=== PATIENT | female | born 1945 | race Hispanic/Latino ===

== ENCOUNTER 2017-09-30 13:25 | Observation (INO) | payer OTHER ==
[~2017-09-30] VITALS: Ht 157.5 cm; Wt 66.9 kg
[~2017-09-30 13:25] MED LIST: AMOXICILLIN250 MG PO; ATORVASTATIN CA10 MG PO; FERROUS SULFAT325 MG PO; FUROSEMIDE40 MG PO; GLIMEPIRIDE4 MG PO; HUMULIN R100 UNIT/2 SQ; HYDRALAZINE HCL25 MG PO; IRON18 MG; LANTUS 3ML100 UNITS/ SQ; LEVEMIR100 UNIT/1 SQ; LEVOTHYROXINE50 MCG PO; LISINOPRIL5 MG PO; LOPRESSOR25 MG PO; SODIUM BICARBO650 MG PO; ULTRAM50 MG PO; VITAMIN D1000 UNI1 PO; VITAMIN D35000 UNIT PO; WARFARIN SODIUM1 MG PO; WARFARIN SODIUM3 MG PO; Z.0.COUMADIN5 MG PO; Z.0.FENOFIBRATE160 M PO; Z.0.GLUCOPHAGE500 MG PO; Z.0.HUMULIN N100 UNI SC; Z.0.LISINOPRIL5 MG PO; Z.0.NORVASC2.5 MG PO; Z.0.SIMVASTATIN20 MG PO; [UNRECOGNIZED DRUG - OTHER] PO
--- OUTSIDE RECORDS SUMMARY | 2017-09-30 13:27 | XMS REPORT ---
Author Author [facility] Address Unknown Phone Unavailable Care Team Providers Care Nail Galvanizer Name Role Phone ANDRÉS WINTER Unavailable Unavailable Problems This patient has no known problems. Allergies, Adverse Reactions, Alerts This patient has no known allergies or adverse reactions. Medications This patient has no known medications. Results Test Description Test Time Test Comments Text Results Atomic Results Result Comments US RENAL RETROPERITONEAL COMP [place] [address] Patient Name: UNIQUE ABRAMS MR #: [id number] : 1945 Age/Sex: 72/F Req #: [id number] Adm Physician: ANDRÉS WINTER MD Ordered by: SALMA FELTON, TETE FELTON Report #: [id number] Location: [facility]/SURG2 Room/Bed: [facility] Procedure: [id number] US/US RENAL RETROPERITONEAL COMP Exam Date: Exam Time: REPORT STATUS: Signed PROCEDURE: US RETROPERITONEAL ( KIDNEY ). COMPARISON: CT of the abdomen from 08/30/2017 INDICATIONS: LEFT KIDNEY PAIN TECHNIQUE: Hester- scale and color sonographic images of the bilateral kidneys and bladder where obtained in transverse and longitudinal planes. FINDINGS: RIGHT KIDNEY: 8.3 cm, cortex 1.5 cm Cysts: None Solid masses: None Stones: Multiple renal hilar calcifications likely correspond to vascular calcifications as seen on prior abdominal CT. Hydronephrosis: None Echogenicity: Increased LEFT KIDNEY: 7.3 cm, cortex 1.1 cm Cysts: 3.0 x 2.3 x 2.8 cm simple appearing cyst in the upper pole of the left kidney. Solid masses: None Stones: Multiple renal hilar calcifications likely correspond to vascular calcifications. Hydronephrosis: None Echogenicity: Increased Bladder: Collapsed due to Durbin catheter. CONCLUSION: 1. Increased renal parenchymal echogenicity, consistent with renal parenchymal dysfunction. 2. 3.0 cm simple appearing cyst in the left kidney. 3. Calcifications in both renal daphne likely correspond to vascular calcifications which were seen on recent CT of the abdomen. No hydronephrosis. Dictated by: Debbie Sanchez M.D. on 09/04/2017 at 16:10 Electronically approved by: Debbie Sanchez M.D. on 09/04/2017 at 16:10 Dictated By: DEBBIE SANCHEZ MD 161 Transcribed By: MANISH on 09/04/17 1610 COPY TO: TETE MARSH TUNNELLED CVC INSERT W/O PORT [place] [address] Patient Name: UNIQUE ABRAMS MR #: [id number] : 1945 Age/Sex: 72/F Req #: [id number] Adm Physician: ANDRÉS WINTER MD Ordered by: TETE MARSH MD, MD Report #: [id number] Location: MED/SURG2 Room/Bed: [facility] Procedure: [id number] IR/TUNNELLED CVC INSERT W/O PORT Exam Date: Exam Time: REPORT STATUS: Signed Tunneled Dialysis Catheter Placement 09/03/2017 Pre-Procedure Diagnosis: End-Stage Renal Disease Post-procedure Diagnosis:End-Stage Renal Disease Dietary Clerk: Lynda Cervantes Geothermal Plant Manager: None Sedation: Moderate sedation was provided with intravenous fentanyl and Versed. Heart rate, rhythm and oxygen saturation were monitored and real-time by a dedicated interventional radiology nurse under my direct supervision. Blood pressure was monitored in 5 minute increments. 1% lidocaine was used for local anesthesia. Total sedation time: 30 min Radiation Dose: 6.7 mGy ( cumulative air kerma) Fluoroscopy time: 0.3 minutes Estimate blood loss: <10 mL Blood administered: None Complications: None Implants/Grafts: 16 Venezuelan 19 cm cuffed tunneled dialysis catheter Specimen: None Procedure: Informed consent was obtained and the patient positioned supine in the procedure suite. A timeout was performed, followed by preliminary ultrasound of the right internal jugular vein (see findings below). The right neck and chest were prepped and draped in standard fashion. Using real- time ultrasound guidance a 21 gauge vascular needle was used to access the right internal jugular vein. An image was stored in the electronic medical record. A wire was advanced across the right atrium under fluoroscopy and the needle exchanged for a peel-away sheath. A skin incision was made inferior to the clavicle and the catheter tunneled to the access site. The catheter was then deployed through the peel-away sheath and positioned with the tip at the atriocaval junction/right atrium. At the end of the procedure the catheter was flushed, packed with heparin solution, secured to the skin and a sterile dressing applied. The patient tolerated the procedure well and without immediate complication. Findings: Patent right internal jugular vein as demonstrated by normal ultrasound compressibility. Impression: Successful placement of a tunneled right internal jugular vein dialysis catheter using ultrasound and fluoroscopic guidance under moderate sedation. This report was generated with voice-recognition technology. Errors in health care marketing specialist can occur. Please interpret accordingly and contact a radiologist if there are any questions regarding the report. Signed by: Dr. Juli Cervantes M.D. on 09/03/2017 9:38 AM Dictated By: JULI CERVANTES MD 7 Transcribed By: LAN on 09/03/17937 COPY TO: TETE MARSH FLUORO GUIDANCE [address]/REM [address] [place], [place] [address] Patient Name: UNIQUE ABRAMS MR #: [id number] : 1945 Age/Sex: 72/F Re #: [id number] [facility] Physician: ANDRÉS WINTER MD Ordered by: TETE MARSH MD, MD Report #: [id number] Location: [facility] Room/Bed: [facility] Procedure: [id number] DX/FLUORO GUIDANCE SJ [address]/ REM Exam Date: 09/03/17 Exam Time: 0800 REPORT STATUS: Signed Tunneled Dialysis Catheter Placement 09/03/2017 Pre -Procedure Diagnosis: End-Stage Renal Disease Post-procedure Diagnosis:End- Stage Renal Disease Dietary Clerk: Lynda Cervantes Geothermal Plant Manager: None Sedation: Moderate sedation was provided with intravenous fentanyl and Versed. Heart rate, rhythm and oxygen saturation were monitored and real-time by a dedicated interventional radiology nurse under my direct supervision. Blood pressure was monitored in 5 minute increments. 1% lidocaine was used for local anesthesia. Total sedation time: 30 min Radiation Dose: 6.7 mGy ( cumulative air kerma) Fluoroscopy time: 0.3 minutes Estimate blood loss: <10 mL Blood administered: None Complications: None Implants/Grafts: 16 Venezuelan 19 cm cuffed tunneled dialysis catheter Specimen: None Procedure: Informed consent was obtained and the patient positioned supine in the procedure suite. A timeout was performed, followed by preliminary ultrasound of the right internal jugular vein (see findings below). The right neck and chest were prepped and draped in standard fashion. Using real- time ultrasound guidance a 21 gauge vascular needle was used to access the right internal jugular vein. An image was stored in the electronic medical record. A wire was advanced across the right atrium under fluoroscopy and the needle exchanged for a peel-away sheath. A skin incision was made inferior to the clavicle and the catheter tunneled to the access site. The catheter was then deployed through the peel-away sheath and positioned with the tip at the atriocaval junction/right atrium. At the end of the procedure the catheter was flushed, packed with heparin solution, secured to the skin and a sterile dressing applied. The patient tolerated the procedure well and without immediate complication. Findings: Patent right internal jugular vein as demonstrated by normal ultrasound compressibility. Impression: Successful placement of a tunneled right internal jugular vein dialysis catheter using ultrasound and fluoroscopic guidance under moderate sedation. This report was generated with voice-recognition technology. Errors in health care marketing specialist can occur. Please interpret accordingly and contact a radiologist if there are any questions regarding the report. Signed by: Dr. Juli Cervantes M.D. on 09/03/2017 9:38 AM Dictated By: JULI CERVANTES MD 7 Transcribed By: LAN on 09/03/17937 COPY TO: TETE MARSH GUIDANCE FOR VASCULAR ACCES [place] [address] Patient Name: UNIQUE ABRAMS MR #: [id number] : 1945 Age/Sex: 72/F Req #: [id number] [facility] Physician: ANDRÉS WINTER MD Ordered by: TETE MARSH MD, MD Report #: [id number] Location: MED/SURG Room/Bed: [facility] Procedure: [id number] US/US GUIDANCE FOR VASCULAR ACCES Exam Date: Exam Time: REPORT STATUS: Signed Tunneled Dialysis Catheter Placement 09/03/2017 Pre-Procedure Diagnosis: End-Stage Renal Disease Post-procedure Diagnosis:End-Stage Renal Disease Dietary Clerk: Lynda Cervantes Geothermal Plant Manager: None Sedation: Moderate sedation was provided with intravenous fentanyl and Versed. Heart rate, rhythm and oxygen saturation were monitored and real-time by a dedicated interventional radiology nurse under my direct supervision. Blood pressure was monitored in 5 minute increments. 1% lidocaine was used for local anesthesia. Total sedation time: 30 min Radiation Dose: 6.7 mGy ( cumulative air kerma) Fluoroscopy time: 0.3 minutes Estimate blood loss: <10 mL Blood administered: None Complications: None Implants/Grafts: 16 Venezuelan 19 cm cuffed tunneled dialysis catheter Specimen: None Procedure: Informed consent was obtained and the patient positioned supine in the procedure suite. A timeout was performed, followed by preliminary ultrasound of the right internal jugular vein (see findings below). The right neck and chest were prepped and draped in standard fashion. Using real- time ultrasound guidance a 21 gauge vascular needle was used to access the right internal jugular vein. An image was stored in the electronic medical record. A wire was advanced across the right atrium under fluoroscopy and the needle exchanged for a peel-away sheath. A skin incision was made inferior to the clavicle and the catheter tunneled to the access site. The catheter was then deployed through the peel-away sheath and positioned with the tip at the atriocaval junction/right atrium. At the end of the procedure the catheter was flushed, packed with heparin solution, secured to the skin and a sterile dressing applied. The patient tolerated the procedure well and without immediate complication. Findings: Patent right internal jugular vein as demonstrated by normal ultrasound compressibility. Impression: Successful placement of a tunneled right internal jugular vein dialysis catheter using ultrasound and fluoroscopic guidance under moderate sedation. This report was generated with voice-recognition technology. Errors in health care marketing specialist can occur. Please interpret accordingly and contact a radiologist if there are any questions regarding the report. Signed by: Dr. Juli Cervantes M.D. on 09/03/2017 9:38 AM Dictated By: JULI CERVANTES MD 7 Transcribed By: LAN on 09/03/17937 COPY TO: TETE MARSH IR CONSULT [place] [address] Patient Name: UNIQUE ABRAMS MR #: [id number] : 1945 Age/Sex: 72/F [facility] #: [id number] [facility] #: [id number] [facility] Physician: ANDRÉS WINTER MD Ordered by: TETE MARSH MD, MD Report #: [id number] Location: [place] [address] Room/Bed: [facility] Procedure: [id number] DX/IR CONSULT Exam Date: Exam Time: REPORT STATUS: Signed Tunneled Dialysis Catheter Placement 09/03/2017 Pre-Procedure Diagnosis: End-Stage Renal Disease Post-procedure Diagnosis:End-Stage Renal Disease Dietary Clerk: Lynda Cervantes Geothermal Plant Manager: None Sedation: Moderate sedation was provided with intravenous fentanyl and Versed. Heart rate, rhythm and oxygen saturation were monitored and real-time by a dedicated interventional radiology nurse under my direct supervision. Blood pressure was monitored in 5 minute increments. 1% lidocaine was used for local anesthesia. Total sedation time: 30 min Radiation Dose: 6.7 mGy (cumulative air kerma) Fluoroscopy time: 0.3 minutes Estimate blood loss: <10 mL Blood administered: None Complications: None Implants/Grafts: 16 Venezuelan 19 cm cuffed tunneled dialysis catheter Specimen: None Procedure: Informed consent was obtained and the patient positioned supine in the procedure suite. A timeout was performed, followed by preliminary ultrasound of the right internal jugular vein (see findings below). The right neck and chest were prepped and draped in standard fashion. Using real-time ultrasound guidance a 21 gauge vascular needle was used to access the right internal jugular vein. An image was stored in the electronic medical record. A wire was advanced across the right atrium under fluoroscopy and the needle exchanged for a peel-away sheath. A skin incision was made inferior to the clavicle and the catheter tunneled to the access site. The catheter was then deployed through the peel- away sheath and positioned with the tip at the atriocaval junction/right atrium. At the end of the procedure the catheter was flushed, packed with heparin solution, secured to the skin and a sterile dressing applied. The patient tolerated the procedure well and without immediate complication. Findings: Patent right internal jugular vein as demonstrated by normal ultrasound compressibility. Impression: Successful placement of a tunneled right internal jugular vein dialysis catheter using ultrasound and fluoroscopic guidance under moderate sedation. This report was generated with voice-recognition technology. Errors in health care marketing specialist can occur. Please interpret accordingly and contact a radiologist if there are any questions regarding the report. Signed by: Dr. Juli Cervantes M.D. on 09/03/2017 9:38 AM Dictated By: JULI CERVANTES MD 7 Transcribed By: LAN on 937 COPY TO: TETE MARSH CT ABDOMEN/PELVIS WO [place] [address] Patient Name: UNIQUE ABRAMS MR #: [id number] : 1945 Age/Sex: 72/F Req #: [id number] Adm Physician: ANDRÉS WINTER MD Ordered by: ANDRÉS WINTER MD Report #: [id number] Location: [facility]URG Room/Bed: [facility] Procedure: [id number] CT/CT ABDOMEN/PELVIS WO Exam Date: Exam Time: 2018 REPORT STATUS: Signed EXAM: CT ABDOMEN/PELVIS WO DATE: 08/30/2017 5:50 PM INDICATION: Pain, distention COMPARISON: 06/22/2016 TECHNIQUE: The abdomen and pelvis were scanned using a multidetector helical scanner. Coronal and sagittal reformations were obtained. Routine protocol performed. IV Contrast: 0 ml Isovue 300/370 FINDINGS: LOWER THORAX: Moderate right and small left pleural effusions. Cardiomegaly post sternotomy with atherosclerotic calcification. LIVER/BILIARY: Unremarkable noncontrast appearance GALLBLADDER: Cholecystectomy SPLEEN: Unremarkable PANCREAS: Unremarkable ADRENALS: No nodules KIDNEYS: Mild increase in size of left superior parapelvic cystic lesion (3.0 cm, prior 2.7 cm), thought to assess without IV contrast. No hydronephrosis. GI TRACT: No evidence of obstruction. Normal appendix. VESSELS: Diffuse atherosclerotic calcification. PERITONEUM/ RETROPERITONEUM: Small volume ascites in the abdomen and pelvis. LYMPH NODES: No lymphadenopathy REPRODUCTIVE ORGANS/BLADDER: Unremarkable SOFT TISSUES: Anasarca BONES: Multilevel degenerative changes with unchanged superior endplate compression at T12 and increased at L3. IMPRESSION: 1. Moderate right and small left pleural effusions, small volume ascites and diffuse anasarca indicative of fluid overload. 2. No acute abnormality on noncontrast evaluation. Signed by: Dr Myra Barba MD on 08/30/2017 8:54 PM Dictated By: MYRA BARBA MD 53 Transcribed By: LAN on 08/30/172053 COPY TO: ANDRÉS WINTER MD CT LEFT LOWER EXTREMITY WO [place] [address] Patient Name: UNIQUE ABRAMS MR #: [id number] : 1945 Age/Sex: 72/F Req #: [id number] Adm Physician: ANDRÉS WINTER MD Ordered by: ANDRÉS WINTER MD Report #: [id number] Location: MED/SURG2 Room/Bed: [facility] __ Procedure: [id number] CT/CT LEFT LOWER EXTREMITY WO Exam Date: 08/28/17 Exam Time: 1550 REPORT STATUS: Signed TECHNIQUE: Computed tomography imaging of the left lower extremity was performed with injected contrast. 100 cc of Isovue. HISTORY: Infection, evaluate for abscess COMPARISON: None available. FINDINGS: Circumferential soft tissue edema and skin thickening of the calf. No discrete abscess. No soft tissue gas. No abnormal fascial enhancement. No osteomyelitis of the tibia or fibula. High-grade narrowing of the popliteal vessels and three-vessel runoff. IMPRESSION: Cellulitis/ edema of the left calf. No abscess or osteomyelitis. Signed by: Dr. Eris Faulkner M.D. on 08/28/2017 4:20 PM Dictated By: ERIS FAULKNER MD 1627 Transcribed By: LAN on 08/28/17 1620 COPY TO: ANDRÉS WINTER MD
--- OUTSIDE RECORDS SUMMARY | 2017-09-30 13:27 | XMS REPORT | Continuity of Care Document ---
Author Author [facility] Organization [facility] Address [address] [place] [place] [address] Phone Unavailable Care Team Providers Care Asbestos Shingle Inspector Name Role Phone JENNIFER STEELE MD PCP Insurance Providers Guarantor AbramsUnique queen Karissa Address [address] [place] [address] Email PTDECLINED Payer [facility] Policy Number [id number] Subscriber's Name Unique Abrams Relationship 18 Self / Same As Patient Group Number [id number] Group Name [employer] - Medicare Advantage Divis Effective Date 17 Advance Directives Directive Response Recorded Date/Time Does the patient have an advance directive? No 08/25/17 5:12pm If yes, is advance directive on file with [facility]? No 08/25/17 5:12pm If not on file with [facility] will patient provide a copy? No 08/25/17 5:12pm Do you have a Directive to Physician? No 08/25/17 11:31am Do you have a Medical Power of Machine Long Goods Helper? No 08/25/17 11:31am Do you have an out of hospital Do Not Resuscitate Order? No 08/25/17 11:31am Do you have any special needs we should be aware of? No 08/25/17 11:31am Do you have a support person here with you today? Yes 08/25/17 11:31am Did patient receive Notice of Privacy Practices? Yes 08/25/17 11:31am Did patient receive patient rights and responsibilities? Yes 08/25/17 11:31am Problems Medical Problem Onset Date Status Cellulitis Unknown Dehydration, moderate Unknown Medications Current Home Medications Medication Dose Units Route Directions Days Qty Instructions Start Date Atorvastatin Calcium 10 Mg Tablet 10 Mg Oral Today At 9:00PM 30 Tab Cholecalciferol (Vitamin D3) (Vitamin D3) 5,000 Unit Capsule 5,000 Unit Oral Daily Furosemide 40 Mg Tablet 40 Mg Oral Daily 30 Tab Hydralazine Hcl 25 Mg Tab 50 Mg Oral Three Times A Day Insulin Detemir (Levemir) 100 Unit/1 Ml Vial 8 Units Sub-Q Bedtime Insulin Regular, Human (Humulin R) 100 Unit/1 Ml Vial 10 Units Sub-Q Three Times A Day Iron 18 Mg Tablet 65 Levothyroxine Sodium 50 Mcg Tablet 50 Mcg Oral Daily Metoprolol Tartrate (Lopressor) 25 Mg Tab 50 Mg Oral Twice A Day Sodium Bicarbonate 650 Mg Tablet 650 Mg Oral Twice A Day 30 Tab Tramadol Hcl (Ultram) 50 Mg Tablet 50 Mg Oral Twice A Day Warfarin Sodium 1 Mg Tablet 1 Mg Oral Daily 30 Tab Warfarin Sodium 3 Mg Tablet 3 Mg Oral Daily 30 Tab Past Home Medications Medication Directions Ordered Status Amlodipine Besylate (Norvasc) 2.5 Mg Tablet, 5 Mg Oral Daily Discontinued Amoxicillin 250 Mg Capsule, 250 Mg Oral Three Times A Day Discontinued Cholecalciferol (Vitamin D3) (Vitamin D) 1,000 Unit Tablet, 5000 Unit Oral Daily Discontinued Fenofibrate 160 Mg Tablet, 145 Mg Oral Daily Discontinued Ferrous Sulfate 325 Mg Tablet, 325 Mg Oral Daily Discontinued Glimepiride 4 Mg Tablet, 4 Mg Oral Twice A Day Discontinued Hydrocodone Bit/Acetaminophen (Anexsia 7.5-650 Tablet) 1 Each Tablet, 7.5-750 Mg Oral As Needed Discontinued Insulin Glargine (Lantus 3ML Pen) 100 Units/1 Ml Inj, 15 Units Sub-Q Qhs Discontinued Lisinopril 5 Mg Tablet, 5 Mg Oral Daily Discontinued Lisinopril 5 Mg Tablet, 5 Mg Oral Q 12HRS Discontinued Metformin Hcl (Glucophage) 500 Mg Tablet, 1000 Mg Oral Twice A Day Discontinued Nph, Human Insulin Isophane (Humulin N) 100 Unit/1 Ml Vial, Units Subcutaneously Discontinued Simvastatin 20 Mg Tablet, 20 Mg Oral Qhs Discontinued Tramadol Hcl (Ultram) 50 Mg Tablet, 50 Mg Oral Every 4 Hours as needed for Pain Discontinued Warfarin Sodium (Coumadin) 5 Mg Tablet, 4 Mg Oral Daily Discontinued Social History Social History Problem Response Recorded Date/Time Onset Date Status Hx Psychiatric Problems No 08/25/2017 5:12pm Not Applicable Not Applicable Hx Eating Disorder No 08/25/2017 5:12pm Not Applicable Not Applicable Hx Substance Use Disorder No 08/25/2017 5:12pm Not Applicable Not Applicable Hx Depression No 08/25/2017 5:12pm Not Applicable Not Applicable Hx Alcohol Use No 08/25/2017 5:12pm Not Applicable Not Applicable Hx Substance Use Treatment No 08/25/2017 5:12pm Not Applicable Not Applicable Hx Physical Abuse No 08/25/2017 5:12pm Not Applicable Not Applicable Smoking Status Start Date Stop Date Never Smoker Hospital Discharge Instructions No hospital discharge instruction information available. Plan of Care Discharge Date 09/09/17 3:39pm Disposition HOME, SELF-CARE Instructions/Education Provided Rash - Nonspecific Prescriptions See Medication Section Referrals ERIKA BAZAN MD (Surgery) Order Date: 7-10 Days Entered Date: 09/09/2017 2:59pm Address: [address] [place] [id number] Reason(s) for Referral: Cellulitis (Otolaryngology) Entered Date: 09/09/2017 2:59pm Additional Instructions/Education Renal ADA Functional Status Query Response Date Recorded Assistive Devices None August 25, 2017 5:16pm Ambulation Ability Independent August 25, 2017 5:16pm Toileting Ability Standby Assistance September 08, 2017 6:29pm Allergies, Adverse Reactions, Alerts Allergen Type Severity Reaction Status Last Updated Penicillin Allergy Unknown Active 06/21/16 Immunizations No immunization information available. Vital Signs Acute Vital Signs Vital Response Date/Time Temperature (Fahrenheit) 96.2 degrees F (97.6 - 99.5) 09/09/2017 12:00pm Pulse Pulse Rate (adult) 63 bpm (60 - 90) 09/09/2017 12:00pm Respiratory Rate 18 bpm (12 - 24) 09/09/2017 12:00pm Blood Pressure 138/65 mm Hg 09/09/2017 12:00pm Height 5 ft 2 in 08/25/2017 11:37am Weight 153 lb 08/25/2017 11:37am Body Mass Index 28.0 kg/m^2 08/26/2017 9:37pm Results Laboratory Results Test Name Result Units Flags Reference Collection Date/Time Result Date/ Time Comments Urine Color YELLOW YELLOW 11/14/2016 12:00am 11/14/2016 12:23am Urine Clarity CLEAR CLEAR 11/14/2016 12:00am 11/14/2016 12:23am Urine Specific [place] 1.015 1.010-1.025 11/14/2016 12:00am 2016 12:23am Urine pH 6 5 - 7 11/14/2016 12:00am 11/14/2016 12:23am Urine Leukocyte Esterase TRACE H NEGATIVE 11/14/2016 12:00am 2016 12:23am Urine Nitrite NEGATIVE NEGATIVE 11/14/2016 12:00am 11/14/2016 12: 23am Urine Protein 3+ H NEGATIVE 11/14/2016 12:00am 11/14/2016 12:23am Urine Glucose (UA) 1+ H NEGATIVE 11/14/2016 12:00am 11/14/2016 12: 23am Urine Ketones NEGATIVE NEGATIVE 11/14/2016 12:00am 11/14/2016 12: 23am Urine Urobilinogen 0.2 mg/dL 0.2 - 1 11/14/2016 12:00am 11/14/2016 12: 23am Urine Bilirubin NEGATIVE NEGATIVE 11/14/2016 12:00am 11/14/2016 12: 23am Urine Blood 1+ H NEGATIVE 11/14/2016 12:00am 11/14/2016 12:23am Urine WBC 6-10 /HPF H 0-5 11/14/2016 12:00am 11/14/2016 12:33am Urine RBC 6-10 /HPF H 0-5 11/14/2016 12:00am 11/14/2016 12:33am Urine Bacteria FEW /HPF NONE 11/14/2016 12:0011/14/2016 12:33am Urine Epithelial Cells MANY /LPF NONE 11/14/2016 12:0011/14/2016 12: 33am B-Type Natriuretic Peptide 3135.8 pg/mL H 0-100 11/14/2016 12:00am 11/14 12:50am Creatine Kinase 127 IU/L 29-168 11/14/2016 12:0011/14/2016 12:41am Creatine Kinase MB 4.90 ng/mL 0.00-5.00 11/14/2016 12:0011/14/2016 12:46am Troponin I 0.075 ng/mL 0-0.300 11/14/2016 12:0011/14/2016 12:46am White Blood Count 6.94 x10e3/uL 4.8-10.8 09/08/2017 9:0509/08/2017 9 :13am Red Blood Count 3.20 x10e6/uL L 3.6-5.1 09/08/2017 9:0509/08/2017 9: 13am Hemoglobin 10.2 g/dL L 12.0-16.0 09/08/2017 9:0509/08/2017 9:13am Hematocrit 32.0 % L 34.2-44.1 09/08/2017 9:0509/08/2017 9:13am Mean Corpuscular Volume 100.0 fL H 81-99 09/08/2017 9:0509/08/2017 9: 13am Mean Corpuscular Hemoglobin 31.9 pg 28-32 09/08/2017 9:0509/08/2017 9:13am Mean Corpuscular Hemoglobin Concent 31.9 g/dL 31-35 09/08/2017 9:0509/08/2017 9:13am Red Cell Distribution Width 16.7 % H 11.7-14.4 09/08/2017 9:052017 9:13am Platelet Count 86 x10e3/uL L 140-360 09/08/2017 9:0509/08/2017 9: 13am Neutrophils (%) (Auto) 70.9 % 38.7-80.0 09/08/2017 9:0509/08/2017 9: 13am Lymphocytes (%) (Auto) 8.4 % L 18.0-39.1 09/08/2017 9:05am 09/08/2017 9: 13am Monocytes (%) (Auto) 15.6 % H 4.4-11.3 09/08/2017 9:05am 09/08/2017 9: 13am Eosinophils (%) (Auto) 4.3 % 0.0-6.0 09/08/2017 9:05am 09/08/2017 9: 13am Basophils (%) (Auto) 0.4 % 0.0-1.0 09/08/2017 9:05am 09/08/2017 9:13am IM GRANULOCYTES % 0.4 % 0.0-1.0 09/08/2017 9:05am 09/08/2017 9:13am Neutrophils # (Auto) 4.9 2.1-6.9 09/08/2017 9:05am 09/08/2017 9:13am Lymphocytes # (Auto) 0.6 L 1.0-3.2 09/08/2017 9:05am 09/08/2017 9: 13am Monocytes # (Auto) 1.1 H 0.2-0.8 09/08/2017 9:05am 09/08/2017 9:13am Eosinophils # (Auto) 0.3 0.0-0.4 09/08/2017 9:05am 09/08/2017 9:13am Basophils # (Auto) 0.0 0.0-0.1 09/08/2017 9:05am 09/08/2017 9:13am Absolute Immature Granulocyte (auto 0.03 x10e3/uL 0-0.1 09/08/2017 9: 05am 09/08/2017 9:13am Differential Total Cells Counted 100 09/08/2017 9:05am 09/08/2017 12:36pm Neutrophils % (Manual) 74 % 40-74 09/08/2017 9:05am 09/08/2017 12:36pm Band Neutrophils % 1 % 09/08/2017 9:05am 09/08/2017 12:36pm Lymphocytes % (Manual) 7 % L 19-48 09/08/2017 9:05am 09/08/2017 12:36pm Monocytes % (Manual) 14 % H 3.4-9.0 09/08/2017 9:05am 09/08/2017 12: 37pm Eosinophils % (Manual) 4 % 0-7 09/08/2017 9:05am 09/08/2017 12:37pm Reactive Lymphocytes 1 09/02/2017 5:58am 09/02/2017 7:58am Platelet Estimate MODERATELY DECREASED 09/08/2017 9:05am 2017 12:37pm Platelet Morphology Comment FEW LARGE 09/08/2017 9:05am 09/08/2017 12:37pm Hypochromasia SLIGHT 09/08/2017 9:05am 09/08/2017 12:37pm Poikilocytosis SLIGHT 09/05/2017 8:50am 09/05/2017 12:03pm Anisocytosis SLIGHT 09/08/2017 9:05am 09/08/2017 12:37pm Red Cell Morphology Comment NORMAL 09/08/2017 9:05am 09/08/2017 12: 37pm Percent Reticulocyte Count 4.0 % H 0.8-2.2 09/05/2017 6:00am 09/05/2017 11:06am Prothrombin Time 17.4 seconds H 11.9-14.5 09/03/2017 6:34am 09/03/2017 7 :20am Prothromb Time International Ratio 1.54 09/03/2017 6:34am 2017 7:20am Oral Anticoagulant Therapy INR Values: 1. Low Intensity Therapy 1.5 - 2.0 2. Moderate Intensity Therapy 2.0 - 3.0 3. High Intensity Therapy(1) 2.5 - 3.5 4. High Intensity Therapy(2) 3.0 - 4.0 5. Panic Value INR > 5.0 Activated Partial Thromboplast Time 70.0 seconds H 23.8-35.5 08/30/2017 6 :00am 08/30/2017 7:05am Urine Random Total Protein 180.1 mg/dL H 1-14 09/01/2017 9:30am 2017 10:33am Urine Collection Time 24 hrs 09/01/2017 9:30am 09/02/2017 10:33am Urine Total Volume 1800 ml/24hr 800-2000 09/01/2017 9:30am 09/02/2017 10:33am 1800 ML. 1006 on 09/02/17 by Genoveva Brunner Urine Creatinine 26.36 mg/dL L 47-110 09/01/2017 9:3009/02/2017 10: 33am Urine Creatinine 24 Hour 474 mg/24hr L 600-1800 09/01/2017 9:302017 10:33am Creatinine Clearance 7 ml/min L 88-128 09/01/2017 9:3009/02/2017 10: 33am Urine Total Protein 24 Hour 3241.8 mg/24hr H 50-100 09/01/2017 9:30 10:33am Sodium Level 138 mmol/L 136-145 09/08/2017 9:0509/08/2017 9:38am Potassium Level 5.1 mmol/L 3.5-5.1 09/08/2017 9:0509/08/2017 9:38am Chloride Level 101 mmol/L 98-107 09/08/2017 9:0509/08/2017 9:38am Carbon Dioxide Level 27 mmol/L 22-09/08/2017 9:0509/08/2017 9: 38am Anion Gap 15.1 mmol/L 8-16 09/08/2017 9:0509/08/2017 9:38am Blood Urea Nitrogen 43 mg/dL H 7-26 09/08/2017 9:09/08/2017 9:38am Creatinine 2.98 mg/dL H 0.57-1.11 09/08/2017 9:0509/08/2017 9:38am BUN/Creatinine Ratio 14 6-25 09/08/2017 9:09/08/2017 9:38am Estimat Glomerular Filtration Rate 16 ML/MIN L 60- 09/08/2017 9: 9:38am Ranges were taken from the National Kidney Disease Education Program and the National Kid[employer] Foundation literature. Reference ranges: 60 or greater: Normal 16-59 (for 3 consecutive months): Chronic kidney disease 15 or less: Kidney failure Glucose Level 114 mg/dL 74-118 09/08/2017 9:0509/08/2017 9:38am Calcium Level 8.6 mg/dL 8.4-10.2 09/08/2017 9:0509/08/2017 9:38am Bedside Glucose 279 mg/dL H 70-120 09/09/2017 11:17am 09/09/2017 12: 30pm Meter ID: [id number] Iron Level 35 ug/dL L 50-170 09/07/2017 8:55am 09/07/2017 9:31am Total Iron Binding Capacity 262 ug/dL 261-478 09/07/2017 8:55am 2017 9:31am Percent Iron Saturation 13 % L 15-50 09/07/2017 8:55am 09/07/2017 9: 31am Transferrin 187 mg/dL 180-382 09/07/2017 8:55am 09/07/2017 9:31am Ferritin 425.64 ng/mL H 4.63-204.00 09/07/2017 8:55am 09/07/2017 9:48am Total Bilirubin 0.7 mg/dL 0.2-1.2 09/08/2017 9:0509/08/2017 9:38am Aspartate Amino Transf (AST/SGOT) 43 IU/L H 5-34 09/08/2017 9:0509/08 9:38am Alanine Aminotransferase (ALT/SGPT) 22 IU/L 0-55 09/08/2017 9:05 9:38am Total Protein 5.7 g/dL L 6.5-8.1 09/08/2017 9:0509/08/2017 9:38am Albumin 2.1 g/dL L 3.5-5.0 09/08/2017 9:0509/08/2017 9:38am Globulin 3.6 g/dL H 2.3-3.5 09/08/2017 9:0509/08/2017 9:38am Albumin/Globulin Ratio 0.6 L 0.8-2.0 09/08/2017 9:0509/08/2017 9: 38am Alkaline Phosphatase 188 IU/L H 40-150 09/08/2017 9:0509/08/2017 9: 38am Vitamin B12 Level 625 pg/mL 213-816 09/05/2017 12:51pm 09/05/2017 1: 57pm Folate 11.8 ng/mL 7.0-15.4 09/05/2017 12:51pm 09/05/2017 1:57pm Random Vancomycin Level 25.4 ug/mL 08/30/2017 6:00am 08/30/2017 7: 12am Vancomycin Level Trough 26.4 ug/mL *H 5.0-10.0 08/29/2017 6:08am 2017 7:02am Results called to GRAYSON ANANDRN at 0701 on 08/29/17 by Janette Prieto. RB OK. Hepatitis B Surface Antibody, Quant <3.1 mIU/mL L Immunity>9.9 2017 6:34am 09/04/2017 7:58am Status of Immunity Anti- HBs Level Inconsistent with Immunity 0.0 - 9.9 Consistent with Immunity >9.9 Hepatitis B Core Total Antibody Negative Negative 09/03/2017 6:34am 09/04/2017 7:58am Performed at: - [facility] [id number] Suction Roller: Bib Sears MD, Phone: [phone] Hepatitis B Surface Antigen Negative Negative 09/03/2017 6:34am 09/04 7:58am Microbiology Results Procedure Source Organism/Result Collection Date/Time Result Date/Time Result Status Blood Culture Blood NO GROWTH AFTER 5 DAYS, FINAL REPORT 08/25/2017 12: 00pm 08/30/2017 12:27pm Final Procedures Procedure Status Date Provider(s) Creation of arteriovenous fistula Completed 09/08/[address] extremity lower wo contrast Active 08/28/[address] of abdomen and pelvis without contrast Active 08/30/17 ANDRÉS WINTER MD Ultrasound guidance for vascular access Active 09/03/17 TETE MARSH Ultrasound, renal Active 09/04/17 TETE MARSH Encounters Encounter Location Arrival/Admit Date Discharge/Depart Date Attending Provider Discharged Inpatient [facility] 08/26/17 11:11am 3:39pm ANDRÉS WINTER MD Departed Emergency Room [facility] 11/13/16 11:25pm 11/14 3:30am MANA ARCE MD
[2017-09-30] MEDS ORDERED: PHYTONADIONE 10 MG/ML AMP SQ NR (14:00)
[2017-09-30 14:13] LABS: BASOPHILS % 0.4 % (0.0-1.0); EOSINOPHILS # (AUTO) 0.4 (0.0-0.4); HEMATOCRIT 24.6 % (34.2-44.1); LYMPHOCYTES # (AUTO) 0.6 (1.0-3.2); LYMPHOCYTES % 6.3 % (18.0-39.1); MEAN CORPUSCULAR HEMOGLOBIN 32.8 pg (28-32); MEAN CORPUSCULAR HGB CONC 32.5 g/dL (31-35); MEAN CORPUSCULAR VOLUME 100.8 fL (81-99); MONOCYTES # (AUTO) 0.7 (0.2-0.8); MONOCYTES % 7.7 % (4.4-11.3); NEUTROPHILS # (AUTO) 7.3 (2.1-6.9); PLATELET COUNT 206 x10e3/uL (140-360); RED BLOOD COUNT 2.44 x10e6/uL (3.6-5.1); RED CELL DISTRIBUTION WIDTH 16.8 % (11.7-14.4)
[2017-09-30 14:20] LABS: PARTIAL THROMBOPLASTIN TIME 62.6 seconds (23.8-35.5)
[2017-09-30 14:24] LABS: INR 6.2; PROTHROMBIN TIME 51.6 seconds (11.9-14.5)
[2017-09-30] MEDS ORDERED: ASPIRIN 81 MG CHEW TAB PO ONE (14:30)
--- NOTE | 2017-09-30 14:30 | Diagnostic Imaging Report ---
PROCEDURE: A single AP view of the chest. COMPARISON: [facility], DX, CHEST SINGLE (PORTABLE), 11/14/2016, 0:30. INDICATIONS: SHORTNESS OF BREATH FINDINGS: Lines/tubes: Right IJ tunneled dialysis catheter with distal tip projecting in the right atrium Lungs: The lungs are well inflated. Mild bilateral interstitial opacities extending from the daphne. No consolidation. Pleura: There is no pleural effusion or pneumothorax. Heart and mediastinum: Enlarged cardiac silhouette. Moderate central pulmonary venous congestion. Bones: No acute bony abnormality. IMPRESSION: 1. enlarged cardiac silhouette with moderate central pulmonary venous congestion and bilateral perihilar interstitial edema. Findings consistent with fluid overload Guanakito Leyva M.D. Dictated by: Guanakito Leyva M.D. on 09/30/2017 at 14:33 Electronically approved by: Guanakito Leyva M.D. on 09/30/2017 at 14:33
[2017-09-30 14:31] LABS: ALBUMIN 2.7 g/dL (3.5-5.0); ALBUMIN/GLOBULIN RATIO 0.7 (0.8-2.0); ANION GAP 16.4 mmol/L (8-16); CALCIUM 8.6 mg/dL (8.4-10.2); CREATININE, SERUM 4.74 mg/dL (0.57-1.11); POTASSIUM 4.4 mmol/L (3.5-5.1)
[2017-09-30 14:48] LABS: CREATINE KINASE MB 2.4 ng/mL (0-5.0)
[2017-09-30] MEDS ORDERED: SODIUM CHLORIDE FLUSH 10 ML SYR INJ PRN (15:00)
[2017-09-30] MEDS ORDERED: DEXTROSE 50% SYRINGE 50 ML IV PRN (15:45)
[2017-09-30] MEDS: INSULIN REGULAR, HUMAN 100 UNIT/1 ML 3ML VIAL SQ SCH ×2 (16:30→21:00)
[2017-09-30 16:45] VITALS: BP 134/58
--- NOTE | 2017-09-30 17:36 | Consultation ---
DATE OF CONSULTATION: September 30, 2017 HISTORY OF PRESENT ILLNESS: The patient is seen in the emergency room. Ms. Barron is known to our nephrology service. She is a 72-year-old female apparently started on Coumadin for possible later fibrillation by Dr. Cifuentes. It is unclear who was monitoring the INR. She presented with easy bruisability and bruises on her arms and upper extremity with an INR of 5. . She is scheduled for dialysis today. She is seen by the emergency room physician and he has ordered 2 jumbo FFP's. Currently awake, alert, supine and in no apparent distress. Family member by bedside. White count is found to be 8.9, hemoglobin 8, platelets 206,000. Potassium 4.4. Creatinine 4.74. BNP ____. Chest x-ray, please see official report, shows enlarged cardiac silhouette with moderate central pulmonary vascular congestion and bilateral perihilar interstitial edema. CURRENT MEDICATIONS: Have not been reconciled yet. SOCIAL HISTORY: Does not smoke or drink. FAMILY HISTORY: Significant for hypertension. PAST MEDICAL HISTORY: Significant for hypertension. End-stage renal disease. Type 2 diabetes. Diabetic neuropathy, retinopathy, nephropathy secondary hyperparathyroidism, history of congestive heart failure and coronary artery disease. PHYSICAL EXAMINATION: GENERAL: Awake, alert and lying supine. No apparent distress. VITALS: Blood pressure 136/59, pulse rate 53, afebrile, oxygen saturation 98% on room air. HEAD AND NECK: Cornea clear. Oral mucosa dry. LUNGS: Bibasilar rales. HEART: S1 and S2 audible. ABDOMEN: Soft and nontender. EXTREMITIES: Lower extremities show no edema. IMPRESSION AND PLAN: Fluid overload. End-stage renal disease. Severe coagulopathy. Coumadin toxicity. Coumadin on hold. She is in sinus rhythm. Not sure if she needs further Coumadin, but will defer to cardiology. Will consult Dr. Vincent. Dialysis nurse paged. Further recommendations to follow. Discussed with RN. Job#: [id number]
[2017-09-30 18:19] VITALS: BP 134/58
[2017-09-30 20:00] VITALS: BP 138/57
[2017-09-30 21:00] VITALS: BP 138/57
[2017-09-30 22:45] VITALS: BP 138/57
[2017-09-30 23:45] LABS: CREATINE KINASE MB 1.9 ng/mL (0-5.0)
[2017-10-01] VITALS: BP 111/69
[2017-10-01 04:00] VITALS: BP 122/50
[2017-10-01] MEDS: INSULIN REGULAR, HUMAN 100 UNIT/1 ML 3ML VIAL SQ SCH (07:30)
[2017-10-01 07:31] VITALS: BP 121/56
[2017-10-01 08:26] LABS: INR 1.99; PROTHROMBIN TIME 21.2 seconds (11.9-14.5)
[2017-10-01 09:24] VITALS: BP 121/56
--- NOTE | 2017-10-01 09:29 | Consultation ---
DATE OF CONSULTATION: September 30, 2017 CARDIOLOGY CONSULTATION REASON FOR CONSULTATION: Coumadin toxicity. CONSULTING PHYSICIAN: Dr. Garcia HPI: This is a pleasant 72-year-old female with multiple medical problems that presented with Coumadin toxicity. According to the patient, on Friday she did an INR check with her PCP, Dr. Meyers, and received a call on Friday that her blood was too high and was asked to go to the emergency room for further evaluation. She has a history of aortic valve replacement, and has been on Coumadin, which has been monitored by her PCP. She had multiple bruises all over her body. She also has been having hematoma in the past. She has end-stage renal disease, on dialysis. She was given FFP and vitamin K yesterday. She denied any chest pain, any palpitations, any dizziness, any diaphoresis, or any headache. Troponin was negative. EKG showed normal sinus rhythm with no S/T abnormalities. BNP 2886. Chest x-ray showed central pulmonary venous congestion and bilateral interstitial edema consistent with fluid overload. PAST MEDICAL HISTORY: CAD, hypertension, hyperlipidemia, anemia of chronic disease, diabetes, diabetic nephropathy, aortic stenosis, hypothyroidism, cellulitis, retinopathy, CHF, insomnia. PAST SURGICAL HISTORY: Aortic valve replacement, hernia repair, cholecystectomy, and dialysis graft. FAMILY HISTORY: Positive for hypertension and diabetes. SOCIAL HISTORY: No smoking. No drinking. ALLERGIES: HE IS ALLERGIC TO PENICILLIN. REVIEW OF SYSTEMS: Negative except those mentioned above. She is positive for fluid overload and Coumadin toxicity. PHYSICAL EXAMINATION VITAL SIGNS: Temperature 98, heart rate 73, blood pressure 122/50, respirations 20, oxygen saturation 96% on 2 L nasal cannula. GENERAL: She is awake, alert and oriented times 3. HEENT: Mucous membrane moist. NECK: Supple. LUNGS: Bilateral with decreased breath sounds. CARDIOVASCULAR: S1 and S2 present. ABDOMEN: Soft. NEUROLOGICAL: Intact. EXTREMITIES: With no edema. LABS: Sodium 138, potassium 4.4, chloride 101, CO2 25, BUN 62, creatinine 4.74, glucose 206. White blood cells 8.95, hemoglobin 8, hematocrit 24.6, and platelets 206,000. PTT 51.6, PTT 62.6 and INR 6.2. IMPRESSION 1. Coumadin toxicity. 2. Coronary artery disease with aortic valve replacement. 3. End-stage renal disease, on dialysis. 4. Anemia of chronic disease. 5. Diabetes. 6. Hypertension. 7. Hypothyroidism. ASSESSMENT AND PLAN 1. She was given vitamin K and plasma yesterday. 2. Will go ahead and recheck the PT and INR. 3. Will get an echocardiogram to reassess the LV and valve function. 4. She received dialyses. 5. Will go ahead and put Coumadin on hold. 6. Will continue her other home medications. 7. Will watch her for signs of bleeding and recheck her INR daily. No complaint of chest pain. Further cardiac workup pending clinical course. Thank you for this consultation. DICTATED BY BEREKET SOTELO NP Job#: [id number] NICO
[2017-10-01 11:18] VITALS: BP 143/69
--- NOTE | 2017-10-01 11:20 | Discharge Summary ---
Patient in observation. CONSULTANTS: 1. Dr. Radha Encarnacion 2. Dr. Philipp Vincent FINAL DIAGNOSES: 1. Volume overload, required dialysis, for which the patient did receive dialysis. 2. Elevation of coagulation treatment, INR of 6.2, patient was on Coumadin 4 mg daily, now is 1.99 after FFP. SUMMARY: Patient is 72-year-old female, came in with INR of 6.2. The patient on Coumadin 4 mg daily. She is also on dialysis. The patient is stable now. She is comfortable. She has no further volume overload. INR is 1.99. Patient on anticoagulant therapy for mechanical valve replacement. The patient is stable and discharged home. Instructions for the patient to restart Coumadin at 2 mg daily. She will need INR check in approximately 2-3 days. The patient will follow up with Dr. Nadeem Meyers for Coumadin treatment. Job#: [id number]
== END 2017-10-01 11:43 | disposition home or self-care (01) ==
LOC: ER 13:25 → ERHOLD 15:45 → IMCU 16:43
PROVIDERS: ADMIT Internal Medicine; ATTEND Internal Medicine
DX: E87.70 Fluid overload, unspecified (principal); I50.9 Heart failure, unspecified; D64.9 Anemia, unspecified; E11.22 Type 2 diabetes mellitus with diabetic chronic kidney disease; I13.2 Hypertensive heart and chronic kidney disease with heart failure and with stage 5 chronic kidney disease, or end stage renal disease; N18.6 End stage renal disease; Z99.2 Dependence on renal dialysis; E78.5 Hyperlipidemia, unspecified; T45.515A Adverse effect of anticoagulants, initial encounter; E11.42 Type 2 diabetes mellitus with diabetic polyneuropathy; E11.21 Type 2 diabetes mellitus with diabetic nephropathy; E11.319 Type 2 diabetes mellitus with unspecified diabetic retinopathy without macular edema; N25.81 Secondary hyperparathyroidism of renal origin; D63.1 Anemia in chronic kidney disease; Z88.0 Allergy status to penicillin; Z95.2 Presence of prosthetic heart valve; E03.9 Hypothyroidism, unspecified
CPT/HCPCS: 36415 ×2; 36430; 71045; 80053; 82550 ×2; 82553 ×2; 82948 ×2; 83880; 84484 ×2; 85025; 85610 ×2; 85730; 86704; 86706; 86900; 87340; 90935; 93005; 93306; 99284; G0378 ×2; J3430; P9017

== ENCOUNTER 2018-01-08 12:25 | Emergency (ER) | payer OTHER ==
[~2018-01-08] VITALS: Ht 157.5 cm; Wt 66.7 kg
[2018-01-08] MEDS ORDERED: DEXAMETHASONE SOD PHOS 10 MG/1 ML VIAL IV ONE (13:00)
[2018-01-08] MEDS ORDERED: KETOROLAC TROMETHAMINE 30 MG/ML VIAL IV ONE (13:00)
[2018-01-08] MEDS ORDERED: DIAZEPAM INJ 5 MG/ML 2 ML IV ONE (13:00)
[2018-01-08] MEDS ORDERED: HYDROCODONE/APAP 5MG-325MG TAB PO ONE (13:00)
[2018-01-08] MEDS ORDERED: ONDANSETRON HCL INJ 2 MG/ML VIAL IV ONE (13:00)
[2018-01-08] MEDS ORDERED: INSULIN REGULAR, HUMAN 100 UNIT/1 ML 3ML VIAL IV ONE (15:00)
--- NOTE | 2018-01-08 15:44 | Diagnostic Imaging Report ---
Exams: Thoracic and lumbar spine CTs without IV contrast History: Back pain Comparison studies: Included spine from abdomen pelvis CT of 08/30/2017. Technique: Axial were obtained through the thoracic and lumbar regions. Coronal and sagittal images reconstructed from the axial data. Dose modulation, iterative reconstruction, and/or weight based adjustment of the mA/kV was utilized to reduce the radiation dose to as low as reasonably achievable. Intravenous contrast: None Findings: Alignment: Normal thoracic kyphosis. Straightened lumbar curvature. Mild lumbar curvature convex to the right. Soft tissues: No gross acute abnormalities. Paraspinal muscles: Unremarkable Spinal cord: Can not be evaluated. Vertebrae: No acute fractures, infection or neoplasm. Unchanged chronic superior T12 endplate fracture with approximately 20-25% height loss without retropulsion. Unchanged minimal depression of the superior L3 endplate. Thoracic degenerative changes: Anterior marginal osteophytes on the right from T8 to T12. Vacuum disc at T10-T11 and T11-T12. Patent canal and foramina.. Lumbar degenerative changes: Multilevel anterior marginal osteophytes from L1 to S1. L1-L2: Minimal vacuum disc. Symmetric disc bulge without significant canal or foraminal stenosis. L2-L3: Minimal vacuum disc. Symmetric disc bulge without significant canal or foraminal stenosis. L3-L4: Small symmetric disc bulge without significant canal or foraminal stenosis. L4-L5: Symmetric disc bulge and thickened ligamentum flavum result in mild canal stenosis. No significant foraminal stenosis. L5-S1: Moderately degenerated disc with loss of disc height. Moderate bilateral foraminal stenosis and mild narrowing of the right subarticular recess due to a disc osteophyte complex and thickened ligamentum flavum. No significant canal stenosis. Incidental findings: Severe scattered calcified arteriosclerosis. Partially imaged dual-lumen right central venous dialysis catheter. Partially imaged left peripelvic renal cyst. IMPRESSION: Thoracic and lumbar spines: 1. No acute fracture or subluxation. 2. Stable chronic T12 and L3 superior endplate depression deformities. 3. Mild thoracic degenerative changes without thoracic canal or foraminal stenosis. 4. Degenerative changes in the lumbar spine, greatest at L5-S1 where there is moderate disc degeneration and moderate bilateral foraminal stenosis. Signed by: Dr. Mino Lucas M.D. on 01/08/2018 3:40 PM
== END 2018-01-08 16:26 | disposition home or self-care (01) ==
LOC: FSED 12:25
DX: M54.6 Pain in thoracic spine (principal); M54.5 Low back pain; S23.3XXA Sprain of ligaments of thoracic spine, initial encounter; S39.012A Strain of muscle, fascia and tendon of lower back, initial encounter; I12.0 Hypertensive chronic kidney disease with stage 5 chronic kidney disease or end stage renal disease; E11.22 Type 2 diabetes mellitus with diabetic chronic kidney disease; N18.6 End stage renal disease; Z99.2 Dependence on renal dialysis
CPT/HCPCS: 72128; 72131; 85025; 99284

== ENCOUNTER 2018-01-17 20:32 | Emergency (ER) | payer OTHER ==
[~2018-01-17] VITALS: Ht 157.5 cm; Wt 65.3 kg
== END 2018-01-17 21:41 | disposition home or self-care (01) ==
LOC: FSED 20:32
DX: S01.81XA Laceration without foreign body of other part of head, initial encounter (principal); W22.8XXA Striking against or struck by other objects, initial encounter; Y92.008 Other place in unspecified non-institutional (private) residence as the place of occurrence of the external cause; E87.6 Hypokalemia; K52.9 Noninfective gastroenteritis and colitis, unspecified; E11.65 Type 2 diabetes mellitus with hyperglycemia; I10 Essential (primary) hypertension
CPT/HCPCS: 80053; 85025; 85610; 99283

== ENCOUNTER 2018-01-18 20:16 | Emergency (ER) | payer MEDICARE, OTHER ==
[~2018-01-18] VITALS: Ht 157.5 cm; Wt 65.3 kg
[2018-01-18 21:02] VITALS: BP 178/84
== END 2018-01-18 21:06 | disposition home or self-care (01) ==
LOC: FSED 20:16
DX: R79.1 Abnormal coagulation profile (principal)
CPT/HCPCS: 85610; 99282

== ENCOUNTER 2018-11-03 19:12 | Inpatient (IN) | payer OTHER ==
[~2018-11-03] VITALS: Ht 157.5 cm; Wt 65.3 kg
--- OUTSIDE RECORDS SUMMARY | 2018-11-03 19:16 | XMS REPORT | Clinical Summary ---
Author Author [employer] [employer] Organization [employer] Address Unknown Phone Unavailable Care Team Providers Care Oracle Hyperion Consultant Name Role Phone Josiah Sun MD PCP Allergies Comments Active Allergy Reactions Severity Noted Date Penicillins 03/13/2018 Tramadol Other (See Medium 06/17/2018 Comments) Medications End Date Status Medication Sig Dispensed Refills Start Date Active ondansetron (ZOFRAN) 4 MG Take 4 mg by 0 tablet mouth every 4 (four) hours as needed for nausea or vomiting. Active metoprolol tartrate Take 25 mg by 0 (LOPRESSOR) 25 mg tablet mouth 2 (two) times a day. Active acetaminophen-codeine Take 1 tablet 0 (TYLENOL WITH CODEINE #3) by mouth 2 300-30 mg per tablet (two) times a day as needed for moderate pain. Active warfarin (COUMADIN) 5 MG Take 5 mg by 0 tablet mouth daily. Take 1 tablet (5mg) by mouth daily for 30 days. Active atorvastatin (LIPITOR) 10 Take 10 mg by 0 MG tablet mouth daily. Active insulin lispro (HumaLOG) Inject under 0 100 unit/mL injection the skin 3 (three) times a day before meals. Pt takes on sliding scale between 4-25 units based on glucose Active vit B complex-vitamin Take 1 tablet 0 C-folic acid (NEPHRO-JERSEY by mouth 3 OTC) 0.8 mg tablet (three) times a week. After dialysis Active cholecalciferol, vitamin Take 5,000 0 D3, (VITAMIN D3) 2,000 Units by unit capsule capsule mouth daily. Active multivitamin (THERAGRAN) Take 1 tablet 0 tablet by mouth 3 (three times a week at 2100. After dialysis Active vit B complx C/folic Take by 0 acid/zinc (DIALYVITE 800 mouth. WITH ZINC 15 ORAL) Active furosemide (LASIX) 80 mg Take 1 tablet 6 tablet by mouth 9 daily. Active levothyroxine (SYNTHROID, Take 1 tablet 1 LEVOXYL) 50 mcg tablet by mouth 8 daily. 03/20/2018 Discontinued traMADol (ULTRAM) 50 mg Take 50 mg by 0 tablet mouth 3 (three) times a day as needed for moderate pain. 03/20/2018 Discontinued ferrous sulfate 325 (65 Take 325 mg 0 FE) MG tablet by mouth daily with breakfast. 03/20/2018 Discontinued diazePAM (VALIUM) 5 MG Take 5 mg by 0 tablet mouth 2 (two) times a day as needed for muscle spasms. 03/25/2018 linezolid (ZYVOX) 600 mg Take 1 tablet 10 tablet 0 tablet (600 mg 8 total) by mouth 2 (two) times a day for 5 days. 03/25/2018 Discontinued diatrizoate Take by mouth 0 holger-diatrizoat sod once. (GASTROGRAFIN) 66-10 % solution 06/25/2018 Discontinued linezolid (ZYVOX) 600 mg Take 600 mg 0 tablet by mouth 2 (two) times a day. 06/25/2018 Discontinued potassium chloride Take 1 6 (MICRO-K) 10 MEQ CR capsule by 9 capsule mouth daily. 07/26/2018 lidocaine (LIDODERM) 5 % Place 1 patch 30 patch 0 on the skin 9 daily for 30 days. Remove & Discard patch within 12 hours or as directed by 07/02/2018 fosfomycin (MONUROL) 3 Take 3 g by 9 g 0 gram packet mouth every 9 third day for 3 doses. 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 07/21/2018 Telephone Cardiology Rehrer, DO Fatou Dejesus Kaveh, MD ESRD needing dialysis (HCC) (Primary Dx); Flank pain; Urinary tract infection without hematuria, site unspecified; Uncontrolled hypertension 06/16/2018 Hospital Obstetrics and Gynecology - Encounter 06/25/2018 06/16/2018 Travel Lewis Burt MD Severe mitral regurgitation (Primary Dx); Chronic systolic congestive heart failure (HCC); Chronic back pain, unspecified back location, unspecified back pain laterality; Thrombosis of superior vena cava, chronic (HCC); Anticoagulated on Coumadin; S/P AVR 04/30/2018 Multidisciplina Cardiology ry Visit Pa Lee NP-C 03/25/2018 Office Visit Cardiology Jah De La Cruz MD Acute on chronic congestive heart failure, unspecified heart failure type (HCC) 03/25/2018 Hospital Transplant Encounter Dina Retana RN 03/20/2018 Patient Quality Outreach Dejah Carl RN Acute on chronic congestive heart failure, unspecified heart failure type (HCC) (Primary Dx) 03/20/2018 Orders Only Cardiology Abraham Johnson MD Samani, Kaveh, MD Systolic congestive heart failure, unspecified HF chronicity (HCC) (Primary Dx); Chronic systolic congestive heart failure (HCC) 03/13/2018 Hospital Cardiology - Encounter 03/20/2018 after 11/02/2017 Family History Medical History Relation Name Comments Diabetes Father Hyperlipidemia Father Hypertension Father Diabetes Mother Hyperlipidemia Mother Hypertension Mother Relation Name Status Comments Father Mother Social History Date Tobacco Use Types Packs/Day Years Used Never Smoker Smokeless Tobacco: Never Used Alcohol Use Drinks/Week oz/Week Comments No Alcohol Habits Answer Date Recorded How often do you have a drink containing alcohol? Never 03/13/2018 How many drinks containing alcohol do you have on Not asked a typical day when you are drinking? How often do you have six or more drinks on one Not asked occasion? Sex Assigned at Date Recorded Not on file Industry Job Start Date Occupation Not on file Not on file Not on file Travel End Travel History Travel Start No recent travel history available. Last Filed Vital Signs Time Taken Vital Sign Reading 06/25/2018 11:26 AM CELL RELINER Blood Pressure 166/72 06/25/2018 11:26 AM CELL RELINER Pulse 67 06/25/2018 7:42 AM CELL RELINER Temperature 36.2 C (97.1 F) 06/25/2018 11:26 AM CELL RELINER Respiratory Rate 19 06/25/2018 11:26 AM CELL RELINER Oxygen Saturation 99% - Inhaled Oxygen - Concentration 04/30/2018 2:55 PM CELL RELINER Weight 62.6 kg (138 lb) 04/30/2018 2:55 PM CELL RELINER Height 152.4 cm (5') 04/30/2018 2:55 PM CELL RELINER Body Mass Index 26.95 Plan of Treatment Health Maintenance Due Date Last Done Comments BREAST CANCER SCREENING 01/26/1996 COLONOSCOPY SCREENING 01/26/1996 SHINGLES VACCINES (#1) 01/26/1996 65+ PNEUMOCOCCAL VACCINE 2011 (1 of 2 - PCV13) INFLUENZA VACCINE 11/19/2018 Procedures Comments Procedure Name Priority Date/Time Associated Diagnosis POC GLUCOSE Routine 06/25/2018 11:55 AM CELL RELINER POC GLUCOSE Routine 06/25/2018 7:45 AM CELL RELINER PROTHROMBIN TIME WITH INR Routine 06/25/2018 4:15 AM CELL RELINER POC GLUCOSE Routine 06/24/2018 9:24 PM CELL RELINER POC GLUCOSE Routine 06/24/2018 5:40 PM CELL RELINER PROTHROMBIN TIME WITH INR Routine 06/24/2018 1:00 PM CELL RELINER POC GLUCOSE Routine 06/24/2018 12:28 PM CELL RELINER POC GLUCOSE Routine 06/24/2018 9:45 AM CELL RELINER AMIKACIN LEVEL, RANDOM Routine 06/24/2018 4:30 AM CELL RELINER POC GLUCOSE Routine 06/23/2018 8:52 PM CELL RELINER HEMODIALYSIS Routine 06/23/2018 7:30 PM CELL RELINER POC GLUCOSE Routine 06/23/2018 5:36 PM CELL RELINER POC GLUCOSE Routine 06/23/2018 11:56 AM CELL RELINER POC GLUCOSE Routine 06/23/2018 8:22 AM CELL RELINER CBC HEMOGRAM Routine 06/23/2018 5:00 AM CELL RELINER PROTHROMBIN TIME WITH INR Routine 06/23/2018 5:00 AM CELL RELINER POC GLUCOSE Routine 06/22/2018 9:51 PM CELL RELINER POC GLUCOSE Routine 06/22/2018 12:57 PM CELL RELINER POC GLUCOSE Routine 06/22/2018 8:14 AM CELL RELINER CBC HEMOGRAM Routine 06/22/2018 5:10 AM CELL RELINER PROTHROMBIN TIME WITH INR Routine 06/22/2018 5:10 AM CELL RELINER POC GLUCOSE Routine 06/21/2018 9:11 PM CELL RELINER POC GLUCOSE Routine 06/21/2018 5:07 PM CELL RELINER HEMODIALYSIS Routine 06/21/2018 5:05 PM CELL RELINER POC GLUCOSE Routine 06/21/2018 11:29 AM CELL RELINER POC GLUCOSE Routine 06/21/2018 7:23 AM CELL RELINER CBC HEMOGRAM Routine 06/21/2018 4:38 AM CELL RELINER PROTHROMBIN TIME WITH INR Routine 06/21/2018 4:38 AM CELL RELINER POC GLUCOSE Routine 06/20/2018 9:33 PM CELL RELINER POC GLUCOSE Routine 06/20/2018 4:50 PM CELL RELINER POC GLUCOSE Routine 06/20/2018 1:28 PM CELL RELINER POC GLUCOSE Routine 06/20/2018 7:44 AM CELL RELINER CBC HEMOGRAM Routine 06/20/2018 5:30 AM CELL RELINER PROTHROMBIN TIME WITH INR Routine 06/20/2018 5:30 AM CELL RELINER POC GLUCOSE Routine 06/19/2018 8:50 PM CELL RELINER HEMODIALYSIS Routine 06/19/2018 12:30 PM CELL RELINER ESTIMATED GFR Routine 06/19/2018 9:04 AM CELL RELINER BASIC METABOLIC PANEL Routine 06/19/2018 9:04 AM CELL RELINER CBC HEMOGRAM Routine 06/19/2018 5:10 AM CELL RELINER PROTHROMBIN TIME WITH INR Routine 06/19/2018 5:10 AM CELL RELINER POC GLUCOSE Routine 06/18/2018 9:06 PM CELL RELINER POTASSIUM LEVEL Routine 06/18/2018 5:50 AM CELL RELINER CBC HEMOGRAM Routine 06/18/2018 5:10 AM CELL RELINER PROTHROMBIN TIME WITH INR Routine 06/18/2018 5:10 AM CELL RELINER MRI LUMBAR SPINE WO Routine 06/17/2018 CONTRAST 5:33 PM CELL RELINER HEPATITIS B SURFACE Routine 06/17/2018 ANTIGEN 8:23 AM CELL RELINER HEMODIALYSIS Routine 06/17/2018 8:22 AM CELL RELINER THYROID STIMULATING Timed 06/16/2018 HORMONE 9:10 PM CELL RELINER TROPONIN Timed 06/16/2018 9:10 PM CELL RELINER PROTHROMBIN TIME WITH INR STAT 06/16/2018 9:10 PM CELL RELINER LACTIC ACID LEVEL, SEPSIS Timed 06/16/2018 - NOW AND REPEAT 2X EVERY 9:10 PM CELL RELINER 3 HOURS POC GLUCOSE Routine 06/16/2018 5:58 PM CELL RELINER LACTIC ACID LEVEL, SEPSIS Timed 06/16/2018 - NOW AND REPEAT 2X EVERY 5:53 PM CELL RELINER 3 HOURS GRAM STAIN Routine 06/16/2018 3:40 PM CELL RELINER URINE CULTURE Routine 06/16/2018 3:40 PM CELL RELINER ECG ED PRELIMINARY Routine 06/16/2018 INTERPRETATION 3:[address] RENAL STONE PROTOCOL STAT 06/16/2018 3:09 PM CELL RELINER URINALYSIS SCREEN AND Routine 06/16/2018 MICROSCOPY, WITH REFLEX 2:45 PM CELL RELINER TO CULTURE SMEAR REVIEW STAT 06/16/2018 1:53 PM CELL RELINER TROPONIN STAT 06/16/2018 1:53 PM CELL RELINER LIPASE LEVEL STAT 06/16/2018 1:53 PM CELL RELINER LACTIC ACID LEVEL, SEPSIS STAT 06/16/2018 - NOW AND REPEAT 2X EVERY 1:53 PM CELL RELINER 3 HOURS CREATINE KINASE, TOTAL STAT 06/16/2018 (CPK) 1:53 PM CELL RELINER B NATRIURETIC PEPTIDE STAT 06/16/2018 1:53 PM CELL RELINER ESTIMATED GFR STAT 06/16/2018 1:53 PM CELL RELINER COMPREHENSIVE METABOLIC STAT 06/16/2018 PANEL 1:53 PM CELL RELINER HC COMPLETE BLD COUNT STAT 06/16/2018 W/AUTO DIFF 1:53 PM CELL RELINER ECG 12-LEAD STAT 06/16/2018 1:19 PM CELL RELINER ECG 12-LEAD Routine 04/30/2018 Severe mitral 2:54 PM CELL RELINER regurgitation ESTIMATED GFR STAT 03/25/2018 12:55 PM CELL RELINER MAGNESIUM LEVEL STAT 03/25/2018 Acute on chronic 12:55 PM CELL RELINER congestive heart failure, unspecified heart failure type (HCC) COMPREHENSIVE METABOLIC STAT 03/25/2018 Acute on chronic PANEL 12:55 PM CELL RELINER congestive heart failure, unspecified heart failure type (HCC) B NATRIURETIC PEPTIDE STAT 03/25/2018 Acute on chronic 12:55 PM CELL RELINER congestive heart failure, unspecified heart failure type (HCC) POC GLUCOSE Routine 03/20/2018 11:31 AM CELL RELINER POC GLUCOSE Routine 03/20/2018 7:53 AM CELL RELINER PROTHROMBIN TIME WITH INR Routine 03/20/2018 5:02 AM CELL RELINER POC GLUCOSE Routine 03/19/2018 9:19 PM CELL RELINER POC GLUCOSE Routine 03/19/2018 6:19 PM CELL RELINER POC GLUCOSE Routine 03/19/2018 11:09 AM CELL RELINER POC GLUCOSE Routine 03/19/2018 7:31 AM CELL RELINER PROTHROMBIN TIME WITH INR Routine 03/19/2018 4:35 AM CELL RELINER POC GLUCOSE Routine 03/18/2018 9:23 PM CELL RELINER HEMODIALYSIS Routine 03/18/2018 7:52 PM CELL RELINER POC GLUCOSE Routine 03/18/2018 5:34 PM CELL RELINER POC GLUCOSE Routine 03/18/2018 11:50 AM CELL RELINER POC GLUCOSE Routine 03/18/2018 7:39 AM CELL RELINER PROTHROMBIN TIME WITH INR Routine 03/18/2018 3:00 AM CELL RELINER POC GLUCOSE Routine 03/17/2018 8:29 PM CELL RELINER POC GLUCOSE Routine 03/17/2018 5:57 PM CELL RELINER POC GLUCOSE Routine 03/17/2018 4:47 PM CELL RELINER POC GLUCOSE Routine 03/17/2018 1:56 PM CELL RELINER ESTIMATED GFR Routine 03/17/2018 1:16 PM CELL RELINER BASIC METABOLIC PANEL Routine 03/17/2018 1:16 PM CELL RELINER HEMODIALYSIS Routine 03/17/2018 1:[address] LUMBAR SPINE WO Routine 03/17/2018 CONTRAST 12:[address] THORACIC SPINE WO Routine 03/17/2018 CONTRAST 12:14 PM CELL RELINER POC GLUCOSE Routine 03/17/2018 12:09 PM CELL RELINER POC GLUCOSE Routine 03/17/2018 8:45 AM CELL RELINER CV CTA TMVR WORKUP (CTA Routine 03/17/2018 CORONARY, CTA THORACIC 8:31 AM CELL RELINER AORTA) W CONTRAST HC COMPLETE BLD COUNT Routine 03/17/2018 W/AUTO DIFF 4:45 AM CELL RELINER PROTHROMBIN TIME WITH INR Routine 03/17/2018 4:40 AM CELL RELINER POC GLUCOSE Routine 03/16/2018 9:13 PM CELL RELINER POC GLUCOSE Routine 03/16/2018 5:18 PM CELL RELINER POC GLUCOSE Routine 03/16/2018 11:21 AM CELL RELINER PROTHROMBIN TIME WITH INR STAT 03/16/2018 10:38 AM CELL RELINER ECHOCARDIOGRAM Routine 03/16/2018 TRANSESOPHAGEAL W 10:21 AM CELL RELINER AGITATED SALINE POC GLUCOSE Routine 03/16/2018 7:43 AM CELL RELINER URINALYSIS SCREEN AND Routine 03/15/2018 MICROSCOPY, WITH REFLEX 11:03 PM CELL RELINER TO CULTURE URINE CULTURE Routine 03/15/2018 11:03 PM CELL RELINER GRAM STAIN Routine 03/15/2018 11:03 PM CELL RELINER POC GLUCOSE Routine 03/15/2018 8:32 PM CELL RELINER POC GLUCOSE Routine 03/15/2018 4:52 PM CELL RELINER POC GLUCOSE Routine 03/15/2018 12:33 PM CELL RELINER POC GLUCOSE Routine 03/15/2018 7:40 AM CELL RELINER PROTHROMBIN TIME WITH INR Routine 03/15/2018 4:50 AM CELL RELINER POC GLUCOSE Routine 03/14/2018 9:21 PM CELL RELINER POC GLUCOSE Routine 03/14/2018 6:08 PM CELL RELINER HEPATITIS B SURFACE STAT 03/14/2018 ANTIGEN 3:08 PM CELL RELINER POC GLUCOSE Routine 03/14/2018 11:25 AM CELL RELINER POC GLUCOSE Routine 03/14/2018 7:56 AM CELL RELINER LACTIC ACID LEVEL, SEPSIS Routine 03/14/2018 - NOW AND REPEAT 2X EVERY 4:50 AM CELL RELINER 3 HOURS ESTIMATED GFR Routine 03/14/2018 4:50 AM CELL RELINER TOTAL IRON BINDING Routine 03/14/2018 CAPACITY 4:50 AM CELL RELINER FERRITIN LEVEL Routine 03/14/2018 4:50 AM CELL RELINER PROTHROMBIN TIME WITH INR Routine 03/14/2018 4:50 AM CELL RELINER BASIC METABOLIC PANEL Routine 03/14/2018 4:50 AM CELL RELINER HC COMPLETE BLD COUNT Routine 03/14/2018 W/AUTO DIFF 4:50 AM CELL RELINER HEMODIALYSIS Routine 03/13/2018 9:32 PM CELL RELINER POC GLUCOSE Routine 03/13/2018 8:48 PM CELL RELINER POC GLUCOSE Routine 03/13/2018 5:17 PM CELL RELINER US RENAL Routine 03/13/2018 4:59 PM CELL RELINER BLOOD CULTURE, AEROBIC & Routine 03/13/2018 ANAEROBIC 3:45 PM CELL RELINER BLOOD CULTURE, AEROBIC & Routine 03/13/2018 ANAEROBIC 3:40 PM CELL RELINER ECHOCARDIOGRAM 2D Routine 03/13/2018 COMPLETE W MMODE SPECTRAL 3:23 PM CELL RELINER COLOR DOPPLER ([id number]) THYROID STIMULATING Routine 03/13/2018 HORMONE 1:44 PM CELL RELINER POC GLUCOSE Routine 03/13/2018 1:21 PM CELL RELINER LACTIC ACID LEVEL, SEPSIS Timed 03/13/2018 - NOW AND REPEAT 2X EVERY 12:48 PM CELL RELINER 3 HOURS ECG ED PRELIMINARY Routine 03/13/2018 INTERPRETATION 11:38 AM CELL RELINER XR CHEST 1 VW PORTABLE STAT 03/13/2018 10:32 AM CELL RELINER URINALYSIS SCREEN AND STAT 03/13/2018 MICROSCOPY, WITH REFLEX 9:54 AM CELL RELINER TO CULTURE URINE CULTURE STAT 03/13/2018 9:54 AM CELL RELINER GRAM STAIN STAT 03/13/2018 9:54 AM CELL RELINER ESTIMATED GFR STAT 03/13/2018 9:45 AM CELL RELINER TYPE AND SCREEN Routine 03/13/2018 9:45 AM CELL RELINER PARTIAL THROMBOPLASTIN STAT 03/13/2018 TIME (PTT) 9:45 AM CELL RELINER PROTHROMBIN TIME WITH INR STAT 03/13/2018 9:45 AM CELL RELINER B NATRIURETIC PEPTIDE STAT 03/13/2018 9:45 AM CELL RELINER TROPONIN STAT 03/13/2018 9:45 AM CELL RELINER CREATINE KINASE, TOTAL STAT 03/13/2018 (CPK) 9:45 AM CELL RELINER LACTIC ACID LEVEL, SEPSIS STAT 03/13/2018 - NOW AND REPEAT 2X EVERY 9:45 AM CELL RELINER 3 HOURS MAGNESIUM LEVEL STAT 03/13/2018 9:45 AM CELL RELINER PHOSPHORUS LEVEL STAT 03/13/2018 9:45 AM CELL RELINER HEPATIC FUNCTION PANEL STAT 03/13/2018 9:45 AM CELL RELINER BASIC METABOLIC PANEL STAT 03/13/2018 9:45 AM CELL RELINER HC COMPLETE BLD COUNT STAT 03/13/2018 W/AUTO DIFF 9:45 AM CELL RELINER ECG 12-LEAD STAT 03/13/2018 9:40 AM CELL RELINER after 11/02/2017 Results * POC glucose (06/25/2018 11:55 AM CELL RELINER) Only the most recent of 55 results within the time period is included. [facility] POC glucose 318 (H) 65 - 99 mg/dL [place] Comment: [facility] Notified RN HOSPITAL Meter ID: [id number] Wheel Molder: Bonifacio Taylor Specimen Performing Organization Address City/[facility] Phone Number [facility] DEPARTMENT OF [address] [place] [address] PATHOLOGY AND [facility] MEDICINE [address] * Prothrombin time with INR (06/25/2018 4:15 AM CELL RELINER) Only the most recent of 17 results within the time period is included. [facility] Prothrombin 26.6 (H) 11.5 - 14.5 sec [facility] INR 2.5 [place] Comment: [facility] The International Normalized HOSPITAL Ratio (INR) is a therapeutic monitoring tool for patients who are stable on oral anticoagulant therapy. An INR of 2.0-3.0 is suggested for deep vein thrombosis/pulmonary embolism. Specimen Blood Performing Organization Address [facility] Phone Number [facility] [place] [address] PATHOLOGY AND [facility] MEDICINE [address] * Amikacin level, random (06/24/2018 4:30 AM CELL RELINER) [facility] Amikacin, 14.6 ug/mL [facility] Specimen Plasma specimen Performing Organization Address City/[facility] Phone Number [facility] DEPARTMENT OF [address] [place] [address] PATHOLOGY AND GENOMIC MEDICINE [address] * CBC hemogram (06/23/2018 5:00 AM CELL RELINER) Only the most recent of 6 results within the time period is included. [facility] WBC 5.03 4.50 - 11.00 k/uL [facility] RBC 3.06 (L) 4.20 - 5.50 m/uL [facility] HGB 11.5 (L) 12.0 - 16.0 g/dL [facility] HCT 34.3 (L) 37.0 - 47.0 % [facility] MCV 112.1 (H) 82.0 - 100.0 fL [facility] MCH 37.6 (H) 27.0 - 34.0 pg [facility] MCHC 33.5 31.0 - 37.0 g/dL [facility] RDW - SD 67.4 (H) 37.0 - 55.0 fL [facility] MPV 12.4 8.8 - 13.2 fL [facility] Platelet count 119 (L) 150 - 400 k/uL [facility] Nucleated RBC 0.00 /100 WBC [facility] Specimen Blood Performing Organization Address City/[facility]ode Phone Number [facility] DEPARTMENT OF [address] [place] [address] PATHOLOGY AND [facility] MEDICINE [address] * Estimated GFR (06/19/2018 9:04 AM CELL RELINER) Only the most recent of 6 results within the time period is included. [facility] Estimated GFR 8 (A) mL/min/1.73 m2 [place] Comment: [facility] rpretation G1 >=90 Normal or high G2 60-89Mildly decreased [id number] Mildly to moderately decreased [id number] Moderately to severely decreased G4 15-29Severely decreased G5 <15Kidney failure The eGFR was calculated using the Chronic Kidney Disease Epidemiology Collaboration (CKD-EPI) equation. Interpretation is based on recommendations of the National Kidney Foundation-Kidney Disease Outcomes Quality Initiative (NKF-KDOQI) published in 2014. Specimen Plasma specimen Performing Organization Address City/[facility]/Zipcode Phone Number [facility] DEPARTMENT OF [address] [place] [address] PATHOLOGY AND GENOMIC MEDICINE [address] * Basic metabolic panel (06/19/2018 9:04 AM CELL RELINER) Only the most recent of 4 results within the time period is included. [facility] Sodium 136 135 - 148 mEq/L [facility] Potassium 4.5 3.5 - 5.0 mEq/L [facility] Chloride 98 98 - 112 mEq/L [facility] CO2 21 (L) 24 - 31 mEq/L [facility] Anion gap 17@ANIO (H) 7 - 15 mEq/L [facility] BUN 59 (H) 8 - 23 mg/dL [facility] Creatinine 4.91 (H) 0.50 - 0.90 mg/dL [facility] Glucose 106 (H) 65 - 99 mg/dL [facility] Calcium 8.4 (L) 8.8 - 10.2 mg/dL [facility] Specimen Plasma specimen Performing Organization Address City/[facility]/Zipcode Phone Number [facility] DEPARTMENT OF [address] [place] [address] PATHOLOGY AND GENOMIC MEDICINE [address] * Potassium level (06/18/2018 5:50 AM CELL RELINER) Potassium 4.7 3.5 - 5.0 mEq/L [facility] Specimen Plasma specimen Performing Organization Address City/[facility]az Phone Number [facility] DEPARTMENT OF [address] [place] [address] PATHOLOGY AND [facility] MEDICINE [address] * MRI Lumbar Spine Wo Contrast (06/17/2018 5:33 PM CELL RELINER) Specimen Narrative Performed At [facility] EXAMINATION: MRI LUMBAR SPINE WO CONTRAST CLINICAL HISTORY: Abn [id number] COMPARISON:Lumbar spine CT dated March 17, 2018 TECHNIQUE: Multiplanar multisequence noncontrast enhanced examination was performed of the Lumbar spine. FINDINGS: There is a chronic fracture of the superior endplate of T12 which is chronic and stable. There is no acute fracture of the superior endplate of L4 with mild 25% loss of vertebral body height. No other acute fractures are identified. There are some chronic Schmorl's nodes along the L2 and L3 endplates along the disc space. There are some fatty endplate changes at L5. Distal spinal cord and conus are intact. Motion degrades image quality. The patient is turned towards the left due to pain. No gross soft tissue mass, adenopathy or fluid collection is identified. There is no significant spondylolisthesis. Axial images through the disc spaces demonstrate the following: L1-L2: No significant posterior disc disease, spinal canal or neural foraminal stenosis. L2-L3: Bulge and facet disease of mild narrowing of the bilateral lateral recesses. L3-L4: There is disc bulge with mild narrowing of the bilateral lateral recesses. The foramina are patent. L4-L5: There is 2 mm anterolisthesis of L4. There is disc bulge with facet hypertrophy with moderate right and mild to moderate left lateral recess narrowing. There is mild to moderate canal narrowing. The foramina are patent. L5-S1: There is complete loss of disc height with disc bulge with mild narrowing of the right lateral recess. Disc osteophyte complex and facet spurring results in moderate bilateral foraminal narrowing, right greater than left. Correlate for significance. Visualized upper sacrum is grossly intact. IMPRESSION: There is an acute superior endplate compression fracture of L4. No other acute osseous abnormality is are identified. There is multilevel spondylosis most prominent at L5-S1 with at least moderate bilateral foraminal narrowing. [facility]-[id number] Procedure Note Hm Interface, Radiology Results Incoming - 06/17/2018 5:47 PM CELL RELINER EXAMINATION: MRI LUMBAR SPINE WO CONTRAST CLINICAL HISTORY: Abn xray L S-spine DJD COMPARISON: Lumbar spine CT dated March 17, 2018 TECHNIQUE: Multiplanar multisequence noncontrast enhanced examination was performed of the Lumbar spine. FINDINGS: There is a chronic fracture of the superior endplate of T12 which is chronic and stable. There is no acute fracture of the superior endplate of L4 with mild 25% loss of vertebral body height. No other acute fractures are identified. There are some chronic Schmorl's nodes along the L2 and L3 endplates along the disc space. There are some fatty endplate changes at L5. Distal spinal cord and conus are intact. Motion degrades image quality. The patient is turned towards the left due to pain. No gross soft tissue mass, adenopathy or fluid collection is identified. There is no significant spondylolisthesis. Axial images through the disc spaces demonstrate the following: L1-L2: No significant posterior disc disease, spinal canal or neural foraminal stenosis. L2-L3: Bulge and facet disease of mild narrowing of the bilateral lateral recesses. L3-L4: There is disc bulge with mild narrowing of the bilateral lateral recesses. The foramina are patent. L4-L5: There is 2 mm anterolisthesis of L4. There is disc bulge with facet hypertrophy with moderate right and mild to moderate left lateral recess narrowing. There is mild to moderate canal narrowing. The foramina are patent. L5-S1: There is complete loss of disc height with disc bulge with mild narrowing of the right lateral recess. Disc osteophyte complex and facet spurring results in moderate bilateral foraminal narrowing, right greater than left. Correlate for significance. Visualized upper sacrum is grossly intact. IMPRESSION: There is an acute superior endplate compression fracture of L4. No other acute osseous abnormality is are identified. There is multilevel spondylosis most prominent at L5-S1 with at least moderate bilateral foraminal narrowing. [facility]-[id number] Performing Organization Address City/[facility]/[place] [address] * Hepatitis B surface antigen (06/17/2018 8:23 AM CELL RELINER) Only the most recent of 2 results within the time period is included. Pathologist [facility] Hepatitis B Non-reactive Non-reactive [facility] Specimen Blood Performing Organization Address [facility] [place] [address] PATHOLOGY AND GENOMIC MEDICINE [address] * Lactic acid level, SEPSIS - Now and repeat 2x every 3 hours (06/16/2018 9:10 PM CELL RELINER) Only the most recent of 6 results within the time period is included. [facility] Lactic acid 1.9 0.5 - 2.2 mmol/L [facility] Specimen Blood Performing Organization Address [facility] [place] [address] PATHOLOGY AND GENOMIC MEDICINE [address] * Troponin (06/16/2018 9:10 PM CELL RELINER) Only the most recent of 3 results within the time period is included. Pathologist [facility] Troponin <0.30 0.00 - 0.30 ng/mL [place] Comment: [facility] 0.30 - 1.49 [facility]ITAL ng/mlMay indicate increased risk of acute coronary syndrome. >=1.5 ng/ml Consistent with acute myocardial infarction. The diagnostic value of a single normal or non-diagnostic result is questionable.Serial samples at 2-6 hour intervals are required to rule out acute myocardial injury. Specimen Blood Performing Organization Address [facility]/Zipcode Phone Number [facility] DEPARTMENT OF [address] [place] [address] PATHOLOGY AND [facility] MEDICINE [place] [facility] [address] [place] [address] HOSPITAL * Thyroid stimulating hormone (06/16/2018 9:10 PM CELL RELINER) Only the most recent of 2 results within the time period is included. Pathologist [facility] TSH 3.06 0.27 - 4.20 uIU/mL [facility] Specimen Blood Performing Organization Address City/[facility] Phone Number [facility] DEPARTMENT OF [address] [place] [address] PATHOLOGY AND [facility] MEDICINE [place] [address] HOSPITAL * Gram stain (06/16/2018 3:40 PM CELL RELINER) Only the most recent of 3 results within the time period is included. Pathologist [facility] Gram stain Rare WBC's [place] result Many Gram negative rods [facility] Comment: [facility]OSPITAL Specimen Information Specimen Source: Urine Specimen Site: Clean catch Specimen Urine Performing Organization Address [facility] Phone Number [facility] DEPARTMENT OF [address] [place] [address] PATHOLOGY AND [facility] MEDICINE [place] [facility] * Urine culture (06/16/2018 3:40 PM CELL RELINER) Only the most recent of 3 results within the time period is included. Pathologist [facility] Urine culture Escherichia coli ASTON isolate >10-5 cfu/ml [facility] This isolate is a executive producer of HOSPITAL ESBL (extended spectrum beta lactamase).This organism may be clinically resistant to penicillins, cephalosporins or aztreonam despite apparent in vitro susceptibility to some of these agents. (A) Comment: Specimen Information Specimen Source: Urine Specimen Site: Clean catch Specimen Urine Antibiotic Method Susceptibility Organism Ampicillin AMARA >16 mcg/mL: Resistant Escherichia coli Amoxicillin/Clavulanate AMARA 16/8 mcg/mL: Resistant Escherichia coli Amikacin AMARA <=4 mcg/mL: Susceptible Escherichia coli Aztreonam AMARA >16 mcg/mL: Resistant Escherichia coli Ceftazidime AMARA >16 mcg/mL: Resistant Escherichia coli Ciprofloxacin AMARA >2 mcg/mL: Resistant Escherichia coli Ceftriaxone AMARA >32 mcg/mL: Resistant Escherichia coli Cefuroxime Sodium AMARA >16 mcg/mL: Resistant Escherichia coli Cefazolin AMARA >32 mcg/mL: Resistant Escherichia coli Cefepime AMARA >16 mcg/mL: Resistant Escherichia coli Nitrofurantoin AMARA <=16 mcg/mL: Susceptible Escherichia coli Gentamicin AMARA <=1 mcg/mL: Susceptible Escherichia coli Imipenem AMARA <=0.25 mcg/mL: Susceptible Escherichia coli Levofloxacin AMARA >4 mcg/mL: Resistant Escherichia coli Meropenem AMARA <=0.125 mcg/mL: Susceptible Escherichia coli Tobramycin AMARA >8 mcg/mL: Resistant Escherichia coli Ampicillin/Sulbactam AMARA >16/8 mcg/mL: Resistant Escherichia coli Trimethoprim/Sulfamethoxazole AMARA >2/38 mcg/mL: Resistant Escherichia coli Tetracycline AMARA >8 mcg/mL: Resistant Escherichia coli Ertapenem AMARA <=0.125 mcg/mL: Susceptible Escherichia coli Tigecycline AMARA <=0.5 mcg/mL: Susceptible Escherichia coli Cefotaxime AMARA mcg/mL: Resistant Escherichia coli Cephalothin AMARA mcg/mL: Resistant Escherichia coli Fosfomycin KB mm: Susceptible Escherichia coli Performing Organization Address City/State/Zipcode Phone Number [facility] DEPARTMENT OF [address] [place] [address] PATHOLOGY AND GENOMIC MEDICINE [place] [facility] [address] [place] [address] * ECG ED Preliminary Interpretation - Not an Order (06/16/2018 3:34 PM CELL RELINER) Only the most recent of 2 results within the time period is included. Narrative Performed At Ayaan Iverson DO 06/19/20188:42 AM ECG ED Preliminary Interpretation - Not an Order Performed by: Ayaan Iverson DO Authorized by: Ayaan Iverson DO ECG reviewed by ED Physician in the absence of a professional system administrator: yes Previous ECG: Previous ECG:Unavailable Interpretation: Interpretation: abnormal Rate: ECG rate:57 ECG rate assessment: bradycardic Rhythm: Rhythm: sinus bradycardia Ectopy: Ectopy: none QRS: QRS axis:Normal QRS intervals:Normal Conduction: Conduction: normal ST segments: ST segments:Normal T waves: T waves: inverted Inverted:II, III and aVF * CT Renal Stone Protocol (06/16/2018 3:09 PM CELL RELINER) Specimen Narrative Performed At EXAMINATION:CT RENAL STONE PROTOCOL RADIANT CLINICAL HISTORY:Flank painstone disease suspected COMPARISON:None. TECHNIQUE: Multiple axial CT images of the Abdomen and pelvis were obtained Without IV contrast limiting evaluation . Sagittal and coronal reconstructions were done. Radiation dose reduction technique used for this study. CT imaging was performed with iterative reconstruction technique and/or automated exposure control to reduce radiation dose. FINDINGS: HEPATOBILIARY:Unremarkable within the limitations of a noncontrast exam. GALLBLADDER: Absent. SPLEEN:No splenomegaly. PANCREAS:Unremarkable within the limitations of a noncontrast exam. ADRENALS:No adrenal nodules. KIDNEYS:No stones or hydronephrosis. PERITONEUM/RETROPERITONEUM:No free air or fluid. No lymphadenopathy. ABDOMINAL AORTA/IVC: No signs of aneurysm. GI TRACT:Visualized portions of the bowel demonstrate no distention or wall thickening. There are no signs of appendicitis.No signs of diverticulitis. PELVIC ORGANS/BLADDER:Unremarkable for age BONES AND SOFT TISSUES:L4 vertebral body superior endplate compression. Visualized other bones without acute abnormalities. VISUALIZED LOWER CHEST: Trace right pleural effusion. There is some focal consolidations in the right lung base. Heart is enlarged with atherosclerosis of coronary arteries IMPRESSION: No renal stones. Suspect right lower lobe pneumonia. Trace right pleural effusion. Fracture of the superior endplate of L4 vertebral body without significant height loss. [id number] Procedure Note Hm Interface, Radiology Results Incoming - 06/16/2018 3:18 PM CELL RELINER EXAMINATION: CT RENAL STONE PROTOCOL CLINICAL HISTORY: Flank pain stone disease suspected COMPARISON: None. TECHNIQUE: Multiple axial CT images of the Abdomen and pelvis were obtained Without IV contrast limiting evaluation . Sagittal and coronal reconstructions were done. Radiation dose reduction technique used for this study. CT imaging was performed with iterative reconstruction technique and/or automated exposure control to reduce radiation dose. FINDINGS: HEPATOBILIARY: Unremarkable within the limitations of a noncontrast exam. GALLBLADDER: Absent. SPLEEN: No splenomegaly. PANCREAS: Unremarkable within the limitations of a noncontrast exam. ADRENALS: No adrenal nodules. KIDNEYS: No stones or hydronephrosis. PERITONEUM/RETROPERITONEUM: No free air or fluid. No lymphadenopathy. ABDOMINAL AORTA/IVC: No signs of aneurysm. GI TRACT: Visualized portions of the bowel demonstrate no distention or wall thickening. There are no signs of appendicitis.No signs of diverticulitis. PELVIC ORGANS/BLADDER: Unremarkable for age BONES AND SOFT TISSUES: L4 vertebral body superior endplate compression. Visualized other bones without acute abnormalities. VISUALIZED LOWER CHEST: Trace right pleural effusion. There is some focal consolidations in the right lung base. Heart is enlarged with atherosclerosis of coronary arteries IMPRESSION: No renal stones. Suspect right lower lobe pneumonia. Trace right pleural effusion. Fracture of the superior endplate of L4 vertebral body without significant height loss. [id number] Performing Organization Address City/[facility]/[place] [address] * Urinalysis screen and microscopy, with reflex to culture (06/16/2018 2:45 PM CELL RELINER) Only the most recent of 3 results within the time period is included. Specimen site Clean catch [facility] Color, UA Yellow [facility] Appearance, UA Clear [facility] Specific 1.013 1.001 - 1.035 [place] gravity, [facility] pH, UA 6.0 5.0 - 8.5 [facility] Protein, UA 2+ (A) Negative [facility] Glucose, UA Negative Negative [facility] Ketones, UA Negative Negative [facility] Bilirubin, UA Negative Negative [facility] Blood, UA Negative Negative [facility] Nitrite, UA Negative Negative [facility] Urobilinogen, <2.0 <2.0 [facility] Leukocyte Small (A) Negative [place] esterase, [facility] Epithelial 2 /HPF [place] cells, [facility] WBC, UA 25 (H) 0 - 4 /HPF [facility] RBC, UA 3 0 - 5 /HPF [facility] Bacteria, UA Few None seen [facility] Yeast, UA None seen [facility] Yeast with None seen [place] [facility] Specimen Urine Performing Organization Address [facility] Phone Number [facility] DEPARTMENT OF [address] [place] [address] PATHOLOGY AND GENOMIC MEDICINE [address] * Smear review (06/16/2018 1:53 PM CELL RELINER) Platelet slide Decreased (A) [facility] Anisocytosis Moderate [facility] Ovalocytes Moderate [facility] Enlarged Moderate (A) [facility] Specimen Performing Organization Address [facility] Phone Number [facility] DEPARTMENT [address] [address] PATHOLOGY AND GENOMIC MEDICINE [address] * CBC with platelet and differential (06/16/2018 1:53 PM CELL RELINER) Only the most recent of 4 results within the time period is included. WBC 5.64 4.50 - 11.00 k/uL [facility] RBC 3.15 (L) 4.20 - 5.50 m/uL [facility] HGB 11.4 (L) 12.0 - 16.0 g/dL [facility] HCT 36.6 (L) 37.0 - 47.0 % [facility] MCV 116.2 (H) 82.0 - 100.0 fL [facility] MCH 36.2 (H) 27.0 - 34.0 pg [facility] MCHC 31.1 31.0 - 37.0 g/dL [facility] RDW - SD 74.5 (H) 37.0 - 55.0 fL [facility] MPV 13.7 (H) 8.8 - 13.2 fL [facility] Platelet count 89 (L) 150 - 400 k/uL [facility] Nucleated RBC 0.00 /100 WBC [facility] Neutrophils 72.0 (H) 39.0 - 69.0 % [facility] Lymphocytes 10.6 (L) 25.0 - 45.0 % [facility] Monocytes 11.2 (H) 0.0 - 10.0 % [facility] Eosinophils 5.1 (H) 0.0 - 5.0 % [facility] Basophils 0.7 0.0 - 1.0 % [facility] Immature 0.4Comment: "Immature 0.0 - 1.0 % [place] granulocytes granulocytes" (promyelocytes, [facility] myelocytes, metamyelocytes) HOSPITAL Specimen Blood Performing Organization Address City/State/Zipcode Phone Number [facility] DEPARTMENT OF [address] [place] [address] PATHOLOGY AND GENOMIC MEDICINE [facility] [address] [place] [address] [facility] * B natriuretic peptide (06/16/2018 1:53 PM CELL RELINER) Only the most recent of 3 results within the time period is included. BNP >5000 (H) 0 - 100 pg/mL [place] Comment: [facility] Increased result of BNP most HOSPITAL likely represents recent infusion of recombinant BNP. For monitoring, because of the short half-life of BNP (20 minutes), measurements taken 2 hours after cessation of treatment again reflects the level of endogenous BNP. Specimen Performing Organization Address City/[facility] Phone Number [facility] [place] [place] [address] PATHOLOGY AND [facility] MEDICINE [address] * Lipase level (06/16/2018 1:53 PM CELL RELINER) Lipase 10 (L) 13 - 60 U/L [facility] Specimen Plasma specimen Performing Organization Address City/[facility] Phone Number [facility] [place] [place] [address] PATHOLOGY AND [facility] MEDICINE [address] * Creatine kinase, total (CPK) (06/16/2018 1:53 PM CELL RELINER) Only the most recent of 2 results within the time period is included. Pathologist [facility] Creatine kinase 48 26 - 192 U/L [facility] Specimen Plasma specimen Performing Organization Address [facility] Phone Number [facility] [place] [place] [address] PATHOLOGY AND [facility] MEDICINE [address] * Comprehensive metabolic panel (06/16/2018 1:53 PM CELL RELINER) Only the most recent of 2 results within the time period is included. Sodium 142 135 - 148 mEq/L [facility] Potassium 5.2 (H) 3.5 - 5.0 mEq/L [facility] Chloride 101 98 - 112 mEq/L [facility] CO2 26 24 - 31 mEq/L [facility] Anion gap 15@ANIO 7 - 15 mEq/L [facility] BUN 72 (H) 8 - 23 mg/dL [facility] Creatinine 4.74 (H) 0.50 - 0.90 mg/dL [facility] Glucose 174 (H) 65 - 99 mg/dL [facility] Calcium 8.8 8.8 - 10.2 mg/dL [facility] Protein 6.7 6.3 - 8.3 g/dL [place] Comment: [facility] [place] 4.6-7.0 g/dL 1 week 4.4-7.6 g/dL 7 months-1year 5.1-7.3 g/dL 1-2 years5.6-7 .5 g/dL >3 years6.0-8 .0 g/dL 18-150 6.3-8.3 g/dL Albumin 3.0 (L) 3.5 - 5.0 g/dL [facility] A/G ratio 0.8 0.7 - 3.8 [facility] Alkaline 193 (H) 35 - 104 U/L [place] phosphatase [facility] AST 35 10 - 35 U/L [facility] ALT 20 5 - 50 U/L [facility] Total bilirubin 0.5 0.0 - 1.2 mg/dL [facility] Specimen Plasma specimen Performing Organization Address City/[facility] Phone Number [facility] [place] [place] [address] PATHOLOGY AND GENOMIC MEDICINE [address] * ECG 12 lead (06/16/2018 1:19 PM CELL RELINER) Only the most recent of 3 results within the time period is included. Ventricular 57 [facility] rate Atrial rate 57 [facility] NM interval 178 [facility] QRSD interval 94 [facility] QT interval 434 [facility] QTC interval 422 [facility] M[facility] P axis 1 49 [facility] QRS axis 1 31 [facility] T wave axis 238 [facility] EKG impression Sinus bradycardia-ST & T wave [facility] M[facility] abnormality, consider inferolateral ischemia-Abnormal ECG-In automated comparison with ECG of 16-JUN-2018 13:19,-Inverted T waves have replaced nonspecific T wave abnormality in Inferior leads- Specimen Narrative Performed At Performing Organization Address City/[facility]ode Phone Number [address] [address] * Magnesium level (03/25/2018 12:55 PM CELL RELINER) Only the most recent of 2 results within the time period is included. Magnesium 2.0 1.6 - 2.4 mg/dL [facility] Specimen Plasma specimen Performing Organization Address City/[facility] Phone Number [facility] DEPARTMENT [address] [address] PATHOLOGY AND GENOMIC MEDICINE [address] * CT Lumbar Spine Wo Contrast (03/17/2018 12:15 PM CELL RELINER) Specimen Narrative Performed At EXAMINATION: CT LUMBAR SPINE WO CONTRAST [facility] CLINICAL HISTORY:Abn xrayL S-spineDJD Technique: Contiguous thin section axial images were obtained of the lumbar spine.Sagittal and coronal reformatted images were generated. Images were reviewed in soft-tissue and bone detail. . CT imaging was performed with iterative reconstruction technique and/or automated exposure control to reduce radiation dose. Comparison: None. Findings: For the purposes of this dictation, the last well-defined interspace is called L5-S1. There is mild loss of the normal lumbar lordosis. Subtle retrolisthesis of L5 on S1. The bones are osteopenic which decreases sensitivity for detection of acute fracture. The lumbar vertebral bodies are grossly maintained. The T12 superior endplate concavity likely on the basis of a Schmorl's node. There is no definite acute fracture or traumatic malalignment of the lumbar spine. There is L5-S1 disc degeneration. There is atherosclerosis of the abdominal aorta and its branches. Probable left renal cyst. Cholecystectomy. L1-2: No significant canal stenosis. Mild left neural foraminal narrowing. L2-3: Disc bulge. Mild facet arthropathy. No significant canal stenosis or neural foraminal narrowing. L3-4: No significant canal stenosis or neural foraminal narrowing. L4-5: Disc bulge. Mild facet arthropathy. Mild canal narrowing. Mild neural foraminal narrowing. L5-S1: Disc bulge eccentric to the right. Mild central canal narrowing. Right subarticular zone stenosis. Moderate to marked right and marked left neural foraminal narrowing. Bilateral sacroiliac joint degeneration. Impression: No definite acute fracture of traumatic malalignment of the lumbar spine. 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 [id number] Procedure Note Hm Interface, Radiology Results Incoming - 03/17/2018 2:22 PM CELL RELINER EXAMINATION: CT LUMBAR SPINE WO CONTRAST CLINICAL HISTORY: Abn xray L S-spine DJD Technique: Contiguous thin section axial images were obtained of the lumbar spine. Sagittal and coronal reformatted images were generated. Images were reviewed in soft-tissue and bone detail. . CT imaging was performed with iterative reconstruction technique and/or automated exposure control to reduce radiation dose. Comparison: None. Findings: For the purposes of this dictation, the last well-defined interspace is called L5-S1. There is mild loss of the normal lumbar lordosis. Subtle retrolisthesis of L5 on S1. The bones are osteopenic which decreases sensitivity for detection of acute fracture. The lumbar vertebral bodies are grossly maintained. The T12 superior endplate concavity likely on the basis of a Schmorl's node. There is no definite acute fracture or traumatic malalignment of the lumbar spine. There is L5-S1 disc degeneration. There is atherosclerosis of the abdominal aorta and its branches. Probable left renal cyst. Cholecystectomy. L1-2: No significant canal stenosis. Mild left neural foraminal narrowing. L2-3: Disc bulge. Mild facet arthropathy. No significant canal stenosis or neural foraminal narrowing. L3-4: No significant canal stenosis or neural foraminal narrowing. L4-5: Disc bulge. Mild facet arthropathy. Mild canal narrowing. Mild neural foraminal narrowing. L5-S1: Disc bulge eccentric to the right. Mild central canal narrowing. Right subarticular zone stenosis. Moderate to marked right and marked left neural foraminal narrowing. Bilateral sacroiliac joint degeneration. Impression: No definite acute fracture of traumatic malalignment of the lumbar spine. 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 [id number] Performing Organization Address City/State/Zipcode Phone Number [facility] [address] [place] [address] * CT Thoracic Spine Wo Contrast (03/17/2018 12:14 PM CELL RELINER) Specimen Narrative Performed At EXAMINATION: CT THORACIC SPINE WO CONTRAST [facility] CLINICAL HISTORY: Mid-back T-spine paininitial exam COMPARISON:None TECHNIQUE: Non contrast axial images of the thoracic spine were obtained with coronal and sagittal reconstructed algorithms.CT imaging was performed with iterative reconstruction technique and/or automated exposure control to reduce radiation dose. FINDINGS: Mild compression deformity with Schmorl's node superior endplate of T12, which appears chronic, with no prevertebral edema. There is a fracture of the left transverse process of T12 and L1, without significant surrounding edema, age indeterminate though likely chronic given the presence of chronic posterior left 12th rib fracture. No subluxation. No suspicious osseous abnormalities. No evidence of significant posterior disc disease. There is severe neural foraminal stenosis left T2-3 and, with moderate neural foraminal stenosis left C3-4, T4-5 and right T2-3, T3-4, and T4-5 secondary to facet osteophytes. Limited evaluation of the visualized abdomen and chest demonstrates atherosclerosis of the aorta and branch vessels. There is a 2.8 cm left renal cyst. IMPRESSION: 1. Multiple fractures which appear chronic, notably of the superior endplate of T12 with associated Schmorl's nodes, of the left transverse processes of T12 and L1, and of the left posterior 12th rib. Recommend correlation. [facility]-[id number] Procedure Note Interface, Radiology Results Incoming - 03/17/2018 1:48 PM CELL [facility]IN[facility] EXAMINATION: CT THORACIC SPINE WO CONTRAST CLINICAL HISTORY: Mid-back T-spine pain initial exam COMPARISON: None TECHNIQUE: Non contrast axial images of the thoracic spine were obtained with coronal and sagittal reconstructed algorithms. CT imaging was performed with iterative reconstruction technique and/or automated exposure control to reduce radiation dose. FINDINGS: Mild compression deformity with Schmorl's node superior endplate of T12, which appears chronic, with no prevertebral edema. There is a fracture of the left transverse process of T12 and L1, without significant surrounding edema, age indeterminate though likely chronic given the presence of chronic posterior left 12th rib fracture. No subluxation. No suspicious osseous abnormalities. No evidence of significant posterior disc disease. There is severe neural foraminal stenosis left T2-3 and, with moderate neural foraminal stenosis left C3-4, T4-5 and right T2-3, T3-4, and T4-5 secondary to facet osteophytes. Limited evaluation of the visualized abdomen and chest demonstrates atherosclerosis of the aorta and branch vessels. There is a 2.8 cm left renal cyst. IMPRESSION: 1. Multiple fractures which appear chronic, notably of the superior endplate of T12 with associated Schmorl's nodes, of the left transverse processes of T12 and L1, and of the left posterior 12th rib. Recommend correlation. [facility]-[id number] Performing Organization Address City/State/Zipcode Phone Number [facility] [address] [place] [address] * Cv cta tmvr workup (cta coronary cta thoracic aorta) w contrast (03/17/2018 8:31 AM CELL RELINER) Specimen Narrative Performed At [facility] Nuclear Cardiology and Cardiac CT [address] [place] [address] CTA TMVR Protocol Pat.Name:JACEY ABRAMS Pat.ID:[id number] St.Date: 03/17/2018Refer.MD:SELWYN STRICKLAND MD Exam Time: 8:10:00 AMStudy Type:CTA TMVR Protocol Height:61inBSA: 1.58 m2 DOBAge:1945,73Y Sex: FEMALE BP:155/67HR: 74 bpm Nuclear Tech:OSITO Melchor(N)(CT) CPT - 4: CCTA w Thoracic Aorta (NonCongenital) [id number] Nuclear Event ID:[id number] Order ID:[id number] Reason for Study:TMVR Work-Up Procedures:CT Retrospective SUMMARY: Technique: IV contrast was administered and sequential 0.[address] cuts were obtained through the chest using the Siemens Somatom Force CT scanner. Post-processing and 3D reconstruction were done using the itravel workstation. Interactive image viewing and volumetric display and analysis were also performed. 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 Mild calcified atherosclerotic plaque is present but without significant stenosis. Left anterior descending (LAD): A normal sized 3.5mm artery which wraps around the apex and gives off one diagonal branch. Moderatecalcified and non-calcified atherosclerotic plaque is present in the proximal and mid segments with mild eccentric approximately 25% stenosis in the proximal segment. The first diagonal is a 2.0 mm artery which has mild calcified and non-calcified atherosclerotic plaque present but with no significant stenosis. A short segment of the mid-LAD is bridged. Left circumflex: A normal sized 3.9 mm non-dominant artery which arises normally from the left main and gives off two major obtuse marginal arteries before terminating in the AV groove. Moderate predominantly calcified atherosclerotic plaque is present in the proximal segment with but without significant stenosis. The first obtuse marginal is a 2.0 mm artery which has no significant atherosclerotic plaquepresent. The second obtuse marginal is a 3.4 mm trifurcating artery which has mild predominantly calcified atherosclerotic plaque present but no significant stenosis. Right coronary artery: A normal sized 3.3 mm dominant artery which arises normally from the right sinus of Valsalva and gives off several right ventricular branches, the posterior descending artery and the posterolateral artery. Moderate calcified and non-calcified atherosclerotic plaque is present in the proximal, mid and distal segments but without significant stenosis. The posterior descending is a 2.4 mm artery which has no significant atherosclerotic plaquepresent. The posterolateral is a 1.5 mm artery which has mild calcified and non-calcified atherosclerotic plaque present but no significant stenosis. Ramus: A 2.7 mm trifurcating artery which has mild calcified and non-calcified atherosclerotic plaque present but with serial mild approximately 30% and then 50% stenoses. Stents: None. Bypass Grafts: None. Pulmonary Arteries: Normal pulmonary artery sizes with no proximal thrombus identified. Left Atrial and Pulmonary Vein Dimensions: Left atrial size (A-P diameter) 4.6 cm. Variant PV anatomy Left superior PV20 mm. Left inferior PV15 mm. Right superior PV20 mm. Right middle PV 6 mm. Right inferior PV18 mm. There is no evidence of the left atrial appendage clot. Left Ventricular Valve Morphology/Function: LV septal wall thickness 1.8 mm with moderate eccentric LV hypertrophy. LV end-diastolic volume 158 ml and dilated LV end systolic volume 63 ml. LVEF60 % with normal regional wall motion. There is a mechanical aortic valve.There is an area (2mm diameter) of dehiscence along the left sinus of Valsalva. The mitral leaflets are mildly thickened but without calcification, but there is no valvular stenosis (maximal diastolic area of 0.52cm). There is at least moderate regurgitation, AROA of 0.28cm. There is moderate mitral annular calcification extending the majority of the annular circuference, sparing only the aortomitral curtain. Right Ventricular Valve Morphology/Function: RV end-diastolic volume 163 ml. RV end systolic volume 230 ml. RVEF 29% Thoracic Aortic Dimensions: No aortic aneurysm or dissection is seen. Aortic root2.5 cm. Sinotubular junction 2.5 cm with effacement of the sinotubular junction. Mid ascending aorta 2.8 cm. Descending thoracic aorta 1.9 cm. Pericardium: No pericardial effusion or pericardial thickening. Non-Cardiac Findings: Bilateral pulmonary congestion There is 7mm noncalcified nodule present in the superior aspect of the right lower lobe of the long, along the fissure. CONCLUSION Coronary CTA shows moderate coronary atherosclerosis but no obstructive coronary artery stenosis. LVEF is 60 % and RVEF is 29% Variant PV anatomy There is a mechanical aortic valve.There is an area (2mm diameter) of dehiscence along the left sinus of Valsalva. The mitral leaflets are mildly thickened but without calcification, but there is no valvular stenosis (maximal diastolic area of 0.52cm). There is at least moderate regurgitation, AROA of 0.28cm. There is moderate mitral annular calcification extending the majority of the annular circuference, sparing only the aortomitral curtain. There is no evidence of the left atrial appendage clot. STUDY QUALITY The study quality is good. COMMENTS None. The above report was based on a dedicated Cardiovascular CTA Protocol and interpreted by a Core Winding Operator.Should a more comprehensive assessment of non-cardiovascular findings be desired, please consult a radiologist.These images are available in the [facility] Wiki-PR PACS system. Signed 03/18/2018 06:27 PM Jamil Rodriguez MD Procedure Note Interface, Radiology Results In - 03/18/2018 6:29 PM [facility] Nuclear Cardiology and Cardiac CT [address] [place] [address] CTA TMVR Protocol Pat.Name: JACEY ABRAMS Pat.ID: [id number] .Date: 03/17/2018 Refer.MD: SELWYN STRICKLAND MD Exam Time: 8:10:00 AM Study Type:CTA TMVR Protocol Height: 61in BSA: 1.58 m2 Age: 11 1945,73Y Sex: FEMALE BP: 155/67 HR: 74 bpm Nuclear Tech:OSITO Melchor(N)(CT) CPT - 4: CCTA w Thoracic Aorta (NonCongenital) [id number] Nuclear Event ID:[id number] Order ID: [id number] Reason for Study:VR Work-Up Procedures:CT Retrospective SUMMARY: Technique: IV contrast was administered and sequential 0.[address] cuts were obtained through the chest using the Siemens Somatom Force CT scanner. Post-processing and 3D reconstruction were done using the itravel workstation. Interactive image viewing and volumetric display and analysis were also performed. 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 Mild calcified atherosclerotic plaque is present but without significant stenosis. Left anterior descending (LAD): A normal sized 3.5mm artery which wraps around the apex and gives off one diagonal branch. Moderate calcified and non-calcified atherosclerotic plaque is present in the proximal and mid segments with mild eccentric approximately 25% stenosis in the proximal segment. The first diagonal is a 2.0 mm artery which has mild calcified and non-calcified atherosclerotic plaque present but with no significant stenosis. A short segment of the mid-LAD is bridged. Left circumflex: A normal sized 3.9 mm non-dominant artery which arises normally from the left main and gives off two major obtuse marginal arteries before terminating in the AV groove. Moderate predominantly calcified atherosclerotic plaque is present in the proximal segment with but without significant stenosis. The first obtuse marginal is a 2.0 mm artery which has no significant atherosclerotic plaque present. The second obtuse marginal is a 3.4 mm trifurcating artery which has mild predominantly calcified atherosclerotic plaque present but no significant stenosis. Right coronary artery: A normal sized 3.3 mm dominant artery which arises normally from the right sinus of Valsalva and gives off several right ventricular branches, the posterior descending artery and the posterolateral artery. Moderate calcified and non-calcified atherosclerotic plaque is present in the proximal, mid and distal segments but without significant stenosis. The posterior descending is a 2.4 mm artery which has no significant atherosclerotic plaque present. The posterolateral is a 1.5 mm artery which has mild calcified and non-calcified atherosclerotic plaque present but no significant stenosis. Ramus: A 2.7 mm trifurcating artery which has mild calcified and non-calcified atherosclerotic plaque present but with serial mild approximately 30% and then 50% stenoses. Stents: None. Bypass Grafts: None. Pulmonary Arteries: Normal pulmonary artery sizes with no proximal thrombus identified. Left Atrial and Pulmonary Vein Dimensions: Left atrial size (A-P diameter) 4.6 cm. Variant PV anatomy Left superior PV20 mm. Left inferior PV15 mm. Right superior PV20 mm. Right middle PV 6 mm. Right inferior PV18 mm. There is no evidence of the left atrial appendage clot. Left Ventricular Valve Morphology/Function: LV septal wall thickness 1.8 mm with moderate eccentric LV hypertrophy. LV end-diastolic volume 158 ml and dilated LV end systolic volume 63 ml. LVEF60 % with normal regional wall motion. There is a mechanical aortic valve. 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 The mitral leaflets are mildly thickened but without calcification, but there is no valvular stenosis (maximal diastolic area of 0.52cm). There is at least moderate regurgitation, AROA of 0.28cm. There is moderate mitral annular calcification extending the majority of the annular circuference, sparing only the aortomitral curtain. Right Ventricular Valve Morphology/Function: RV end-diastolic volume 163 ml. RV end systolic volume 230 ml. RVEF 29% Thoracic Aortic Dimensions: No aortic aneurysm or dissection is seen. Aortic root 2.5 cm. Sinotubular junction 2.5 cm with effacement of the sinotubular junction. Mid ascending aorta 2.8 cm. Descending thoracic aorta 1.9 cm. Pericardium: No pericardial effusion or pericardial thickening. Non-Cardiac Findings: Bilateral pulmonary congestion There is 7mm noncalcified nodule present in the superior aspect of the right lower lobe of the long, along the fissure. CONCLUSION Coronary CTA shows moderate coronary atherosclerosis but no obstructive coronary artery stenosis. LVEF is 60 % and RVEF is 29% Variant PV anatomy There is a mechanical aortic valve. 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 The mitral leaflets are mildly thickened but without calcification, but there is no valvular stenosis (maximal diastolic area of 0.52cm). There is at least moderate regurgitation, AROA of 0.28cm. There is moderate mitral annular calcification extending the majority of the annular circuference, sparing only the aortomitral curtain. There is no evidence of the left atrial appendage clot. STUDY QUALITY The study quality is good. COMMENTS None. The above report was based on a dedicated Cardiovascular CTA Protocol and interpreted by a Core Winding Operator. Should a more comprehensive assessment of non-cardiovascular findings be desired, please consult a radiologist. These images are available in the [facility] Wiki-PR PACS system. Signed 03/18/2018 06:27 PM Jamil Rodriguez MD Performing Organization Address City/State/Zipcode Phone Number [facility] [address] [place] [address] * Echocardiogram transesophageal (03/16/2018 10:21 AM CELL RELINER) Specimen Narrative Performed At [facility] Transesophageal Echo Report [id number], [place], [address]Name:JACEY ABRAMS Pat.ID:[id number] .Date: 03/16/2018Refer.MD:MARGARITA OSBORNE MD Exam Time: 8:40:00 AMStudy Type:CHANA Height:60inWeight:138lb BSA: 1.6 a6LJUIgt:1945,73Y Sex: FEMALEBP:148/65 HR:69 bpmSonogrphr: Crystal Álvarez MD Pat. Stat.:Inpatient Study Status:Final Echo Event ID:[id number] Order ID:[id number] Reason for Study:EVAL OF VALVULAR STRUCTURE AND FUNCTION TO ASSESS SUITABILITY FOR, AND ASSIST IN PLANNING OF, AN INTERVENTION. History / Clinical:Diabetes, Hypertension, Renal Disorder Procedures:Transesophageal Echo with Colorflow Doppler, 3D Echo, Intravenous Saline Contrast Race:C SUMMARY: LV EF is normal. Estimated EF is 60-64%. Severe mitral annular calcification. Severe eccentric mitral regurgitation. Etiology of MR is likely to be a perforated P2 segment. Diagnostic of mobile thrombus or mass in the SVC extending into the RA. FINDINGS: CHANA:The attending professional system administrator performed the CHANA procedure and waspresent for the entire duration. The patient was counseledand an informed consent was obtained. Topical and intravenousanesthesia was administered. The esophagus was intubatedwithout difficulty. The patient tolerated the procedurewell. LV: LV size is normal. LV EF is normal. Overall wall motion is normal.Estimated EF is 60-64%. RV: RV size is normal. RV systolic function is normal. LA: LA volume is severely enlarged. RA: A Eustachian valve and/or Chiari network is seen. This is a normalvariant. Diagnostic of mobile thrombus or mass in theSVC extending into the RA. AO: Moderate atherosclerotic changes seen in the descending aorta. EDITH: No pericardial effusion. Cntrst: No intracardiac shunt detected. IAS:Interatrial septum is redundant. AV: Mechanical aortic valve. MV: Mild thickening and calcification of mitral leaflets. Severe mitralannular calcification. By 3D, there is high suspicionof a perforation in P2. Severe eccentric mitral regurgitation.Etiology of MR is likely to be a perforated [id number]. Eccentric mitral regurgitant jet directed anteriorly. PV: Pulmonic valve not well seen. TV: No structural TV abnormalities noted. Mild tricuspid regurgitation Other:Estimated PA systolic pressure is 40 mmHg, assuming a mean RAPof 5 mmHg. CHANA: Anesthesia: Moderate SedationASA Class: 4 Physician: Mitchel Morton M.D.Test Preparer: Crystal Álvarez MD Pre TEEBP HR Post CHANA BP HR 148/65 10445/71 80 Meds:Viscous xylocaine, Cetacaine spray to oropharynx, Versed 2 mg IV, Fentanyl 50 mcg IV Complications: None Condition: Stable MEASUREMENTS: DOPPLER MV PISA MV AliasVel 38.5 cm/sMV pkVel 451.5 cm/s MV PISA rad1 cmMV ERO 0.5 cm2 MV Flw 241.9 cc/sMV RgVol72.4 cc Signed 03/16/2018 11:23 AM Mitchel Morton M.D. Procedure Note Interface, Radiology Results In - 03/16/2018 11:23 AM [facility] Transesophageal Echo Report [id number] [place], [place] [address] Pat.Name: JACEY ABRAMS Pat.ID: [id number] .Date: 03/16/2018 Refer.MD: MARGARITA OSBORNE MD Exam Time: 8:40:00 AM Study Type:CHANA Height: 60in Weight: 138lb BSA: 1.6 m2 Age: 11 1945,73Y Sex: FEMALE BP: 148/65 HR: 69 bpm Sonogrphr: Crystal Álvarez MD Pat. Stat.:Inpatient Study Status:Final Echo Event ID:[id number] Order ID: [id number] Reason for Study:EVAL OF VALVULAR STRUCTURE AND FUNCTION TO ASSESS SUITABILITY FOR, AND ASSIST IN PLANNING OF, AN INTERVENTION. History / Clinical:Diabetes, Hypertension, Renal Disorder Procedures:Transesophageal Echo with Colorflow Doppler, 3D Echo, Intravenous Saline Contrast Race: C SUMMARY: LV EF is normal. Estimated EF is 60-64%. Severe mitral annular calcification. Severe eccentric mitral regurgitation. Etiology of MR is likely to be a perforated P2 segment. Diagnostic of mobile thrombus or mass in the SVC extending into the RA. FINDINGS: CHANA: The attending professional system administrator performed the CHANA procedure and was present for the entire duration. The patient was counseled and an informed consent was obtained. Topical and intravenous anesthesia was administered. The esophagus was intubated without difficulty. The patient tolerated the procedure well. LV: LV size is normal. LV EF is normal. Overall wall motion is normal. Estimated EF is 60-64%. RV: RV size is normal. RV systolic function is normal. LA: LA volume is severely enlarged. RA: A Eustachian valve and/or Chiari network is seen. This is a normal variant. Diagnostic of mobile thrombus or mass in the SVC extending into the RA. AO: Moderate atherosclerotic changes seen in the descending aorta. EDITH: No pericardial effusion. Cntrst: No intracardiac shunt detected. IAS: Interatrial septum is redundant. AV: Mechanical aortic valve. MV: Mild thickening and calcification of mitral leaflets. Severe mitral annular calcification. By 3D, there is high suspicion of a perforation in P2. Severe eccentric mitral regurgitation. Etiology of MR is likely to be a perforated P2 segment. Eccentric mitral regurgitant jet directed anteriorly. PV: Pulmonic valve not well seen. TV: No structural TV abnormalities noted. Mild tricuspid regurgitation Other: Estimated PA systolic pressure is 40 mmHg, assuming a mean RAP of 5 mmHg. CHANA: Anesthesia: Moderate Sedation ASA Class: 4 Physician: Mitchel Morton M.D.Test Preparer: Crystal Álvarez MD Pre CHANA BP HR Post CHANA BP HR 148/65 69 164/71 80 Meds: Viscous xylocaine, Cetacaine spray to oropharynx, Versed 2 mg IV, Fentanyl 50 mcg IV Complications: None Condition: Stable MEASUREMENTS: DOPPLER MV PISA MV AliasVel 38.5 cm/s MV pkVel 451.5 cm/s MV PISA rad 1 cm MV ERO 0.5 cm2 MV Flw 241.9 cc/s MV RgVol 72.4 cc Signed 03/16/2018 11:23 AM Mitchel Morton M.D. Performing Organization Address [facility] Phone Number [facility] [address] [place] [address] * Total iron binding capacity (03/14/2018 4:50 AM CELL RELINER) Iron level 87 37 - 145 ug/dL [facility] Iron binding 116 (L) 200 - 400 ug/dL [facility] % Saturation 75.0 (H) 15.0 - 38.0 % [facility] Specimen Plasma specimen Performing Organization Address [facility] Phone Number [facility] [place] [address] PATHOLOGY AND [facility] [address] * Ferritin level (03/14/2018 4:50 AM CELL RELINER) Ferritin level 1,899 (H) 13 - 150 ng/mL [facility] Specimen Plasma specimen Performing Organization Address [facility] Phone Number [facility] [place] [place] [address] PATHOLOGY AND [facility] [address] * US Renal (03/13/2018 4:59 PM CELL RELINER) Specimen Narrative Performed At EXAM:US RENAL [facility] CLINICAL HISTORY:Renal failureacute (kidney injury) COMPARISON:None. IMPRESSION: The kidneys are small in size. Right kidney measures 7.9 cm and the cortex measures 0.8 cm. Left kidney measures 7.0 cm and the cortex measures 0.8 cm. Increased cortical echogenicity is identified, likely reflective of chronic medical renal disease. Left renal hypoechoic lesion measuring 3.1 x 2.4 x 2.6 cm and without demonstrating associated flow is identified, likely reflective of a cyst, potentially with a mild amount of proteinaceous contents. A 0.6 x 0.3 x 0.6 cm calculus is identified within the right renal lower pole. There is otherwise no evidence of renal mass, calculi, or hydronephrosis. The urinary bladder is unremarkable. [facility]-[id number] Procedure Note Interface, Radiology Results Incoming - 03/13/2018 9:54 PM CELL RELINER EXAM: US RENAL CLINICAL HISTORY: Renal failure acute (kidney injury) COMPARISON: None. IMPRESSION: The kidneys are small in size. Right kidney measures 7.9 cm and the cortex measures 0.8 cm. Left kidney measures 7.0 cm and the cortex measures 0.8 cm. Increased cortical echogenicity is identified, likely reflective of chronic medical renal disease. Left renal hypoechoic lesion measuring 3.1 x 2.4 x 2.6 cm and without demonstrating associated flow is identified, likely reflective of a cyst, potentially with a mild amount of proteinaceous contents. A 0.6 x 0.3 x 0.6 cm calculus is identified within the right renal lower pole. There is otherwise no evidence of renal mass, calculi, or hydronephrosis. The urinary bladder is unremarkable. [facility]-[id number] Performing Organization Address City/State/Zipcode Phone Number [facility] [address] [place] [address] * Blood culture, aerobic & anaerobic (03/13/2018 3:45 PM CELL RELINER) Only the most recent of 2 results within the time period is included. Blood culture No growth after 5 days of [place] isolate incubation. [facility] Comment: [facility]OSPITAL Specimen Information Specimen Source: Blood Specimen Site: Forearm, right Specimen Blood - Forearm, right Performing Organization Address City/State/Zipcode Phone Number [facility] DEPARTMENT OF [address] [place] [phone] PATHOLOGY AND GENOMIC MEDICINE [place] [facility] [address] [place], [place] [id number] HOSPITAL * Echocardiogram complete w contrast and 3D if needed (03/13/2018 3:23 PM CELL RELINER) Specimen Narrative Performed At [facility] Echocardiography Report [id number] [facility], [place] [address] Pat.Name:JACEY ABRAMS Pat.ID:[id number] .Date: 03/13/2018Refer.MD:ABRAHAM JOHNSON MD Exam Time: 2:23:00 PMStudy Type:Routine Echo Height:60inWeight:138lb BSA: 1.6 z9HDTHdn:1945,73Y Sex: FEMALEBP:109/39 HR:83 bpm Sonogrphr: Ana Laura Romero [facility] Pat. Stat.:Inpatient Room:[address] Study Status:Final Echo Event ID:[id number] Order ID:[id number] Reason for Study:CHF History / Clinical:Diabetes, Hypertension, Renal Disorder Procedures:2D Echo, Colorflow Doppler, Intravenous Definity Contrast SUMMARY: Estimated EF is 65-69% LA volume is severely enlarged. Moderate to severe thickening and calcification of mitral leaflets. Severe mitral annular calcification. At least moderate mitral regurgitation;cpi;d be worse. Consider CHANA to better assess MR severity. Surgical Prosthetic AV Doppler velocity index is 0.4 (normal>0.25). FINDINGS: LV: LV size is normal. LV EF is normal. Overall wall motion is normal.Estimated EF is 65-69% RV: RV size is normal. RV systolic function is normal. LA: LA volume is severely enlarged. RA: RA size is normal. AO: Aortic root diameter is normal. EDITH: No pericardial effusion. AV: Bioprosthetic aortic valve. Surgical Prosthetic AV Doppler velocityindex is 0.4 (normal>0.25). Aortic valve high velocityand pressure gradient is secondary to high flow state. MV: Moderate to severe thickening and calcification of mitral leaflets.Severe mitral annular calcification. Calcified papillarymuscle. At least moderate mitral regurgitation;cpi;dbe worse. PV: No structural PV abnormalities noted. TV: No structural TV abnormalities noted. Johnson: Unable to assess diastolic function. Other:Insufficient TR jet to estimate PA systolic pressure. MEASUREMENTS: 2D Parasternal [place] LVOT 2.2 cmLV%fs 29.6 % LA Ds4.1 cmIVSd 1.2 cm Ao An1.7 cmLVPWd1.1 cm Ao Rtd 2.3 cmIndex1.5 cm/m LV Qcuk399.2 g(87-129) LVIDd4.8 cmIndex3 cm/m LVM Lqypk711.8 g/m2 LVIDs3.4 cmRWT0.5 LA Biplane LA 4Ch Area 24.7 cm2 LA Vol79.2 ml Index49.5 ml/m LA 2Ch Area 22.7 cm2 DOPPLER AV For Flow/CARMINE AV pkVel 375.2 cm/s (100-170) AV AC/ET 0.3 AV mnVel 250.6 cm/Grzegorz TVI78.8 cm AV pkPG 56.3 mmHgAVpkAcRt 6969.4 cm/s2 AV Mean G 31 mmHgAV PeVw5482.8 cm/s2 AV AC 95 msec (83-118) AV Area1.5 cm2(3-5) AV ET314 msec LVOT For Flow LVOT Area3.8 cm2 LVOT SV121.7 ml WPNXxgHiw816.1 cm/sHR82.3 bpm LVOTpkPG 6.7 mmHgLVOT CO 10 l/min LVOTmnPG 4 mmHgLVOT CI6.3 l/m/m2 LVOT TVI32 cm Signed 03/13/2018 06:54 PM Mitchel Morton M.D. Procedure Note Interface, Radiology Results In - 03/13/2018 6:54 PM [facility] Echocardiography Report [id number] [address], [place] [address] Pat.Name: JACYE ABRAMS Pat.ID: [id number] .Date: 03/13/2018 Refer.MD: ABRAHAM JOHNSON MD Exam Time: 2:23:00 PM Study Type:Routine Echo Height: 60in Weight: 138lb BSA: 1.6 m2 Age: 11 1945,73Y Sex: FEMALE BP: 109/39 HR: 83 bpm Sonogrphr: Ana Laura Romero [facility] Pat. Stat.:Inpatient Room: [address] Study Status:Final Echo Event ID:[id number] Order ID: [id number] Reason for Study:CHF History / Clinical:Diabetes, Hypertension, Renal Disorder Procedures:2D Echo, Colorflow Doppler, Intravenous Definity Contrast SUMMARY: Estimated EF is 65-69% LA volume is severely enlarged. Moderate to severe thickening and calcification of mitral leaflets. Severe mitral annular calcification. At least moderate mitral regurgitation;cpi;d be worse. Consider CHANA to better assess MR severity. Surgical Prosthetic AV Doppler velocity index is 0.4 (normal>0.25). FINDINGS: LV: LV size is normal. LV EF is normal. Overall wall motion is normal. Estimated EF is 65-69% RV: RV size is normal. RV systolic function is normal. LA: LA volume is severely enlarged. RA: RA size is normal. AO: Aortic root diameter is normal. EDITH: No pericardial effusion. AV: Bioprosthetic aortic valve. Surgical Prosthetic AV Doppler velocity index is 0.4 (normal>0.25). Aortic valve high velocity and pressure gradient is secondary to high flow state. MV: Moderate to severe thickening and calcification of mitral leaflets. Severe mitral annular calcification. Calcified papillary muscle. At least moderate mitral regurgitation;cpi;d be worse. PV: No structural PV abnormalities noted. TV: No structural TV abnormalities noted. Johnson: Unable to assess diastolic function. Other: Insufficient TR jet to estimate PA systolic pressure. MEASUREMENTS: 2D Parasternal [place] LVOT 2.2 cm LV%fs 29.6 % LA Ds 4.1 cm IVSd 1.2 cm Ao An 1.7 cm LVPWd 1.1 cm Ao Rtd 2.3 cm Index 1.5 cm/m LV Mass 209.2 g (87-129) LVIDd 4.8 cm Index 3 cm/m LVM Index 130.8 g/m2 LVIDs 3.4 cm RWT 0.5 LA Biplane LA 4Ch Area 24.7 cm2 LA Vol 79.2 ml Index 49.5 ml/m LA 2Ch Area 22.7 cm2 DOPPLER AV For Flow/CARMINE AV pkVel 375.2 cm/s (100-170) AV AC/ET 0.3 AV mnVel 250.6 cm/s AV TVI 78.8 cm AV pkPG 56.3 mmHg AVpkAcRt 6969.4 cm/s2 AV Mean G 31 mmHg AV DeRt 1193.8 cm/s2 AV AC 95 msec (83-118) AV Area 1.5 cm2 (3-5) AV ET 314 msec LVOT For Flow LVOT Area 3.8 cm2 LVOT SV 121.7 ml LVOTpkVel 129.1 cm/s HR 82.3 bpm LVOTpkPG 6.7 mmHg LVOT CO 10 l/min LVOTmnPG 4 mmHg LVOT CI 6.3 l/m/m2 LVOT TVI 32 cm Signed 03/13/2018 06:54 PM Mitchel Morton M.D. Performing Organization Address City/State/Zipcode Phone Number [facility] [address] [place] [address] * XR Chest 1 Vw Portable (03/13/2018 10:32 AM CELL RELINER) Specimen Narrative Performed At [facility] CLINICAL INDICATION:Shortness of breath COMPARISON:None available IMPRESSION: Heart is mildly enlarged with mild pulmonary vascular congestion with mild perihilar edema. There valve replacement is noted with changes of sternotomy. There is no effusion or pneumothorax. Bones are demineralized but appear intact. Thank you for allowing us to participate in the care of your patient. [facility]-[id number] Procedure Note Interface, Radiology Results Incoming - 03/13/2018 10:46 AM CELL RELINER XR CHEST 1 VW PORTABLE CLINICAL INDICATION: Shortness of breath COMPARISON: None available IMPRESSION: Heart is mildly enlarged with mild pulmonary vascular congestion with mild perihilar edema. There valve replacement is noted with changes of sternotomy. There is no effusion or pneumothorax. Bones are demineralized but appear intact. Thank you for allowing us to participate in the care of your patient. [facility]-[id number] Performing Organization Address [facility] Phone Number [facility] [address] [place] [address] * Partial thromboplastin time, activated (03/13/2018 9:45 AM CELL RELINER) Pathologist Jayson PTT 40.1 (H) 23.0 - 36.0 sec [place] Comment: [facility] PTT therapeutic range for HOSPITAL unfractionated heparin is 61.0-112.0 seconds which corresponds to Anti-Xa 0.3-0.7 U/ml. Specimen Blood Performing Organization Address City/[facility]/Zipcode Phone Number [facility] DEPARTMENT OF [address] [place] [phone] PATHOLOGY AND [facility] [place] [address] HOSPITAL * Type and screen (03/13/2018 9:45 AM CELL RELINER) Pathologist Jayson ABO grouping O [facility] Rh type POS [facility] Antibody screen NEG [place] (gel) [facility] Specimen Blood Performing Organization Address City/[facility]/Zipcode Phone Number [facility] DEPARTMENT OF [address] [place] [phone] PATHOLOGY AND GENOMIC MEDICINE [address] * Phosphorus level (03/13/2018 9:45 AM CELL RELINER) Phosphorus 5.1 (H) 2.4 - 4.5 mg/dL [facility] Specimen Plasma specimen Narrative Performed At [facility] results called to and read back by [facility] DEPARTMENT OF [place](name/location)03/13/201810:41(date/time) by PR1. PATHOLOGY AND GENOMIC MEDICINE Performing Organization Address City/State/Zipcode Phone Number [facility] [place] [address] PATHOLOGY AND GENOMIC MEDICINE [address] * Hepatic function panel (03/13/2018 9:45 AM CELL RELINER) Albumin 2.4 (L) 3.5 - 5.0 g/dL [facility] Total bilirubin 0.5 0.0 - 1.2 mg/dL [facility] Bilirubin <0.2 0.0 - 0.3 mg/dL [place] direct [facility] Alkaline 299 (H) 35 - 104 U/L [place] phosphatase [facility] Protein 7.0 6.3 - 8.3 g/dL [place] Comment: [facility] [place] 4.6-7.0 g/dL 1 week 4.4-7.6 g/dL 7 months-1year 5.1-7.3 g/dL 1-2 years5.6-7 .5 g/dL >3 years6.0-8 .0 g/dL 18-150 6.3-8.3 g/dL ALT 23 5 - 50 U/L [facility] AST 39 (H) 10 - 35 U/L [facility] Specimen Plasma specimen Narrative Performed At [facility] results called to and read back by [facility] DEPARTMENT OF [place](name/location)03/13/201810:41(date/time) by PR1. PATHOLOGY AND GENOMIC MEDICINE Performing Organization Address City/State/Zipcode Phone Number [facility] DEPARTMENT [address] [address] PATHOLOGY AND GENOMIC MEDICINE [address] after 11/02/2017 Insurance Type Payer Benefit Subscriber ID Effective Phone Address Plan / Dates Group HMO [employer] TEXANPLUS xxxxxxxxx 2017-Adenike lacy Advance Directives Patient has advance care planning documents on file. For more information, fredis e contact: Aston Aggarwal [address] [place] [address]
--- OUTSIDE RECORDS SUMMARY | 2018-11-03 19:22 | XMS REPORT ---
Author Author [facility] Address Unknown Phone Unavailable Care Team Providers Care Manager Nuclear Name Role Phone Shila BERNABE Unavailable Unavailable Shila POWERS Unavailable Unavailable ANDRÉS WINTER Unavailable Unavailable Payers Payer Name Policy Type Policy Number Effective Date Expiration Date Problems This patient has no known problems. Allergies, Adverse Reactions, Alerts Allergy Name Allergy Type Status Severity Reaction(s) Onset Date Inactive Date Treating Clinician Comments No Known Allergies DA Active U 2018-03-01 00:00:00 PCN DA Active SV 2018-03-01 00:00:00 Penicillins DA Active UT 2012-06-24 00:00:00 Sulfa (Sulfonamide Antibiotics) DA Active UT 2012-06-24 00:00:00 Medications This patient has no known medications. Results Test Description Test Time Test Comments Text Results Atomic Results Result Comments CT LUMBAR SPINE WITHOUT-HOPD 2018-01-08 15:22:00 [place] [address] Patient Name: UNIQUE ABRAMS MR #: [id number] : 1945 Age/Sex: 72/F Req #: [id number] Adm Physician: Ordered by: SVETLANA BERNABE MD Report #: [id number] Location: [facility] Room/Bed: Procedure: [id number] HOPD/CT LUMBAR SPINE WITHOUT-HOPD Exam Date: 01/08/18 Exam Time: 1427 REPORT STATUS: Signed Exams: Thoracic and lumbar spine CTs without IV contrast History: Back pain Comparison studies: Included spine from abdomen pelvis CT of 08/30/2017. Technique: Axial were obtained through the thoracic and lumbar regions. Coronal and sagittal images reconstructed from the axial data. Dose modulation, iterative reconstruction, and/or weight based adjustment of the mA/kV was utilized to reduce the radiation dose to as low as reasonably achievable. Intravenous contrast: None Findings: Alignment: Normal thoracic kyphosis. Straightened lumbar curvature. Mild lumbar curvature convex to the right. Soft tissues: No gross acute abnormalities. Paraspinal muscles: Unremarkable Spinal cord: Can not be evaluated. Vertebrae: No acute fractures, infection or neoplasm. Unchanged chronic superior T12 endplate fracture with approximately 20-25% height loss without retropulsion. Unchanged minimal depression of the superior L3 endplate. Thoracic degenerative changes: Anterior marginal osteophytes on the right from T8 to T12. Vacuum disc at T10-T11 and T11-T12. Patent canal and foramina.. Lumbar degenerative changes: Multilevel anterior marginal osteophytes from L1 to S1. L1-L2: Minimal vacuum disc. Symmetric disc bulge without significant canal or foraminal stenosis. L2-L3: Minimal vacuum disc. Symmetric disc bulge without significant canal or foraminal stenosis. L3-L4: Small symmetric disc bulge without significant canal or foraminal stenosis. L4- L5: Symmetric disc bulge and thickened ligamentum flavum result in mild canal stenosis. No significant foraminal stenosis. L5-S1: Moderately degenerated disc with loss of disc height. Moderate bilateral foraminal stenosis and mild narrowing of the right subarticular recess due to a disc osteophyte complex and thickened ligamentum flavum. No significant canal stenosis. Incidental findings: Severe scattered calcified arteriosclerosis. Partially imaged dual-lumen right central venous dialysis catheter. Partially imaged left peripelvic renal cyst. IMPRESSION: Thoracic and lumbar spines: 1. No acute fracture or subluxation. 2. Stable chronic T12 and L3 superior endplate depression deformities. 3. Mild thoracic degenerative changes without thoracic canal or foraminal stenosis. 4. Degenerative changes in the lumbar spine, greatest at L5-S1 where there is moderate disc degeneration and moderate bilateral foraminal stenosis. Signed by: Dr. Erika Brewer M.D. on 01/08/2018 3:40 PM Dictated By: ERIKA BREWER MD Elec tronically Signed By: ERIKA BREWER MD on 01/08/181539 Transcribed By: LAN on 01/08/181539 COPY TO: SVETLANA BERNABE MD CT THORACIS SPINE WO-HOPD 2018-01-08 15:22:00 [place] [address] Patient Name: UNIQUE ABRAMS MR #: [id number] : 1945 Age/Sex: 72/F Req #: [id number] Adm Physician: Ordered by: SVETLANA BERNABE MD Report #: [id number] Location: [facility] Room/Bed: Procedure: [id number] HOPD/CT THORACIS SPINE WO- [facility] Exam Date: Exam Time: REPORT STATUS: Signed Exams: Thoracic and lumbar spine CTs without IV contrast History: Back pain Comparison studies: Included spine from abdomen pelvis CT of 08/30/2017. Technique: Axial were obtained through the thoracic and lumbar regions. Coronal and sagittal images reconstructed from the axial data. Dose modulation, iterative reconstruction, and/or weight based adjustment of the mA/kV was utilized to reduce the radiation dose to as low as reasonably achievable. Intravenous contrast: None Findings: Alignment: Normal thoracic kyphosis. Straightened lumbar curvature. Mild lumbar curvature convex to the right. Soft tissues: No gross acute abnormalities. Paraspinal muscles: Unremarkable Spinal cord: Can not be evaluated. Vertebrae: No acute fractures, infection or neoplasm. Unchanged chronic superior T12 endplate fracture with approximately 20-25% height loss without retropulsion. Unchanged minimal depression of the superior L3 endplate. Thoracic degenerative changes: Anterior marginal osteophytes on the right from T8 to T12. Vacuum disc at T10-T11 and T11-T12. Patent canal and foramina.. Lumbar degenerative changes: Multilevel anterior marginal osteophytes from L1 to S1. L1-L2: Minimal vacuum disc. Symmetric disc bulge without significant canal or foraminal stenosis. L2-L3: Minimal vacuum disc. Symmetric disc bulge without significant canal or foraminal stenosis. L3-L4: Small symmetric disc bulge without significant canal or foraminal stenosis. L4- L5: Symmetric disc bulge and thickened ligamentum flavum result in mild canal stenosis. No significant foraminal stenosis. L5-S1: Moderately degenerated disc with loss of disc height. Moderate bilateral foraminal stenosis and mild narrowing of the right subarticular recess due to a disc osteophyte complex and thickened ligamentum flavum. No significant canal stenosis. Incidental findings: Severe scattered calcified arteriosclerosis. Partially imaged dual-lumen right central venous dialysis catheter. Partially imaged left peripelvic renal cyst. IMPRESSION: Thoracic and lumbar spines: 1. No acute fracture or subluxation. 2. Stable chronic T12 and L3 superior endplate depression deformities. 3. Mild thoracic degenerative changes without thoracic canal or foraminal stenosis. 4. Degenerative changes in the lumbar spine, greatest at L5-S1 where there is moderate disc degeneration and moderate bilateral foraminal stenosis. Signed by: Dr. Erika Brewer M.D. on 01/08/2018 3:40 PM Dictated By: ERIKA BREWER MD 1545 Transcribed By: LAN on 01/08/18 1540 COPY TO: SVETLANA BERNABE MD CHEST SINGLE (PORTABLE) 2017-09-30 14:33:00 [place] [address] Patient Name: UNIQUE ABRAMS MR #: [id number] : 1945 Age/Sex: 72/F Req #: [id number] Adm Physician: Ordered by: LARY RAVI NP Report #: [id number] Location: ER Room/Bed: Procedure: DX/CHEST SINGLE (PORTABLE) Exam Date: 09/30/17 Exam Time: 1400 REPORT STATUS: Signed PROCEDURE: A single AP view of the chest. COMPARISON: Patients [facility], DX, CHEST SINGLE (PORTABLE), 11/14/2016, 0:30. INDICATIONS: SHORTNESS OF BREATH FINDINGS: Lines/tubes: Right IJ tunneled dialysis catheter with distal tip projecting in the right atrium Lungs: The lungs are well inflated. Mild bilateral interstitial opacities extending from the daphne. No consolidation. Pleura: There is no pleural effusion or pneumothorax. Heart and mediastinum: Enlarged cardiac silhouette. Moderate central pulmonary venous congestion. Bones: No acute bony abnormality. IMPRESSION: 1. enlarged cardiac silhouette with moderate central pulmonary venous congestion and bilateral perihilar interstitial edema. Findings consistent with fluid overload Guanakito Bowman M.D. Dictated by: Guanakito Bowman M.D. on 09/30/2017 at 14:33 Electronically approved by: Guanakito Bowman M.D. on 09/30/2017 at 14:33 Dictated By: GUANAKITO BOWMAN MD 1433 Transcribed By: MANISH on 09/30/17 1433 COPY TO: LARY RAVI NP RENAL RETROPERITONEAL COMP [place] [address] Patient Name: UNIQUE ABRAMS MR #: [id number] : 1945 Age/Sex: 72/F Req #: [id number] Adm Physician: ANDRÉS WINTER MD Ordered by: SALMA FELTON, TETE FELTON Report #: [id number] Location: MED/SURG2 Room/Bed: [facility] Procedure: [id number] US/US RENAL RETROPERITONEAL COMP Exam Date: Exam Time: REPORT STATUS: Signed PROCEDURE: US RETROPERITONEAL ( KIDNEY ). COMPARISON: CT of the abdomen from 08/30/2017 INDICATIONS: LEFT KIDNEY PAIN TECHNIQUE: Hester-scale and color sonographic images of the bilateral [...] on recent CT of the abdomen. No hydronephro sis. Dictated by: Debbie Sanchez M.D. on 09/04/2017 at 16:10 Electronically approved by: Debbie Sanchez M.D. on 09/04/2017 at 16:10 Dictated By: DEBBIE SANCHEZ MD 1610 Transcribed By: MANISH on 09/04/17 1610 COPY TO: TETE MARSH TUNNELLED CVC INSERT W/O PORT [facility] [address] [place] [address] Patient Name: UNIQUE ABRAMS MR #: [id number] : 1945 Age/Sex: 72/F Req #: [id number] Adm Physician: ANDRÉS WINTER MD Ordered by: TETE MARSH MD, MD Report #: [id number] Location: MED/SURG2 Room/Bed: [facility] Procedure: [id number] IR/TUNNELLED CVC INSERT W/O PORT Exam Date: Exam Time: REPORT STATUS: Signed Tunneled Dialysis Catheter Placement 09/03/2017 Pre-Procedure Diagnosis: End-Stage Renal Disease Post-procedure Diagnosis:End-Stage Renal Disease Diamond Sawer: Lynda Cervantes Maxillofacial Prosthodontist: None Sedation: Moderate sedation was provided with [...] Blood administered: None Complications: None Implants/Grafts: 16 [place] 19 cm cuffed tunneled dialysis catheter Specimen: [...] was generated with voice-recognition technology. Errors in machine former can occur. Please interpret accordingly and contact a radiologist if there are any questions regarding the report. Signed by: Dr. Juli Cervantes M.D. on 09/03/2017 9:38 AM Dictated By: JULI CERVANTES MD 7 Transcribed By: LAN on 09/03/17937 COPY TO: TETE MARSH FLUORO GUIDANCE [address]/REM [place] [address] Patient Name: UNIQUE ABRAMS MR #: [id number] : 1945 Age/Sex: 72/F Req #: [id number] Adm Physician: ANDRÉS WINTER MD Ordered by: TETE MARSH MD, MD Report #: [id number] Location: MED/SURG2 Room/Bed: [facility] Procedure: [id number] DX/FLUORO GUIDANCE SJ [address] PL/REM Exam Date: 09/03/17 Exam Time: 0800 REPORT STATUS: Signed Tunneled Dialysis Catheter Placement 09/03/2017 Pre-Procedure Diagnosis: End-Stage Renal Disease Post-procedure Diagnosis:End-Stage Renal Disease Diamond Sawer: Lynda Cervantes Maxillofacial Prosthodontist: None Sedation: Moderate sedation was provided with [...] Blood administered: None Complications: None Implants/Grafts: 16 [place]ij[place] 19 cm cuffed tunneled dialysis catheter Specimen: [...] was generated with voice-recognition technology. Errors in machine former can occur. Please interpret accordingly and contact a radiologist if there are any questions regarding the report. Signed by: Dr. Juli Cervantes M.D. on 09/03/2017 9:38 AM Dictated By: JULI CERVANTES MD Transcribed By: LAN on 09/03/17937 COPY TO: TETE MARSH GUIDANCE FOR VASCULAR ACCES [place] [id number] [place] [address] Patient Name: UNIQUE ABRAMS MR #: [id number] : 1945 Age/Sex: 72/F Req #: [id number] Adm Physician: ANDRÉS WINTER MD Ordered by: TETE MARSH MD, MD Report #: [id number] Location: MED/SURG2 Room/Bed: [facility] Procedure: [id number] US/US GUIDANCE FOR VASCULAR ACCES Exam Date: Exam Time: REPORT STATUS: Signed Tunneled Dialysis Catheter Placement 09/03/2017 Pre-Procedure Diagnosis: End-Stage Renal Disease Post-procedure Diagnosis:End-Stage Renal Disease Diamond Sawer: Lynda Cervantes Maxillofacial Prosthodontist: None Sedation: Moderate sedation was provided with [...] Blood administered: None Complications: None Implants/Grafts: 16 Azerbaij[place] 19 cm cuffed tunneled dialysis catheter Specimen: [...] was generated with voice-recognition technology. Errors in machine former can occur. Please interpret accordingly and contact a radiologist if there are any questions regarding the report. Signed by: Dr. Juli Cervantes M.D. on 09/03/2017 9:38 AM Dictated By: JULI CERVANTES MD 7 Transcribed By: LAN on 09/03/17937 COPY TO: TETE MARSH CONSULT [place] [address] Patient Name: UNIQUE ABRAMS MR #: [id number] : 1945 Age/Sex: 72/F Req #: [id number] Adm Physician: ANDRÉS WINTER MD Ordered by: TETE MARSH MD, MD Report #: [id number] Location: MED/SURG2 Room/Bed: [facility] Procedure: [id number] DX/IR CONSULT Exam Date: Exam Time: REPORT STATUS: Signed Tunneled Dialysis Catheter Placement 09/03/2017 Pre- Procedure Diagnosis: End-Stage Renal Disease Post-procedure Diagnosis:End- Stage Renal Disease Diamond Sawer: Lynda Cervantes Maxillofacial Prosthodontist: None Sedation: Moderate sedation was provided with [...] Blood administered: None Complications: None Implants/Grafts: 16 Azerbaij[place] 19 cm cuffed tunneled dialysis catheter Specimen: None Procedure: I nformed consent was obtained and the patient positioned [...] patient tolerated the procedure well and without immed iate complication. Findings: Patent right internal jugular vein as demonstrated by normal ultrasound compressibility. Impression: Successful placement of a tunneled right internal jugular vein dialysis catheter using ultrasound and fluoroscopic guidance under moderate sedation. This report was generated with voice-recognition technology. Errors in machine former can occur. Please interpret accordingly and contact a radiologist if there are any questions regarding the report. Signed by: Dr. Juli Cervantes M.D. on 09/03/2017 9:38 AM Dictated By: JULI CERVANTES MD 7 Transcribed By: LAN on 09/03/17937 COPY TO: TETE MARSH CT ABDOMEN/PELVIS [facility] [address] [place] [address] Patient Name: UNIQUE ABRAMS MR #: [id number] : 1945 Age/Sex: 72/F Req #: [id number] Adm Physician: ANDRÉS WINTER MD Ordered by: ANDRÉS WINTER MD Report #: [id number] Location: MED/SURG2 Room/Bed: [facility] Procedure: [id number] CT/CT ABDOMEN/PELVIS WO Exam Date: 08/30/17 Exam Time: 2018 REPORT STATUS: Signed EXAM: [...] No hydronephrosis. GI TRACT: No evidence of obs truction. Normal appendix. VESSELS: Diffuse atherosclerotic calcification. PERITONEUM/RETROPERITONEUM: Small volume ascites in the abdomen and pelvis. LYMPH NODES: No lymphadenopathy REPRODUCTIVE ORGANS/BLADDER: Unremarkable SOFT TISSUES: Anasarca BONES: Multilevel degenerative changes with unchanged superior endplate compression at T12 and increased at L3. IMPRESSION: 1. Moderate right and small left pleural effusions, small volume ascites and diffuse anasarca indicative of fluid overload. 2. No acute abnormality on noncontrast evaluation. Signed by: Dr Myra Clements MD on 08/30/2017 8:54 PM Dictated By: MYRA CLEMENTS MD 53 Transcribed By: LAN on 08/30/172053 COPY TO: ANDRÉS WINTER MD CT LEFT LOWER EXTREMITY WO [place] [address] Patient Name: UNIQUE ABRAMS MR #: [id number] : 1945 Age/Sex: 72/F Req #: [id number] Adm Physician: ANDRÉS WINTER MD Ordered by: ANDRÉS WINTER MD Report #: [id number] Location: MED/SURG2 Room/Bed: [facility] Procedure: [id number] CT/CT LEFT LOWER EXTREMITY WO Exam Date: [...] the popliteal vessels and three-vessel runoff. IMPRESSION: Cellulitis/edema of the left calf. No abscess or osteomyelitis. Signed by: Dr. Eris Faulkner M.D. on 08/28/2017 4:20 PM Dictated By: ERIS FAULKNER MD 19 Transcribed By: LAN on 08/28/171619 COPY TO: ANDRÉS WINTER MD
--- NOTE | 2018-11-03 20:07 | NUR ---
PT BROUGHT BACK TO ROOM 9 VIA W/C AT THIS TIME, ASSISTED TO STRETCHER; PT BREATHING EVEN/UNLABORED, NON-DIAPHORETIC; RADIOLOGY AT BEDSIDE FOR CXR AND RT FOOT X-RAY AT THIS TIME.
[2018-11-03 20:16] LABS: BASOPHILS % 0.4 % (0.0-1.0); EOSINOPHILS # (AUTO) 0.2 (0.0-0.4); EOSINOPHILS % 3.3 % (0.0-6.0); HEMATOCRIT 29.9 % (34.2-44.1); HEMOGLOBIN 9.8 g/dL (12.0-16.0); LYMPHOCYTES # (AUTO) 0.4 (1.0-3.2); LYMPHOCYTES % 7.7 % (18.0-39.1); MEAN CORPUSCULAR HEMOGLOBIN 35.3 pg (28-32); MEAN CORPUSCULAR HGB CONC 32.8 g/dL (31-35); MEAN CORPUSCULAR VOLUME 107.6 fL (81-99); MONOCYTES # (AUTO) 0.7 (0.2-0.8); MONOCYTES % 12.6 % (4.4-11.3); NEUTROPHILS # (AUTO) 4.3 (2.1-6.9); NEUTROPHILS % 75.5 % (38.7-80.0); PLATELET COUNT 171 x10e3/uL (140-360); RED BLOOD COUNT 2.78 x10e6/uL (3.6-5.1)
--- NOTE | 2018-11-03 20:25 | Diagnostic Imaging Report ---
Radiographs of the right foot - 2 views HISTORY: Foot wound. Preop COMPARISON: None available. 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 Questionable cortical erosion at the distal residual first toe could be due to osteomyelitis. Diffuse osteopenia. Joints: Chronic appearing deformity of the ankle joint. Scattered degenerative change. Soft tissues: Scattered vascular calcification. Soft tissue swelling. IMPRESSION: Questionable cortical erosion at the distal residual first toe could be due to osteomyelitis. Signed by: Dr. Canelo Rios M.D. on 11/03/2018 8:22 PM
[2018-11-03 20:27] LABS: INR 2.44; PROTHROMBIN TIME 27.2 seconds (11.9-14.5)
--- NOTE | 2018-11-03 20:27 | Diagnostic Imaging Report ---
EXAMINATION: CHEST SINGLE (PORTABLE) INDICATION: Foot wound. ^PRE-OP ^[id number] ^1999 COMPARISON: 11/14/2016 FINDINGS: TUBES and LINES: Sternal wires. LUNGS: Likely mild scarring/atelectasis at the lung bases. Lungs are clear. There is no evidence of pneumonia or pulmonary edema. PLEURA: No pleural effusion or pneumothorax. HEART AND MEDIASTINUM: Prominent heart size with pulmonary vascular congestion BONES AND SOFT TISSUES: No acute osseous lesion. Soft tissues are unremarkable. UPPER ABDOMEN: No free air under the diaphragm. IMPRESSION: Cardiomegaly with mild pulmonary vascular congestion. Signed by: Dr. Canelo Rios M.D. on 11/03/2018 8:24 PM
[2018-11-03 20:28] LABS: PARTIAL THROMBOPLASTIN TIME 55.3 seconds (23.8-35.5)
[2018-11-03] MEDS ORDERED: VANCOMYCIN 1GM/NS 250 ML 250 ML IV ONE (20:30)
[2018-11-03] MEDS ORDERED: CEFEPIME 1GM/NS 0.9% 50 ML 50 ML IV ONE (20:30)
[2018-11-03 20:36] LABS: ALBUMIN 3.3 g/dL (3.5-5.0); ALBUMIN/GLOBULIN RATIO 0.8 (0.8-2.0); ANION GAP 14.3 mmol/L (8-16); CALCIUM 9.6 mg/dL (8.4-10.2); CREATININE, SERUM 3.01 mg/dL (0.57-1.11); POTASSIUM 4.3 mmol/L (3.5-5.1)
--- NOTE | 2018-11-03 21:55 | NUR ---
PT DAUGHTER AT BEDSIDE, STATES "I GAVE MY MOM HER COUMADIN, IT'S IMPERATIVE FOR HER TO HAVE IT"; INFORMED DR. ARCE AT THIS TIME.
--- NOTE | 2018-11-03 22:10 | NUR ---
INFORMED PT OF NEED TO OBTAIN URINE SPECIMEN PREVIOUS WAS INSUFFICENT, VERBALIZES UNDERSTANDING AND STATES "I CAN CALL WHEN I AM READY".
[2018-11-03] MEDS ORDERED: CEFEPIME 1GM/NS 0.9% 50 ML 50 ML IV SCH (23:30)
[2018-11-03] MEDS ORDERED: DEXTROSE 50% SYRINGE 50 ML IV PRN (23:30)
[2018-11-03] MEDS ORDERED: SODIUM CHLORIDE FLUSH 10 ML SYR INJ PRN (23:30)
--- OUTSIDE RECORDS SUMMARY | 2018-11-03 23:40 | XMS REPORT | Clinical Summary ---
Author Author [facility] Organization [facility] Address Unknown Phone Unavailable Care Team Providers Care Plug Paster Name Role Phone Joisah Sun MD PCP Allergies Comments Active Allergy [...] Burt MD pt out of network with [facility]. 07/21/2018 Telephone Cardiology Rehrer, DO Fatou Dejesus [...] Taken Vital Sign Reading 06/25/2018 11:26 AM CANDY FORMING MACHINE OPERATOR Blood Pressure 166/72 06/25/2018 11:26 AM CANDY FORMING MACHINE OPERATOR Pulse 67 06/25/2018 7:42 AM CANDY FORMING MACHINE OPERATOR Temperature 36.2 C (97.1 F) 06/25/2018 11:26 AM CANDY FORMING MACHINE OPERATOR Respiratory Rate 19 06/25/2018 11:26 AM CANDY FORMING MACHINE OPERATOR Oxygen Saturation 99% - Inhaled Oxygen - Concentration 04/30/2018 2:55 PM CANDY FORMING MACHINE OPERATOR Weight 62.6 kg (138 lb) 04/30/2018 2:55 PM CANDY FORMING MACHINE OPERATOR Height 152.4 cm (5') 04/30/2018 2:55 PM CANDY FORMING MACHINE OPERATOR Body Mass Index 26.95 Plan of Treatment Health Maintenance Due Date Last Done Comments BREAST CANCER SCREENING 01/26/1996 COLONOSCOPY SCREENING 01/26/1996 SHINGLES VACCINES (#1) 01/26/1996 65+ PNEUMOCOCCAL VACCINE 2011 (1 of 2 - PCV13) INFLUENZA VACCINE 11/19/2018 Procedures Comments Procedure Name Priority Date/Time Associated Diagnosis POC GLUCOSE Routine 06/25/2018 11:55 AM CANDY FORMING MACHINE OPERATOR POC GLUCOSE Routine 06/25/2018 7:45 AM CANDY FORMING MACHINE OPERATOR PROTHROMBIN TIME WITH INR Routine 06/25/2018 4:15 AM CANDY FORMING MACHINE OPERATOR POC GLUCOSE Routine 06/24/2018 9:24 PM CANDY FORMING MACHINE OPERATOR POC GLUCOSE Routine 06/24/2018 5:40 PM CANDY FORMING MACHINE OPERATOR PROTHROMBIN TIME WITH INR Routine 06/24/2018 1:00 PM CANDY FORMING MACHINE OPERATOR POC GLUCOSE Routine 06/24/2018 12:28 PM CANDY FORMING MACHINE OPERATOR POC GLUCOSE Routine 06/24/2018 9:45 AM CANDY FORMING MACHINE OPERATOR AMIKACIN LEVEL, RANDOM Routine 06/24/2018 4:30 AM CANDY FORMING MACHINE OPERATOR POC GLUCOSE Routine 06/23/2018 8:52 PM CANDY FORMING MACHINE OPERATOR HEMODIALYSIS Routine 06/23/2018 7:30 PM CANDY FORMING MACHINE OPERATOR POC GLUCOSE Routine 06/23/2018 5:36 PM CANDY FORMING MACHINE OPERATOR POC GLUCOSE Routine 06/23/2018 11:56 AM CANDY FORMING MACHINE OPERATOR POC GLUCOSE Routine 06/23/2018 8:22 AM CANDY FORMING MACHINE OPERATOR CBC HEMOGRAM Routine 06/23/2018 5:00 AM CANDY FORMING MACHINE OPERATOR PROTHROMBIN TIME WITH INR Routine 06/23/2018 5:00 AM CANDY FORMING MACHINE OPERATOR POC GLUCOSE Routine 06/22/2018 9:51 PM CANDY FORMING MACHINE OPERATOR POC GLUCOSE Routine 06/22/2018 12:57 PM CANDY FORMING MACHINE OPERATOR POC GLUCOSE Routine 06/22/2018 8:14 AM CANDY FORMING MACHINE OPERATOR CBC HEMOGRAM Routine 06/22/2018 5:10 AM CANDY FORMING MACHINE OPERATOR PROTHROMBIN TIME WITH INR Routine 06/22/2018 5:10 AM CANDY FORMING MACHINE OPERATOR POC GLUCOSE Routine 06/21/2018 9:11 PM CANDY FORMING MACHINE OPERATOR POC GLUCOSE Routine 06/21/2018 5:07 PM CANDY FORMING MACHINE OPERATOR HEMODIALYSIS Routine 06/21/2018 5:05 PM CANDY FORMING MACHINE OPERATOR POC GLUCOSE Routine 06/21/2018 11:29 AM CANDY FORMING MACHINE OPERATOR POC GLUCOSE Routine 06/21/2018 7:23 AM CANDY FORMING MACHINE OPERATOR CBC HEMOGRAM Routine 06/21/2018 4:38 AM CANDY FORMING MACHINE OPERATOR PROTHROMBIN TIME WITH INR Routine 06/21/2018 4:38 AM CANDY FORMING MACHINE OPERATOR POC GLUCOSE Routine 06/20/2018 9:33 PM CANDY FORMING MACHINE OPERATOR POC GLUCOSE Routine 06/20/2018 4:50 PM CANDY FORMING MACHINE OPERATOR POC GLUCOSE Routine 06/20/2018 1:28 PM CANDY FORMING MACHINE OPERATOR POC GLUCOSE Routine 06/20/2018 7:44 AM CANDY FORMING MACHINE OPERATOR CBC HEMOGRAM Routine 06/20/2018 5:30 AM CANDY FORMING MACHINE OPERATOR PROTHROMBIN TIME WITH INR Routine 06/20/2018 5:30 AM CANDY FORMING MACHINE OPERATOR POC GLUCOSE Routine 06/19/2018 8:50 PM CANDY FORMING MACHINE OPERATOR HEMODIALYSIS Routine 06/19/2018 12:30 PM CANDY FORMING MACHINE OPERATOR ESTIMATED GFR Routine 06/19/2018 9:04 AM CANDY FORMING MACHINE OPERATOR BASIC METABOLIC PANEL Routine 06/19/2018 9:04 AM CANDY FORMING MACHINE OPERATOR CBC HEMOGRAM Routine 06/19/2018 5:10 AM CANDY FORMING MACHINE OPERATOR PROTHROMBIN TIME WITH INR Routine 06/19/2018 5:10 AM CANDY FORMING MACHINE OPERATOR POC GLUCOSE Routine 06/18/2018 9:06 PM CANDY FORMING MACHINE OPERATOR POTASSIUM LEVEL Routine 06/18/2018 5:50 AM CANDY FORMING MACHINE OPERATOR CBC HEMOGRAM Routine 06/18/2018 5:10 AM CANDY FORMING MACHINE OPERATOR PROTHROMBIN TIME WITH INR Routine 06/18/2018 5:10 AM CANDY FORMING MACHINE OPERATOR MRI LUMBAR SPINE WO Routine 06/17/2018 CONTRAST 5:33 PM CANDY FORMING MACHINE OPERATOR HEPATITIS B SURFACE Routine 06/17/2018 ANTIGEN 8:23 AM CANDY FORMING MACHINE OPERATOR HEMODIALYSIS Routine 06/17/2018 8:22 AM CANDY FORMING MACHINE OPERATOR THYROID STIMULATING Timed 06/16/2018 HORMONE 9:10 PM CANDY FORMING MACHINE OPERATOR TROPONIN Timed 06/16/2018 9:10 PM CANDY FORMING MACHINE OPERATOR PROTHROMBIN TIME WITH INR STAT 06/16/2018 9:10 PM CANDY FORMING MACHINE OPERATOR LACTIC ACID LEVEL, SEPSIS Timed 06/16/2018 - NOW AND REPEAT 2X EVERY 9:10 PM CANDY FORMING MACHINE OPERATOR 3 HOURS POC GLUCOSE Routine 06/16/2018 5:58 PM CANDY FORMING MACHINE OPERATOR LACTIC ACID LEVEL, SEPSIS Timed 06/16/2018 - NOW AND REPEAT 2X EVERY 5:53 PM CANDY FORMING MACHINE OPERATOR 3 HOURS GRAM STAIN Routine 06/16/2018 3:40 PM CANDY FORMING MACHINE OPERATOR URINE CULTURE Routine 06/16/2018 3:40 PM CANDY FORMING MACHINE OPERATOR ECG ED PRELIMINARY Routine 06/16/2018 INTERPRETATION 3:34 PM CANDY FORMING MACHINE OPERATOR CT RENAL STONE PROTOCOL STAT 06/16/2018 3:09 PM CANDY FORMING MACHINE OPERATOR URINALYSIS SCREEN AND Routine 06/16/2018 MICROSCOPY, WITH REFLEX 2:45 PM CANDY FORMING MACHINE OPERATOR TO CULTURE SMEAR REVIEW STAT 06/16/2018 1:53 PM CANDY FORMING MACHINE OPERATOR TROPONIN STAT 06/16/2018 1:53 PM CANDY FORMING MACHINE OPERATOR LIPASE LEVEL STAT 06/16/2018 1:53 PM CANDY FORMING MACHINE OPERATOR LACTIC ACID LEVEL, SEPSIS STAT 06/16/2018 - NOW AND REPEAT 2X EVERY 1:53 PM CANDY FORMING MACHINE OPERATOR 3 HOURS CREATINE KINASE, TOTAL STAT 06/16/2018 (CPK) 1:53 PM CANDY FORMING MACHINE OPERATOR B NATRIURETIC PEPTIDE STAT 06/16/2018 1:53 PM CANDY FORMING MACHINE OPERATOR ESTIMATED GFR STAT 06/16/2018 1:53 PM CANDY FORMING MACHINE OPERATOR COMPREHENSIVE METABOLIC STAT 06/16/2018 PANEL 1:53 PM CANDY FORMING MACHINE OPERATOR HC COMPLETE BLD COUNT STAT 06/16/2018 W/AUTO DIFF 1:53 PM CANDY FORMING MACHINE OPERATOR ECG 12-LEAD STAT 06/16/2018 1:19 PM CANDY FORMING MACHINE OPERATOR ECG 12-LEAD Routine 04/30/2018 Severe mitral 2:54 PM CANDY FORMING MACHINE OPERATOR regurgitation ESTIMATED GFR STAT 03/25/2018 12:55 PM CANDY FORMING MACHINE OPERATOR MAGNESIUM LEVEL STAT 03/25/2018 Acute on chronic 12:55 PM CANDY FORMING MACHINE OPERATOR congestive heart failure, unspecified heart failure type (HCC) COMPREHENSIVE METABOLIC STAT 03/25/2018 Acute on chronic PANEL 12:55 PM CANDY FORMING MACHINE OPERATOR congestive heart failure, unspecified heart failure type (HCC) B NATRIURETIC PEPTIDE STAT 03/25/2018 Acute on chronic 12:55 PM CANDY FORMING MACHINE OPERATOR congestive heart failure, unspecified heart failure type (HCC) POC GLUCOSE Routine 03/20/2018 11:31 AM CANDY FORMING MACHINE OPERATOR POC GLUCOSE Routine 03/20/2018 7:53 AM CANDY FORMING MACHINE OPERATOR PROTHROMBIN TIME WITH INR Routine 03/20/2018 5:02 AM CANDY FORMING MACHINE OPERATOR POC GLUCOSE Routine 03/19/2018 9:19 PM CANDY FORMING MACHINE OPERATOR POC GLUCOSE Routine 03/19/2018 6:19 PM CANDY FORMING MACHINE OPERATOR POC GLUCOSE Routine 03/19/2018 11:09 AM CANDY FORMING MACHINE OPERATOR POC GLUCOSE Routine 03/19/2018 7:31 AM CANDY FORMING MACHINE OPERATOR PROTHROMBIN TIME WITH INR Routine 03/19/2018 4:35 AM CANDY FORMING MACHINE OPERATOR POC GLUCOSE Routine 03/18/2018 9:23 PM CANDY FORMING MACHINE OPERATOR HEMODIALYSIS Routine 03/18/2018 7:52 PM CANDY FORMING MACHINE OPERATOR POC GLUCOSE Routine 03/18/2018 5:34 PM CANDY FORMING MACHINE OPERATOR POC GLUCOSE Routine 03/18/2018 11:50 AM CANDY FORMING MACHINE OPERATOR POC GLUCOSE Routine 03/18/2018 7:39 AM CANDY FORMING MACHINE OPERATOR PROTHROMBIN TIME WITH INR Routine 03/18/2018 3:00 AM CANDY FORMING MACHINE OPERATOR POC GLUCOSE Routine 03/17/2018 8:29 PM CANDY FORMING MACHINE OPERATOR POC GLUCOSE Routine 03/17/2018 5:57 PM CANDY FORMING MACHINE OPERATOR POC GLUCOSE Routine 03/17/2018 4:47 PM CANDY FORMING MACHINE OPERATOR POC GLUCOSE Routine 03/17/2018 1:56 PM CANDY FORMING MACHINE OPERATOR ESTIMATED GFR Routine 03/17/2018 1:16 PM CANDY FORMING MACHINE OPERATOR BASIC METABOLIC PANEL Routine 03/17/2018 1:16 PM CANDY FORMING MACHINE OPERATOR HEMODIALYSIS Routine 03/17/2018 1:14 PM CANDY FORMING MACHINE OPERATOR CT LUMBAR SPINE WO Routine 03/17/2018 CONTRAST 12:15 PM CANDY FORMING MACHINE OPERATOR CT THORACIC SPINE WO Routine 03/17/2018 CONTRAST 12:14 PM CANDY FORMING MACHINE OPERATOR POC GLUCOSE Routine 03/17/2018 12:09 PM CANDY FORMING MACHINE OPERATOR POC GLUCOSE Routine 03/17/2018 8:45 AM CANDY FORMING MACHINE OPERATOR CV CTA TMVR WORKUP (CTA Routine 03/17/2018 CORONARY, CTA THORACIC 8:31 AM CANDY FORMING MACHINE OPERATOR AORTA) W CONTRAST HC COMPLETE BLD COUNT Routine 03/17/2018 W/AUTO DIFF 4:45 AM CANDY FORMING MACHINE OPERATOR PROTHROMBIN TIME WITH INR Routine 03/17/2018 4:40 AM CANDY FORMING MACHINE OPERATOR POC GLUCOSE Routine 03/16/2018 9:13 PM CANDY FORMING MACHINE OPERATOR POC GLUCOSE Routine 03/16/2018 5:18 PM CANDY FORMING MACHINE OPERATOR POC GLUCOSE Routine 03/16/2018 11:21 AM CANDY FORMING MACHINE OPERATOR PROTHROMBIN TIME WITH INR STAT 03/16/2018 10:38 AM CANDY FORMING MACHINE OPERATOR ECHOCARDIOGRAM Routine 03/16/2018 TRANSESOPHAGEAL W 10:21 AM CANDY FORMING MACHINE OPERATOR AGITATED SALINE POC GLUCOSE Routine 03/16/2018 7:43 AM CANDY FORMING MACHINE OPERATOR URINALYSIS SCREEN AND Routine 03/15/2018 MICROSCOPY, WITH REFLEX 11:03 PM CANDY FORMING MACHINE OPERATOR TO CULTURE URINE CULTURE Routine 03/15/2018 11:03 PM CANDY FORMING MACHINE OPERATOR GRAM STAIN Routine 03/15/2018 11:03 PM CANDY FORMING MACHINE OPERATOR POC GLUCOSE Routine 03/15/2018 8:32 PM CANDY FORMING MACHINE OPERATOR POC GLUCOSE Routine 03/15/2018 4:52 PM CANDY FORMING MACHINE OPERATOR POC GLUCOSE Routine 03/15/2018 12:33 PM CANDY FORMING MACHINE OPERATOR POC GLUCOSE Routine 03/15/2018 7:40 AM CANDY FORMING MACHINE OPERATOR PROTHROMBIN TIME WITH INR Routine 03/15/2018 4:50 AM CANDY FORMING MACHINE OPERATOR POC GLUCOSE Routine 03/14/2018 9:21 PM CANDY FORMING MACHINE OPERATOR POC GLUCOSE Routine 03/14/2018 6:08 PM CANDY FORMING MACHINE OPERATOR HEPATITIS B SURFACE STAT 03/14/2018 ANTIGEN 3:08 PM CANDY FORMING MACHINE OPERATOR POC GLUCOSE Routine 03/14/2018 11:25 AM CANDY FORMING MACHINE OPERATOR POC GLUCOSE Routine 03/14/2018 7:56 AM CANDY FORMING MACHINE OPERATOR LACTIC ACID LEVEL, SEPSIS Routine 03/14/2018 - NOW AND REPEAT 2X EVERY 4:50 AM CANDY FORMING MACHINE OPERATOR 3 HOURS ESTIMATED GFR Routine 03/14/2018 4:50 AM CANDY FORMING MACHINE OPERATOR TOTAL IRON BINDING Routine 03/14/2018 CAPACITY 4:50 AM CANDY FORMING MACHINE OPERATOR FERRITIN LEVEL Routine 03/14/2018 4:50 AM CANDY FORMING MACHINE OPERATOR PROTHROMBIN TIME WITH INR Routine 03/14/2018 4:50 AM CANDY FORMING MACHINE OPERATOR BASIC METABOLIC PANEL Routine 03/14/2018 4:50 AM CANDY FORMING MACHINE OPERATOR HC COMPLETE BLD COUNT Routine 03/14/2018 W/AUTO DIFF 4:50 AM CANDY FORMING MACHINE OPERATOR HEMODIALYSIS Routine 03/13/2018 9:32 PM CANDY FORMING MACHINE OPERATOR POC GLUCOSE Routine 03/13/2018 8:48 PM CANDY FORMING MACHINE OPERATOR POC GLUCOSE Routine 03/13/2018 5:17 PM CANDY FORMING MACHINE OPERATOR US RENAL Routine 03/13/2018 4:59 PM CANDY FORMING MACHINE OPERATOR BLOOD CULTURE, AEROBIC & Routine 03/13/2018 ANAEROBIC 3:45 PM CANDY FORMING MACHINE OPERATOR BLOOD CULTURE, AEROBIC & Routine 03/13/2018 ANAEROBIC 3:40 PM CANDY FORMING MACHINE OPERATOR ECHOCARDIOGRAM 2D Routine 03/13/2018 COMPLETE W MMODE SPECTRAL 3:23 PM CANDY FORMING MACHINE OPERATOR COLOR DOPPLER ([id number]) THYROID STIMULATING Routine 03/13/2018 HORMONE 1:44 PM CANDY FORMING MACHINE OPERATOR POC GLUCOSE Routine 03/13/2018 1:21 PM CANDY FORMING MACHINE OPERATOR LACTIC ACID LEVEL, SEPSIS Timed 03/13/2018 - NOW AND REPEAT 2X EVERY 12:48 PM CANDY FORMING MACHINE OPERATOR 3 HOURS ECG ED PRELIMINARY Routine 03/13/2018 INTERPRETATION 11:38 AM CANDY FORMING MACHINE OPERATOR XR CHEST 1 VW PORTABLE STAT 03/13/2018 10:32 AM CANDY FORMING MACHINE OPERATOR URINALYSIS SCREEN AND STAT 03/13/2018 MICROSCOPY, WITH REFLEX 9:54 AM CANDY FORMING MACHINE OPERATOR TO CULTURE URINE CULTURE STAT 03/13/2018 9:54 AM CANDY FORMING MACHINE OPERATOR GRAM STAIN STAT 03/13/2018 9:54 AM CANDY FORMING MACHINE OPERATOR ESTIMATED GFR STAT 03/13/2018 9:45 AM CANDY FORMING MACHINE OPERATOR TYPE AND SCREEN Routine 03/13/2018 9:45 AM CANDY FORMING MACHINE OPERATOR PARTIAL THROMBOPLASTIN STAT 03/13/2018 TIME (PTT) 9:45 AM CANDY FORMING MACHINE OPERATOR PROTHROMBIN TIME WITH INR STAT 03/13/2018 9:45 AM CANDY FORMING MACHINE OPERATOR B NATRIURETIC PEPTIDE STAT 03/13/2018 9:45 AM CANDY FORMING MACHINE OPERATOR TROPONIN STAT 03/13/2018 9:45 AM CANDY FORMING MACHINE OPERATOR CREATINE KINASE, TOTAL STAT 03/13/2018 (CPK) 9:45 AM CANDY FORMING MACHINE OPERATOR LACTIC ACID LEVEL, SEPSIS STAT 03/13/2018 - NOW AND REPEAT 2X EVERY 9:45 AM CANDY FORMING MACHINE OPERATOR 3 HOURS MAGNESIUM LEVEL STAT 03/13/2018 9:45 AM CANDY FORMING MACHINE OPERATOR PHOSPHORUS LEVEL STAT 03/13/2018 9:45 AM CANDY FORMING MACHINE OPERATOR HEPATIC FUNCTION PANEL STAT 03/13/2018 9:45 AM CANDY FORMING MACHINE OPERATOR BASIC METABOLIC PANEL STAT 03/13/2018 9:45 AM CANDY FORMING MACHINE OPERATOR HC COMPLETE BLD COUNT STAT 03/13/2018 W/AUTO DIFF 9:45 AM CANDY FORMING MACHINE OPERATOR ECG 12-LEAD STAT 03/13/2018 9:40 AM CANDY FORMING MACHINE OPERATOR after 11/02/2017 Results * POC glucose (06/25/2018 11:55 AM CANDY FORMING MACHINE OPERATOR) Only the most recent of 55 results within the time period is included. [facility] POC glucose 318 (H) 65 - 99 mg/dL [place] Comment: [facility] Notified RN HOSPITAL Meter ID: [id number] [employer] Secretary: Bonifacio Taylor Specimen Performing Organization Address City/[facility] Phone Number [facility] DEPARTMENT OF [address] [place] [address] PATHOLOGY AND [facility] [address] * Prothrombin time with INR (06/25/2018 4:15 AM CANDY FORMING MACHINE OPERATOR) Only the most recent of 17 results within the time period is included. [facility] Prothrombin 26.6 (H) 11.5 - 14.5 sec [facility] INR 2.5 [place] Comment: [facility] The International Normalized HOSPITAL Ratio (INR) is a therapeutic monitoring tool for patients who are stable on oral anticoagulant therapy. An INR of 2.0-3.0 is suggested for deep vein thrombosis/pulmonary embolism. Specimen Blood Performing Organization Address [facility] Phone Number [facility] [address] PATHOLOGY AND [facility] [address] * Amikacin level, random (06/24/2018 4:30 AM CANDY FORMING MACHINE OPERATOR) [facility] Amikacin, 14.6 ug/mL [facility] Specimen Plasma specimen Performing Organization Address City/[facility] Phone Number [facility] DEPARTMENT OF [address] [place] [address] PATHOLOGY AND GENOMIC MEDICINE [address] * CBC hemogram (06/23/2018 5:00 AM CANDY FORMING MACHINE OPERATOR) Only the most recent of 6 results within the time period is included. [facility] WBC 5.03 4.50 - 11.00 k/uL [facility] RBC 3.06 (L) 4.20 - 5.50 m/uL [facility] HGB 11.5 (L) 12.0 - 16.0 g/dL [facility] HCT 34.3 (L) 37.0 - 47.0 % [facility] MCV 112.1 (H) 82.0 - 100.0 fL [facility] MCH 37.6 (H) 27.0 - 34.0 pg [facility] MCHC 33.5 31.0 - 37.0 g/dL [facility] RDW - SD 67.4 (H) 37.0 - 55.0 fL [facility] MPV 12.4 8.8 - 13.2 fL [facility] Platelet count 119 (L) 150 - 400 k/uL [facility] Nucleated RBC 0.00 /100 WBC [facility] Specimen Blood Performing Organization Address City/[facility] Phone Number [facility] DEPARTMENT OF [address] [place] [address] PATHOLOGY AND [facility] [address] * Estimated GFR (06/19/2018 9:04 AM CANDY FORMING MACHINE OPERATOR) Only the most recent of 6 results within the time period is included. [facility] Estimated GFR 8 (A) mL/min/1.73 m2 [place] Comment: [facility] rpretation G1 >=90 Normal or high G2 60-89Mildly decreased M2g99-15 Mildly to moderately decreased D0n10-98 Moderately to severely decreased G4 15-29Severely decreased G5 <15Kidney failure The eGFR was calculated using the Chronic Kidney Disease Epidemiology Collaboration (CKD-EPI) equation. Interpretation is based on recommendations of the National Kidney Foundation-Kidney Disease Outcomes Quality Initiative (NKF-KDOQI) published in 2014. Specimen Plasma specimen Performing Organization Address City/[facility]/Zipcode Phone Number [facility] DEPARTMENT OF [address] [place] [address] PATHOLOGY AND GENOMIC MEDICINE [address] * Basic metabolic panel (06/19/2018 9:04 AM CANDY FORMING MACHINE OPERATOR) Only the most recent of 4 results within the time period is included. [facility] Sodium 136 135 - 148 mEq/L [facility] Potassium 4.5 3.5 - 5.0 mEq/L [facility] Chloride 98 98 - 112 mEq/L [facility] CO2 21 (L) 24 - 31 mEq/L [facility] Anion gap 17@ANIO (H) 7 - 15 mEq/L [facility] BUN 59 (H) 8 - 23 mg/dL [facility] Creatinine 4.91 (H) 0.50 - 0.90 mg/dL [facility] Glucose 106 (H) 65 - 99 mg/dL [facility] Calcium 8.4 (L) 8.8 - 10.2 mg/dL [facility] Specimen Plasma specimen Performing Organization Address City/[facility]/Zipcode Phone Number [facility] DEPARTMENT OF [address] [place] [address] PATHOLOGY AND GENOMIC MEDICINE [address] * Potassium level (06/18/2018 5:50 AM CANDY FORMING MACHINE OPERATOR) Potassium 4.7 3.5 - 5.0 mEq/L [facility] Specimen Plasma specimen Performing Organization Address City/[facility] Hospital[facility] Phone Number [facility] DEPARTMENT OF [address] [place] [address] PATHOLOGY AND [facility] [address] * MRI Lumbar Spine Wo Contrast (06/17/2018 5:33 PM CANDY FORMING MACHINE OPERATOR) Specimen Narrative Performed At RADIANT EXAMINATION: MRI [...] with at least moderate bilateral foraminal narrowing. [facility]-[id number] Procedure Note Hm Interface, Radiology Results Incoming - 06/17/2018 5:47 PM CANDY FORMING MACHINE OPERATOR EXAMINATION: MRI LUMBAR SPINE WO CONTRAST CLINICAL [...] with at least moderate bilateral foraminal narrowing. [facility]-[id number] Performing Organization Address City/[facility]/[place] [address] * Hepatitis B surface antigen (06/17/2018 8:23 AM CANDY FORMING MACHINE OPERATOR) Only the most recent of 2 results within the time period is included. Pathologist [facility] Hepatitis B Non-reactive Non-reactive [facility] Specimen Blood Performing Organization Address [facility] [place] [address] PATHOLOGY AND GENOMIC MEDICINE [address] * Lactic acid level, SEPSIS - Now and repeat 2x every 3 hours (06/16/2018 9:10 PM CANDY FORMING MACHINE OPERATOR) Only the most recent of 6 results within the time period is included. [facility] Lactic acid 1.9 0.5 - 2.2 mmol/L [facility] Specimen Blood Performing Organization Address [facility] [place] [address] PATHOLOGY AND GENOMIC MEDICINE [address] * Troponin (06/16/2018 9:10 PM CANDY FORMING MACHINE OPERATOR) Only the most recent of 3 results within the time period is included. Pathologist [facility] Troponin <0.30 0.00 - 0.30 ng/mL [place] Comment: [facility] 0.30 - 1.49 HOSPITAL ng/mlMay indicate increased risk of acute coronary syndrome. >=1.5 ng/ml Consistent with acute myocardial infarction. The diagnostic value of a single normal or non-diagnostic result is questionable.Serial samples at 2-6 hour intervals are required to rule out acute myocardial injury. Specimen Blood Performing Organization Address [facility]/Zipcode Phone Number [facility] DEPARTMENT OF [address] [place] [address] PATHOLOGY AND [facility] [place] [address] [place] [address] HOSPITAL * Thyroid stimulating hormone (06/16/2018 9:10 PM CANDY FORMING MACHINE OPERATOR) Only the most recent of 2 results within the time period is included. Pathologist [facility] TSH 3.06 0.27 - 4.20 uIU/mL [facility] Specimen Blood Performing Organization Address City/[facility] Phone Number [facility] DEPARTMENT OF [address] [place] [address] PATHOLOGY AND [facility] [place] [address] HOSPITAL * Gram stain (06/16/2018 3:40 PM CANDY FORMING MACHINE OPERATOR) Only the most recent of 3 results within the time period is included. Pathologist [facility] Gram stain Rare WBC's [place] result Many Gram negative rods [facility] Comment: HOSPITAL Specimen Information Specimen Source: Urine Specimen Site: Clean catch Specimen Urine Performing Organization Address [facility] Phone Number [facility] DEPARTMENT OF [address] [place] [address] PATHOLOGY AND [facility] [place] [facility] * Urine culture (06/16/2018 3:40 PM CANDY FORMING MACHINE OPERATOR) Only the most recent of 3 results within the time period is included. Pathologist [facility] Urine culture Escherichia coli ASTON isolate >10-5 cfu/ml [facility] This isolate is a queen producer of HOSPITAL ESBL (extended spectrum beta [...] coli Performing Organization Address City/State/Zipcode Phone Number [facility] DEPARTMENT OF [address] [place] [address] PATHOLOGY AND GENOMIC MEDICINE [place] [address] [place] [address] * ECG ED Preliminary Interpretation - Not an Order (06/16/2018 3:34 PM [employer] FORMING MACHINE OPERATOR) Only the most recent of 2 results within the time period is included. Narrative Performed At Ayaan Iverson DO 06/19/20188:42 AM ECG ED Preliminary Interpretation - Not an Order Performed by: Ayaan Iverson DO Authorized by: Ayaan Iverson DO ECG reviewed by ED Physician in the absence of a actuarial science teacher: yes Previous ECG: Previous ECG:Unavailable Interpretation: Interpretation: abnormal Rate: ECG rate:57 ECG rate assessment: bradycardic Rhythm: Rhythm: sinus bradycardia Ectopy: Ectopy: none QRS: QRS axis:Normal QRS intervals:Normal Conduction: Conduction: normal ST segments: ST segments:Normal T waves: T waves: inverted Inverted:II, III and aVF * CT Renal Stone Protocol (06/16/2018 3:09 PM CAND[employer] FORMING MACHINE OPERATOR) Specimen Narrative Performed At EXAMINATION:CT RENAL STONE [...] L4 vertebral body without significant height loss. [id number] Procedure Note Hm Interface, Radiology Results Incoming - 06/16/2018 3:18 PM CANDY FORMING MACHINE OPERATOR EXAMINATION: CT RENAL STONE PROTOCOL CLINICAL HISTORY: [...] L4 vertebral body without significant height loss. [id number] Performing Organization Address City/[facility]/[place] [address] * Urinalysis screen and microscopy, with reflex to culture (06/16/2018 2:45 PM CANDY FORMING MACHINE OPERATOR) Only the most recent of 3 results within the time period is included. Specimen site Clean catch [facility] Color, UA Yellow [facility] Appearance, UA Clear [facility] Specific 1.013 1.001 - 1.035 [place] gravity, [facility] pH, UA 6.0 5.0 - 8.5 [facility] Protein, UA 2+ (A) Negative [facility] Glucose, UA Negative Negative [facility] Ketones, UA Negative Negative [facility] Bilirubin, UA Negative Negative [facility] Blood, UA Negative Negative [facility] Nitrite, UA Negative Negative [facility] Urobilinogen, <2.0 <2.0 [facility] Leukocyte Small (A) Negative [place] esterase, [facility] Epithelial 2 /HPF [place] cells, [facility] WBC, UA 25 (H) 0 - 4 /HPF [facility] RBC, UA 3 0 - 5 /HPF [facility] Bacteria, UA Few None seen [facility] Yeast, UA None seen [facility] Yeast with None seen [place] [facility] Specimen Urine Performing Organization Address [facility] Phone Number [facility] DEPARTMENT OF [address] [place] [address] PATHOLOGY AND GENOMIC MEDICINE [address] * Smear review (06/16/2018 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 Specimen Performing Organization Address [facility] Phone Number [facility] DEPARTMENT [address] [address] PATHOLOGY AND GENOMIC MEDICINE [address] * CBC with platelet and differential (06/16/2018 1:53 PM CANDY FORMING MACHINE OPERATOR) Only the most recent of 4 results within the time period is included. WBC 5.64 4.50 - 11.00 k/uL [facility] RBC 3.15 (L) 4.20 - 5.50 m/uL [facility] HGB 11.4 (L) 12.0 - 16.0 g/dL [facility] HCT 36.6 (L) 37.0 - 47.0 % [facility] MCV 116.2 (H) 82.0 - 100.0 fL [facility] MCH 36.2 (H) 27.0 - 34.0 pg [facility] MCHC 31.1 31.0 - 37.0 g/dL [facility] RDW - SD 74.5 (H) 37.0 - 55.0 fL [facility] MPV 13.7 (H) 8.8 - 13.2 fL [facility] Platelet count 89 (L) 150 - 400 k/uL [facility] Nucleated RBC 0.00 /100 WBC [facility] Neutrophils 72.0 (H) 39.0 - 69.0 % [facility] Lymphocytes 10.6 (L) 25.0 - 45.0 % [facility] Monocytes 11.2 (H) 0.0 - 10.0 % [facility] Eosinophils 5.1 (H) 0.0 - 5.0 % [facility] Basophils 0.7 0.0 - 1.0 % [facility] Immature 0.4Comment: "Immature 0.0 - 1.0 % [place] granulocytes granulocytes" (promyelocytes, [facility] myelocytes, metamyelocytes) HOSPITAL Specimen Blood Performing Organization Address City/State/Zipcode Phone Number [facility] DEPARTMENT OF [address] [place] [address] PATHOLOGY AND GENOMIC MEDICINE [facility] [address] [place] [address] [facility] * B natriuretic peptide (06/16/2018 1:53 PM CANDY FORMING MACHINE OPERATOR) Only the most recent of 3 results within the time period is included. BNP >5000 (H) 0 - 100 pg/mL [place] Comment: [facility] Increased result of BNP most HOSPITAL likely represents recent infusion of recombinant BNP. For monitoring, because of the short half-life of BNP (20 minutes), measurements taken 2 hours after cessation of treatment again reflects the level of endogenous BNP. Specimen Performing Organization Address City/[facility] Phone Number [place] [address] PATHOLOGY AND [facility] MEDICINE [address] * Lipase level (06/16/2018 1:53 PM CANDY FORMING MACHINE OPERATOR) Lipase 10 (L) 13 - 60 U/L [facility] Specimen Plasma specimen Performing Organization Address City/[facility] Phone Number [facility] [address] PATHOLOGY AND [facility] [address] * Creatine kinase, total (CPK) (06/16/2018 1:53 PM CANDY FORMING MACHINE OPERATOR) Only the most recent of 2 results within the time period is included. Pathologist [facility] Creatine kinase 48 26 - 192 U/L [facility] Specimen Plasma specimen Performing Organization Address [facility] Phone Number [facility] [address] PATHOLOGY AND [facility] [address] * Comprehensive metabolic panel (06/16/2018 1:53 PM CANDY FORMING MACHINE OPERATOR) Only the most recent of 2 results within the time period is included. Sodium 142 135 - 148 mEq/L [facility] Potassium 5.2 (H) 3.5 - 5.0 mEq/L [facility] Chloride 101 98 - 112 mEq/L [facility] CO2 26 24 - 31 mEq/L [facility] Anion gap 15@ANIO 7 - 15 mEq/L [facility] BUN 72 (H) 8 - 23 mg/dL [facility] Creatinine 4.74 (H) 0.50 - 0.90 mg/dL [facility] Glucose 174 (H) 65 - 99 mg/dL [facility] Calcium 8.8 8.8 - 10.2 mg/dL [facility] Protein 6.7 6.3 - 8.3 g/dL [place] Comment: [facility] 4.6-7.0 g/dL 1 week 4.4-7.6 g/dL 7 months-1year 5.1-7.3 g/dL 1-2 years5.6-7 .5 g/dL >3 years6.0-8 .0 g/dL 18-150 6.3-8.3 g/dL Albumin 3.0 (L) 3.5 - 5.0 g/dL [facility] A/G ratio 0.8 0.7 - 3.8 [facility] Alkaline 193 (H) 35 - 104 U/L [place] phosphatase [facility] AST 35 10 - 35 U/L [facility] ALT 20 5 - 50 U/L [facility] Total bilirubin 0.5 0.0 - 1.2 mg/dL [facility] Specimen Plasma specimen Performing Organization Address City/[facility] Phone Number [place] [address] PATHOLOGY AND GENOMIC MEDICINE [address] * ECG 12 lead (06/16/2018 1:19 PM CANDY FORMING MACHINE OPERATOR) Only the most recent of 3 results within the time period is included. Ventricular 57 [facility] MUSE rate Atrial rate 57 [facility] M[facility] CA interval 178 [facility] QRSD interval 94 [facility] QT interval 434 [facility] QTC interval 422 [facility] MUSE P axis 1 49 [facility] MUSE QRS axis 1 31 [facility] MUSE T wave axis 238 [facility]USE EKG impression Sinus bradycardia-ST & T wave [facility] MUSE abnormality, consider inferolateral ischemia-Abnormal ECG-In automated comparison with ECG of 16-JUN-2018 13:19,-Inverted T waves have replaced nonspecific T wave abnormality in Inferior leads- Specimen Narrative Performed At Performing Organization Address City/[facility] Hospitalcode Phone Number [address] [address] * Magnesium level (03/25/2018 12:55 PM CANDY FORMING MACHINE OPERATOR) Only the most recent of 2 results within the time period is included. Magnesium 2.0 1.6 - 2.4 mg/dL [facility] Specimen Plasma specimen Performing Organization Address City/[facility] Phone Number [facility] DEPARTMENT [address] [address] PATHOLOGY AND GENOMIC MEDICINE [address] * CT Lumbar Spine Wo Contrast (03/17/2018 12:15 PM CANDY FORMING MACHINE OPERATOR) Specimen Narrative Performed At EXAMINATION: CT LUMBAR [...] right and marked left neural foraminal narrowing. [id number] Procedure Note Hm Interface, Radiology Results Incoming - 03/17/2018 2:22 PM CANDY FORMING MACHINE OPERATOR EXAMINATION: CT LUMBAR SPINE WO CONTRAST CLINICAL [...] right and marked left neural foraminal narrowing. [id number] Performing Organization Address City/State/Zipcode Phone Number [facility] [address] [place] [address] * CT Thoracic Spine Wo Contrast (03/17/2018 12:14 PM CANDY FORMING MACHINE OPERATOR) Specimen Narrative Performed At EXAMINATION: CT THORACIC [...] the left posterior 12th rib. Recommend correlation. [facility]-[id number] Procedure Note Interface, Radiology Results Incoming - 03/17/2018 1:48 PM CANDY FORMING MACHINE OPERATOR EXAMINATION: CT THORACIC SPINE WO CONTRAST CLINICAL [...] the left posterior 12th rib. Recommend correlation. [facility]-[id number] Performing Organization Address City/State/Zipcode Phone Number [facility] [address] [place] [address] * Cv cta tmvr workup (cta coronary cta thoracic aorta) w contrast (03/17/2018 8:31 AM CANDY FORMING MACHINE OPERATOR) Specimen Narrative Performed At [facility] Nuclear Cardiology and Cardiac CT [address] [place] [address] CTA TMVR Protocol Pat.Name:JACEY ABRAMS Pat.ID:[id number] St.Date: 03/17/2018Refer.MD:SELWYN STRICKLAND MD Exam Time: 8:10:00 AMStudy Type:CTA TMVR Protocol Height:61inBSA: 1.58 m2 DOBAge:1945,73Y Sex: FEMALE BP:155/67HR: 74 bpm Nuclear Tech:OSITO Melchor(N)(CT) CPT - 4: CCTA w Thoracic Aorta (NonCongenital) [id number] Nuclear Event ID:[id number] Order ID:[id number] Reason for Study:TMVR Work-Up Procedures:CT Retrospective SUMMARY: Technique: IV contrast was administered and sequential 0.[address] cuts were obtained through the chest using the Siemens Somatom Force CT scanner. Post-processing and 3D reconstruction were done using the mediafeedia workstation. Interactive image viewing and volumetric display [...] Cardiovascular CTA Protocol and interpreted by a Financial Institution Manager.Should a more comprehensive assessment of non-cardiovascular findings be desired, please consult a radiologist.These images are available in the [facility] PACS system. Signed 03/18/2018 06:27 PM Jamil Rodriguez MD Procedure Note Interface, Radiology Results In - 03/18/2018 6:29 PM [facility] Nuclear Cardiology and Cardiac CT [address] [place] [address] CTA TMVR Protocol Pat.Name: JACEY ABRAMS Pat.ID: [id number] .Date: 03/17/2018 Refer.MD: SELWYN STRICKLAND MD Exam Time: 8:10:00 AM Study Type:CTA TMVR Protocol Height: 61in BSA: 1.58 m2 Age: 11 1945,73Y Sex: FEMALE BP: 155/67 HR: 74 bpm Nuclear Tech:OSITO Melchor(N)(CT) CPT - 4: CCTA w Thoracic Aorta (NonCongenital) [id number] Nuclear Event ID:[id number] Order ID: [id number] Reason for Study:VR Work-Up Procedures:CT Retrospective SUMMARY: Technique: IV contrast was administered and sequential 0.[address] cuts were obtained through the chest using the Siemens Somatom Force CT scanner. Post-processing and 3D reconstruction were done using the mediafeedia workstation. Interactive image viewing and volumetric display [...] Cardiovascular CTA Protocol and interpreted by a Financial Institution Manager. Should a more comprehensive assessment of non-cardiovascular findings be desired, please consult a radiologist. These images are available in the [facility] PACS system. Signed 03/18/2018 06:27 PM Jamil Rodriguez MD Performing Organization Address City/State/Zipcode Phone Number [facility] [address] [place] [address] * Echocardiogram transesophageal (03/16/2018 10:21 AM CANDY FORMING MACHINE OPERATOR) Specimen Narrative Performed At [facility] Transesophageal Echo Report [address], [place], [address]Name:JACEY ABRAMS Pat.ID:[id number] .Date: 03/16/2018Refer.MD:MARGARITA OSBORNE MD Exam Time: 8:40:00 AMStudy Type:CHANA Height:60inWeight:138lb BSA: 1.6 g1VWKUdz:1945,73Y Sex: FEMALEBP:148/65 HR:69 bpmSonogrphr: Crystal Álvarez MD Pat. Stat.:Inpatient Study Status:Final Echo Event ID:[id number] Order ID:[id number] Reason for Study:EVAL OF VALVULAR STRUCTURE AND [...] extending into the RA. FINDINGS: CHANA:The attending actuarial science teacher performed the CHANA procedure and waspresent for [...] MR is likely to be a perforated [id number]. Eccentric mitral regurgitant jet directed anteriorly. PV: Pulmonic valve not well seen. TV: No structural TV abnormalities noted. Mild tricuspid regurgitation Other:Estimated PA systolic pressure is 40 mmHg, assuming a mean RAPof 5 mmHg. CHANA: Anesthesia: Moderate SedationASA Class: 4 Physician: Mitchel Morton M.D.Wood Milling Machine Hand: Crystal Álvarez MD Pre TEEBP HR Post CHANA BP HR 148/65 14062/71 80 Meds:Viscous xylocaine, Cetacaine spray to oropharynx, Versed 2 mg IV, Fentanyl 50 mcg IV Complications: None Condition: Stable MEASUREMENTS: DOPPLER MV PISA MV AliasVel 38.5 cm/sMV pkVel 451.5 cm/s MV PISA rad1 cmMV ERO 0.5 cm2 MV Flw 241.9 cc/sMV RgVol72.4 cc Signed 03/16/2018 11:23 AM Mitchel Morton M.D. Procedure Note Interface, Radiology Results In - 03/16/2018 11:23 AM [facility] Transesophageal Echo Report [address] [place], [place] [address] Pat.Name: JACEY ABRAMS Pat.ID: [id number] .Date: 03/16/2018 Refer.MD: MARGARITA OSBORNE MD Exam Time: 8:40:00 AM Study Type:CHANA Height: 60in Weight: 138lb BSA: 1.6 m2 Age: 11 1945,73Y Sex: FEMALE BP: 148/65 HR: 69 bpm Sonogrphr: Crystal Álvarez MD Pat. Stat.:Inpatient Study Status:Final Echo Event ID:[id number] Order ID: [id number] Reason for Study:EVAL OF VALVULAR STRUCTURE AND [...] into the RA. FINDINGS: CHANA: The attending actuarial science teacher performed the CHANA procedure and was present [...] Sedation ASA Class: 4 Physician: Mitchel Morton M.D.Wood Milling Machine Hand: Crystal Álvarez MD Pre CHANA BP HR [...] AM Mitchel Morton M.D. Performing Organization Address [facility] Hospitalcomd Phone Number [facility] [address] [place] [address] * Total iron binding capacity (03/14/2018 4:50 AM CANDY FORMING MACHINE OPERATOR) Iron level 87 37 - 145 ug/dL [facility] Iron binding 116 (L) 200 - 400 ug/dL [facility] % Saturation 75.0 (H) 15.0 - 38.0 % [facility] Specimen Plasma specimen Performing Organization Address [facility] Phone Number [facility] [address] PATHOLOGY AND [facility] MEDICINE [address] * Ferritin level (03/14/2018 4:50 AM CANDY FORMING MACHINE OPERATOR) Ferritin level 1,899 (H) 13 - 150 ng/mL [facility] Specimen Plasma specimen Performing Organization Address [facility] Phone Number [facility] [address] PATHOLOGY AND [facility] MEDICINE [address] * US Renal (03/13/2018 4:59 PM CANDY FORMING MACHINE OPERATOR) Specimen Narrative Performed At EXAM:US RENAL RADIANT [...] or hydronephrosis. The urinary bladder is unremarkable. [facility]-[id number] Procedure Note Interface, Radiology Results Incoming - 03/13/2018 9:54 PM CANDY FORMING MACHINE OPERATOR EXAM: US RENAL CLINICAL HISTORY: Renal failure [...] or hydronephrosis. The urinary bladder is unremarkable. [facility]-[id number] Performing Organization Address City/State/Zipcode Phone Number [facility] [address] [place] [address] * Blood culture, aerobic & anaerobic (03/13/2018 3:45 PM CANDY FORMING MACHINE OPERATOR) Only the most recent of 2 results within the time period is included. Blood culture No growth after 5 days of [place] isolate incubation. [facility] Comment: HOSPITAL Specimen Information Specimen Source: Blood Specimen Site: Forearm, right Specimen Blood - Forearm, right Performing Organization Address City/State/Zipcode Phone Number [facility] DEPARTMENT OF [address] [place] [address] PATHOLOGY AND GENOMIC MEDICINE [place] [facility] [address] [place], [place] [id number] HOSPITAL * Echocardiogram complete w contrast and 3D if needed (03/13/2018 3:23 PM CANDY FORMING MACHINE OPERATOR) Specimen Narrative Performed At [facility] Echocardiography Report [address] [facility], [place] [address] Pat.Name:JACEY ABRAMS Pat.ID:[id number] .Date: 03/13/2018Refer.MD:ABRAHAM JOHNSON MD Exam Time: 2:23:00 PMStudy Type:Routine Echo Height:60inWeight:138lb BSA: 1.6 s6WIWYle:1945,73Y Sex: FEMALEBP:109/39 HR:83 bpm Sonogrphr: Ana Laura Romero [facility] Pat. Stat.:Inpatient Room:[address] Study Status:Final Echo Event ID:[id number] Order ID:[id number] Reason for Study:CHF History / Clinical:Diabetes, Hypertension, [...] PA systolic pressure. MEASUREMENTS: 2D Parasternal Long [place] LVOT 2.2 cmLV%fs 29.6 % LA Ds4.1 cmIVSd 1.2 cm Ao An1.7 cmLVPWd1.1 cm Ao Rtd 2.3 cmIndex1.5 cm/m LV Bldd084.2 g(87-129) LVIDd4.8 cmIndex3 cm/m LVM Mlbyn302.8 g/m2 LVIDs3.4 cmRWT0.5 LA Biplane LA 4Ch Area 24.7 cm2 LA Vol79.2 ml Index49.5 ml/m LA 2Ch Area 22.7 cm2 DOPPLER AV For Flow/CARMINE AV pkVel 375.2 cm/s (100-170) AV AC/ET 0.3 AV mnVel 250.6 cm/Grzegorz TVI78.8 cm AV pkPG 56.3 mmHgAVpkAcRt 6969.4 cm/s2 AV Mean G 31 mmHgAV NbRn1143.8 cm/s2 AV AC 95 msec (83-118) AV Area1.5 cm2(3-5) AV ET314 msec LVOT For Flow LVOT Area3.8 cm2 LVOT SV121.7 ml NEJXcpUbg182.1 cm/sHR82.3 bpm LVOTpkPG 6.7 mmHgLVOT CO 10 l/min LVOTmnPG 4 mmHgLVOT CI6.3 l/m/m2 LVOT TVI32 cm Signed 03/13/2018 06:54 PM Mitchel Morton M.D. Procedure Note Interface, Radiology Results In - 03/13/2018 6:54 PM [facility] Echocardiography Report [address] [place] [address], [place] [address] Pat.Name: JACEY ABRAMS Pat.ID: [id number] .Date: 03/13/2018 Refer.MD: ABRAHAM JOHNSON MD Exam Time: 2:23:00 PM Study Type:Routine Echo Height: 60in Weight: 138lb BSA: 1.6 m2 Age: 11 1945,73Y Sex: FEMALE BP: 109/39 HR: 83 bpm Sonogrphr: Ana Laura Romero [facility] Pat. Stat.:Inpatient Room: [address] Study Status:Final Echo Event ID:[id number] Order ID: [id number] Reason for Study:CHF History / Clinical:Diabetes, Hypertension, [...] PA systolic pressure. MEASUREMENTS: 2D Parasternal Long [place] LVOT 2.2 cm LV%fs 29.6 % LA [...] Organization Address City/State/Zipcode Phone Number [facility] [address] [place] [address] * XR Chest 1 Vw Portable (03/13/2018 10:32 AM CANDY FORMING MACHINE OPERATOR) Specimen Narrative Performed At [facility] CHEST [facility] INDICATION:Shortness of breath COMPARISON:None available IMPRESSION: Heart is mildly enlarged with mild pulmonary vascular congestion with mild perihilar edema. There valve replacement is noted with changes of sternotomy. There is no effusion or pneumothorax. Bones are demineralized but appear intact. Thank you for allowing us to participate in the care of your patient. [facility]-[id number] Procedure Note Interface, Radiology Results Incoming - 03/13/2018 10:46 AM CANDY FORMING MACHINE OPERATOR XR CHEST 1 VW PORTABLE CLINICAL INDICATION: Shortness of breath COMPARISON: None available IMPRESSION: Heart is mildly enlarged with mild pulmonary vascular congestion with mild perihilar edema. There valve replacement is noted with changes of sternotomy. There is no effusion or pneumothorax. Bones are demineralized but appear intact. Thank you for allowing us to participate in the care of your patient. [facility]-[id number] Performing Organization Address [facility] Phone Number [facility] [address] [place] [address] * Partial thromboplastin time, activated (03/13/2018 9:45 AM CANDY FORMING MACHINE OPERATOR) Pathologist Jayson PTT 40.1 (H) 23.0 - 36.0 sec [place] Comment: [facility] PTT therapeutic range for HOSPITAL unfractionated heparin is 61.0-112.0 seconds which corresponds to Anti-Xa 0.3-0.7 U/ml. Specimen Blood Performing Organization Address City/[facility]/Zipcode Phone Number [facility] DEPARTMENT OF [address] [place] [address] PATHOLOGY AND [facility] [place] [address] HOSPITAL * Type and screen (03/13/2018 9:45 AM CANDY FORMING MACHINE OPERATOR) Pathologist Jayson ABO grouping O [facility] Rh type POS [facility] Antibody screen NEG [place] (gel) [facility] Specimen Blood Performing Organization Address City/[facility]/Zipcode Phone Number [facility] DEPARTMENT OF [address] [place] [address] PATHOLOGY AND GENOMIC MEDICINE [address] * Phosphorus level (03/13/2018 9:45 AM CANDY FORMING MACHINE OPERATOR) Phosphorus 5.1 (H) 2.4 - 4.5 mg/dL [facility] Specimen Plasma specimen Narrative Performed At [facility] results called to and read back by [facility] DEPARTMENT OF SOPHIA/DEON(name/location)03/13/201810:41(date/time) by PR1. PATHOLOGY AND GENOMIC MEDICINE Performing Organization Address City/State/Zipcode Phone Number [facility] [address] PATHOLOGY AND GENOMIC MEDICINE [address] * Hepatic function panel (03/13/2018 9:45 AM CANDY FORMING MACHINE OPERATOR) Albumin 2.4 (L) 3.5 - 5.0 g/dL [facility] Total bilirubin 0.5 0.0 - 1.2 mg/dL [facility] Bilirubin <0.2 0.0 - 0.3 mg/dL [facility] direct [facility] Alkaline 299 (H) 35 - 104 U/L [place] phosphatase [facility] Protein 7.0 6.3 - 8.3 g/dL [place] Comment: [facility] ([place] 4.6-7.0 g/dL 1 week 4.4-7.6 g/dL 7 months-1year 5.1-7.3 g/dL 1-2 years5.6-7 .5 g/dL >3 years6.0-8 .0 g/dL 18-150 6.3-8.3 g/dL ALT 23 5 - 50 U/L [facility] AST 39 (H) 10 - 35 U/L [facility] Specimen Plasma specimen Narrative Performed At [facility] results called to and read back by [facility] DEPARTMENT OF SOPHIA/DEON(name/location)03/13/201810:41(date/time) by PR1. PATHOLOGY AND GENOMIC MEDICINE Performing Organization Address City/State/Zipcode Phone Number [facility] DEPARTMENT [address] [address] PATHOLOGY AND GENOMIC MEDICINE [address] after 11/02/2017 Insurance Type Payer Benefit Subscriber ID Effective Phone Address Plan / Dates Group HMO [employer] TEX[employer]US xxxxxxxxx 2017-Adenike lacy Advance Directives Patient has advance care planning documents on file. For more information, fredis e contact: Aston Aggarwal [address] [place] [address]
[2018-11-04] VITALS (10 sets, daily range): BP systolic 111–138; BP diastolic 53–65
[2018-11-04] MEDS: ONDANSETRON HCL INJ 2MG/ML 2ML 2 MG/ML VIAL IV PRN ×2 (00:08→18:44)
[2018-11-04] MEDS: MORPHINE SULFATE INJ 4 MG/ML INJ 1ML IV PRN ×2 (00:10→18:43)
--- NOTE | 2018-11-04 01:00 | NUR ---
Patient received via stretcher from ER accompanied by daughter. JAC x 3. Patient had no complaints of pain. Respirations even and non-labored. Admission history and Initial physical assessment performed. Patient oriented to room, call light and plan of care. Dressing to right foot CDI. Safety measures implemented. Patient instructed to call for assistance when needed. Call light within reach.
[2018-11-04] MEDS ORDERED: POTASSIUM CHLO10 ME1 PO (02:59)
[2018-11-04] MEDS ORDERED: RENA-VITE TABL0.8 MG PO (02:59)
[2018-11-04] MEDS ORDERED: FEROSUL325 MG PO (02:59)
[2018-11-04] MEDS ORDERED: CALCIUM ACETAT667 MG PO (02:59)
[2018-11-04] MEDS ORDERED: HUMALOG100 UNIT/1 SQ (02:59)
[2018-11-04] MEDS ORDERED: TYLENOL WITH C1 EACH PO (02:59)
--- NOTE | 2018-11-04 06:45 | NUR ---
Dr. Kauffman (Dr. Desiree leahy) notified and aware of Consult. Reason for Consult: ESRD.
--- NOTE | 2018-11-04 06:46 | NUR ---
Dr. Bright Fan paged regarding "Stat Consult" for patient. Awaiting call back.
[2018-11-04 07:20] LABS: BASOPHILS % 0.3 % (0.0-1.0); EOSINOPHILS # (AUTO) 0.3 (0.0-0.4); EOSINOPHILS % 4.3 % (0.0-6.0); HEMATOCRIT 28.9 % (34.2-44.1); HEMOGLOBIN 9.4 g/dL (12.0-16.0); LYMPHOCYTES # (AUTO) 0.4 (1.0-3.2); LYMPHOCYTES % 6.6 % (18.0-39.1); MEAN CORPUSCULAR HEMOGLOBIN 35.9 pg (28-32); MEAN CORPUSCULAR HGB CONC 32.5 g/dL (31-35); MEAN CORPUSCULAR VOLUME 110.3 fL (81-99); MONOCYTES # (AUTO) 0.9 (0.2-0.8); MONOCYTES % 14.4 % (4.4-11.3); NEUTROPHILS # (AUTO) 4.5 (2.1-6.9); NEUTROPHILS % 73.9 % (38.7-80.0); PLATELET COUNT 144 x10e3/uL (140-360); RED BLOOD COUNT 2.62 x10e6/uL (3.6-5.1)
[2018-11-04 07:29] LABS: INR 2.38; PROTHROMBIN TIME 26.7 seconds (11.9-14.5)
[2018-11-04] MEDS ORDERED: INSULIN REGULAR, HUMAN 100 UNIT/1 ML 3ML VIAL SQ SCH (07:30)
[2018-11-04 07:40] LABS: ALBUMIN 2.8 g/dL (3.5-5.0); ALBUMIN/GLOBULIN RATIO 0.8 (0.8-2.0); ANION GAP 13.9 mmol/L (8-16); CALCIUM 9.5 mg/dL (8.4-10.2); CREATININE, SERUM 3.48 mg/dL (0.57-1.11); POTASSIUM 4.9 mmol/L (3.5-5.1)
[2018-11-04 08:47] LABS: HYPOCHROMASIA SLIGHT; LYMPHOCYTES % (MANUAL) 8 % (19-48); MONOCYTES % (MANUAL) 10 % (3.4-9.0); NEUTROPHILS % (MANUAL) 82 % (40-74); PLATELET ESTIMATE ADEQUATE; PLATELET MORPHOLOGY COMMENT NORMAL
--- NOTE | 2018-11-04 09:02 | NUR ---
CALLED AND SPOKE WITH [facility] FIRE FIGHTER, [place], AT 0857 TO INFORM ON HEMODIALYSIS FOR PATIENT PER DR. CASAS'S ORDER.
[2018-11-04] MEDS ORDERED: DEXTROSE 50% SYRINGE 50 ML IV PRN (09:30)
[2018-11-04] MEDS: FUROSEMIDE 40 MG TAB PO SCH (10:00)
--- NOTE | 2018-11-04 11:11 | NUR ---
WOUND CARE NURSE INITIAL CONSULTATION. 73 YEAR OLD FEMALE ADMITTED TO [facility] WITH DX OF CELLULITIS, RIGHT FOOT DIABETIC FOOT ULCERS, ESRD AND OSTEOMYELITIS. HEAD TO TOE SKIN ASSESSMENT PERFORMED TODAY. PT PRESENTS WITH DFU WAGNERS 4 TO RIGHT HALLUX, 4.2X4X0.3CM, 100% NECROTIC, BONE EXPOSED. 1X1X0.1CM DRY AND STABLE ESCHAR; RIGHT 1ST METATARSAL HEAD 0.8X0.8X0.1CM, DRY AND STABLE ESCHAR; RIGHT 5TH METATARSAL HEAD, 0.5X0.X5X0.1CM DRY AND STABLE ESCHAR; RIGHT SECOND TOE, 0.3X0.3X0.1CM, 100% SLOUGH. THERE ARE NO OTHER AREAS OF CONCERN NOTED AT THIS TIME. LABS: WBC: 6.06 GLUCOSE: 130 ALB: 2.8 WOUND AND BLOOD CULTURES PENDING. SPOKE WITH DR. GUILLEN, RECEIVED ORDERS FOR RIGHT FOOT MRI WITHOUT CONTRAST, HGBA1C, AND BETADINE WET TO DRY TO ALL RIGHT FOOT ULCERS. NURSING TO PLACE PT ON ALTERNATING LOW AIR LOSS MATTRESS AND PROVIDE BILATERAL HEEL PROTECTORS AND PILLOW SUSPENSIONS. THANKS FOR THIS CONSULTATION. Addendum: 11/04/18 at 1125 by Briseida Garrison RN Amended: Links added. Addendum: 11/04/18 at 1129 by Briseida Garrison RN NO PALPABLE PULSES, ARTERIAL DUPLEX PENDING AT THIS TIME.
[2018-11-04] MEDS: INSULIN LISPRO 100 UNIT/1 ML 3ML VIAL SQ SCH ×3 (11:30→22:08)
--- NOTE | 2018-11-04 11:40 | NUR ---
WOUND CARE COMPLETED BY WOUND CARE NURSE. DRESSING IS DRY AND INTACT.
--- NOTE | 2018-11-04 14:32 | NUR ---
PATIENT RECEIVING DIALYSIS- PATIENT IN STABLE CONDITION WITH NO S/S OF RESPIRATORY DISTRESS.
--- NOTE | 2018-11-04 15:02 | NUR ---
Nutrition Screen Note RD Recommendation for Physician: -Rec adding renal to ADA diet as medically appropriate Plan of Care: RD following, monitoring for tolerance and adequacy Nutrition reason for involvement: Diagnosis ESRD Primary Diagnose(s): R foot cellulitis, ESRD on HD, osteomyelitis PMH: HTN, T2DM, HLD, hypothyroidism, chronic anemia Ht: 62in Wt: 144lb BMI: 26.3kg/m2 IBW: 110lb +/- 10% RD Assessment: (11/04/2018) Chart reviewed. Labs and meds reviewed. 73yo F, who was admitted for R foot cellulitis. HD is planned for today. Visited pt in the room. Pt reported good appetite with 100% observed lunch intake. No complains of nausea or vomiting. Normal BM. Pt denied any chewing or swallowing difficulty. Weight has been stable between 134-136lbs. Will continue to monitor and follow. Current Diet: ADA 1800 Malnutrition Evaluation (11/04/2018) The patient does not meet criteria for a specified degree of malnutrition at this time. Will re-evaluate at follow-up as appropriate. Diet Education Needs Assessment: Diet education not indicated. Followed up by RD at dialysis facility Nutrition Care Level: low Signed: Hellen Olson, , RD, LD
[2018-11-04] MEDS ORDERED: SODIUM CHLORIDE 0.9% 1000ML 2,000 ML IV PRN (16:45)
[2018-11-04] MEDS ORDERED: WARFARIN SOD 1 MG TAB PO SCH (17:00)
[2018-11-04] MEDS: METOPROLOL TARTRATE 25 MG TAB PO SCH (17:14)
[2018-11-04] MEDS: SEVELAMER CARBONATE 800 MG TAB PO SCH (17:15)
[2018-11-04] MEDS ORDERED: SODIUM CHLORIDE 0.9% 250ML 250 ML ONE (17:25)
[2018-11-04] MEDS: CEFEPIME 1GM/NS 0.9% 50 ML 50 ML IV SCH (17:31)
--- NOTE | 2018-11-04 19:08 | NUR ---
PT IS RESTING IN BED WITH FAMILY AT BEDSIDE. RESPIRATION IS EVEN AND UNLABORED, NO DISTRESS NOTED. BED IN THE LOWEST POSITION, LOCKED, AND CALL LIGHT WITHIN REACH. WILL CONTINUE TO MONITOR.
--- NOTE | 2018-11-04 19:18 | NUR ---
PATIENT RESTING IN BED- IN STABLE CONDITION WITH NO S/S OF RESPIRATORY DISTRESS. PATIENT RECENTLY RECEIVED PAIN MEDICATION. FAMILY MEMBERS PRESENT IN ROOM. CALL LIGHT IS WITHIN REACH, PATIENT INSTRUCTED TO CALL FOR ASSISTANCE NEEDED. BEDSIDE REPORT GIVEN TO ONCOMING NURSE.
--- NOTE | 2018-11-04 20:38 | Consultation ---
DATE OF CONSULTATION: 11/04/2018 HISTORY OF PRESENT ILLNESS: This is a patient, who is well known to my practice. She was seeing Dr. Thiago Singleton, but had follow up with me since he will be out for a couple of weeks. She presented to my office with an ulcer to the right aspect of the right foot. She had been using Betadine wet-to-dry. The ulcer was drying, but at the distal aspect, the area was opened and it was draining. She was taking doxycycline. Culture and sensitivity were taken in the office, but before she had a followup with me, she had to come into the hospital because the ulcer began to be become very painful. She had a malodor. PAST MEDICAL HISTORY: Diabetes mellitus, end-stage renal disease, history of previous ulcers, renal insufficiency, heart failure. FAMILY HISTORY: Diabetes mellitus, hypertension, GI disease. PAST SURGICAL HISTORY: She has had aortic valve replacement, hernia repair. ALLERGIES: PENICILLINS. MEDICATIONS: Please refer to MAR. Of interest to this consult is Marcus. LABORATORY AND IMAGING DATA: Blood cultures are pending. Bone scan is pending. White blood count is 6.2, is trending down. The x-ray is questionable for erosion at the distal residual digit possible osteomyelitis. PHYSICAL EXAMINATION: GENERAL: Alert and oriented with family at bedside. EXTREMITIES: Denies any pain. Pedal pulses nonpalpable. Capillary filling time delay and Charcot type of foot. Skin thin, shiny and atrophic. There is a full-thickness ulcer with the wound exposed at the distal aspect of the right foot. Erythema and edema localized at this point. Edema and erythema not streaking. Protective threshold is absent. ASSESSMENT: 1. Diabetic foot ulcer grade 3 right hallux. 2. Diabetes with neuropathy and peripheral vascular disease. 3. End-stage renal disease. 4. Severe peripheral vascular disease. PLAN: At this point, I discussed with the patient that I am going to order a bone scan. I suspect this is osteomyelitis. We have consulted Infectious Disease. I have also consulted Dr. Basurto, Dr. Lieberman for evaluation of the PVD. I discussed with the patient of the plan. If she is able to heal the wound, and there is no vascularity to heal the wound, we could do local wound care and IV antibiotic, but she is aware that if she is having vascularity to heal the wound or she could not be revascularized, her best choice is going to be a possible proximal amputation and she is aware of this. I have answered all questions and I am going to continue to follow her. Thank you for allowing me participate in the care of this patient. HORTENCIA Hauser/JUAN /[id number]
[2018-11-04] MEDS: ATORVASTATIN 10 MG TAB PO SCH (22:06)
[2018-11-05] VITALS (8 sets, daily range): BP systolic 98–165; BP diastolic 46–72
--- NOTE | 2018-11-05 00:18 | Consultation ---
DATE OF CONSULTATION: 11/04/2018 HISTORY OF PRESENT ILLNESS: A 73-year-old female, well known to our Nephrology Service, admitted with toe infection. Currently awake, alert, complains of shortness of breath. Denies fever, chills, chest pain, shortness of breath. PAST MEDICAL HISTORY: Aortic valve replacement, has been on Coumadin; history of end-stage renal disease; hyperlipidemia; diabetes; diabetic nephropathy; neuropathy; diabetic kidney disease; underlying history of hypothyroidism; congestive heart failure; prior hernia repair; cholecystectomy; has a left upper arm AV fistula; history of aortic stenosis. Currently has cellulitis and possible osteomyelitis of the lower extremity. ALLERGIES: SHE IS ALLERGIC TO PENICILLIN. CURRENT MEDICATIONS: Please see MAR for details. Metoprolol 25 mg p.o. b.i.d., morphine injection p.r.n., ondansetron p.r.n. She is apparently on potassium chloride 10 mEq daily, which I am going to stop. She is on warfarin 1 mg p.o. daily, Lasix 80 mg daily. She is on ferrous sulfate 325 mg daily, atorvastatin 10 mg at bedtime. Started on cefepime 1 g q.24, received one time dose of vancomycin. SOCIAL HISTORY: She does not smoke or drink. FAMILY HISTORY: Significant for diabetes. PHYSICAL EXAMINATION: GENERAL: Awake, alert, and oriented x3, lying supine in bed, in no apparent distress. VITAL SIGNS: Blood pressure 130/65, pulse rate 70, afebrile, respiratory rate 18, oxygen saturation 95%. HEAD AND NECK: Cornea clear. Mucosa moist. Neck veins slightly distended. LUNGS: Bibasilar rales. HEART: With loud S2. No gallop. ABDOMEN: Otherwise, soft and nontender. LOWER EXTREMITIES: No edema. LABORATORY TEST: Shows hemoglobin 9.8, white count 5.7. Potassium 4.9, creatinine 3.4. IMPRESSION: 1. History of aortic valve replacement. 2. Diabetes. 3. Diabetic kidney disease. 4. End-stage renal disease, now with fluid overload. PLAN: Plan on hemodialysis, ultrafiltration today. The patient agrees for 2 hours today and we will do a 3-1/2 hours session tomorrow since she is a Friday, , Friday patient. I would like to mobilize from edema given her history of congestive heart failure, aortic valve replacement, has underlying hypertension, multiple other comorbidities. Please see orders. We will start phosphorus binders, renal diet, fluid restriction. Discontinue scheduled doses of potassium. Further recommendations to follow. MD AXEL Crane/JUAN /[id number]
[2018-11-05] MEDS: LEVOTHYROXINE SODIUM 50 MCG TAB PO SCH (05:31)
[2018-11-05 06:10] LABS: HEMATOCRIT 30.2 % (34.2-44.1); HEMOGLOBIN 9.8 g/dL (12.0-16.0); MEAN CORPUSCULAR HEMOGLOBIN 35.5 pg (28-32); MEAN CORPUSCULAR HGB CONC 32.5 g/dL (31-35); MEAN CORPUSCULAR VOLUME 109.4 fL (81-99); PLATELET COUNT 163 x10e3/uL (140-360); RED BLOOD COUNT 2.76 x10e6/uL (3.6-5.1); RED CELL DISTRIBUTION WIDTH 13.8 % (11.7-14.4)
[2018-11-05 06:40] LABS: ANION GAP 14.8 mmol/L (8-16); CALCIUM 8.7 mg/dL (8.4-10.2); CREATININE, SERUM 3.26 mg/dL (0.57-1.11); POTASSIUM 4.8 mmol/L (3.5-5.1)
--- NOTE | 2018-11-05 07:25 | NUR ---
PATIENT IN STABLE CONDITION WITH NO S/S OF RESPIRATORY DISTRESS. PATIENT DENIES PAIN. PATIENT IS DUE TO HAVE DIALYSIS TODAY. CALL LIGHT IS WITHIN REACH, PATIENT INSTRUCTED TO CALL FOR ASSISTANCE NEEDED.
[2018-11-05] MEDS: INSULIN LISPRO 100 UNIT/1 ML 3ML VIAL SQ SCH ×4 (07:30→20:42)
[2018-11-05] MEDS: METOPROLOL TARTRATE 25 MG TAB PO SCH ×2 (07:34→17:07)
[2018-11-05] MEDS: FERROUS SULFATE 325 MG TAB PO SCH (08:00)
[2018-11-05] MEDS: SEVELAMER CARBONATE 800 MG TAB PO SCH ×3 (08:00→17:07)
[2018-11-05] MEDS: FOLIC ACID/CYANOCOB/PYRIDOXINE TAB PO SCH (08:00)
--- NOTE | 2018-11-05 08:22 | NUR ---
PATIENT STARTED DIALYSIS- PATIENT IN STABLE CONDITION WITH NO S/S OF RESPIRATORY DISTRESS.
[2018-11-05] MEDS: FUROSEMIDE 40 MG TAB PO SCH (09:00)
[2018-11-05] MEDS ORDERED: POTASSIUM CHLORIDE 10MEQ EA PO SCH (09:00)
--- NOTE | 2018-11-05 13:10 | NUR ---
PATIENT COMPLETED DIALYSIS: 800 FLUID REMOVED
--- NOTE | 2018-11-05 13:23 | NUR ---
RECEIVED CALLBACK FROM DR. NAGY REGARDING COUMADIN AND PROCEDURE TOMORROW. ORDER O HOLD COUMADIN TODAY AND CHECK INR TOMORROW.
--- NOTE | 2018-11-05 13:45 | NUR ---
WOUND CARE DRESSING CHANGE COMPLETED. DRESSING IS DRY AND INTACT.
[2018-11-05] MEDS: CEFEPIME 1GM/NS 0.9% 50 ML 50 ML IV SCH (17:08)
--- NOTE | 2018-11-05 19:03 | NUR ---
PATIENT IN STABLE CONDITION WITH NO S/S OF RESPIRATORY DISTRESS. NO PAIN VOICED. PATIENT HAD 800ML REMOVED FROM DIALYSIS TODAY. PATIENT SET TO HAVE PROCEDURE TOMORROW. CALL LIGHT IS WITHIN REACH, PATIENT INSTRUCTED TO CALL FOR ASSISTANCE NEEDED. BEDSIDE REPORT GIVEN TO ONCOMING NURSE.
--- NOTE | 2018-11-05 19:05 | NUR ---
PT IS RESTING IN BED. RESPIRATION IS EVEN AND UNLABORED, NO DISTRESS NOTED. BED IN THE LOWEST POSITION, LOCKED, AND CALL LIGHT WITHIN REACH. WILL CONTINUE TO MONITOR.
[2018-11-05] MEDS: ATORVASTATIN 10 MG TAB PO SCH (20:42)
--- NOTE | 2018-11-05 20:47 | Consultation ---
DATE OF CONSULTATION: 11/05/2018 REASON FOR CONSULTATION: Infection in her foot. HISTORY OF PRESENT ILLNESS: This patient is very pleasant 73-year-old female, who has history of diabetes mellitus; end-stage renal disease, on hemodialysis; renal insufficiency; heart failure; hypertension; she also has history of aortic valve replacement; and hernia repair, comes in with redness and swelling and ulcer on her foot, which she had for a month and half. The patient was admitted. The patient has history of aortic valve replacement on Coumadin, history of end-stage disease, hyperlipidemia, diabetes mellitus, nephropathy, neuropathy, hypothyroidism, congestive heart failure, cholecystectomy, left upper AV fistula, and history of aortic valve stenosis, comes in with left leg redness and swelling and ulcer as noted for the last month and a half. The patient was admitted. She is currently on Renvela, insuline, Nephro-Shaw, Synthroid, Lipitor, cefepime, and Lasix. Her wound culture showing gram-positive cocci in pairs and Enterobacter cloacae. Her x-ray of the foot showed questionable erosion of the distal residual first toe. REVIEW OF SYSTEMS: HEENT: Negative. PULMONARY: Negative. CARDIAC: Negative. : Negative. PHYSICAL EXAMINATION: GENERAL: She is currently alert, oriented, does not seem to be in acute distress. VITAL SIGNS: Stable, currently afebrile. HEENT: She is not icteric. NECK: Supple. No JVD. No lymphadenopathy. No thyromegaly. CHEST: Clear bilaterally. HEART: S1, S2. No S3, S4, or murmur. ABDOMEN: Soft. Bowel sounds present. No tenderness. EXTREMITIES: There is erythema and there is edema noted on left toe and has an ulcer on the right hallux 4 x 4 cm. IMPRESSION: 1. I think the patient has osteomyelitis. She is growing Gram negatives. Agree with cefepime for the time being. For the time being, obtain sedimentation rate and C-reactive protein. 2. End-stage renal disease. 3. Diabetes. 4. Neuropathy. 5. Hypertension. PLAN: We will follow with you. MD MAURICIO Nuñez/JUAN /[id number]
[2018-11-06] VITALS (11 sets, daily range): BP systolic 137–174; BP diastolic 63–84
[2018-11-06] MEDS: ONDANSETRON HCL INJ 2MG/ML 2ML 2 MG/ML VIAL IV PRN (00:33)
[2018-11-06] MEDS: MORPHINE SULFATE INJ 4 MG/ML INJ 1ML IV PRN (00:33)
[2018-11-06] MEDS: LEVOTHYROXINE SODIUM 50 MCG TAB PO SCH (05:08)
[2018-11-06 06:34] LABS: INR 1.44; PROTHROMBIN TIME 18.1 seconds (11.9-14.5)
--- NOTE | 2018-11-06 07:30 | NUR ---
PT UP IN BED ASLLEP,NO S/S DISCOMFORT
[2018-11-06] MEDS: INSULIN LISPRO 100 UNIT/1 ML 3ML VIAL SQ SCH ×4 (08:30→21:00)
[2018-11-06] MEDS: FUROSEMIDE 40 MG TAB PO SCH (09:10)
[2018-11-06] MEDS: METOPROLOL TARTRATE 25 MG TAB PO SCH ×2 (09:10→18:21)
[2018-11-06] MEDS: FOLIC ACID/CYANOCOB/PYRIDOXINE TAB PO SCH (09:10)
[2018-11-06] MEDS: FERROUS SULFATE 325 MG TAB PO SCH (09:10)
[2018-11-06] MEDS: SEVELAMER CARBONATE 800 MG TAB PO SCH ×3 (09:10→18:21)
[2018-11-06] MEDS ORDERED: IOPAMIDOL 300MG/ML 100 ML INFUS..BTL IV ONE (10:58)
[2018-11-06] MEDS ORDERED: HEPARIN SOD/SOD CHLORIDE 2,000 ML ONE (10:58)
[2018-11-06] MEDS ORDERED: MIDAZOLAM HCL 2 MG/2 ML VIAL ONE ×2 (10:58→15:55)
[2018-11-06] MEDS ORDERED: LIDOCAINE HCL 2% LOCAL 20 ML VIAL ONE (10:58)
[2018-11-06] MEDS ORDERED: FENTANYL CITRATE/PF 100MCG/2 ML INJ ONE (10:58)
[2018-11-06] MEDS ORDERED: SODIUM CHLORIDE 0.9% 1000ML 1,000 ML ONE ×2 (10:59→15:50)
--- NOTE | 2018-11-06 12:30 | Progress Note ---
DATE: 11/06/2018 SUBJECTIVE: Ms. Barron is feeling better. No new complaints. PHYSICAL EXAMINATION: GENERAL: She is currently alert, oriented, does not seem to be in acute distress. VITAL SIGNS: Stable, currently afebrile. HEENT: She is not icteric. NECK: Supple. CHEST: Clear. HEART: S1, S2. No S3, S4, or murmur. ABDOMEN: Soft. Bowel sounds present. No tenderness. No hepatosplenomegaly. EXTREMITIES: No edema. SKIN: There is no rash. She has diabetic foot ulcer of the right hallux. IMPRESSION: 1. Osteomyelitis. 2. Peripheral vascular disease. 3. Diabetes mellitus. Cultures from the wound which is superficial showed Enterobacter cloacae and Staph aureus MSSA. We will change the patient to Invanz 500 daily. 4. Aortic valve replacement. 5. Chronic kidney disease. 6. End-stage renal disease. 7. Anemia of chronic disease. PLAN: We will follow. MD MAURICIO Nuñez/MODL /[id number]
[2018-11-06] MEDS: ERTAPENEM 1GM/NS 100ML 100 ML IV SCH (13:05)
--- NOTE | 2018-11-06 14:30 | NUR ---
PT TRANSPORTED TO CATH VIA STRETCHER,AAOX3.
--- NOTE | 2018-11-06 14:47 | Progress Note ---
DATE: 11/06/2018 SUBJECTIVE: The patient was seen at bedside, dressing was intact. Bone was exposed. Erythema and edema are localized. No streaking erythema. No ascending lymphangitis. Pedal pulses not palpable. Skin is thin, shiny and atrophic. Protective threshold is absent, Charcot type of foot. ASSESSMENT: 1. Diabetes with neuropathy and peripheral vascular disease. 2. End-stage renal disease. 3. Grade 3 ulcer, right hallux. PLAN: She is currently on IV antibiotic by Infectious Disease. She is going to be revascularized today to the right. My plan is to debride her next week. She is on-call to the OR on 11/10/2018. After debridement, I am going to attempt closure if the revascularization is successful, they know that if this fails, she is going to need a more proximal amputation and they are aware of this. I will continue to follow. HORTENCIA Hauser/MODL /[id number]
--- NOTE | 2018-11-06 15:47 | Progress Note ---
DATE: 11/06/2018 Cardiology Progress Note SUBJECTIVE: No major events overnight, but confused today. OBJECTIVE: VITAL SIGNS: Temperature afebrile, pulse 62, respiratory rate 18, blood pressure 137/63, and saturating 94% on room air. GENERAL: Elderly female, a little confused. CARDIOVASCULAR: Regular rate and rhythm. No murmurs, rubs, or gallops. LUNGS: Clear to auscultation bilaterally. ABDOMEN: Soft, nontender, and nondistended. NEURO AND PSYCH: Alert and oriented to person, place, and time. Normal affect. INPATIENT MEDICATIONS: Reviewed. LABORATORY DATA: Reviewed. TELEMETRY DATA: Reviewed, shows normal sinus rhythm. ASSESSMENT AND PLAN: 1. Peripheral arterial disease. 2. Critical limb ischemia, right lower extremity. PLAN: Plan for peripheral angiography and intervention today. Further recommendations to follow after procedure completed. Thank you for this consult. We will continue to follow. MD GENESIS Phoenix/JUAN /[id number]
[2018-11-06] MEDS ORDERED: VERAPAMIL HCL 2.5 MG/ML 2 ML VIAL ONE (15:50)
[2018-11-06] MEDS ORDERED: NITROGLYCERIN/D5W 200 MCG/ML 250 ML ONE (15:50)
--- NOTE | 2018-11-06 16:15 | NUR ---
recd pt back from [employer] lab technician via bed aaox2,confused,rt groin dsg cd&i,no bleeding noted.instructed to lie falt for 2 hours,family at bed side acknowledge understanding
--- NOTE | 2018-11-06 16:15 | NUR ---
bp160/70,82,20,96.2, will continue to monitor
[2018-11-06] MEDS ORDERED: HYDRALAZINE HCL 20 MG/ML VIAL ONE (16:19)
--- NOTE | 2018-11-06 16:27 | Consultation ---
DATE OF CONSULTATION: 11/05/2018 Cardiology Consult Note REASON FOR CONSULT: Peripheral arterial disease, right toe ulcer. CHIEF COMPLAINT: Right toe ulcer. HISTORY OF PRESENT ILLNESS: The patient is a 73-year-old female with history of end-stage renal disease, hypertension, hyperlipidemia, diabetes, who presented with worsening right lower extremity ulcers. No chest pain or shortness of breath. PAST MEDICAL HISTORY: End-stage renal disease on hemodialysis, hypertension, hyperlipidemia, diabetes. SOCIAL HISTORY: She does not smoke, drink, or abuse drugs. FAMILY HISTORY: Noncontributory. REVIEW OF SYSTEMS: As per HPI, otherwise negative. OUTPATIENT MEDICATIONS: Reviewed. Please see MAR for complete list. ALLERGIES: ALLERGIC TO PENICILLINS. OBJECTIVE: VITAL SIGNS: Temperature afebrile, pulse 62, respiratory rate 18, blood pressure 137/63, saturating 98% on room air. GENERAL: Elderly female, in no acute distress. CARDIOVASCULAR: Regular rate and rhythm. No murmurs, rubs, or gallops. LUNGS: Clear to auscultation bilaterally. ABDOMEN: Soft, nontender, nondistended. NEURO AND PSYCH: Alert and oriented to person, place, and time. Normal affect. INPATIENT MEDICATIONS: Reviewed. LABORATORY DATA: Reviewed. TELEMETRY DATA: Reviewed. IMAGING DATA: Reviewed. Right lower extremity Doppler show severe bilateral [id number] peripheral arterial disease. ASSESSMENT: 1. Peripheral arterial disease. 2. Critical limb ischemia with right lower extremity ulcers. PLAN: Plan for peripheral angiography and intervention tomorrow. Please keep n.p.o. after midnight. Thank you for this consult. We will continue to follow. MD GENESIS Phoenix/FATMATAL /[id number]
--- NOTE | 2018-11-06 16:30 | NUR ---
pt supine,bp-171/74,79, drsg cd&i,no bleeding noted
[2018-11-06] MEDS ORDERED: CLOPIDOGREL BISULFATE 75 MG TAB ONE (16:46)
--- NOTE | 2018-11-06 18:22 | NUR ---
PT IN BED SUPINE ,NO BLEEDING NOTED,DENIES PAIN
--- NOTE | 2018-11-06 19:20 | NUR ---
Completed nursing rounds with morning nurse. Pt alert and oriented to name. Pt lying in bed HOB 45 degrees. Denies pain at this time. Family at bedside. Call hceng within reach. Bed low and locked. Will continue to monitor.
[2018-11-06] MEDS: ATORVASTATIN 10 MG TAB PO SCH (21:45)
--- NOTE | 2018-11-06 21:45 | Diagnostic Imaging Report ---
Bone Scan, three-phase - feet and ankles Reason for exam: Diabetic foot ulcer, right great toe Radiopharmaceutical: Tc-99m MDP 27.5 mCi Comparison: Right foot radiograph 11/03/2018 Following intravenous administration of the radiopharmaceutical, dynamic flow and immediate blood pool images of the feet and ankles followed by 2.5-hour delayed spot images were obtained. Flow and blood pool images show diffusely increased tracer in the right lower leg, ankle and foot compared to the left with focal increased tracer activity in the right great toe. The delayed images show focal markedly increased tracer in the distal phalanx of the right great toe with poultry pinner mildly increased tracer in the proximal phalanx and at the right first metatarsophalangeal joint. Some increased tracer activity is seen the right mid foot and right ankle, consistent with neuropathic/degenerative change. Impression: Scan findings are very worrisome for osteomyelitis of the distal phalanx of the right great toe. If needed, a labeled white blood cell study would add specificity to the evaluation. Signed by: Dr. Angela South M.D. on 11/06/2018 9:42 PM
[2018-11-07] VITALS (8 sets, daily range): BP systolic 109–157; BP diastolic 56–74
[2018-11-07] MEDS: MORPHINE SULFATE INJ 4 MG/ML INJ 1ML IV PRN (04:05)
[2018-11-07] MEDS: LEVOTHYROXINE SODIUM 50 MCG TAB PO SCH (05:59)
--- NOTE | 2018-11-07 07:03 | NUR ---
Completed nursing rounds with morning nurse. Pt lying in bed, HOB 60 degrees. Resting in bed with eyes closed.
[2018-11-07] MEDS: SEVELAMER CARBONATE 800 MG TAB PO SCH ×3 (08:00→17:00)
[2018-11-07] MEDS: INSULIN LISPRO 100 UNIT/1 ML 3ML VIAL SQ SCH ×4 (08:25→21:00)
[2018-11-07] MEDS: FOLIC ACID/CYANOCOB/PYRIDOXINE TAB PO SCH (09:00)
[2018-11-07] MEDS: METOPROLOL TARTRATE 25 MG TAB PO SCH ×2 (09:00→17:00)
[2018-11-07] MEDS: FUROSEMIDE 40 MG TAB PO SCH (09:00)
[2018-11-07] MEDS: FERROUS SULFATE 325 MG TAB PO SCH (09:00)
[2018-11-07] MEDS: ERTAPENEM 1GM/NS 100ML 100 ML IV SCH (15:48)
--- NOTE | 2018-11-07 18:36 | NUR ---
PT IN BED SLEEPING NO S/S DISCOMFORT
--- NOTE | 2018-11-07 18:45 | NUR ---
Received beside report from day shift RN. The patient is laying on the bed, just about to sleep after having her dialysis. Call light within reach, side rails up x2, bed height low, and wheels lock. The patient is not in distress.
--- NOTE | 2018-11-07 18:57 | Progress Note ---
DATE: 11/07/2018 SUBJECTIVE: The patient seen at bedside, in no distress after having an angioplasty yesterday. OBJECTIVE: VITALS: Afebrile, pulse rate 81, respirations 18, blood pressure 142/66, and O2 saturation 97%. The patient is currently getting dialyzed. EXTREMITIES: Has ulceration to the medial aspect of right great toe, medial aspect of the 1st MPJ possibly down to the bone with pedal pulses diminished, but skin temperature is warm to touch. ASSESSMENT: Peripheral arterial disease, diabetic neuropathy, end-stage renal disease with possible osteomyelitis of right foot. PLAN: We will continue local wound care with diluted wet-to-dry Betadine. Continue offloading. Dr. Novoa will schedule the patient to have surgical intervention for debridement sometime next week. HORTENCIA Urbina/JUAN /[id number]
--- NOTE | 2018-11-07 19:47 | Progress Note ---
DATE: 11/07/2018 Cardiology Progress Note SUBJECTIVE: No major events overnight. OBJECTIVE: VITAL SIGNS: Temperature afebrile, pulse 73, respiratory rate 20, blood pressure 157/74, saturating 99% on room air. GENERAL: Elderly female, in no acute distress. CARDIOVASCULAR: Regular rate and rhythm. No murmurs, rubs, or gallops. LUNGS: Clear to auscultation bilaterally. ABDOMEN: Soft, nontender, nondistended. NEURO AND PSYCH: Alert and oriented to person, place, and time. Normal affect. INPATIENT MEDICATIONS: Reviewed. LABORATORY DATA: Reviewed. TELEMETRY DATA: Reviewed, shows normal sinus rhythm. ASSESSMENT AND PLAN: 1. Peripheral arterial disease. 2. Critical limb ischemia with right lower extremity ulcers. 3. Status post peripheral angiography and intervention to the right SFA and right anterior tibial artery with successful mandaeism of inline flow all the way to the right foot and toe. Okay to resume her warfarin. Continue aspirin and high-intensity statin. The patient is okay to be discharged from a cardiovascular standpoint. Will need for peripheral angiography and intervention of the contralateral side in the future, but this can be done as an outpatient. Thank you for this consult. We will continue to follow. MD GENESIS Phoenix/JUAN /[id number]
[2018-11-07] MEDS: ATORVASTATIN 10 MG TAB PO SCH (21:27)
[2018-11-08] VITALS (8 sets, daily range): BP systolic 103–176; BP diastolic 51–78
[2018-11-08] MEDS: LEVOTHYROXINE SODIUM 50 MCG TAB PO SCH (05:15)
[2018-11-08] MEDS: INSULIN LISPRO 100 UNIT/1 ML 3ML VIAL SQ SCH ×4 (07:30→20:39)
--- NOTE | 2018-11-08 07:30 | NUR ---
pt in bed sleeping no s/s discomfort,denies pain.rt foot elevated on pillow,heel protectors in place
[2018-11-08] MEDS: ACETAMINOPHEN/CODEINE 300MG - 30MG TAB PO PRN (08:00)
[2018-11-08] MEDS: SEVELAMER CARBONATE 800 MG TAB PO SCH ×3 (09:05→17:39)
[2018-11-08] MEDS: FUROSEMIDE 40 MG TAB PO SCH (09:05)
[2018-11-08] MEDS: FERROUS SULFATE 325 MG TAB PO SCH (09:05)
[2018-11-08] MEDS: METOPROLOL TARTRATE 25 MG TAB PO SCH ×2 (09:05→17:39)
[2018-11-08] MEDS: FOLIC ACID/CYANOCOB/PYRIDOXINE TAB PO SCH (09:05)
[2018-11-08] MEDS: ERTAPENEM 1GM/NS 100ML 100 ML IV SCH (12:00)
[2018-11-08] MEDS: HEPARIN SOD (PORCINE) 5,000 UNIT/ML VIAL SC SCH ×2 (13:08→20:51)
--- NOTE | 2018-11-08 18:45 | NUR ---
Received bedside report from day shift RN. The patient is laying on the bed, not in distress and reported no pain. Call light within reach, bed height low, wheels lock, and side rails up x2.
--- NOTE | 2018-11-08 19:23 | Progress Note ---
DATE: 11/08/2018 SUBJECTIVE: The patient seen at bedside, doing somewhat better. Denying history of fever, chills, nausea, or vomiting. OBJECTIVE: VITAL SIGNS: Afebrile, +rate 94, blood pressure 133/63, O2 saturation 96% with respiration rate of 15. EXTREMITIES: Ulcerations to the right lower extremity looking somewhat better. Pedal pulses are diminished. Skin temperature is warm to touch. ASSESSMENT: Grade 3 ulceration with possible osteo right foot. PLAN: The patient will continue local wound care with diluted wet-to-dry Betadine. Dr. Novoa will take over as of Friday, will be scheduled for some type of surgical debridement. Continue offloading. HORTENCIA Urbina/MODL /[id number]
[2018-11-08] MEDS: ATORVASTATIN 10 MG TAB PO SCH (20:40)
[2018-11-08] MEDS: LACTULOSE SYRUP 20 GM/30 ML UDC PO PRN (22:12)
[2018-11-09] VITALS (8 sets, daily range): BP systolic 126–159; BP diastolic 53–72
[2018-11-09] MEDS: LEVOTHYROXINE SODIUM 50 MCG TAB PO SCH (05:03)
[2018-11-09] MEDS: LACTULOSE SYRUP 20 GM/30 ML UDC PO PRN (06:06)
[2018-11-09] MEDS: INSULIN LISPRO 100 UNIT/1 ML 3ML VIAL SQ SCH ×4 (07:30→21:00)
--- NOTE | 2018-11-09 07:40 | NUR ---
PATIENT IS AWAKE AND IN STABLE CONDITION WITH NO S/S OF RESPIRATORY DISTRESS. PATIENT DENIES PAIN. DRESSING TO RIGHT FOOT IS DRY AND INTACT. CALL LIGHT IS WITHIN REACH, PATIENT INSTRUCTED TO CALL FOR ASSISTANCE NEEDED.
[2018-11-09] MEDS: FERROUS SULFATE 325 MG TAB PO SCH (08:17)
[2018-11-09] MEDS: FOLIC ACID/CYANOCOB/PYRIDOXINE TAB PO SCH (08:17)
[2018-11-09] MEDS: FUROSEMIDE 40 MG TAB PO SCH (08:17)
[2018-11-09] MEDS: METOPROLOL TARTRATE 25 MG TAB PO SCH ×2 (08:17→16:27)
[2018-11-09] MEDS: SEVELAMER CARBONATE 800 MG TAB PO SCH ×3 (08:17→17:00)
[2018-11-09] MEDS: HEPARIN SOD (PORCINE) 5,000 UNIT/ML VIAL SC SCH ×2 (09:06→22:00)
[2018-11-09] MEDS ORDERED: MAGNESIUM/ALUMINUM/SIMETHICONE 30 ML UDC PO PRN (10:15)
[2018-11-09] MEDS: ERTAPENEM 1GM/NS 100ML 100 ML IV SCH (11:45)
[2018-11-09] MEDS ORDERED: ONDANSETRON HCL 4 MG ORAL DISINTEGRATING TAB PO PRN (12:00)
--- NOTE | 2018-11-09 16:15 | NUR ---
CALL PLACED OUT TO DR. YU AT 1607 REGARDING SURGERY TIME AND DIALYSIS DAY TOMORROW. RECEIVED CALL FROM DR. YU AT 1613- DR. YU INFORMED PATIENT IS TO RECEIVE DIALYSIS IN THE MORNING AND WILL BE UPDATED TOMORROW ON DIALYSIS TIME. NO NEW ORDERS GIVEN.
--- NOTE | 2018-11-09 16:55 | NUR ---
CALLED [facility] AND SPOKE WITH PERSONNEL SENAIT- DIALYSIS IS SET FOR 0700 TOMORROW, 11/10/18, PRIOR TO SURGERY.
--- NOTE | 2018-11-09 19:23 | NUR ---
PATIENT IN STABLE CONDITION WITH NO S/S OF RESPIRATORY DISTRESS. NO PAIN VOICED. CALL LIGHT IS WITHIN REACH, PATIENT INSTRUCTED TO CALL FOR ASSISTANCE NEEDED. BEDSIDE REPORT GIVEN TO ONCOMING NURSE.
--- NOTE | 2018-11-09 19:41 | NUR ---
RECEIVED PT IN BED AOX3 .DENIES PAIN .PT IS NPO AFTER MIDNIGHT FOR RT HALLUX DEBRIDEMENT T.PT HAS DIALYSIS AT LEFT ARM FISTULA RT FOOT WITH DRESSING .CONTINUE TO MONITOR
[2018-11-09] MEDS: ATORVASTATIN 10 MG TAB PO SCH (21:00)
[2018-11-10] VITALS (9 sets, daily range): BP systolic 101–186; BP diastolic 43–78
[2018-11-10] MEDS: LEVOTHYROXINE SODIUM 50 MCG TAB PO SCH (06:00)
[2018-11-10 06:21] LABS: HEMATOCRIT 25.4 % (34.2-44.1); HEMOGLOBIN 8.2 g/dL (12.0-16.0); MEAN CORPUSCULAR HEMOGLOBIN 34.7 pg (28-32); MEAN CORPUSCULAR HGB CONC 32.3 g/dL (31-35); MEAN CORPUSCULAR VOLUME 107.6 fL (81-99); PLATELET COUNT 155 x10e3/uL (140-360); RED BLOOD COUNT 2.36 x10e6/uL (3.6-5.1); RED CELL DISTRIBUTION WIDTH 13.7 % (11.7-14.4)
--- NOTE | 2018-11-10 06:36 | NUR ---
PT RESTING DENIES PAIN .RT FOOT DRESSING CHANGED ,NPO AFTER MIDNIGHT FOR SURGERY .CALL LIGHT WITH IN REACH .CONTINUE TO MONITOR
[2018-11-10 06:41] LABS: ANION GAP 17.4 mmol/L (8-16); CALCIUM 8.6 mg/dL (8.4-10.2); CREATININE, SERUM 5.51 mg/dL (0.57-1.11); POTASSIUM 4.4 mmol/L (3.5-5.1)
--- NOTE | 2018-11-10 07:00 | NUR ---
PATIENT IS IN STABLE CONDITION WITH NO S/S OF RESPIRATORY DISTRESS. PATIENT DENIES PAIN. DRESSING TO RIGHT FOOT IS DRY AND INTACT. PATIENT IS NPO FOR PROCEDURE TODAY. PATIENT IS DUE FOR DIALYSIS TODAY. CALL LIGHT IS WITHIN REACH, PATIENT INSTRUCTED TO CALL FOR ASSISTANCE NEEDED.
--- NOTE | 2018-11-10 07:25 | NUR ---
BEDSIDE REPORT GIVEN TO THE ONCOMING NURSE
[2018-11-10] MEDS: INSULIN LISPRO 100 UNIT/1 ML 3ML VIAL SQ SCH ×4 (07:30→21:30)
[2018-11-10] MEDS: SEVELAMER CARBONATE 800 MG TAB PO SCH ×3 (08:00→17:31)
--- NOTE | 2018-11-10 08:33 | NUR ---
PATIENT STARTED DIALYSIS AT 0800- PATIENT IN STABLE CONDITION WITH NO S/S OF RESPIRATORY DISTRESS. DRESSING TO RIGHT FOOT IS DRY AND INTACT. CALL LIGHT IS WITHIN REACH, PATIENT INSTRUCTED TO CALL FOR ASSISTANCE NEEDED.
[2018-11-10] MEDS: METOPROLOL TARTRATE 25 MG TAB PO SCH ×2 (08:37→17:31)
[2018-11-10] MEDS: HEPARIN SOD (PORCINE) 5,000 UNIT/ML VIAL SC SCH ×2 (09:00→22:00)
[2018-11-10] MEDS: FUROSEMIDE 40 MG TAB PO SCH (09:00)
[2018-11-10] MEDS: FOLIC ACID/CYANOCOB/PYRIDOXINE TAB PO SCH (12:00)
[2018-11-10] MEDS: FERROUS SULFATE 325 MG TAB PO SCH (12:00)
[2018-11-10] MEDS: ERTAPENEM 1GM/NS 100ML 100 ML IV SCH (13:03)
[2018-11-10] MEDS: ACETAMINOPHEN/CODEINE 300MG - 30MG TAB PO PRN (13:04)
--- NOTE | 2018-11-10 15:44 | NUR ---
PT DISCUSSED IN BARRIER ROUNDS; PT ON DIALYSIS T. AND SATURDAYS. ON RENAL DIET, GETTING ABX , DR GUILLEN WILL DEBREID AND POSSIBLE GRAFT TOMORROW. PROJECTED DISCHARGE IS 25TH
--- NOTE | 2018-11-10 19:29 | NUR ---
PATIENT HAD 1.4 LITERS REMOVED FROM DIALYSIS TODAY.
--- NOTE | 2018-11-10 19:29 | NUR ---
PATIENT IN STABLE CONDITION WITH NO S/S OF RESPIRATORY DISTRESS. NO PAIN VOICED. DRESSING TO RIGHT FOOT IS INTACT AND DRY. PATIENT WILL BE NPO FOR PROCEDURE TOMORROW, 11/[address] GUILLEN. CALL LIGHT IS WITHIN REACH, PATIENT INSTRUCTED TO CALL FOR ASSISTANCE NEEDED. BEDSIDE REPORT GIVEN TO ONCOMING NURSE.
[2018-11-10] MEDS: ATORVASTATIN 10 MG TAB PO SCH (21:52)
[2018-11-11] VITALS: BP 147/67
[2018-11-11 04:00] VITALS: BP 181/84
[2018-11-11] MEDS: LEVOTHYROXINE SODIUM 50 MCG TAB PO SCH (06:00)
[2018-11-11] MEDS ORDERED: BACITRACIN 50,000 UNIT VIAL ONE (06:22)
[2018-11-11] MEDS ORDERED: BUPIVACAINE HCL 0.5% INJ 30 ML VIAL INJ ONE (06:22)
--- NOTE | 2018-11-11 07:27 | NUR ---
PT RESTED DURING THE NIGHT .PT HAS TAKEN FOR THE SURGERY .REPORT GIVEN TO THE ON COMING NURSE
[2018-11-11] MEDS: SEVELAMER CARBONATE 800 MG TAB PO SCH ×2 (08:00→12:00)
--- NOTE | 2018-11-11 08:00 | NUR ---
PT RETURNED TO ROOM VIA BED NO C/O PAIN,NO DISTRESS NTOED,RT FOOT DRSG CD&I
[2018-11-11 08:33] VITALS: BP 159/74
[2018-11-11] MEDS: FERROUS SULFATE 325 MG TAB PO SCH (09:00)
[2018-11-11] MEDS: FUROSEMIDE 40 MG TAB PO SCH (09:00)
[2018-11-11] MEDS: FOLIC ACID/CYANOCOB/PYRIDOXINE TAB PO SCH (09:00)
[2018-11-11] MEDS: METOPROLOL TARTRATE 25 MG TAB PO SCH (09:00)
[2018-11-11] MEDS: HEPARIN SOD (PORCINE) 5,000 UNIT/ML VIAL SC SCH (10:00)
[2018-11-11 11:30] VITALS: BP 159/74
[2018-11-11 12:24] VITALS: BP 134/63
--- NOTE | 2018-11-11 12:53 | Operative Report ---
DATE OF PROCEDURE: 11/11/2018 SURGEON: Radha Bajwa DPM PREOPERATIVE DIAGNOSES: 1. Osteomyelitis, right hallux. 2. Ulcer, right medial foot. 3. Ulcer grade 3, right hallux. POSTOPERATIVE DIAGNOSES: 1. Osteomyelitis, right hallux. 2. Ulcer, right medial foot. 3. Ulcer grade 3, right hallux. PATHOLOGY: Bone cultures and sensitivity. ANESTHESIA: MAC anesthetic. HEMOSTASIS: None. MATERIALS: It is going to be AmnioFill 1000 mg, expires 07/21/2023. COMPLICATIONS: None. CONDITION: Stable. PROCEDURE IN DETAIL: Under mild sedation, the patient was brought to the operating room, placed on the operating table in supine position. Following IV sedation, anesthesia was obtained with a MAC anesthetic. The foot was scrubbed, prepped, and draped in the usual aseptic manner. It was then lowered to the table. Attention was then directed to the medial aspect of the right foot with first the medial ulcer was debrided down to clean viable tissue down to the level of the capsule. The area was then flushed with copious amount of irrigation with a pressure dentist/owner. Attention was then directed to the right hallux where two semielliptical incisions were made overlying the ulcer tunneling to the bone. The incision was deepened down to the level of bone utilizing a bone rongeur. All nonviable tissue, bone was removed. The area was then flushed with copious amount of normal sterile saline solution. The area with pressure irrigation, bone cultures and sensitivity were taken. At this point, the area was filled with AmnioFill. It was then closed with closing afsaneh. The medial aspect was left to the graft was applied to the medial aspect and secured utilizing with Adaptic. Incision was then dressed with sterile compressive dressing consisting of Adaptic, 4x4s, Kerlix with Coban. The patient tolerated the procedure and anesthesia well without complications, was transported to recovery room with vital signs stable, vascular status intact to both feet. The patient will be discharged home when she meets criteria. She was given instructions to be nonweightbearing to the foot. She will be readmitted back into the hospital. From my standpoint, she is able to be discharged either to [facility] or home. She will continue to follow up with me in the clinic. Radha HORTENCIA Bajwa /[id number]
[2018-11-11] MEDS ORDERED: LEVAQUIN500 MG PO (13:41)
--- NOTE | 2018-11-11 13:51 | NUR ---
SPOKE WITH DR GUILLEN RE; DISCHARGE.OK TO DC HOME FOLLOW UP WITH HER NEXT WEEK
--- NOTE | 2018-11-11 14:30 | NUR ---
PT DISCHARGED HOME ,IV DCD WITHOUT REDNESS OR SWELLING,PRESCRIPTIONS AND INSTRUCTIONS GIVEN COPY ON CHART.TRANSPORTED TO AUTO VIA W/C ,INFORMED DAUGHTER PATIENT WAS TO BE NON WEIGHT BEARING ACKNOWLEDGE UNDERSTnding
--- NOTE | 2018-11-11 16:22 | NUR ---
IMM LETTER EXPLAINED TO PT. VERBALIZED UNDERSTANDING. STATES SHE WILL SHARE W HER DTR WHEN SHE ARRIVES. PT SIGNED IMM. COPY TO PT AND COPY TO CHART.
[2018-11-11] MEDS ORDERED: SEVOFLURANE INHAL SOLN 250 ML PEN BTL ONE (18:05)
[2018-11-11] MEDS ORDERED: ONDANSETRON HCL INJ 2MG/ML 2ML 2 MG/ML VIAL ONE (18:05)
[2018-11-11] MEDS ORDERED: LIDOCAINE HCL 2% LOCAL INJ 5 ML SDV VIAL INJ ONE (18:05)
[2018-11-11] MEDS ORDERED: DEXAMETHASONE SOD PHOS INJ 4 MG/ML VIAL ONE (18:05)
[2018-11-11] MEDS ORDERED: PROPOFOL IV EMULSION 10 MG/ML 20 ML VIAL ONE (18:05)
--- NOTE | 2018-12-07 14:54 | Operative Report ---
DATE OF PROCEDURE: 11/06/2018 SURGEON: Anselmo Cline MD INDICATION FOR PROCEDURE: Critical limb ischemia. PROCEDURES PERFORMED: 1. Catheter placement, abdominal aorta. 2. Catheter placement, third order. 3. Abdominal aortography. 4. Bilateral lower extremity angiography. 5. Arthrectomy and SHOE TURNER of right anterior tibial artery. 6. SHOE TURNER of the right superficial femoral artery. 7. Secondary thrombectomy. PROCEDURE DETAILS: The patient was brought to the cardiac catheterization laboratory in a fasting state. Left groin was prepped and draped in a sterile fashion. Access to the left common femoral artery was obtained using modified Seldinger technique under ultrasound and fluoroscopic guidance. A 6-Macedonian short sheath was inserted in the left common femoral artery. A 5-Macedonian Omni Flush catheter was placed in the abdominal aorta. Abdominal aortography was performed by Advantage Glidewire. Guidewire was used through the Omni Flush catheter into the right common artery. Omni Flush catheter was then advanced over the wire into the right common femoral artery. Multiple digital subtraction angiography images were taken of the right lower extremity vessels, which demonstrated 80% focal lesions in mid right SFA as well as HEALTHCARE MARKETER of the right anterior tibial artery, diffuse disease of the right TP trunk and HEALTHCARE MARKETER of the right posterior tibial artery. We decided to proceed with peripheral intervention. A short 5-Macedonian sheath was exchanged for a long destination sheath, 45 cm 6-Macedonian 0.035 Seeker catheter and 0.014 Whisper wire was used to cross the right anterior tibial artery HEALTHCARE MARKETER. The Seeker catheter would not advance beyond the midportion of the HEALTHCARE MARKETER, so exchanged for catheter, which was able to pass easily. We exchanged the Whisper wire for ViperWire and arthrectomy was performed using CSI micro bur, multiple passes at low and medium speed. Angioplasty was performed using 3.0 x 20 mm balloon at 10 atmospheres for 4 minutes. For SHOE TURNER of the right common femoral artery, a 6 x 40 mm Ultraverse balloon was used at 10 atmospheres for 4 minutes. This provided excellent one-vessel straight-line runoff through the anterior tibial artery and SFA to the toes wound healing. ACT was maintained near 300 using boluses of IV heparin. After the procedure was completed, the long sheath was exchanged for a short 6-Macedonian sheath. 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 The case ended without immediate complications. Access site was closed using a Mynx vascular closure device. The patient tolerated the procedure well. FINDINGS: An 80% focal stenosis of the right SFA as well as diffuse below the knee disease including 100% HEALTHCARE MARKETER of the right anterior tibial and posterior tibial arteries with severe calcification. 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 SPECIMENS REMOVED: None. GRAFTS AND IMPLANTS: None. ESTIMATED BLOOD LOSS: 100 mL. COMPLICATIONS: One. FINAL RECOMMENDATIONS: 1. Continue aspirin and Plavix for 3 months followed by aspirin daily for life. 2. Follow up in clinic 2 weeks post discharge. MD GENESIS [place]/JUAN /[id number]
== END 2018-11-11 14:18 | disposition home or self-care (01) | DRG 629 ==
LOC: ER 19:12 → ERHOLD 23:36 → MED/SURG3 11-04 00:50
PROVIDERS: ADMIT Internal Medicine; ATTEND Internal Medicine
PROC: 5A1D70Z Performance of Urinary Filtration, Intermittent, Less than 6 Hours Per Day (ICD-10-PCS; principal; 2018-11-04)
PROC: 5A1D70Z Performance of Urinary Filtration, Intermittent, Less than 6 Hours Per Day (ICD-10-PCS; 2018-11-05)
PROC: 047P3Z1 Dilation of Right Anterior Tibial Artery using Drug-Coated Balloon, Percutaneous Approach (ICD-10-PCS; 2018-11-06)
PROC: 047K3Z1 Dilation of Right Femoral Artery using Drug-Coated Balloon, Percutaneous Approach (ICD-10-PCS; 2018-11-06)
PROC: 04CP3ZZ Extirpation of Matter from Right Anterior Tibial Artery, Percutaneous Approach (ICD-10-PCS; 2018-11-06)
PROC: B41D1ZZ Fluoroscopy of Aorta and Bilateral Lower Extremity Arteries using Low Osmolar Contrast (ICD-10-PCS; 2018-11-06)
PROC: 5A1D70Z Performance of Urinary Filtration, Intermittent, Less than 6 Hours Per Day (ICD-10-PCS; 2018-11-07)
PROC: 5A1D70Z Performance of Urinary Filtration, Intermittent, Less than 6 Hours Per Day (ICD-10-PCS; 2018-11-10)
PROC: 0QBN0ZZ Excision of Right Metatarsal, Open Approach (ICD-10-PCS; 2018-11-11)
DX: E11.69 Type 2 diabetes mellitus with other specified complication (principal); L03.115 Cellulitis of right lower limb; L97.518 Non-pressure chronic ulcer of other part of right foot with other specified severity; M86.8X7 Other osteomyelitis, ankle and foot; I13.2 Hypertensive heart and chronic kidney disease with heart failure and with stage 5 chronic kidney disease, or end stage renal disease; E11.52 Type 2 diabetes mellitus with diabetic peripheral angiopathy with gangrene; I96 Gangrene, not elsewhere classified; N18.6 End stage renal disease; E11.621 Type 2 diabetes mellitus with foot ulcer; E11.65 Type 2 diabetes mellitus with hyperglycemia; E11.22 Type 2 diabetes mellitus with diabetic chronic kidney disease; E78.5 Hyperlipidemia, unspecified; D63.1 Anemia in chronic kidney disease; Z95.2 Presence of prosthetic heart valve; Z88.0 Allergy status to penicillin; Z99.2 Dependence on renal dialysis; Z83.3 Family history of diabetes mellitus; Z82.49 Family history of ischemic heart disease and other diseases of the circulatory system; Z79.01 Long term (current) use of anticoagulants; E03.9 Hypothyroidism, unspecified; I50.9 Heart failure, unspecified; E11.21 Type 2 diabetes mellitus with diabetic nephropathy; B95.61 Methicillin susceptible Staphylococcus aureus infection as the cause of diseases classified elsewhere; B96.89 Other specified bacterial agents as the cause of diseases classified elsewhere; Z79.4 Long term (current) use of insulin
CPT/HCPCS: 36247; 36415; 37186; 37224; 37229; 71045; 75625; 75716; 78315; 80048; 80053; 82948; 83036; 83605; 85007; 85025; 85027; 85610; 85730; 86704; 86706; 87040; 87071; 87075; 87186; 87205; 87340; 90962; 93005; 93925; 99284; A9503; C1724; C1725; C1760; C1769; C1887; J0360; J0692; J1100; J1644; J2001; J2250; J2270; J2405; J3010; J3370; J7030; J7050; Q9967

== ENCOUNTER → 2019-01-12 | Day surgery (SDC) | payer MEDICARE ==
[~2019-01-12] MED LIST changes: +BACITRACIN 50,000 UNIT VIAL ONE; +BUPIVACAINE HCL 0.5% INJ 30 ML VIAL INJ ONE; +CALCIUM ACETAT667 MG PO; +FENTANYL CITRATE/PF 100MCG/2 ML INJ ONE; +FEROSUL325 MG PO; +HUMALOG100 UNIT/1 SQ; +LEVAQUIN500 MG PO; +NEOSTIGMINE 1 MG/ML 10ML VIAL ONE; +POTASSIUM CHLO10 ME1 PO; +PROPOFOL IV EMULSION 10 MG/ML 20 ML VIAL ONE; +RENA-VITE TABL0.8 MG PO; +SODIUM CHLORIDE 0.9% 500ML 500 ML ONE; +TYLENOL WITH C1 EACH PO
--- OUTSIDE RECORDS SUMMARY | 2019-01-12 05:36 | XMS REPORT | Clinical Summary ---
Author Author [facility] Organization [facility] Address Unknown Phone Unavailable Care Team Providers Care Fur Drummer Name Role Phone Josiah Sun MD PCP [...] tablet by mouth 8 daily. 03/20/2018 Discontinued (Stop Taking at Discharge) traMADol (ULTRAM) 50 mg Take 50 mg by 0 tablet mouth 3 (three) times a day as needed for moderate pain. 03/20/2018 Discontinued (Stop Taking at Discharge) ferrous sulfate 325 (65 Take 325 mg 0 FE) MG tablet by mouth daily with breakfast. 03/20/2018 Discontinued (Stop Taking at Discharge) diazePAM (VALIUM) 5 MG Take 5 mg by 0 tablet mouth 2 (two) times a day as needed for muscle spasms. 03/25/2018 linezolid (ZYVOX) 600 mg Take 1 tablet 10 tablet 0 tablet (600 mg 8 total) by mouth 2 (two) times a day for 5 days. 03/25/2018 Discontinued (Error) diatrizoate Take by mouth 0 holger-diatrizoat sod once. (GASTROGRAFIN) 66-10 % solution 06/25/2018 Discontinued (Stop Taking at Discharge) linezolid (ZYVOX) 600 mg Take 600 mg 0 tablet by mouth 2 (two) times a day. 06/25/2018 Discontinued (Stop Taking at Discharge) potassium chloride Take 1 6 (MICRO-K) 10 [...] Burt MD pt out of network with [facility]. 07/21/2018 Telephone Cardiology Rehrer, DO Fatou Dejesus [...] 03/13/2018 Hospital Cardiology - Encounter 03/20/2018 after 01/11/2018 Family History Medical History Relation Name Comments Diabetes Father Hyperlipidemia Father Hypertension Father Diabetes Mother Hyperlipidemia Mother Hypertension Mother Relation Name Status Comments Father Mother Social History Date Tobacco Use Types Packs/Day Years Used Never Smoker Smokeless Tobacco: Never Used Drinks/Week oz/Week Comments Alcohol Use No Alcohol Habits Answer Date Recorded How [...] travel history available. Last Filed Vital Signs Reading Time Taken Comments Vital Sign 166/72 06/25/2018 11:26 AM [facility] Blood Pressure 67 06/25/2018 11:26 AM [facility] Pulse 36.2 C (97.1 F) 06/25/2018 7:42 AM [facility] Temperature 19 06/25/2018 11:26 AM [facility] Respiratory Rate 99% 06/25/2018 11:26 AM [facility] Oxygen Saturation - - Inhaled Oxygen Concentration 62.6 kg (138 lb) 04/30/2018 2:55 PM [facility] Weight 152.4 cm (5') 04/30/2018 2:55 PM [facility] Height 26.95 04/30/2018 2:55 PM [facility] Body Mass Index Plan of Treatment Health Maintenance Due Date Last Done Comments BREAST CANCER SCREENING 01/26/1996 COLONOSCOPY SCREENING 01/26/1996 SHINGLES VACCINES (#1) 01/26/1996 65+ PNEUMOCOCCAL VACCINE 2011 (1 of 2 - PCV13) INFLUENZA VACCINE 11/19/2018 Procedures Comments Procedure Name Priority Date/Time Associated Diagnosis POC GLUCOSE Routine 06/25/2018 11:55 AM [facility] POC GLUCOSE Routine 06/25/2018 7:45 AM [facility] PROTHROMBIN TIME WITH INR Routine 06/25/2018 4:15 AM [facility] POC GLUCOSE Routine 06/24/2018 9:24 PM [facility] POC GLUCOSE Routine 06/24/2018 5:40 PM [facility] PROTHROMBIN TIME WITH INR Routine 06/24/2018 1:00 PM [facility] POC GLUCOSE Routine 06/24/2018 12:28 PM [facility] POC GLUCOSE Routine 06/24/2018 9:45 AM [facility] AMIKACIN LEVEL, RANDOM Routine 06/24/2018 4:30 AM [facility] POC GLUCOSE Routine 06/23/2018 8:52 PM [facility] HEMODIALYSIS Routine 06/23/2018 7:30 PM [facility] POC GLUCOSE Routine 06/23/2018 5:36 PM [facility] POC GLUCOSE Routine 06/23/2018 11:56 AM [facility] POC GLUCOSE Routine 06/23/2018 8:22 AM [facility] CBC HEMOGRAM Routine 06/23/2018 5:00 AM [facility] PROTHROMBIN TIME WITH INR Routine 06/23/2018 5:00 AM [facility] POC GLUCOSE Routine 06/22/2018 9:51 PM [facility] POC GLUCOSE Routine 06/22/2018 12:57 PM [facility] POC GLUCOSE Routine 06/22/2018 8:14 AM [facility] CBC HEMOGRAM Routine 06/22/2018 5:10 AM [facility] PROTHROMBIN TIME WITH INR Routine 06/22/2018 5:10 AM [facility] POC GLUCOSE Routine 06/21/2018 9:11 PM [facility] POC GLUCOSE Routine 06/21/2018 5:07 PM [facility] HEMODIALYSIS Routine 06/21/2018 5:05 PM [facility] POC GLUCOSE Routine 06/21/2018 11:29 AM [facility] POC GLUCOSE Routine 06/21/2018 7:23 AM [facility] CBC HEMOGRAM Routine 06/21/2018 4:38 AM [facility] PROTHROMBIN TIME WITH INR Routine 06/21/2018 4:38 AM [facility] POC GLUCOSE Routine 06/20/2018 9:33 PM [facility] POC GLUCOSE Routine 06/20/2018 4:50 PM [facility] POC GLUCOSE Routine 06/20/2018 1:28 PM [facility] POC GLUCOSE Routine 06/20/2018 7:44 AM [facility] CBC HEMOGRAM Routine 06/20/2018 5:30 AM [facility] PROTHROMBIN TIME WITH INR Routine 06/20/2018 5:30 AM [facility] POC GLUCOSE Routine 06/19/2018 8:50 PM [facility] HEMODIALYSIS Routine 06/19/2018 12:30 PM [facility] ESTIMATED GFR Routine 06/19/2018 9:04 AM [facility] BASIC METABOLIC PANEL Routine 06/19/2018 9:04 AM [facility] CBC HEMOGRAM Routine 06/19/2018 5:10 AM [facility] PROTHROMBIN TIME WITH INR Routine 06/19/2018 5:10 AM [facility] POC GLUCOSE Routine 06/18/2018 9:06 PM [facility] POTASSIUM LEVEL Routine 06/18/2018 5:50 AM [facility] CBC HEMOGRAM Routine 06/18/2018 5:10 AM [facility] PROTHROMBIN TIME WITH INR Routine 06/18/2018 5:10 AM [facility] MRI LUMBAR SPINE WO Routine 06/17/2018 CONTRAST 5:33 PM [facility] HEPATITIS B SURFACE Routine 06/17/2018 ANTIGEN 8:23 AM [facility] HEMODIALYSIS Routine 06/17/2018 8:22 AM [facility] THYROID STIMULATING Timed 06/16/2018 HORMONE 9:10 PM [facility] TROPONIN Timed 06/16/2018 9:10 PM [facility] PROTHROMBIN TIME WITH INR STAT 06/16/2018 9:10 PM [facility] LACTIC ACID LEVEL, SEPSIS Timed 06/16/2018 - NOW AND REPEAT 2X EVERY 9:10 PM [facility] 3 HOURS POC GLUCOSE Routine 06/16/2018 5:58 PM [facility] LACTIC ACID LEVEL, SEPSIS Timed 06/16/2018 - NOW AND REPEAT 2X EVERY 5:53 PM [facility] 3 HOURS GRAM STAIN Routine 06/16/2018 3:40 PM [facility] URINE CULTURE Routine 06/16/2018 3:40 PM [facility] ECG ED PRELIMINARY Routine 06/16/2018 INTERPRETATION 3:34 [address] [facility] [address] RENAL STONE PROTOCOL STAT 06/16/2018 3:09 PM [facility] URINALYSIS SCREEN AND Routine 06/16/2018 MICROSCOPY, WITH REFLEX 2:45 PM [facility] TO CULTURE SMEAR REVIEW STAT 06/16/2018 1:53 PM [facility] TROPONIN STAT 06/16/2018 1:53 PM [facility] LIPASE LEVEL STAT 06/16/2018 1:53 PM [facility] LACTIC ACID LEVEL, SEPSIS STAT 06/16/2018 - NOW AND REPEAT 2X EVERY 1:53 PM [facility] 3 HOURS CREATINE KINASE, TOTAL STAT 06/16/2018 (CPK) 1:53 PM [facility] B NATRIURETIC PEPTIDE STAT 06/16/2018 1:53 PM [facility] ESTIMATED GFR STAT 06/16/2018 1:53 PM [facility] COMPREHENSIVE METABOLIC STAT 06/16/2018 PANEL 1:53 PM [facility] HC COMPLETE BLD COUNT STAT 06/16/2018 W/AUTO DIFF 1:53 PM [facility] ECG 12-LEAD STAT 06/16/2018 1:19 PM [facility] ECG 12-LEAD Routine 04/30/2018 Severe mitral 2:54 PM [facility] regurgitation ESTIMATED GFR STAT 03/25/2018 12:55 PM [facility] MAGNESIUM LEVEL STAT 03/25/2018 Acute on chronic 12:55 PM [facility] congestive heart failure, unspecified heart failure type (HCC) COMPREHENSIVE METABOLIC STAT 03/25/2018 Acute on chronic PANEL 12:55 PM [facility] congestive heart failure, unspecified heart failure type (HCC) B NATRIURETIC PEPTIDE STAT 03/25/2018 Acute on chronic 12:55 PM [facility] congestive heart failure, unspecified heart failure type (HCC) POC GLUCOSE Routine 03/20/2018 11:31 AM [facility] POC GLUCOSE Routine 03/20/2018 7:53 AM [facility] PROTHROMBIN TIME WITH INR Routine 03/20/2018 5:02 AM [facility] POC GLUCOSE Routine 03/19/2018 9:19 PM [facility] POC GLUCOSE Routine 03/19/2018 6:19 PM [facility] POC GLUCOSE Routine 03/19/2018 11:09 AM [facility] POC GLUCOSE Routine 03/19/2018 7:31 AM [facility] PROTHROMBIN TIME WITH INR Routine 03/19/2018 4:35 AM [facility] POC GLUCOSE Routine 03/18/2018 9:23 PM [facility] HEMODIALYSIS Routine 03/18/2018 7:52 PM [facility] POC GLUCOSE Routine 03/18/2018 5:34 PM [facility] POC GLUCOSE Routine 03/18/2018 11:50 AM [facility] POC GLUCOSE Routine 03/18/2018 7:39 AM [facility] PROTHROMBIN TIME WITH INR Routine 03/18/2018 3:00 AM [facility] POC GLUCOSE Routine 03/17/2018 8:29 PM [facility] POC GLUCOSE Routine 03/17/2018 5:57 PM [facility] POC GLUCOSE Routine 03/17/2018 4:47 PM [facility] POC GLUCOSE Routine 03/17/2018 1:56 PM [facility] ESTIMATED GFR Routine 03/17/2018 1:16 PM [facility] BASIC METABOLIC PANEL Routine 03/17/2018 1:16 PM [facility] HEMODIALYSIS Routine 03/17/2018 1:[address] [facility] [address] LUMBAR SPINE WO Routine 03/17/2018 CONTRAST 12:15 [address] [facility] [address] THORACIC SPINE WO Routine 03/17/2018 CONTRAST 12:14 PM [facility] POC GLUCOSE Routine 03/17/2018 12:09 PM [facility] POC GLUCOSE Routine 03/17/2018 8:45 AM [facility] CV CTA TMVR WORKUP (CTA Routine 03/17/2018 CORONARY, CTA THORACIC 8:31 AM [facility] AORTA) W CONTRAST HC COMPLETE BLD COUNT Routine 03/17/2018 W/AUTO DIFF 4:45 AM [facility] PROTHROMBIN TIME WITH INR Routine 03/17/2018 4:40 AM [facility] POC GLUCOSE Routine 03/16/2018 9:13 PM [facility] POC GLUCOSE Routine 03/16/2018 5:18 PM [facility] POC GLUCOSE Routine 03/16/2018 11:21 AM [facility] PROTHROMBIN TIME WITH INR STAT 03/16/2018 10:38 AM [facility] ECHOCARDIOGRAM Routine 03/16/2018 TRANSESOPHAGEAL W 10:21 AM [facility] AGITATED SALINE POC GLUCOSE Routine 03/16/2018 7:43 AM [facility] URINALYSIS SCREEN AND Routine 03/15/2018 MICROSCOPY, WITH REFLEX 11:03 PM [facility] TO CULTURE URINE CULTURE Routine 03/15/2018 11:03 PM [facility] GRAM STAIN Routine 03/15/2018 11:03 PM [facility] POC GLUCOSE Routine 03/15/2018 8:32 PM [facility] POC GLUCOSE Routine 03/15/2018 4:52 PM [facility] POC GLUCOSE Routine 03/15/2018 12:33 PM [facility] POC GLUCOSE Routine 03/15/2018 7:40 AM [facility] PROTHROMBIN TIME WITH INR Routine 03/15/2018 4:50 AM [facility] POC GLUCOSE Routine 03/14/2018 9:21 PM [facility] POC GLUCOSE Routine 03/14/2018 6:08 PM [facility] HEPATITIS B SURFACE STAT 03/14/2018 ANTIGEN 3:08 PM [facility] POC GLUCOSE Routine 03/14/2018 11:25 AM [facility] POC GLUCOSE Routine 03/14/2018 7:56 AM [facility] LACTIC ACID LEVEL, SEPSIS Routine 03/14/2018 - NOW AND REPEAT 2X EVERY 4:50 AM [facility] 3 HOURS ESTIMATED GFR Routine 03/14/2018 4:50 AM [facility] TOTAL IRON BINDING Routine 03/14/2018 CAPACITY 4:50 AM [facility] FERRITIN LEVEL Routine 03/14/2018 4:50 AM [facility] PROTHROMBIN TIME WITH INR Routine 03/14/2018 4:50 AM [facility] BASIC METABOLIC PANEL Routine 03/14/2018 4:50 AM [facility] HC COMPLETE BLD COUNT Routine 03/14/2018 W/AUTO DIFF 4:50 AM [facility] HEMODIALYSIS Routine 03/13/2018 9:32 PM [facility] POC GLUCOSE Routine 03/13/2018 8:48 PM [facility] POC GLUCOSE Routine 03/13/2018 5:17 PM [facility] US RENAL Routine 03/13/2018 4:59 PM [facility] BLOOD CULTURE, AEROBIC & Routine 03/13/2018 ANAEROBIC 3:45 PM [facility] BLOOD CULTURE, AEROBIC & Routine 03/13/2018 ANAEROBIC 3:40 PM [facility] ECHOCARDIOGRAM 2D Routine 03/13/2018 COMPLETE W MMODE SPECTRAL 3:23 PM [facility] COLOR DOPPLER ([id number]) THYROID STIMULATING Routine 03/13/2018 HORMONE 1:44 PM [facility] POC GLUCOSE Routine 03/13/2018 1:21 PM [facility] LACTIC ACID LEVEL, SEPSIS Timed 03/13/2018 - NOW AND REPEAT 2X EVERY 12:48 PM [facility] 3 HOURS ECG ED PRELIMINARY Routine 03/13/2018 INTERPRETATION 11:38 AM [facility] XR CHEST 1 VW PORTABLE STAT 03/13/2018 10:32 AM [facility] URINALYSIS SCREEN AND STAT 03/13/2018 MICROSCOPY, WITH REFLEX 9:54 AM [facility] TO CULTURE URINE CULTURE STAT 03/13/2018 9:54 AM [facility] GRAM STAIN STAT 03/13/2018 9:54 AM [facility] ESTIMATED GFR STAT 03/13/2018 9:45 AM [facility] TYPE AND SCREEN Routine 03/13/2018 9:45 AM [facility] PARTIAL THROMBOPLASTIN STAT 03/13/2018 TIME (PTT) 9:45 AM [facility] PROTHROMBIN TIME WITH INR STAT 03/13/2018 9:45 AM [facility] B NATRIURETIC PEPTIDE STAT 03/13/2018 9:45 AM [facility] TROPONIN STAT 03/13/2018 9:45 AM [facility] CREATINE KINASE, TOTAL STAT 03/13/2018 (CPK) 9:45 AM [facility] LACTIC ACID LEVEL, SEPSIS STAT 03/13/2018 - NOW AND REPEAT 2X EVERY 9:45 AM [facility] 3 HOURS MAGNESIUM LEVEL STAT 03/13/2018 9:45 AM [facility] PHOSPHORUS LEVEL STAT 03/13/2018 9:45 AM [facility] HEPATIC FUNCTION PANEL STAT 03/13/2018 9:45 AM [facility] BASIC METABOLIC PANEL STAT 03/13/2018 9:45 AM [facility] HC COMPLETE BLD COUNT STAT 03/13/2018 W/AUTO DIFF 9:45 AM [facility] ECG 12-LEAD STAT 03/13/2018 9:40 AM [facility] after 01/11/2018 Results * POC glucose (06/25/2018 11:55 AM [facility]) Only the most recent of 55 results within the time period is included. [facility] POC glucose 318 (H) 65 - 99 mg/dL LEE Comment: [facility] Notified RN HOSPITAL Meter ID: [id number] Shuttle Final Inspector: Bonifacio Taylor Specimen Performing Organization Address City/[facility] Centercode Phone Number [facility] [place] [address] PATHOLOG[address] * Prothrombin time with INR (06/25/2018 4:15 AM [facility]YSIC[facility]) Only the most recent of 17 results within the time period is included. [facility] Prothrombin 26.6 (H) 11.5 - 14.5 sec [facility] INR 2.5 LEE Comment: [facility] The International Normalized HOSPITAL Ratio (INR) is a therapeutic monitoring tool for patients who are stable on oral anticoagulant therapy. An INR of 2.0-3.0 is suggested for deep vein thrombosis/pulmonary embolism. Specimen Blood Performing Organization Address City/[facility] Centercoin Phone Number [facility] [place] [address] PATHOLOGY [address] * Amikacin level, random (06/24/2018 4:30 AM [facility]) Pathologist [facility] [place] Amikacin, 14.6 ug/mL [facility] Specimen Plasma specimen Performing Organization Address City/[facility]/Zipcode Phone Number [facility] [place] [address] PATHOLOGY [facility] [address] * CBC hemogram (06/23/2018 5:00 AM [facility]YSIC[facility]) Only the most recent of 6 results within the time period is included. Pathologist [facility] [place] WBC 5.03 4.50 - 11.00 k/uL [facility] RBC 3.06 (L) 4.20 - 5.50 m/uL [facility] HGB 11.5 (L) 12.0 - 16.0 g/dL [facility] HCT 34.3 (L) 37.0 - 47.0 % [facility] MCV 112.1 (H) 82.0 - 100.0 fL [facility] MCH 37.6 (H) 27.0 - 34.0 pg [facility] MCHC 33.5 31.0 - 37.0 g/dL [facility] RDW - SD 67.4 (H) 37.0 - 55.0 fL [facility] MPV 12.4 8.8 - 13.2 fL [facility] Platelet count 119 (L) 150 - 400 k/uL [facility] Nucleated RBC 0.00 /100 WBC [facility] Specimen Blood Performing Organization Address City/[facility]/Zipcode Phone Number [facility] DEPARTMENT OF [address] [place] [address] PATHOLOGY AND [facility] [address] * Estimated GFR (06/19/2018 9:04 AM PHYSIC[facility]) Only the most recent of 6 results within the time period is included. [facility] Estimated GFR 8 (A) mL/min/1.73 m2 LEE Comment: [facility] rpretation G1 >=90 Normal or high G2 60-89Mildly decreased [id number] Mildly to moderately decreased [id number] Moderately to severely decreased G4 15-29Severely decreased G5 <15Kidney failure The eGFR was calculated using the Chronic Kidney Disease Epidemiology Collaboration (CKD-EPI) equation. Interpretation is based on recommendations of the National Kidney Foundation-Kidney Disease Outcomes Quality Initiative (NKF-KDOQI) published in 2014. Specimen Plasma specimen Performing Organization Address City/State/Zipcode Phone Number [facility] [place] [address] PATHOLOGY AND GENOMIC MEDICINE [address] * Basic metabolic panel (06/19/2018 9:04 AM PHYSIC[facility]) Only the most recent of 4 results within the time period is included. [facility] Sodium 136 135 - 148 mEq/L [facility] Potassium 4.5 3.5 - 5.0 mEq/L [facility] Chloride 98 98 - 112 mEq/L [facility] CO2 21 (L) 24 - 31 mEq/L [facility] Anion gap 17@ANIO (H) 7 - 15 mEq/L [facility] BUN 59 (H) 8 - 23 mg/dL [facility] Creatinine 4.91 (H) 0.50 - 0.90 mg/dL [facility] Glucose 106 (H) 65 - 99 mg/dL [facility] Calcium 8.4 (L) 8.8 - 10.2 mg/dL [facility] Specimen Plasma specimen Performing Organization Address City/[facility]ercode Phone Number [facility] DEPARTMENT OF [address] [place] [address] PATHOLOGY AND GENOMIC MEDICINE [address] * Potassium level (06/18/2018 5:50 AM PHYSICIST [facility]) Potassium 4.7 3.5 - 5.0 mEq/L [facility] Specimen Plasma specimen Performing Organization Address [facility]coin Phone Number [facility] DEPARTMENT OF [address] [place] [address] PATHOLOGY AND GENOMIC MEDICINE [address] * MRI Lumbar Spine Wo Contrast (06/17/2018 5:33 PM PHYSIC[facility]) Specimen Narrative Performed At RADIANT EXAMINATION: MRI [...] with at least moderate bilateral foraminal narrowing. [facility]-[id number] Procedure Note Hm Interface, Radiology Results - 06/17/2018 5:47 PM [facility]YSIC[facility] EXAMINATION: MRI LUMBAR SPINE WO CONTRAST CLINICAL [...] with at least moderate bilateral foraminal narrowing. [facility]-[id number] Performing Organization Address City/[facility]/[place] [address] * Hepatitis B surface antigen (06/17/2018 8:23 AM PHYSIC[facility]) Only the most recent of 2 results within the time period is included. Pathologist [facility] [place] Hepatitis B Non-reactive Non-reactive [facility] Specimen Blood Performing Organization Address City/[facility]ercode Phone Number [facility] [place] [address] PATHOLOGY AND GENOMIC MEDICINE [address] * Lactic acid level, SEPSIS - Now and repeat 2x every 3 hours (06/16/2018 9:10 PM [facility]YSIC[facility]) Only the most recent of 6 results within the time period is included. [facility] Lactic acid 1.9 0.5 - 2.2 mmol/L [facility] Specimen Blood Performing Organization Address [facility] Centercode Phone Number [facility] DEPARTMENT OF [address] [place] [address] PATHOLOGY AND GENOMIC MEDICINE [address] * Troponin (06/16/2018 9:10 PM PHYSIC[facility]) Only the most recent of 3 results within the time period is included. Pathologist [facility] [place] Troponin <0.30 0.00 - 0.30 ng/mL LEE Comment: [facility] 0.30 - 1.49 HOSPITAL ng/mlMay indicate increased risk of acute coronary syndrome. >=1.5 ng/ml Consistent with acute myocardial infarction. The diagnostic value of a single normal or non-diagnostic result is questionable.Serial samples at 2-6 hour intervals are required to rule out acute myocardial injury. Specimen Blood Performing Organization Address City/State/Zipcode Phone Number [facility] DEPARTMENT OF [address] [place] [address] PATHOLOGY AND GENOMIC MEDICINE [address] * Thyroid stimulating hormone (06/16/2018 9:10 PM [facility]YSIC[facility]) Only the most recent of 2 results within the time period is included. Pathologist [facility] [place] TSH 3.06 0.27 - 4.20 uIU/mL [facility] Specimen Blood Performing Organization Address City/[facility]/Zipcode Phone Number [facility] DEPARTMENT OF [address] [place] [address] PATHOLOGY AND GENOMIC MEDICINE [address] * Gram stain (06/16/2018 3:40 PM PHYSIC[facility]) Only the most recent of 3 results within the time period is included. Pathologist [facility] [place] Gram stain Rare WBC's LEE result Many Gram negative rods [facility] Comment: HOSPITAL Specimen Information Specimen Source: Urine Specimen Site: Clean catch Specimen Urine Performing Organization Address City/[facility]ercode Phone Number [facility] DEPARTMENT OF [address] [place] [address] PATHOLOGY AND GENOMIC MEDICINE [address] * Urine culture (06/16/2018 3:40 PM PHYSIC[facility]) Only the most recent of 3 results within the time period is included. Pathologist [facility] [place] Urine culture Escherichia coli ASTON isolate >10-5 cfu/ml [facility] This isolate is a studio producer of HOSPITAL ESBL (extended spectrum beta [...] coli Performing Organization Address City/State/Zipcode Phone Number [facility] DEPARTMENT OF [address] [place] [address] PATHOLOGY AND GENOMIC MEDICINE [address] * ECG ED Preliminary Interpretation - Not an Order (06/16/2018 3:34 PM [facility]YSIC[facility]) Only the most recent of 2 results within the time period is included. Narrative Performed At Ayaan Iverson DO 06/19/20188:42 AM ECG ED Preliminary Interpretation - Not an Order Performed by: Ayaan Iverson DO Authorized by: Ayaan Iverson DO ECG reviewed by ED Physician in the absence of a paramedic: yes Previous ECG: Previous ECG:Unavailable Interpretation: Interpretation: abnormal Rate: ECG rate:57 ECG rate assessment: bradycardic Rhythm: Rhythm: sinus bradycardia Ectopy: Ectopy: none QRS: QRS axis:Normal QRS intervals:Normal Conduction: Conduction: normal ST segments: ST segments:Normal T waves: T waves: inverted Inverted:II, III and aVF * CT Renal Stone Protocol (06/16/2018 3:09 PM PHYSICIST [facility]) Specimen Narrative Performed At EXAMINATION:CT RENAL STONE [...] L4 vertebral body without significant height loss. [id number] Procedure Note Hm Interface, Radiology Results Incoming - 06/16/2018 3:18 PM PHYSICIST SOLID EARTH EXAMINATION: CT RENAL STONE PROTOCOL CLINICAL HISTORY: [...] L4 vertebral body without significant height loss. [id number] Performing Organization Address City/State/Zipcode Phone Number [facility] [address] [place] [address] * Urinalysis screen and microscopy, with reflex to culture (06/16/2018 2:45 PM PHYSICIST [facility]) Only the most recent of 3 results within the time period is included. Specimen site Clean catch [facility] Color, UA Yellow [facility] Appearance, UA Clear [facility] Specific 1.013 1.001 - 1.035 LEE gravity, [facility] pH, UA 6.0 5.0 - 8.5 [facility] Protein, UA 2+ (A) Negative [facility] Glucose, UA Negative Negative [facility] Ketones, UA Negative Negative [facility] Bilirubin, UA Negative Negative [facility] Blood, UA Negative Negative [facility] Nitrite, UA Negative Negative [facility] Urobilinogen, <2.0 <2.0 [facility] Leukocyte Small (A) Negative [facility] ester[facility] Epithelial 2 /HPF LEE cells, [facility] WBC, UA 25 (H) 0 - 4 /HPF [facility] RBC, UA 3 0 - 5 /HPF [facility] Bacteria, UA Few None seen [facility] Yeast, UA None seen [facility] Yeast with None seen [facility] Specimen Urine Performing Organization Address [facility] Centercode Phone Number [facility] DEPARTMENT [facility] [place] [address] PATHOLOGY AND GENOMIC MEDICINE [address] * Smear review (06/16/2018 1:53 PM PHYSICIST [facility]) Platelet slide Decreased (A) [facility] Anisocytosis Moderate [facility] Ovalocytes Moderate [facility] Enlarged Moderate (A) [facility]EE platelets [facility] Specimen Performing Organization Address City/[facility]/Zipcode Phone Number [facility] DEPARTMENT OF [address] [place] [address] PATHOLOGY AND GENOMIC MEDICINE [place] [address] * CBC with platelet and differential (06/16/2018 1:53 PM PHYSICIST [facility]) Only the most recent of 4 results within the time period is included. [facility] WBC 5.64 4.50 - 11.00 k/uL [facility] RBC 3.15 (L) 4.20 - 5.50 m/uL [facility] HGB 11.4 (L) 12.0 - 16.0 g/dL [facility] HCT 36.6 (L) 37.0 - 47.0 % [facility] MCV 116.2 (H) 82.0 - 100.0 fL [facility] MCH 36.2 (H) 27.0 - 34.0 pg [facility] MCHC 31.1 31.0 - 37.0 g/dL [facility] RDW - SD 74.5 (H) 37.0 - 55.0 fL [facility] MPV 13.7 (H) 8.8 - 13.2 fL [facility] Platelet count 89 (L) 150 - 400 k/uL [facility] Nucleated RBC 0.00 /100 WBC [facility] Neutrophils 72.0 (H) 39.0 - 69.0 % [facility] Lymphocytes 10.6 (L) 25.0 - 45.0 % [facility] Monocytes 11.2 (H) 0.0 - 10.0 % [facility] Eosinophils 5.1 (H) 0.0 - 5.0 % [facility] Basophils 0.7 0.0 - 1.0 % [facility] Immature 0.4Comment: "Immature 0.0 - 1.0 % [facility]EE granulocytes granulocytes" (promyelocytes, MORMONISM myelocytes, metamyelocytes) [facility] Specimen Blood Performing Organization Address City/State/Zipcode Phone Number [facility] DEPARTMENT OF [address] [place] [address] PATHOLOGY [facility] MEDICINE [address] * B natriuretic peptide (06/16/2018 1:53 PM PHYSICIST [facility]) Only the most recent of 3 results within the time period is included. [facility] BNP >5000 (H) 0 - 100 pg/mL [facility]EE Comment: MORMONISM Increased result of BNP most HOSPITAL likely represents recent infusion of recombinant BNP. For monitoring, because of the short half-life of BNP (20 minutes), measurements taken 2 hours after cessation of treatment again reflects the level of endogenous BNP. Specimen Performing Organization Address City/[facility]/Zipcode Phone Number [facility] DEPARTMENT OF [address] [place] [address] PATHOLOGY AND [facility] MEDICINE [address] * Lipase level (06/16/2018 1:53 PM PHYSICIST [facility]) Lipase 10 (L) 13 - 60 U/L [facility] Specimen Plasma specimen Performing Organization Address [facility] Centercoin Phone Number [facility] [place] [address] PATHOLOGY AND [facility] MEDICINE [address] * Creatine kinase, total (CPK) (06/16/2018 1:53 PM PHYSICIST [facility]) Only the most recent of 2 results within the time period is included. Creatine kinase 48 26 - 192 U/L [facility] Specimen Plasma specimen Performing Organization Address [facility] Phone Number [facility] [place] [address] PATHOLOGY AND [facility] MEDICINE [address] * Comprehensive metabolic panel (06/16/2018 1:53 PM PHYSICIST [facility]) Only the most recent of 2 results within the time period is included. Sodium 142 135 - 148 mEq/L [facility] Potassium 5.2 (H) 3.5 - 5.0 mEq/L [facility] Chloride 101 98 - 112 mEq/L [facility] CO2 26 24 - 31 mEq/L [facility] Anion gap 15@ANIO 7 - 15 mEq/L [facility] BUN 72 (H) 8 - 23 mg/dL [facility] Creatinine 4.74 (H) 0.50 - 0.90 mg/dL [facility] Glucose 174 (H) 65 - 99 mg/dL [facility] Calcium 8.8 8.8 - 10.2 mg/dL [facility] Protein 6.7 6.3 - 8.3 g/dL [facility]EE Comment: [facility] 4.6-7.0 g/dL 1 week 4.4-7.6 g/dL 7 months-1year 5.1-7.3 g/dL 1-2 years5.6-7 .5 g/dL >3 years6.0-8 .0 g/dL 18-150 6.3-8.3 g/dL Albumin 3.0 (L) 3.5 - 5.0 g/dL [facility] A/G ratio 0.8 0.7 - 3.8 [facility] Alkaline 193 (H) 35 - 104 U/L [facility] phosphatase [facility] AST 35 10 - 35 U/L [facility] ALT 20 5 - 50 U/L [facility] Total bilirubin 0.5 0.0 - 1.2 mg/dL [facility] Specimen Plasma specimen Performing Organization Address City/[facility] Centercode Phone Number [address] [address] PATHOLOGY AND GENOMIC MEDICINE [address] * ECG 12 lead (06/16/2018 1:19 PM PHYSICIST [facility]) Only the most recent of 3 results within the time period is included. Ventricular 57 [facility] MUSE rate Atrial rate 57 [facility] M[facility] AL interval 178 [facility] QRSD interval 94 [facility] M[facility] QT interval 434 [facility] M[facility] QTC interval 422 HM MUSE P axis 1 49 [facility] MUSE QRS axis 1 31 [facility] MUSE T wave axis 238 [facility] EKG impression Sinus bradycardia-ST & T wave [facility] MUSE abnormality, consider inferolateral ischemia-Abnormal ECG-In automated comparison with ECG of 16-JUN-2018 13:19,-Inverted T waves have replaced nonspecific T wave abnormality in Inferior leads- Specimen Narrative Performed At Performing Organization Address City/[facility] Centercode Phone Number [address] [address] * Magnesium level (03/25/2018 12:55 PM PHYSICIST [facility]) Only the most recent of 2 results within the time period is included. Magnesium 2.0 1.6 - 2.4 mg/dL [facility] Specimen Plasma specimen Performing Organization Address City/State/Zipcode Phone Number [facility] DEPARTMENT OF [address] [place] [address] PATHOLOGY AND GENOMIC MEDICINE [facility] [address] [place] [id number] HOSPITAL * CT Lumbar Spine Wo Contrast (03/17/2018 12:15 PM PHYSICIST [facility]) Specimen Narrative Performed At EXAMINATION: CT LUMBAR SPINE WO CONTRAST [facility] CLINICAL HISTORY:Abn xrayL S-spineDJD Technique: Contiguous [...] right and marked left neural foraminal narrowing. [id number] Procedure Note Interface, Radiology Results Incoming - 03/17/2018 2:22 PM PHYSICIST [facility] EXAMINATION: CT LUMBAR SPINE WO CONTRAST CLINICAL [...] right and marked left neural foraminal narrowing. [id number] Performing Organization Address City/State/Zipcode Phone Number [facility] [address] [place] [address] * CT Thoracic Spine Wo Contrast (03/17/2018 12:14 PM PHYSICIST SOL[facility]) Specimen Narrative Performed At EXAMINATION: CT THORACIC SPINE WO CONTRAST [facility] CLINICAL H[facility]ORY: Mid-back T-spine paininitial exam COMPARISON:None [...] the left posterior 12th rib. Recommend correlation. [facility]-[id number] Procedure Note Hm Interface, Radiology Results Incoming - 03/17/2018 1:48 PM PHYSICIST [facility] EXAMINATION: CT THORACIC SPINE WO CONTRAST CLINICAL [...] the left posterior 12th rib. Recommend correlation. [facility]-[id number] Performing Organization Address City/State/Zipcode Phone Number [facility] [address] [place] [address] * Cv cta tmvr workup (cta coronary cta thoracic aorta) w contrast (03/17/2018 8:31 AM PHYSICIST [facility]) Specimen Narrative Performed At [facility] Nuclear Cardiology and Cardiac CT [address] [place] [id number] CTA TMVR Protocol Pat.Name:JACEY ABRAMS Pat.ID:[id number] .Date: 03/17/2018Refer.MD:SELWYN STRICKLAND MD Exam Time: 8:10:00 AMStudy Type:CTA TMVR Protocol Height:61inBSA: 1.58 m2 DOBAge:1945,73Y Sex: FEMALE BP:155/67HR: 74 bpm Nuclear Tech:OSITO Melchor(N)(CT) CPT - 4: CCTA w Thoracic Aorta (NonCongenital) [id number] Nuclear Event ID:[id number] Order ID:[id number] Reason for Study:TMVR Work-Up Procedures:CT Retrospective SUMMARY: Technique: IV contrast was administered and sequential 0.[address] cuts were obtained through the chest using the Siemens Somatom Force CT scanner. Post-processing and 3D reconstruction were done using the SyndicateRoom workstation. Interactive image viewing and volumetric display [...] Cardiovascular CTA Protocol and interpreted by a Paralegal Supervisor.Should a more comprehensive assessment of non-cardiovascular findings be desired, please consult a radiologist.These images are available in the [facility] Ritot PACS system. Signed 03/18/2018 06:27 PM Jamil Rodriguez MD Procedure Note Interface, Radiology Results In - 03/18/2018 6:29 PM [facility] Nuclear Cardiology and Cardiac CT [address] [place] [address] CTA TMVR Protocol Pat.Name: JACEY ABRAMS Pat.ID: [id number] .Date: 03/17/2018 Refer.MD: SELWYN STRICKLAND MD Exam Time: 8:10:00 AM Study Type:CTA TMVR Protocol Height: 61in BSA: 1.58 m2 Age: 11 1945,73Y Sex: FEMALE BP: 155/67 HR: 74 bpm Nuclear Tech:OSITO Melchor(N)(CT) CPT - 4: CCTA w Thoracic Aorta (NonCongenital) [id number] Nuclear Event ID:[id number] Order ID: [id number] Reason for Study:TMVR Work-Up Procedures:CT Retrospective SUMMARY: Technique: IV contrast was administered and sequential 0.[address] cuts were obtained through the chest using the Siemens Alphatec Spineom Force CT scanner. Post-processing and 3D reconstruction were done using the SyndicateRoom workstation. Interactive image viewing and volumetric display [...] Cardiovascular CTA Protocol and interpreted by a Paralegal Supervisor. Should a more comprehensive assessment of non-cardiovascular findings be desired, please consult a radiologist. These images are available in the [facility] Ritot PACS system. Signed 03/18/2018 06:27 PM Jamil Rodriguez MD Performing Organization Address City/State/Zipcode Phone Number [facility] [address] [place] [address] * Echocardiogram transesophageal (03/16/2018 10:21 AM PHYSICIST [facility]) Specimen Narrative Performed At [facility] Transesophageal Echo Report [address] [place] [address], [place], [place] [address].Name:JACEY ABRAMS Pat.ID:[id number] .Date: 03/16/2018Refer.MD:MARGARITA OSBORNE MD Exam Time: 8:40:00 AMStudy Type:CHANA Height:60inWeight:138lb BSA: 1.6 u9USHZag:1945,73Y Sex: FEMALEBP:148/65 HR:69 bpmSonogrphr: Crystal Álvarez MD Pat. Stat.:Inpatient Study Status:Final Echo Event ID:[id number] Order ID:[id number] Reason for Study:EVAL OF VALVULAR STRUCTURE AND [...] extending into the RA. FINDINGS: CHANA:The attending paramedic performed the CHANA procedure and waspresent for [...] MR is likely to be a perforated [id number]. Eccentric mitral regurgitant jet directed anteriorly. PV: Pulmonic valve not well seen. TV: No structural TV abnormalities noted. Mild tricuspid regurgitation Other:Estimated PA systolic pressure is 40 mmHg, assuming a mean RAPof 5 mmHg. CHANA: Anesthesia: Moderate SedationASA Class: 4 Physician: Mitchel Morton M.D.Licensed Physical Therapist: Crystal Álvarez MD Pre TEEBP HR Post CHANA BP HR 148/65 75731/71 80 Meds:Viscous xylocaine, Cetacaine spray to oropharynx, Versed 2 mg IV, Fentanyl 50 mcg IV Complications: None Condition: Stable MEASUREMENTS: DOPPLER MV PISA MV AliasVel 38.5 cm/sMV pkVel 451.5 cm/s MV PISA rad1 cmMV ERO 0.5 cm2 MV Flw 241.9 cc/sMV RgVol72.4 cc Signed 03/16/2018 11:23 AM Mitchel Morton M.D. Procedure Note Interface, Radiology Results In - 03/16/2018 11:23 AM [facility] Transesophageal Echo Report [address], [place], [place] [address] Pat.Name: JACEY ABRAMS Pat.ID: [id number] .Date: 03/16/2018 Refer.MD: MARGARITA OSBORNE MD Exam Time: 8:40:00 AM Study Type:CHANA Height: 60in Weight: 138lb BSA: 1.6 m2 Age: 11 1945,73Y Sex: FEMALE BP: 148/65 HR: 69 bpm Sonogrphr: Crystal Álvarez MD Pat. Stat.:Inpatient Study Status:Final Echo Event ID:[id number] Order ID: [id number] Reason for Study:EVAL OF VALVULAR STRUCTURE AND [...] into the RA. FINDINGS: CHANA: The attending paramedic performed the CHANA procedure and was present [...] Sedation ASA Class: 4 Physician: Mitchel Morton M.D.Licensed Physical Therapist: Crystal Álvarez MD Pre CHANA BP HR [...] AM Mitchel Morton M.D. Performing Organization Address [facility] Phone Number [facility] [address] [place] [address] * Total iron binding capacity (03/14/2018 4:50 AM PHYSICIST [facility]) Iron level 87 37 - 145 ug/dL [facility] Iron binding 116 (L) 200 - 400 ug/dL [facility] % Saturation 75.0 (H) 15.0 - 38.0 % [facility] Specimen Plasma specimen Performing Organization Address [facility] Phone Number [facility] [place] [address] PATHOLOGY AND [facility] MEDICINE [address] * Ferritin level (03/14/2018 4:50 AM PHYSICIST [facility]) Ferritin level 1,899 (H) 13 - 150 ng/mL [facility] Specimen Plasma specimen Performing Organization Address [facility] [place] [address] PATHOLOGY AND GENOMIC MEDICINE [address] * US Renal (03/13/2018 4:59 PM PHYSICIST SOL[facility]) Specimen Narrative Performed At EXAM:US RENAL [facility] [...] or hydronephrosis. The urinary bladder is unremarkable. [facility]-[id number] Procedure Note Interface, Radiology Results Incoming - 03/13/2018 9:54 PM PHYSICIST [facility] EXAM: US RENAL CLINICAL HISTORY: Renal failure [...] or hydronephrosis. The urinary bladder is unremarkable. [facility]-[id number] Performing Organization Address City/[facility]/Zipcode Phone Number [facility] [address] [place] [address] * Blood culture, aerobic & anaerobic (03/13/2018 3:45 PM PHYSICIST [facility]) Only the most recent of 2 results within the time period is included. Blood culture No growth after 5 days of LEE isolate incubation. [facility]ISM Comment: HOSPITAL Specimen Information Specimen Source: Blood Specimen Site: Forearm, right Specimen Blood - Forearm, right Performing Organization Address City/State/Zipcode Phone Number [facility] DEPARTMENT OF [address] [place] [address] PATHOLOGY AND GENOMIC MEDICINE [facility] [address] [place] [address] * Echocardiogram complete w contrast and 3D if needed (03/13/2018 3:23 PM PHYSICIST [facility]) Specimen Narrative Performed At [facility] Echocardiography Report [address] [facility], [facility] 9, [address]Name:JACEY ABRAMS Pat.ID:[id number] .Date: 03/13/2018Refer.MD:ABRAHAM JOHNSON MD Exam Time: 2:23:00 PMStudy Type:Routine Echo Height:60inWeight:138lb BSA: 1.6 y3WYFEzx:1945,73Y Sex: FEMALEBP:109/39 HR:83 bpm Sonogrphr: Ana Laura Romero RDCS [facility]. Stat.:Inpatient Room:[address] Study Status:Final Echo Event ID:[id number] Order ID:[id number] Reason for Study:CHF History / Clinical:Diabetes, Hypertension, [...] PA systolic pressure. MEASUREMENTS: 2D Parasternal [place] LVOT 2.2 cmLV%fs 29.6 % LA Ds4.1 cmIVSd 1.2 cm Ao An1.7 cmLVPWd1.1 cm Ao Rtd 2.3 cmIndex1.5 cm/m LV Xuuw872.2 g(87-129) LVIDd4.8 cmIndex3 cm/m LVM Afjaw617.8 g/m2 LVIDs3.4 cmRWT0.5 LA Biplane LA 4Ch Area 24.7 cm2 LA Vol79.2 ml Index49.5 ml/m LA 2Ch Area 22.7 cm2 DOPPLER AV For Flow/CARMINE AV pkVel 375.2 cm/s (100-170) AV AC/ET 0.3 AV mnVel 250.6 cm/Grzegorz TVI78.8 cm AV pkPG 56.3 mmHgAVpkAcRt 6969.4 cm/s2 AV Mean G 31 mmHgAV GjGn0520.8 cm/s2 AV AC 95 msec (83-118) AV Area1.5 cm2(3-5) AV ET314 msec LVOT For Flow LVOT Area3.8 cm2 LVOT SV121.7 ml NYCIkcIke668.1 cm/sHR82.3 bpm LVOTpkPG 6.7 mmHgLVOT CO 10 l/min LVOTmnPG 4 mmHgLVOT CI6.3 l/m/m2 LVOT TVI32 cm Signed 03/13/2018 06:54 PM Mitchel Morton M.D. Procedure Note Interface, Radiology Results In - 03/13/2018 6:54 PM [facility] Echocardiography Report [address] [place] [address] Pat.Name: JACEY ABRAMS Pat.ID: [id number] St.Date: 03/13/2018 Refer.MD: ABRAHAM JOHNSON MD Exam Time: 2:23:00 PM Study Type:Routine Echo Height: 60in Weight: 138lb BSA: 1.6 m2 Age: 11 1945,73Y Sex: FEMALE BP: 109/39 HR: 83 bpm Sonogrphr: Ana Laura Romero RDCS [facility]. Stat.:Inpatient Room: [address] Study Status:Final Echo Event ID:[id number] Order ID: [id number] Reason for Study:CHF History / Clinical:Diabetes, Hypertension, [...] PA systolic pressure. MEASUREMENTS: 2D Parasternal [place] LVOT 2.2 cm LV%fs 29.6 % LA [...] Performing Organization Address City/State/Zipcode Phone Number [facility] [address] [place] [address] * XR Chest 1 Vw Portable (03/13/2018 10:32 AM PHYSICIST [facility]) Specimen Narrative Performed At XR CHEST 1 VW PORTABLE [facility] CLINICAL INDICATION:Shortness of breath COMPARISON:None available IMPRESSION: Heart is mildly enlarged with mild pulmonary vascular congestion with mild perihilar edema. There valve replacement is noted with changes of sternotomy. There is no effusion or pneumothorax. Bones are demineralized but appear intact. Thank you for allowing us to participate in the care of your patient. [facility]-[id number] Procedure Note Interface, Radiology Results Incoming - 03/13/2018 10:46 AM PHYSICIST [facility] XR CHEST 1 VW PORTABLE CLINICAL INDICATION: Shortness of breath COMPARISON: None available IMPRESSION: Heart is mildly enlarged with mild pulmonary vascular congestion with mild perihilar edema. There valve replacement is noted with changes of sternotomy. There is no effusion or pneumothorax. Bones are demineralized but appear intact. Thank you for allowing us to participate in the care of your patient. [facility]-[id number] Performing Organization Address City/[facility]/Zipcode Phone Number [facility] [address] [place] [address] * Partial thromboplastin time, activated (03/13/2018 9:45 AM PHYSICIST [facility]) PTT 40.1 (H) 23.0 - 36.0 sec [facility] Comment: [facility] PTT therapeutic range for HOSPITAL unfractionated heparin is 61.0-112.0 seconds which corresponds to Anti-Xa 0.3-0.7 U/ml. Specimen Blood Performing Organization Address City/State/Zipcode Phone Number [facility] DEPARTMENT OF [address] [place] [address] PATHOLOGY AND GENOMIC MEDICINE [place] [phone] HOSPITAL * Type and screen (03/13/2018 9:45 AM PHYSICIST [facility]) ABO grouping O [facility] Rh type POS [facility] Antibody screen NEG [facility] (gel) [facility] Specimen Blood Performing Organization Address City/[facility]/Zipcode Phone Number [facility] DEPARTMENT OF [address] [place] [address] PATHOLOGY AND GENOMIC MEDICINE [address] * Phosphorus level (03/13/2018 9:45 AM PHYSICIST [facility]) Phosphorus 5.1 (H) 2.4 - 4.5 mg/dL [facility] Specimen Plasma specimen Narrative Performed At [facility] results called to and read back by [facility] DEPARTMENT OF SOPH[place]/DEON(name/location)03/13/201810:41(date/time) by PR1. PATHOLOGY AND GENOMIC MEDICINE Performing Organization Address City/State/Zipcode Phone Number [facility] [place] [address] PATHOLOGY AND GENOMIC MEDICINE [address] * Hepatic function panel (03/13/2018 9:45 AM PHYSICIST [facility]) Albumin 2.4 (L) 3.5 - 5.0 g/dL [facility] Total bilirubin 0.5 0.0 - 1.2 mg/dL [facility] Bilirubin <0.2 0.0 - 0.3 mg/dL [facility] direct [facility] Alkaline 299 (H) 35 - 104 U/L [facility] phosphatase [facility] Protein 7.0 6.3 - 8.3 g/dL [facility] Comment: [facility] 4.6-7.0 g/dL 1 week 4.4-7.6 g/dL 7 months-1year 5.1-7.3 g/dL 1-2 years5.6-7 .5 g/dL >3 years6.0-8 .0 g/dL 18-150 6.3-8.3 g/dL ALT 23 5 - 50 U/L [facility] AST 39 (H) 10 - 35 U/L [facility] Specimen Plasma specimen Narrative Performed At [facility] results called to and read back by [facility] DEPARTMENT OF SOPHIA/DEON(name/location)03/13/201810:41(date/time) by PR1. PATHOLOGY AND GENOMIC MEDICINE Performing Organization Address City/State/Zipcode Phone Number [facility] [place] [address] PATHOLOGY AND GENOMIC MEDICINE [address] after 01/11/2018 Additional Health Concerns Resolved Time Infection Noted Time ESBL (C ) 06/19/2018 8:53 AM PHYSICIST [facility] Insurance Type Payer Benefit Subscriber ID Effective Phone Address Plan / Dates Group HMO KD YI xxxxxxxxx 2017Austen lacy Advance Directives For more information, please contact: [phone] Patient Freight Inspector Explanation Type Date Recorded Advance Directives, 03/13/2018 10:11 AM Living Will and Medical Power of Community Health Program Representative
[2019-01-12 07:05] LABS: BASOPHILS % 0.3 % (0.0-1.0); EOSINOPHILS # (AUTO) 0.2 (0.0-0.4); EOSINOPHILS % 3.6 % (0.0-6.0); HEMOGLOBIN 11.7 g/dL (12.0-16.0); LYMPHOCYTES # (AUTO) 0.4 (1.0-3.2); LYMPHOCYTES % 7.1 % (18.0-39.1); MEAN CORPUSCULAR HEMOGLOBIN 35.6 pg (28-32); MEAN CORPUSCULAR HGB CONC 31.6 g/dL (31-35); MEAN CORPUSCULAR VOLUME 112.5 fL (81-99); MONOCYTES # (AUTO) 0.9 (0.2-0.8); MONOCYTES % 14.9 % (4.4-11.3); NEUTROPHILS # (AUTO) 4.3 (2.1-6.9); NEUTROPHILS % 73.6 % (38.7-80.0); PLATELET COUNT 106 x10e3/uL (140-360); RED BLOOD COUNT 3.29 x10e6/uL (3.6-5.1); RED CELL DISTRIBUTION WIDTH 15.5 % (11.7-14.4)
[2019-01-12 07:19] LABS: INR 3.28; PROTHROMBIN TIME 34.2 seconds (11.9-14.5)
[2019-01-12 07:20] LABS: PARTIAL THROMBOPLASTIN TIME 58.7 seconds (23.8-35.5)
[2019-01-12 07:25] LABS: ANION GAP 14.5 mmol/L (8-16); CALCIUM 9.5 mg/dL (8.4-10.2); CREATININE, SERUM 2.98 mg/dL (0.57-1.11); POTASSIUM 4.5 mmol/L (3.5-5.1)
[2019-01-12 07:51] LABS: EOSINOPHILS % (MANUAL) 1 % (0-7); LYMPHOCYTES % (MANUAL) 9 % (19-48); MONOCYTES % (MANUAL) 9 % (3.4-9.0); NEUTROPHILS % (MANUAL) 80 % (40-74)
[2019-01-12 07:52] LABS: RBC MORPHOLOGY COMMENT NORMAL
[2019-01-12 07:54] LABS: PLATELET ESTIMATE SLIGHTLY DECREASED; PLATELET MORPHOLOGY COMMENT NORMAL
[2019-01-12 08:50] VITALS: BP 127/65
--- NOTE | 2019-01-12 16:10 | Operative Report ---
DATE OF PROCEDURE: 01/12/2019 SURGEON: Radha Bajwa DPM FIBER ANALYST: None. PREOPERATIVE DIAGNOSES: 1. Gangrene, right 5th. 2. Ulcer grade 3, lateral 4th. 3. Ulcer grade 3, medial MPJ, 1st medially. POSTOPERATIVE DIAGNOSES: 1. Gangrene, right 5th. 2. Ulcer grade 3, lateral 4th. 3. Ulcer grade 3, medial MPJ, 1st medially. PROCEDURES: 1. 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 2. Debridement to bone of the 4th and 1st. COMPLICATIONS: None. CONDITION: Stable. ANESTHESIA: MAC anesthetic with a local block consisting of 0.5 Marcaine and lidocaine plain. ESTIMATED BLOOD LOSS: Less than 10 mL. MATERIALS: None. PROCEDURE IN DETAIL: The patient was brought to the operating room, placed on the operating table in supine position. Following IV sedation, anesthesia was obtained with a MAC anesthetic. At this point, the right foot scrubbed, prepped, and draped in usual aseptic manner, it was then lowered to the table. Attention was then directed to the lateral aspect of the 5th, where two semi-elliptical incisions were made overlying the metatarsophalangeal joint at the 5th. The incisions were deepened down to the level of the joint. At this point, the joint was fishmouth type of incision. All nonviable tissue was removed. The area was then flushed with pressure corporate sales trainer and bacitracin. Cultures and sensitivities were taken of the area. As I was unable to close it partially the more medial aspect, only retention sutures were able to be applied with 4-0 nylon. Attention was directed to the lateral aspect of the 4th and the 1st MPJ, where utilizing a curette and a blade, all nonviable tissue was removed down to the level of the bone. At this point, the area was also flushed with copious irrigation with pressure irrigation and bacitracin. The areas were then closed, closing with simple interrupted sutures with 4-0 nylon. Clean dressing was applied consisting of Betadine wet-to-dry, 4x4s, Kerlix, and an Taran bandage. The patient tolerated the procedure and anesthesia well without complications, and was transported to recovery room, will be discharged home when she meets criteria. She was given instructions to be strictly nonweightbearing. She is currently on antibiotic by Infectious Disease. She will follow up with me in the office and she will call the office if any questions, concerns, or new problems arise. HORTENCIA Hauser/JUAN /[id number]
== END | disposition home or self-care (01) ==
LOC: OR 05:33
PROVIDERS: ATTEND Podiatrist Foot & Ankle Surgery
DX: E11.42 Type 2 diabetes mellitus with diabetic polyneuropathy (principal); E11.52 Type 2 diabetes mellitus with diabetic peripheral angiopathy with gangrene; I96 Gangrene, not elsewhere classified; Z01.812 Encounter for preprocedural laboratory examination; M79.671 Pain in right foot; E11.22 Type 2 diabetes mellitus with diabetic chronic kidney disease; I12.0 Hypertensive chronic kidney disease with stage 5 chronic kidney disease or end stage renal disease; N18.6 End stage renal disease; Z99.2 Dependence on renal dialysis; Z88.0 Allergy status to penicillin; E11.621 Type 2 diabetes mellitus with foot ulcer; L97.514 Non-pressure chronic ulcer of other part of right foot with necrosis of bone; Z79.4 Long term (current) use of insulin
CPT/HCPCS: 11044; 28820; 36415; 80048; 82948; 85025; 85610; 85730; 87071; 87075; 87205; 88305; 88311; J2704; J2710; J3010; J7040

== ENCOUNTER 2019-02-10 06:49 | Emergency (ER) | payer MEDICARE ==
[~2019-02-10] VITALS: Ht 157.5 cm; Wt 65.3 kg
[~2019-02-10 06:49] MED LIST changes: -BACITRACIN 50,000 UNIT VIAL ONE; -BUPIVACAINE HCL 0.5% INJ 30 ML VIAL INJ ONE; -FENTANYL CITRATE/PF 100MCG/2 ML INJ ONE; -NEOSTIGMINE 1 MG/ML 10ML VIAL ONE; -PROPOFOL IV EMULSION 10 MG/ML 20 ML VIAL ONE; -SODIUM CHLORIDE 0.9% 500ML 500 ML ONE
[2019-02-10 08:12] LABS: BASOPHILS % 0.4 % (0.0-1.0); EOSINOPHILS # (AUTO) 0.2 (0.0-0.4); EOSINOPHILS % 2.1 % (0.0-6.0); HEMATOCRIT 28.8 % (34.2-44.1); HEMOGLOBIN 9.1 g/dL (12.0-16.0); LYMPHOCYTES # (AUTO) 0.7 (1.0-3.2); LYMPHOCYTES % 9.7 % (18.0-39.1); MEAN CORPUSCULAR HEMOGLOBIN 34.6 pg (28-32); MEAN CORPUSCULAR HGB CONC 31.6 g/dL (31-35); MEAN CORPUSCULAR VOLUME 109.5 fL (81-99); MONOCYTES # (AUTO) 1.1 (0.2-0.8); MONOCYTES % 14.9 % (4.4-11.3); NEUTROPHILS # (AUTO) 5.2 (2.1-6.9); NEUTROPHILS % 72.5 % (38.7-80.0); PLATELET COUNT 112 x10e3/uL (140-360); RED BLOOD COUNT 2.63 x10e6/uL (3.6-5.1); RED CELL DISTRIBUTION WIDTH 16.7 % (11.7-14.4)
[2019-02-10 08:28] LABS: PARTIAL THROMBOPLASTIN TIME 64.9 seconds (23.8-35.5)
[2019-02-10 08:31] LABS: ALBUMIN 2.7 g/dL (3.5-5.0); ALBUMIN/GLOBULIN RATIO 0.9 (0.8-2.0); ANION GAP 16.5 mmol/L (8-16); CREATININE, SERUM 3.32 mg/dL (0.57-1.11); POTASSIUM 4.5 mmol/L (3.5-5.1)
[2019-02-10 08:51] LABS: INR 5.96
[2019-02-10 08:52] LABS: PROTHROMBIN TIME 54.1 seconds (11.9-14.5)
[2019-02-10 09:48] VITALS: BP 140/82
== END 2019-02-10 09:45 | disposition home or self-care (01) ==
LOC: ER 06:49
DX: R04.0 Epistaxis (principal); I12.0 Hypertensive chronic kidney disease with stage 5 chronic kidney disease or end stage renal disease; E11.22 Type 2 diabetes mellitus with diabetic chronic kidney disease; N18.6 End stage renal disease; Z99.2 Dependence on renal dialysis; E78.5 Hyperlipidemia, unspecified; Z95.4 Presence of other heart-valve replacement; D65 Disseminated intravascular coagulation [defibrination syndrome]; D59.9 Acquired hemolytic anemia, unspecified
CPT/HCPCS: 36415; 80053; 85025; 85610; 85730; 99283

== ENCOUNTER → 2019-12-10 | Day surgery (SDC) | payer OTHER ==
[2019-12-06 12:00] LABS: BASOPHILS % 0.3 % (0.0-1.0); EOSINOPHILS # (AUTO) 0.2 (0.0-0.4); EOSINOPHILS % 3.7 % (0.0-6.0); HEMATOCRIT 32.6 % (34.2-44.1); HEMOGLOBIN 10.2 g/dL (12.0-16.0); LYMPHOCYTES # (AUTO) 0.4 (1.0-3.2); LYMPHOCYTES % 6.8 % (18.0-39.1); MEAN CORPUSCULAR HEMOGLOBIN 34.6 pg (28-32); MEAN CORPUSCULAR HGB CONC 31.3 g/dL (31-35); MEAN CORPUSCULAR VOLUME 110.5 fL (81-99); MONOCYTES # (AUTO) 0.7 (0.2-0.8); NEUTROPHILS # (AUTO) 4.8 (2.1-6.9); NEUTROPHILS % 76.9 % (38.7-80.0); PLATELET COUNT 112 x10e3/uL (140-360); RED BLOOD COUNT 2.95 x10e6/uL (3.6-5.1); RED CELL DISTRIBUTION WIDTH 15.7 % (11.7-14.4)
[2019-12-06 12:16] LABS: ALBUMIN 3.3 g/dL (3.5-5.0); ANION GAP 21.5 mmol/L (8-16); CALCIUM 9.5 mg/dL (8.4-10.2); CREATININE, SERUM 7.9 mg/dL (0.57-1.11)
[2019-12-06 12:18] LABS: POTASSIUM 5.5 mmol/L (3.5-5.1)
[2019-12-06 12:41] LABS: ERYTHROCYTE SEDIMENTATION RATE 39 mm/hr (0-20)
--- NOTE | 2019-12-06 14:12 | Diagnostic Imaging Report ---
X-ray chest PA and lateral History: Preop Comparison: 05/03/2019 Findings: Status post median sternotomy and aortic valve replacement. Cardiomegaly. No pleural effusion. No pneumothorax. Redistribution of pulmonary vascular flow with peribronchial cuffing and fuzzy vascular outlines especially in the upper lung zones mostly in the central location. Shell's B lines are seen. No focal lung nodules. Aorta is atherosclerotic. Skeletal structures are remarkable for advanced degenerative changes in both shoulders. Impression: The findings are suggestive of a mild pulmonary interstitial edema most likely on the basis of congestive heart failure. Signed by: Vitor Mcclellan MD on 12/06/2019 2:08 PM
[~2019-12-10] MED LIST changes: +BUPIVACAINE HCL 0.5% INJ 30 ML VIAL INJ ONE; +DEXAMETHASONE SOD PHOS INJ 4 MG/ML VIAL ONE; +FENTANYL CITRATE/PF 100MCG/2 ML INJ ONE; +LIDOCAINE HCL 2% LOCAL INJ 5 ML SDV VIAL INJ ONE; +MEDROL4 MG PO; +MIRTAZAPINE15 MG PO; +NEOSTIGMINE 1 MG/ML 10ML VIAL ONE; +NOVOLIN N100 UNIT/1 SC; +PROPOFOL IV EMULSION 10 MG/ML 20 ML VIAL ONE; +SODIUM CHLORIDE 0.9% 500ML 500 ML ONE; +VANCOMYCIN HCL 1 GM VIAL ONE; +VERAPAMIL HCL 2.5 MG/ML 2 ML VIAL ONE
[2019-12-10 06:46] LABS: INR 1.01; PARTIAL THROMBOPLASTIN TIME 33.8 seconds (23.8-35.5); PROTHROMBIN TIME 13.8 seconds (11.9-14.5)
[2019-12-10 08:43] VITALS: BP 143/60
--- NOTE | 2019-12-10 08:47 | Operative Report ---
DATE OF PROCEDURE: SURGEON: Radha Bajwa DPM PREOPERATIVE DIAGNOSES: 1. Ulcer grade 4 right foot. 2. Ulcer grade 3 second digit. POSTOPERATIVE DIAGNOSES: 1. Ulcer grade 4 right foot. 2. Ulcer grade 3 second digit. PROCEDURE: Debridement to include bone, right Achilles ulcer and right 2nd digit ulcer. HEMOSTASIS: None. ESTIMATED BLOOD LOSS: Less than 10 mL. MATERIALS: Human allograft 2000 mL. COMPLICATIONS: None. CONDITION: Stable. PROCEDURE IN DETAIL: Under mild sedation, the patient was brought to the operating room, placed on the operating table in supine position. Following IV sedation, anesthesia was obtained with a general anesthetic. At this point, the right foot scrubbed, prepped, and draped in the usual aseptic manner. The leg was lowered to the table. Attention was then directed to the posterior aspect of the Achilles tendon, where a curvilinear incision was made overlying the ulcer, the gangrenous area. The incision was deepened down to the level of the tendon. All nonviable tissue was removed utilizing a #15 blade and a bone rongeur down to clean viable tissue. The area was then flushed with copious irrigation with vancomycin. The 2nd digit was also debrided with a #15 blade and a bone rongeur down to level of bone. All nonviable tissue was removed. The area was then irrigated. At this point, after all nonviable tissue was removed, cultures were taken to the area. The human allograft was then inserted. It was then secured utilizing Adaptic, 4x4s, Kerlix, Taran bandage, Webril, posterior splint was applied, and was secured utilizing Taran bandage. The patient tolerated the procedure and anesthesia well, transferred to recovery room with vital signs stable and vascular status intact. The patient will be discharged home when she meets criteria. She was given instructions to be nonweightbearing to the right foot to follow up with me in the office to keep dressing clean, dry, and intact. To call the office if any questions, concerns, or new problems arise. Radha Bajwa DPM ER/MODL /[id number]
== END | disposition home or self-care (01) ==
LOC: OR 05:10
PROVIDERS: ATTEND Podiatrist Foot Surgery
DX: E11.621 Type 2 diabetes mellitus with foot ulcer (principal); L97.519 Non-pressure chronic ulcer of other part of right foot with unspecified severity; E11.42 Type 2 diabetes mellitus with diabetic polyneuropathy; E11.22 Type 2 diabetes mellitus with diabetic chronic kidney disease; I13.2 Hypertensive heart and chronic kidney disease with heart failure and with stage 5 chronic kidney disease, or end stage renal disease; N18.6 End stage renal disease; I50.9 Heart failure, unspecified; I25.10 Atherosclerotic heart disease of native coronary artery without angina pectoris; E03.9 Hypothyroidism, unspecified; M19.90 Unspecified osteoarthritis, unspecified site; R42 Dizziness and giddiness; K76.9 Liver disease, unspecified; I48.91 Unspecified atrial fibrillation; D64.9 Anemia, unspecified; E78.5 Hyperlipidemia, unspecified; F32.9 Major depressive disorder, single episode, unspecified; Z01.810 Encounter for preprocedural cardiovascular examination; Z01.812 Encounter for preprocedural laboratory examination; Z01.818 Encounter for other preprocedural examination; Z11.59 Encounter for screening for other viral diseases; Z79.01 Long term (current) use of anticoagulants; Z79.4 Long term (current) use of insulin; Z99.2 Dependence on renal dialysis; Z95.5 Presence of coronary angioplasty implant and graft; Z86.718 Personal history of other venous thrombosis and embolism; Z86.73 Personal history of transient ischemic attack (TIA), and cerebral infarction without residual deficits
CPT/HCPCS: 11044; 36415 ×2; 71046; 80053; 82948; 83036; 84132; 84134; 85025; 85610; 85651; 85730; 86140; 87071; 87075; 87186; 87205; 93005; J2001; J2704; J2710; J3010; J3370; J7040; Q4100; U0002; J1100

== ENCOUNTER 2019-12-23 13:38 | Inpatient (IN) | payer OTHER ==
[~2019-12-23] VITALS: Ht 134.6 cm; Wt 65.8 kg
[~2019-12-23 13:38] MED LIST changes: -BUPIVACAINE HCL 0.5% INJ 30 ML VIAL INJ ONE; -DEXAMETHASONE SOD PHOS INJ 4 MG/ML VIAL ONE; -FENTANYL CITRATE/PF 100MCG/2 ML INJ ONE; -LIDOCAINE HCL 2% LOCAL INJ 5 ML SDV VIAL INJ ONE; -NEOSTIGMINE 1 MG/ML 10ML VIAL ONE; -PROPOFOL IV EMULSION 10 MG/ML 20 ML VIAL ONE; -SODIUM CHLORIDE 0.9% 500ML 500 ML ONE; -VANCOMYCIN HCL 1 GM VIAL ONE; -VERAPAMIL HCL 2.5 MG/ML 2 ML VIAL ONE
[2019-12-23] MEDS ORDERED: CEFEPIME 1GM/NS 0.9% 50 ML 50 ML IV STA (14:02)
[2019-12-23] MEDS ORDERED: SODIUM CHLORIDE 0.9% 1000ML 1,000 ML IV SCH (14:15)
[2019-12-23] MEDS ORDERED: VANCOMYCIN 1GM/NS 250 ML 250 ML IV ONE (14:30)
[2019-12-23 14:34] LABS: BASOPHILS # (AUTO) 0.1 (0.0-0.1); BASOPHILS % 0.5 % (0.0-1.0); EOSINOPHILS # (AUTO) 0.2 (0.0-0.4); EOSINOPHILS % 1.8 % (0.0-6.0); HEMATOCRIT 38.9 % (34.2-44.1); HEMOGLOBIN 12.1 g/dL (12.0-16.0); LYMPHOCYTES # (AUTO) 0.5 (1.0-3.2); LYMPHOCYTES % 4.1 % (18.0-39.1); MEAN CORPUSCULAR HEMOGLOBIN 34.8 pg (28-32); MEAN CORPUSCULAR HGB CONC 31.1 g/dL (31-35); MEAN CORPUSCULAR VOLUME 111.8 fL (81-99); MONOCYTES # (AUTO) 0.8 (0.2-0.8); MONOCYTES % 7.2 % (4.4-11.3); NEUTROPHILS # (AUTO) 9.2 (2.1-6.9); NEUTROPHILS % 84.6 % (38.7-80.0); PLATELET COUNT 204 x10e3/uL (140-360); RED BLOOD COUNT 3.48 x10e6/uL (3.6-5.1); RED CELL DISTRIBUTION WIDTH 16.1 % (11.7-14.4)
[2019-12-23 14:56] LABS: ALBUMIN 3.8 g/dL (3.5-5.0); ALBUMIN/GLOBULIN RATIO 1.4 (0.8-2.0); CALCIUM 9.2 mg/dL (8.4-10.2); CREATININE, SERUM 3.74 mg/dL (0.57-1.11)
[2019-12-23 15:02] LABS: CREATINE KINASE MB 1.1 ng/mL (0-5.0)
[2019-12-23] MEDS ORDERED: DOCUSATE SODIUM 100 MG CAP PO PRN (15:45)
[2019-12-23] MEDS ORDERED: HYDRALAZINE HCL 20 MG/ML VIAL IV PRN (15:45)
[2019-12-23 16:00] VITALS: BP 148/106
[2019-12-23] MEDS ORDERED: SODIUM CHLORIDE 0.9% 100 ML ONE (16:57)
[2019-12-23 18:12] VITALS: BP 146/106
[2019-12-23 18:25] VITALS: BP 148/106
[2019-12-23 20:00] VITALS: BP 160/71
[2019-12-23] MEDS: HYDROCODONE/APAP 5MG-325MG TAB PO PRN (20:20)
[2019-12-23 20:44] LABS: INR 1.14; PROTHROMBIN TIME 15.2 seconds (11.9-14.5)
[2019-12-23] MEDS ORDERED: MELATONIN 5 MG TABLET PO PRN (21:00)
[2019-12-23] MEDS ORDERED: DEXTROSE 50% SYRINGE 50 ML IV PRN (22:00)
[2019-12-23] MEDS: INSULIN LISPRO 100 UNIT/1 ML 3ML VIAL SQ SCH (22:15)
[2019-12-24] VITALS (15 sets, daily range): BP systolic 91–173; BP diastolic 31–99
[2019-12-24 05:15] LABS: BASOPHILS % 0.3 % (0.0-1.0); EOSINOPHILS # (AUTO) 0.3 (0.0-0.4); EOSINOPHILS % 2.7 % (0.0-6.0); HEMATOCRIT 34.6 % (34.2-44.1); HEMOGLOBIN 10.9 g/dL (12.0-16.0); LYMPHOCYTES # (AUTO) 0.5 (1.0-3.2); LYMPHOCYTES % 4.3 % (18.0-39.1); MEAN CORPUSCULAR HEMOGLOBIN 35.2 pg (28-32); MEAN CORPUSCULAR HGB CONC 31.5 g/dL (31-35); MEAN CORPUSCULAR VOLUME 111.6 fL (81-99); MONOCYTES # (AUTO) 1.2 (0.2-0.8); MONOCYTES % 9.9 % (4.4-11.3); NEUTROPHILS # (AUTO) 9.5 (2.1-6.9); NEUTROPHILS % 81.4 % (38.7-80.0); PLATELET COUNT 151 x10e3/uL (140-360)
[2019-12-24 05:58] LABS: ALBUMIN 3.2 g/dL (3.5-5.0); ALBUMIN/GLOBULIN RATIO 1.3 (0.8-2.0); ANION GAP 18.8 mmol/L (8-16); CREATININE, SERUM 4.64 mg/dL (0.57-1.11); POTASSIUM 3.8 mmol/L (3.5-5.1)
[2019-12-24 06:22] LABS: CREATINE KINASE MB 0.9 ng/mL (0-5.0)
[2019-12-24 07:34] LABS: PLATELET ESTIMATE ADEQUATE; PLATELET MORPHOLOGY COMMENT NORMAL; RBC MORPHOLOGY COMMENT ABNORMAL
[2019-12-24] MEDS ORDERED: SODIUM CHLORIDE 0.9% 1000ML 2,000 ML IV PRN (08:15)
[2019-12-24] MEDS ORDERED: WARFARIN SOD 1 MG TAB PO SCH (09:00)
[2019-12-24] MEDS: LEVOTHYROXINE SODIUM 50 MCG TAB PO SCH (09:59)
[2019-12-24] MEDS: CALCIUM ACETATE 667 MG GELCAP PO SCH ×3 (09:59→22:04)
[2019-12-24] MEDS: METOPROLOL TARTRATE 50 MG TAB PO SCH ×2 (09:59→17:00)
[2019-12-24] MEDS: FERROUS SULFATE 325 MG TAB PO SCH (09:59)
[2019-12-24] MEDS: MIRTAZAPINE 15 MG TAB PO SCH (10:00)
[2019-12-24] MEDS: INSULIN LISPRO 100 UNIT/1 ML 3ML VIAL SQ SCH ×4 (10:02→20:40)
[2019-12-24] MEDS: HYDROCODONE/APAP 5MG-325MG TAB PO PRN ×2 (10:47→20:38)
[2019-12-24] MEDS ORDERED: MIDAZOLAM HCL 2 MG/2 ML VIAL ONE (14:10)
[2019-12-24] MEDS ORDERED: IOPAMIDOL 300MG/ML 100 ML INFUS..BTL IV ONE (14:11)
[2019-12-24] MEDS ORDERED: SODIUM CHLORIDE 0.9% 1000ML 1,000 ML ONE (14:11)
[2019-12-24] MEDS ORDERED: FENTANYL CITRATE/PF 100MCG/2 ML INJ ONE (14:11)
[2019-12-24] MEDS: CEFEPIME 1GM/NS 0.9% 50 ML 50 ML IV SCH (14:11)
[2019-12-24] MEDS ORDERED: LIDOCAINE HCL 2% LOCAL 20 ML VIAL ONE (14:11)
[2019-12-24] MEDS ORDERED: HEPARIN SOD/SOD CHLORIDE 2,000 ML ONE (14:11)
[2019-12-24] MEDS: INSULIN GLARGINE 100 UNITS/ML VIAL SQ SCH (20:40)
[2019-12-24] MEDS: ATORVASTATIN 10 MG TAB PO SCH (22:04)
[2019-12-25] VITALS (10 sets, daily range): BP systolic 92–190; BP diastolic 54–96
[2019-12-25] MEDS: HYDROCODONE/APAP 5MG-325MG TAB PO PRN (02:38)
[2019-12-25 05:50] LABS: BASOPHILS # (AUTO) 0.1 (0.0-0.1); BASOPHILS % 0.5 % (0.0-1.0); EOSINOPHILS # (AUTO) 0.5 (0.0-0.4); EOSINOPHILS % 3.7 % (0.0-6.0); HEMOGLOBIN 11.1 g/dL (12.0-16.0); LYMPHOCYTES # (AUTO) 0.4 (1.0-3.2); LYMPHOCYTES % 3.6 % (18.0-39.1); MEAN CORPUSCULAR HEMOGLOBIN 35.2 pg (28-32); MEAN CORPUSCULAR HGB CONC 31.7 g/dL (31-35); MEAN CORPUSCULAR VOLUME 111.1 fL (81-99); MONOCYTES # (AUTO) 1.2 (0.2-0.8); MONOCYTES % 9.9 % (4.4-11.3); NEUTROPHILS % 81.5 % (38.7-80.0); PLATELET COUNT 152 x10e3/uL (140-360); RED BLOOD COUNT 3.15 x10e6/uL (3.6-5.1); RED CELL DISTRIBUTION WIDTH 16.3 % (11.7-14.4)
[2019-12-25 06:30] LABS: ANION GAP 16.8 mmol/L (8-16); CALCIUM 8.2 mg/dL (8.4-10.2); CREATININE, SERUM 3.26 mg/dL (0.57-1.11); POTASSIUM 3.8 mmol/L (3.5-5.1)
[2019-12-25] MEDS: ACETAMINOPHEN/CODEINE 300MG - 30MG TAB PO PRN ×2 (07:35→13:43)
[2019-12-25] MEDS: INSULIN LISPRO 100 UNIT/1 ML 3ML VIAL SQ SCH ×4 (08:12→21:30)
[2019-12-25] MEDS: LEVOTHYROXINE SODIUM 50 MCG TAB PO SCH (08:31)
[2019-12-25] MEDS: FERROUS SULFATE 325 MG TAB PO SCH (08:32)
[2019-12-25] MEDS: ASPIRIN 81 MG CHEW TAB PO SCH (08:32)
[2019-12-25] MEDS: METOPROLOL TARTRATE 50 MG TAB PO SCH ×2 (08:32→16:30)
[2019-12-25] MEDS: MIRTAZAPINE 15 MG TAB PO SCH (08:33)
[2019-12-25] MEDS: CLOPIDOGREL BISULFATE 75 MG TAB PO SCH (08:33)
[2019-12-25] MEDS: CALCIUM ACETATE 667 MG GELCAP PO SCH ×3 (08:45→21:30)
[2019-12-25] MEDS: MORPHINE SULFATE 2 MG/ML SYR 1ML IV PRN ×2 (08:52→16:11)
[2019-12-25] MEDS: COLLAGENASE 5 GM TUBE TOP SCH ×2 (10:01→15:59)
[2019-12-25] MEDS ORDERED: VANCOMYCIN 1GM/NS 250 ML 250 ML IV SCH (14:00)
[2019-12-25] MEDS: CEFEPIME 1GM/NS 0.9% 50 ML 50 ML IV SCH (14:43)
[2019-12-25] MEDS: INSULIN GLARGINE 100 UNITS/ML VIAL SQ SCH (21:30)
[2019-12-25] MEDS: ATORVASTATIN 10 MG TAB PO SCH (21:30)
[2019-12-26] VITALS (8 sets, daily range): BP systolic 88–164; BP diastolic 45–84
[2019-12-26] MEDS: MORPHINE SULFATE 2 MG/ML SYR 1ML IV PRN ×4 (00:15→12:26)
[2019-12-26] MEDS: ACETAMINOPHEN/CODEINE 300MG - 30MG TAB PO PRN ×3 (02:00→14:22)
[2019-12-26] MEDS: INSULIN LISPRO 100 UNIT/1 ML 3ML VIAL SQ SCH ×4 (07:30→21:45)
[2019-12-26] MEDS: COLLAGENASE 5 GM TUBE TOP SCH ×2 (08:26→16:09)
[2019-12-26] MEDS: CLOPIDOGREL BISULFATE 75 MG TAB PO SCH (08:26)
[2019-12-26] MEDS: LEVOTHYROXINE SODIUM 50 MCG TAB PO SCH (08:26)
[2019-12-26] MEDS: CALCIUM ACETATE 667 MG GELCAP PO SCH ×3 (08:26→21:45)
[2019-12-26] MEDS: ASPIRIN 81 MG CHEW TAB PO SCH (08:26)
[2019-12-26] MEDS: MIRTAZAPINE 15 MG TAB PO SCH (08:26)
[2019-12-26] MEDS: METOPROLOL TARTRATE 50 MG TAB PO SCH (08:26)
[2019-12-26] MEDS: FERROUS SULFATE 325 MG TAB PO SCH (08:26)
[2019-12-26] MEDS: CEFEPIME 1GM/NS 0.9% 50 ML 50 ML IV SCH (14:08)
[2019-12-26] MEDS ORDERED: HYDROMORPHONE 1MG/1ML INJ IV PRN (14:45)
[2019-12-26] MEDS: WARFARIN SOD 5 MG TAB PO SCH (16:09)
[2019-12-26] MEDS: MIDODRINE 2.5 MG TAB PO SCH (16:10)
[2019-12-26] MEDS ORDERED: HEPARIN IV SCH (17:15)
[2019-12-26] MEDS ORDERED: DEXTROSE 5% IV SCH (17:15)
[2019-12-26] MEDS ORDERED: HEPARIN SOD (PORCINE) 5,000 UNIT/ML VIAL IV ONE (17:15)
[2019-12-26] MEDS: HEPARIN 25,000U/0.45% NS 250ML 250 ML IV PRN ×2 (18:44→21:45)
[2019-12-26] MEDS: INSULIN GLARGINE 100 UNITS/ML VIAL SQ SCH (21:45)
[2019-12-26] MEDS: ATORVASTATIN 10 MG TAB PO SCH (21:45)
[2019-12-26] MEDS ORDERED: ONDANSETRON HCL INJ 2MG/ML 2ML 2 MG/ML VIAL IV PRN (23:45)
[2019-12-27 04:00] VITALS: BP 152/71
[2019-12-27 06:09] LABS: BASOPHILS # (AUTO) 0.1 (0.0-0.1); BASOPHILS % 0.5 % (0.0-1.0); EOSINOPHILS # (AUTO) 0.2 (0.0-0.4); EOSINOPHILS % 1.6 % (0.0-6.0); HEMATOCRIT 37.4 % (34.2-44.1); HEMOGLOBIN 12.1 g/dL (12.0-16.0); LYMPHOCYTES # (AUTO) 0.5 (1.0-3.2); LYMPHOCYTES % 3.6 % (18.0-39.1); MEAN CORPUSCULAR HEMOGLOBIN 35.3 pg (28-32); MEAN CORPUSCULAR HGB CONC 32.4 g/dL (31-35); MONOCYTES # (AUTO) 1.6 (0.2-0.8); NEUTROPHILS # (AUTO) 11.7 (2.1-6.9); NEUTROPHILS % 82.7 % (38.7-80.0); PLATELET COUNT 139 x10e3/uL (140-360); RED BLOOD COUNT 3.43 x10e6/uL (3.6-5.1); RED CELL DISTRIBUTION WIDTH 16.4 % (11.7-14.4)
[2019-12-27 06:19] LABS: ANION GAP 24.6 mmol/L (8-16); CALCIUM 9.2 mg/dL (8.4-10.2); CREATININE, SERUM 6.34 mg/dL (0.57-1.11); POTASSIUM 4.6 mmol/L (3.5-5.1)
[2019-12-27] MEDS: INSULIN LISPRO 100 UNIT/1 ML 3ML VIAL SQ SCH ×4 (07:30→21:00)
[2019-12-27 07:59] VITALS: BP 146/69
[2019-12-27] MEDS: MIDODRINE 2.5 MG TAB PO SCH ×3 (08:00→16:00)
[2019-12-27] MEDS: CLOPIDOGREL BISULFATE 75 MG TAB PO SCH (08:46)
[2019-12-27] MEDS: LEVOTHYROXINE SODIUM 50 MCG TAB PO SCH (08:46)
[2019-12-27] MEDS: FERROUS SULFATE 325 MG TAB PO SCH (08:46)
[2019-12-27] MEDS: ACETAMINOPHEN/CODEINE 300MG - 30MG TAB PO PRN (08:47)
[2019-12-27] MEDS: ASPIRIN 81 MG CHEW TAB PO SCH (08:47)
[2019-12-27] MEDS: CALCIUM ACETATE 667 MG GELCAP PO SCH ×3 (08:47→22:20)
[2019-12-27] MEDS: COLLAGENASE 5 GM TUBE TOP SCH ×2 (08:48→16:54)
[2019-12-27] MEDS: MIRTAZAPINE 15 MG TAB PO SCH (08:48)
[2019-12-27 09:08] LABS: INR 1.11; PROTHROMBIN TIME 14.9 seconds (11.9-14.5)
[2019-12-27 09:36] LABS: PARTIAL THROMBOPLASTIN TIME > 200.0 seconds (23.8-35.5)
[2019-12-27 11:12] VITALS: BP 104/45
[2019-12-27] MEDS ORDERED: HEPARIN 25,000 UNIT 1,600 UNIT in DEXTROSE 5% 250ML 250 ML IV SCH (11:30)
[2019-12-27] MEDS ORDERED: HEPARIN 25,000U/0.45% NS 250ML 250 ML IV PRN (14:15)
[2019-12-27] MEDS: CEFEPIME 1GM/NS 0.9% 50 ML 50 ML IV SCH (15:18)
[2019-12-27 15:54] VITALS: BP 128/48
[2019-12-27] MEDS: WARFARIN SOD 5 MG TAB PO SCH (16:54)
[2019-12-27 20:00] VITALS: BP 122/102
[2019-12-27 21:00] VITALS: BP 122/102
[2019-12-27] MEDS: ATORVASTATIN 10 MG TAB PO SCH (22:20)
[2019-12-28] VITALS: BP 152/98
[2019-12-28] MEDS: ACETAMINOPHEN 325 MG TAB PO PRN ×3 (01:42→17:54)
[2019-12-28 04:00] VITALS: BP 157/73
[2019-12-28 04:45] LABS: BASOPHILS # (AUTO) 0.1 (0.0-0.1); BASOPHILS % 0.6 % (0.0-1.0); EOSINOPHILS # (AUTO) 0.4 (0.0-0.4); EOSINOPHILS % 3.3 % (0.0-6.0); HEMATOCRIT 33.7 % (34.2-44.1); HEMOGLOBIN 10.5 g/dL (12.0-16.0); LYMPHOCYTES # (AUTO) 0.9 (1.0-3.2); MEAN CORPUSCULAR HGB CONC 31.2 g/dL (31-35); MEAN CORPUSCULAR VOLUME 109.1 fL (81-99); MONOCYTES # (AUTO) 1.2 (0.2-0.8); MONOCYTES % 11.2 % (4.4-11.3); NEUTROPHILS # (AUTO) 7.9 (2.1-6.9); NEUTROPHILS % 75.2 % (38.7-80.0); PLATELET COUNT 128 x10e3/uL (140-360); RED BLOOD COUNT 3.09 x10e6/uL (3.6-5.1); RED CELL DISTRIBUTION WIDTH 16.2 % (11.7-14.4)
[2019-12-28 05:11] LABS: ANION GAP 19.9 mmol/L (8-16); CREATININE, SERUM 3.56 mg/dL (0.57-1.11); POTASSIUM 5.9 mmol/L (3.5-5.1)
[2019-12-28] MEDS: INSULIN LISPRO 100 UNIT/1 ML 3ML VIAL SQ SCH ×4 (07:30→20:24)
[2019-12-28 08:00] VITALS: BP 132/48
[2019-12-28] MEDS: MIDODRINE 2.5 MG TAB PO SCH ×3 (08:00→16:00)
[2019-12-28] MEDS: LEVOTHYROXINE SODIUM 50 MCG TAB PO SCH (08:49)
[2019-12-28] MEDS: ASPIRIN 81 MG CHEW TAB PO SCH (08:49)
[2019-12-28] MEDS: COLLAGENASE 5 GM TUBE TOP SCH ×2 (08:50→16:21)
[2019-12-28] MEDS: CALCIUM ACETATE 667 MG GELCAP PO SCH ×3 (08:50→21:33)
[2019-12-28] MEDS: FERROUS SULFATE 325 MG TAB PO SCH (08:50)
[2019-12-28] MEDS: CLOPIDOGREL BISULFATE 75 MG TAB PO SCH (08:50)
[2019-12-28] MEDS: CEFEPIME 1GM/NS 0.9% 50 ML 50 ML IV SCH (15:00)
[2019-12-28 16:00] VITALS: BP 160/62
[2019-12-28] MEDS ORDERED: KETOROLAC TROMETHAMINE 30 MG/ML VIAL IV STA (16:56)
[2019-12-28] MEDS ORDERED: SOD POLYSTYRENE SULFONATE SUSP 15 GM/60 ML BTL PO ONE (17:15)
[2019-12-28] MEDS ORDERED: LACTULOSE SYRUP 20 GM/30 ML UDC PO ONE (17:15)
[2019-12-28] MEDS ORDERED: DEXTROSE 50% SYRINGE 50 ML IV ONE (17:15)
[2019-12-28] MEDS ORDERED: INSULIN REGULAR, HUMAN 100 UNIT/1 ML 3ML VIAL IV ONE (17:15)
[2019-12-28] MEDS ORDERED: SOD POLYSTYRENE SULFONATE SUSP 15 GM/60 ML BTL PR ONE (17:30)
[2019-12-28 20:00] VITALS: BP 160/75
[2019-12-28 21:00] VITALS: BP 160/75
[2019-12-28] MEDS: ATORVASTATIN 10 MG TAB PO SCH (21:33)
[2019-12-29] VITALS (8 sets, daily range): BP systolic 99–145; BP diastolic 49–56
[2019-12-29 05:15] LABS: BASOPHILS # (AUTO) 0.1 (0.0-0.1); BASOPHILS % 0.6 % (0.0-1.0); EOSINOPHILS # (AUTO) 0.3 (0.0-0.4); EOSINOPHILS % 3.7 % (0.0-6.0); HEMATOCRIT 33.5 % (34.2-44.1); HEMOGLOBIN 10.7 g/dL (12.0-16.0); LYMPHOCYTES # (AUTO) 0.8 (1.0-3.2); LYMPHOCYTES % 8.4 % (18.0-39.1); MEAN CORPUSCULAR HEMOGLOBIN 35.7 pg (28-32); MEAN CORPUSCULAR HGB CONC 31.9 g/dL (31-35); MEAN CORPUSCULAR VOLUME 111.7 fL (81-99); MONOCYTES # (AUTO) 1.1 (0.2-0.8); MONOCYTES % 12.3 % (4.4-11.3); NEUTROPHILS # (AUTO) 6.8 (2.1-6.9); NEUTROPHILS % 74.7 % (38.7-80.0); PLATELET COUNT 122 x10e3/uL (140-360); RED CELL DISTRIBUTION WIDTH 16.1 % (11.7-14.4)
[2019-12-29 05:39] LABS: ANION GAP 22.1 mmol/L (8-16); CALCIUM 9.9 mg/dL (8.4-10.2); CREATININE, SERUM 5.05 mg/dL (0.57-1.11); POTASSIUM 5.1 mmol/L (3.5-5.1)
[2019-12-29 05:47] LABS: INR 1.23; PROTHROMBIN TIME 16.1 seconds (11.9-14.5)
[2019-12-29] MEDS: INSULIN LISPRO 100 UNIT/1 ML 3ML VIAL SQ SCH ×4 (07:30→20:51)
[2019-12-29] MEDS: MIDODRINE 2.5 MG TAB PO SCH ×3 (08:00→16:08)
[2019-12-29] MEDS: COLLAGENASE 5 GM TUBE TOP SCH ×2 (08:28→16:10)
[2019-12-29] MEDS: LEVOTHYROXINE SODIUM 50 MCG TAB PO SCH (08:28)
[2019-12-29] MEDS: FERROUS SULFATE 325 MG TAB PO SCH (08:28)
[2019-12-29] MEDS: CALCIUM ACETATE 667 MG GELCAP PO SCH ×3 (08:28→20:50)
[2019-12-29] MEDS: ACETAMINOPHEN 325 MG TAB PO PRN ×2 (08:29→15:06)
[2019-12-29] MEDS: CEFEPIME 1GM/NS 0.9% 50 ML 50 ML IV SCH (13:43)
[2019-12-29] MEDS: ATORVASTATIN 10 MG TAB PO SCH (20:50)
[2019-12-30] VITALS (10 sets, daily range): BP systolic 105–163; BP diastolic 44–124
[2019-12-30 05:22] LABS: BASOPHILS % 0.6 % (0.0-1.0); EOSINOPHILS # (AUTO) 0.2 (0.0-0.4); EOSINOPHILS % 3.3 % (0.0-6.0); HEMATOCRIT 34.3 % (34.2-44.1); HEMOGLOBIN 11.2 g/dL (12.0-16.0); LYMPHOCYTES # (AUTO) 0.8 (1.0-3.2); LYMPHOCYTES % 11.1 % (18.0-39.1); MEAN CORPUSCULAR HEMOGLOBIN 36.4 pg (28-32); MEAN CORPUSCULAR HGB CONC 32.7 g/dL (31-35); MEAN CORPUSCULAR VOLUME 111.4 fL (81-99); MONOCYTES # (AUTO) 1.1 (0.2-0.8); MONOCYTES % 15.4 % (4.4-11.3); NEUTROPHILS % 69.2 % (38.7-80.0); PLATELET COUNT 122 x10e3/uL (140-360); RED BLOOD COUNT 3.08 x10e6/uL (3.6-5.1); RED CELL DISTRIBUTION WIDTH 15.9 % (11.7-14.4)
[2019-12-30 05:36] LABS: INR 1.09; PROTHROMBIN TIME 14.7 seconds (11.9-14.5)
[2019-12-30 05:56] LABS: ANION GAP 19.9 mmol/L (8-16); CALCIUM 9.1 mg/dL (8.4-10.2); CREATININE, SERUM 3.74 mg/dL (0.57-1.11); POTASSIUM 3.9 mmol/L (3.5-5.1)
[2019-12-30] MEDS: LEVOTHYROXINE SODIUM 50 MCG TAB PO SCH (07:30)
[2019-12-30] MEDS: INSULIN LISPRO 100 UNIT/1 ML 3ML VIAL SQ SCH ×4 (07:30→20:00)
[2019-12-30] MEDS: MIDODRINE 2.5 MG TAB PO SCH ×3 (08:00→15:59)
[2019-12-30] MEDS: CALCIUM ACETATE 667 MG GELCAP PO SCH ×3 (09:00→19:46)
[2019-12-30] MEDS: COLLAGENASE 5 GM TUBE TOP SCH ×2 (09:00→16:25)
[2019-12-30] MEDS: FERROUS SULFATE 325 MG TAB PO SCH (09:00)
[2019-12-30] MEDS ORDERED: SODIUM CHLORIDE 0.9% 500ML 500 ML ONE (11:30)
[2019-12-30] MEDS ORDERED: LIDOCAINE HCL 2% LOCAL INJ 5 ML SDV VIAL INJ ONE (11:55)
[2019-12-30] MEDS ORDERED: PROPOFOL IV EMULSION 10 MG/ML 20 ML VIAL ONE (11:55)
[2019-12-30] MEDS ORDERED: ONDANSETRON HCL INJ 2MG/ML 2ML 2 MG/ML VIAL ONE (11:55)
[2019-12-30] MEDS ORDERED: SEVOFLURANE INHAL SOLN 250 ML PEN BTL ONE (11:55)
[2019-12-30] MEDS ORDERED: PHENYLEPHRINE HCL 1% 10 MG/ML VIAL ONE (11:55)
[2019-12-30] MEDS ORDERED: DEXAMETHASONE SOD PHOS INJ 4 MG/ML VIAL ONE (11:55)
[2019-12-30] MEDS ORDERED: FENTANYL CITRATE/PF 100MCG/2 ML INJ ONE (13:08)
[2019-12-30] MEDS ORDERED: NEOSTIGMINE 1 MG/ML 10ML VIAL ONE (13:54)
[2019-12-30] MEDS ORDERED: ONDANSETRON HCL INJ 2MG/ML 2ML 2 MG/ML VIAL IV PRN (14:15)
[2019-12-30] MEDS: CEFEPIME 1GM/NS 0.9% 50 ML 50 ML IV SCH (15:42)
[2019-12-30] MEDS: SODIUM CHLORIDE 0.9% 1000ML 1,000 ML IV SCH (15:43)
[2019-12-30] MEDS: ACETAMINOPHEN/CODEINE 300MG - 30MG TAB PO PRN (15:54)
[2019-12-30] MEDS: TRAMADOL HCL 50 MG TAB PO PRN (15:55)
[2019-12-30] MEDS: ATORVASTATIN 10 MG TAB PO SCH (19:41)
[2019-12-30] MEDS: HYDROMORPHONE 1MG/1ML INJ IV PRN (23:30)
[2019-12-31] VITALS (10 sets, daily range): BP systolic 116–198; BP diastolic 42–93
[2019-12-31 05:58] LABS: BASOPHILS % 0.1 % (0.0-1.0); HEMATOCRIT 34.2 % (34.2-44.1); HEMOGLOBIN 11.1 g/dL (12.0-16.0); LYMPHOCYTES # (AUTO) 0.6 (1.0-3.2); LYMPHOCYTES % 4.2 % (18.0-39.1); MEAN CORPUSCULAR HEMOGLOBIN 35.9 pg (28-32); MEAN CORPUSCULAR HGB CONC 32.5 g/dL (31-35); MEAN CORPUSCULAR VOLUME 110.7 fL (81-99); MONOCYTES # (AUTO) 1.5 (0.2-0.8); MONOCYTES % 10.7 % (4.4-11.3); NEUTROPHILS # (AUTO) 11.8 (2.1-6.9); NEUTROPHILS % 84.5 % (38.7-80.0); PLATELET COUNT 126 x10e3/uL (140-360); RED BLOOD COUNT 3.09 x10e6/uL (3.6-5.1); RED CELL DISTRIBUTION WIDTH 15.6 % (11.7-14.4)
[2019-12-31 06:10] LABS: CALCIUM 9.3 mg/dL (8.4-10.2); CREATININE, SERUM 5.74 mg/dL (0.57-1.11)
[2019-12-31] MEDS: LEVOTHYROXINE SODIUM 50 MCG TAB PO SCH (06:32)
[2019-12-31] MEDS ORDERED: INSULIN LISPRO 100 UNIT/1 ML 3ML VIAL SQ SCH (06:45)
[2019-12-31 07:15] LABS: LYMPHOCYTES % (MANUAL) 6 % (19-48); MONOCYTES % (MANUAL) 11 % (3.4-9.0); NEUTROPHILS % (MANUAL) 83 % (40-74)
[2019-12-31 07:16] LABS: HYPOCHROMASIA SLIGHT; PLATELET ESTIMATE ADEQUATE; PLATELET MORPHOLOGY COMMENT NORMAL; RBC MORPHOLOGY COMMENT ABNORMAL
[2019-12-31] MEDS: MIDODRINE 2.5 MG TAB PO SCH ×4 (08:00→16:00)
[2019-12-31] MEDS: COLLAGENASE 5 GM TUBE TOP SCH ×2 (08:39→16:30)
[2019-12-31] MEDS: CALCIUM ACETATE 667 MG GELCAP PO SCH ×3 (09:08→20:19)
[2019-12-31] MEDS: FERROUS SULFATE 325 MG TAB PO SCH (09:08)
[2019-12-31] MEDS: INSULIN LISPRO 100 UNIT/1 ML 3ML VIAL SQ SCH ×4 (09:11→20:20)
[2019-12-31] MEDS: SODIUM CHLORIDE 0.9% 1000ML 1,000 ML IV SCH (11:00)
[2019-12-31] MEDS: HYDROMORPHONE 1MG/1ML INJ IV PRN ×2 (11:05→22:12)
[2019-12-31] MEDS ORDERED: ONDANSETRON HCL 4 MG ORAL DISINTEGRATING TAB PO PRN (12:00)
[2019-12-31] MEDS: TRAMADOL HCL 50 MG TAB PO PRN (12:33)
[2019-12-31] MEDS: CEFEPIME 1GM/NS 0.9% 50 ML 50 ML IV SCH (14:19)
[2019-12-31] MEDS: ACETAMINOPHEN/CODEINE 300MG - 30MG TAB PO PRN (18:57)
[2019-12-31] MEDS: INSULIN GLARGINE 100 UNITS/ML VIAL SQ SCH (20:20)
[2019-12-31] MEDS: ATORVASTATIN 10 MG TAB PO SCH (20:21)
[2020-01-01] VITALS (8 sets, daily range): BP systolic 118–169; BP diastolic 42–78
[2020-01-01] MEDS: TRAMADOL HCL 50 MG TAB PO PRN ×2 (00:42→19:50)
[2020-01-01] MEDS: HYDROMORPHONE 1MG/1ML INJ IV PRN ×2 (03:03→13:32)
[2020-01-01 06:41] LABS: BASOPHILS # (AUTO) 0.1 (0.0-0.1); BASOPHILS % 0.4 % (0.0-1.0); EOSINOPHILS # (AUTO) 0.3 (0.0-0.4); EOSINOPHILS % 1.8 % (0.0-6.0); HEMATOCRIT 33.5 % (34.2-44.1); HEMOGLOBIN 10.6 g/dL (12.0-16.0); LYMPHOCYTES # (AUTO) 1.4 (1.0-3.2); LYMPHOCYTES % 8.6 % (18.0-39.1); MEAN CORPUSCULAR HEMOGLOBIN 35.2 pg (28-32); MEAN CORPUSCULAR HGB CONC 31.6 g/dL (31-35); MEAN CORPUSCULAR VOLUME 111.3 fL (81-99); MONOCYTES # (AUTO) 1.8 (0.2-0.8); MONOCYTES % 11.6 % (4.4-11.3); NEUTROPHILS # (AUTO) 12.1 (2.1-6.9); PLATELET COUNT 132 x10e3/uL (140-360); RED BLOOD COUNT 3.01 x10e6/uL (3.6-5.1); RED CELL DISTRIBUTION WIDTH 15.9 % (11.7-14.4)
[2020-01-01 06:58] LABS: ANION GAP 19.8 mmol/L (8-16); CALCIUM 9.3 mg/dL (8.4-10.2); CREATININE, SERUM 3.41 mg/dL (0.57-1.11); POTASSIUM 4.8 mmol/L (3.5-5.1)
[2020-01-01] MEDS: CALCIUM ACETATE 667 MG GELCAP PO SCH ×3 (08:41→20:40)
[2020-01-01] MEDS: FERROUS SULFATE 325 MG TAB PO SCH (08:41)
[2020-01-01] MEDS: INSULIN LISPRO 100 UNIT/1 ML 3ML VIAL SQ SCH ×4 (08:42→20:42)
[2020-01-01] MEDS: COLLAGENASE 5 GM TUBE TOP SCH ×2 (08:42→16:15)
[2020-01-01] MEDS: LEVOTHYROXINE SODIUM 50 MCG TAB PO SCH (08:42)
[2020-01-01] MEDS: CEFEPIME 1GM/NS 0.9% 50 ML 50 ML IV SCH (13:32)
[2020-01-01] MEDS ORDERED: HEPARIN SOD (PORCINE) 5,000 UNIT/ML VIAL IV ONE (15:00)
[2020-01-01] MEDS ORDERED: WARFARIN SOD 5 MG TAB PO ONE (15:00)
[2020-01-01] MEDS ORDERED: HEPARIN 25,000 UNIT 1,200 UNIT in DEXTROSE 5% 250ML 250 ML IV SCH (15:00)
[2020-01-01 15:38] LABS: INR 0.99; PROTHROMBIN TIME 13.6 seconds (11.9-14.5)
[2020-01-01 15:39] LABS: PARTIAL THROMBOPLASTIN TIME 31.3 seconds (23.8-35.5)
[2020-01-01] MEDS: HEPARIN 25,000 UNIT 800 UNIT in DEXTROSE 5% 250ML 250 ML IV SCH (16:00)
[2020-01-01] MEDS: ATORVASTATIN 10 MG TAB PO SCH (20:40)
[2020-01-01] MEDS: INSULIN GLARGINE 100 UNITS/ML VIAL SQ SCH (20:42)
[2020-01-02] VITALS (8 sets, daily range): BP systolic 119–184; BP diastolic 47–85
[2020-01-02] MEDS: HYDROMORPHONE 1MG/1ML INJ IV PRN ×2 (00:36→10:13)
[2020-01-02 06:27] LABS: BASOPHILS # (AUTO) 0.1 (0.0-0.1); BASOPHILS % 0.4 % (0.0-1.0); EOSINOPHILS # (AUTO) 0.5 (0.0-0.4); EOSINOPHILS % 3.2 % (0.0-6.0); HEMATOCRIT 31.9 % (34.2-44.1); HEMOGLOBIN 10.3 g/dL (12.0-16.0); LYMPHOCYTES # (AUTO) 1.1 (1.0-3.2); LYMPHOCYTES % 7.9 % (18.0-39.1); MEAN CORPUSCULAR HEMOGLOBIN 36.1 pg (28-32); MEAN CORPUSCULAR HGB CONC 32.3 g/dL (31-35); MEAN CORPUSCULAR VOLUME 111.9 fL (81-99); MONOCYTES # (AUTO) 1.6 (0.2-0.8); MONOCYTES % 11.6 % (4.4-11.3); NEUTROPHILS # (AUTO) 10.7 (2.1-6.9); NEUTROPHILS % 75.6 % (38.7-80.0); PLATELET COUNT 134 x10e3/uL (140-360); RED BLOOD COUNT 2.85 x10e6/uL (3.6-5.1); RED CELL DISTRIBUTION WIDTH 15.8 % (11.7-14.4)
[2020-01-02] MEDS: ACETAMINOPHEN/CODEINE 300MG - 30MG TAB PO PRN (06:30)
[2020-01-02 07:02] LABS: INR 0.96; PROTHROMBIN TIME 13.3 seconds (11.9-14.5)
[2020-01-02 07:07] LABS: ANION GAP 18.9 mmol/L (8-16); CALCIUM 9.7 mg/dL (8.4-10.2); CREATININE, SERUM 4.89 mg/dL (0.57-1.11); POTASSIUM 4.9 mmol/L (3.5-5.1)
[2020-01-02] MEDS: INSULIN LISPRO 100 UNIT/1 ML 3ML VIAL SQ SCH ×4 (08:15→21:02)
[2020-01-02] MEDS: LEVOTHYROXINE SODIUM 50 MCG TAB PO SCH (08:33)
[2020-01-02] MEDS: FERROUS SULFATE 325 MG TAB PO SCH (08:38)
[2020-01-02] MEDS: CALCIUM ACETATE 667 MG GELCAP PO SCH ×3 (08:38→20:59)
[2020-01-02] MEDS: COLLAGENASE 5 GM TUBE TOP SCH (08:38)
[2020-01-02 09:06] LABS: ANISOCYTOSIS SLIGHT; PLATELET ESTIMATE SLIGHTLY DECREASED
[2020-01-02 09:07] LABS: PLATELET MORPHOLOGY COMMENT NORMAL; POLYCHROMASIA FEW; RBC MORPHOLOGY COMMENT ABNORMAL
[2020-01-02] MEDS: TRAMADOL HCL 50 MG TAB PO PRN ×2 (09:16→22:04)
[2020-01-02] MEDS: CEFEPIME 1GM/NS 0.9% 50 ML 50 ML IV SCH (14:16)
[2020-01-02] MEDS: WARFARIN SOD 2 MG TAB PO SCH (16:18)
[2020-01-02] MEDS: HEPARIN 25,000 UNIT 800 UNIT in DEXTROSE 5% 250ML 250 ML IV SCH (17:37)
[2020-01-02] MEDS: ATORVASTATIN 10 MG TAB PO SCH (20:59)
[2020-01-02] MEDS: INSULIN GLARGINE 100 UNITS/ML VIAL SQ SCH (21:01)
[2020-01-03] VITALS: BP 127/50
[2020-01-03] MEDS: HYDROMORPHONE 1MG/1ML INJ IV PRN ×4 (00:53→22:23)
[2020-01-03 03:42] LABS: BASOPHILS # (AUTO) 0.1 (0.0-0.1); BASOPHILS % 0.5 % (0.0-1.0); EOSINOPHILS # (AUTO) 0.5 (0.0-0.4); EOSINOPHILS % 3.6 % (0.0-6.0); HEMATOCRIT 28.8 % (34.2-44.1); HEMOGLOBIN 9.2 g/dL (12.0-16.0); LYMPHOCYTES % 7.3 % (18.0-39.1); MEAN CORPUSCULAR HEMOGLOBIN 33.7 pg (28-32); MEAN CORPUSCULAR HGB CONC 31.9 g/dL (31-35); MONOCYTES # (AUTO) 1.4 (0.2-0.8); MONOCYTES % 10.6 % (4.4-11.3); NEUTROPHILS # (AUTO) 10.1 (2.1-6.9); PLATELET COUNT 133 x10e3/uL (140-360); RED BLOOD COUNT 2.73 x10e6/uL (3.6-5.1); RED CELL DISTRIBUTION WIDTH 15.7 % (11.7-14.4)
[2020-01-03 03:45] LABS: MEAN CORPUSCULAR VOLUME 105.5 fL (81-99)
[2020-01-03 03:59] LABS: ANION GAP 15.2 mmol/L (8-16); CALCIUM 9.6 mg/dL (8.4-10.2); CREATININE, SERUM 5.75 mg/dL (0.57-1.11); POTASSIUM 5.2 mmol/L (3.5-5.1)
[2020-01-03 04:00] VITALS: BP 111/58
[2020-01-03 04:10] LABS: INR 0.95; PROTHROMBIN TIME 13.2 seconds (11.9-14.5)
[2020-01-03] MEDS: LEVOTHYROXINE SODIUM 50 MCG TAB PO SCH (07:30)
[2020-01-03 07:44] VITALS: BP 115/89
[2020-01-03] MEDS: INSULIN LISPRO 100 UNIT/1 ML 3ML VIAL SQ SCH ×4 (07:45→21:30)
[2020-01-03 08:41] LABS: HEMATOCRIT 28.7 % (34.2-44.1); HEMOGLOBIN 9.1 g/dL (12.0-16.0); MEAN CORPUSCULAR HEMOGLOBIN 33.7 pg (28-32); MEAN CORPUSCULAR HGB CONC 31.7 g/dL (31-35); MEAN CORPUSCULAR VOLUME 106.3 fL (81-99); PLATELET COUNT 124 x10e3/uL (140-360); RED CELL DISTRIBUTION WIDTH 15.7 % (11.7-14.4)
[2020-01-03] MEDS: FERROUS SULFATE 325 MG TAB PO SCH (09:00)
[2020-01-03] MEDS: CALCIUM ACETATE 667 MG GELCAP PO SCH ×3 (09:00→21:30)
[2020-01-03] MEDS ORDERED: SODIUM CHLORIDE 0.9% 1000ML 2,000 ML ONE (09:12)
[2020-01-03 09:15] LABS: ALBUMIN 2.8 g/dL (3.5-5.0); ALBUMIN/GLOBULIN RATIO 0.9 (0.8-2.0); ANION GAP 15.9 mmol/L (8-16); CALCIUM 9.3 mg/dL (8.4-10.2); CREATININE, SERUM 5.9 mg/dL (0.57-1.11); POTASSIUM 4.9 mmol/L (3.5-5.1)
[2020-01-03] MEDS ORDERED: EPOETIN ALFA-EPBX 10,000 UNIT/ML VIAL SC ONE (09:30)
[2020-01-03 11:00] VITALS: BP 123/56
[2020-01-03] MEDS ORDERED: SODIUM CHLORIDE 0.9% 1000ML 2,000 ML IV PRN (11:45)
[2020-01-03] MEDS ORDERED: ALBUMIN 25% 12.5GM 0.25 GM/ML BTL IV PRN (11:45)
[2020-01-03 11:46] LABS: EOSINOPHILS % (MANUAL) 3 % (0-7); LYMPHOCYTES % (MANUAL) 8 % (19-48); MONOCYTES % (MANUAL) 5 % (3.4-9.0); NEUTROPHILS % (MANUAL) 81 % (40-74); PLATELET ESTIMATE ADEQUATE; PLATELET MORPHOLOGY COMMENT NORMAL; RBC MORPHOLOGY COMMENT ABNORMAL
[2020-01-03 15:01] VITALS: BP 96/60
[2020-01-03] MEDS: ACETAMINOPHEN/CODEINE 300MG - 30MG TAB PO PRN ×2 (15:28→21:28)
[2020-01-03] MEDS: WARFARIN SOD 2 MG TAB PO SCH (17:38)
[2020-01-03 20:00] VITALS: BP 139/40
[2020-01-03] MEDS: ATORVASTATIN 10 MG TAB PO SCH (21:30)
[2020-01-03] MEDS: INSULIN GLARGINE 100 UNITS/ML VIAL SQ SCH (21:30)
[2020-01-03] MEDS: HEPARIN 25,000 UNIT 800 UNIT in DEXTROSE 5% 250ML 250 ML IV SCH (21:30)
[2020-01-04] VITALS: BP 122/63
[2020-01-04] MEDS: HYDROMORPHONE 1MG/1ML INJ IV PRN ×4 (01:20→20:18)
[2020-01-04 04:00] VITALS: BP 141/92
[2020-01-04 05:13] LABS: BASOPHILS # (AUTO) 0.1 (0.0-0.1); BASOPHILS % 0.4 % (0.0-1.0); EOSINOPHILS # (AUTO) 0.4 (0.0-0.4); EOSINOPHILS % 3.6 % (0.0-6.0); HEMATOCRIT 26.5 % (34.2-44.1); HEMOGLOBIN 8.5 g/dL (12.0-16.0); LYMPHOCYTES # (AUTO) 0.8 (1.0-3.2); LYMPHOCYTES % 6.6 % (18.0-39.1); MEAN CORPUSCULAR HEMOGLOBIN 35.6 pg (28-32); MEAN CORPUSCULAR HGB CONC 32.1 g/dL (31-35); MEAN CORPUSCULAR VOLUME 110.9 fL (81-99); MONOCYTES # (AUTO) 1.6 (0.2-0.8); MONOCYTES % 13.4 % (4.4-11.3); NEUTROPHILS # (AUTO) 8.7 (2.1-6.9); PLATELET COUNT 135 x10e3/uL (140-360); RED BLOOD COUNT 2.39 x10e6/uL (3.6-5.1)
[2020-01-04 05:22] LABS: INR 0.98; PROTHROMBIN TIME 13.5 seconds (11.9-14.5)
[2020-01-04] MEDS: LEVOTHYROXINE SODIUM 50 MCG TAB PO SCH (07:30)
[2020-01-04] MEDS: INSULIN LISPRO 100 UNIT/1 ML 3ML VIAL SQ SCH ×5 (07:30→21:00)
[2020-01-04 08:04] VITALS: BP 149/51
[2020-01-04] MEDS: FERROUS SULFATE 325 MG TAB PO SCH (08:23)
[2020-01-04] MEDS: CALCIUM ACETATE 667 MG GELCAP PO SCH ×3 (09:12→20:22)
[2020-01-04 11:13] VITALS: BP 130/62
[2020-01-04] MEDS: ACETAMINOPHEN/CODEINE 300MG - 30MG TAB PO PRN ×2 (14:15→21:00)
[2020-01-04] MEDS: WARFARIN SOD 2 MG TAB PO SCH (17:04)
[2020-01-04 20:00] VITALS: BP 143/56
[2020-01-04] MEDS: ATORVASTATIN 10 MG TAB PO SCH (20:22)
[2020-01-04 21:00] VITALS: BP 143/56
[2020-01-04] MEDS: HEPARIN 25,000 UNIT 800 UNIT in DEXTROSE 5% 250ML 250 ML IV SCH (21:00)
[2020-01-04] MEDS: INSULIN GLARGINE 100 UNITS/ML VIAL SQ SCH (21:00)
[2020-01-05] VITALS (7 sets, daily range): BP systolic 130–162; BP diastolic 53–68
[2020-01-05 06:21] LABS: INR 0.96; PROTHROMBIN TIME 13.3 seconds (11.9-14.5)
[2020-01-05 06:26] LABS: BASOPHILS # (AUTO) 0.1 (0.0-0.1); BASOPHILS % 0.6 % (0.0-1.0); EOSINOPHILS # (AUTO) 0.4 (0.0-0.4); HEMATOCRIT 26.1 % (34.2-44.1); HEMOGLOBIN 8.1 g/dL (12.0-16.0); LYMPHOCYTES % 9.2 % (18.0-39.1); MEAN CORPUSCULAR HEMOGLOBIN 33.9 pg (28-32); MEAN CORPUSCULAR VOLUME 109.2 fL (81-99); NEUTROPHILS # (AUTO) 7.7 (2.1-6.9); NEUTROPHILS % 75.2 % (38.7-80.0); PLATELET COUNT 144 x10e3/uL (140-360); RED BLOOD COUNT 2.39 x10e6/uL (3.6-5.1)
[2020-01-05] MEDS: INSULIN LISPRO 100 UNIT/1 ML 3ML VIAL SQ SCH ×4 (07:30→22:03)
[2020-01-05 07:46] LABS: CALCIUM 9.4 mg/dL (8.4-10.2); CREATININE, SERUM 5.08 mg/dL (0.57-1.11)
[2020-01-05] MEDS ORDERED: EPOETIN ALFA-EPBX 10,000 UNIT/ML VIAL SC SCH (08:00)
[2020-01-05] MEDS: ACETAMINOPHEN/CODEINE 300MG - 30MG TAB PO PRN (11:43)
[2020-01-05] MEDS: FERROUS SULFATE 325 MG TAB PO SCH (13:36)
[2020-01-05] MEDS: SEVELAMER CARBONATE 800 MG TAB PO SCH ×2 (13:36→16:28)
[2020-01-05] MEDS: LEVOTHYROXINE SODIUM 50 MCG TAB PO SCH (13:36)
[2020-01-05] MEDS: WARFARIN SOD 3 MG TAB PO SCH (16:28)
[2020-01-05] MEDS ORDERED: ACETAMINOPHEN/CODEINE 300MG - 30MG TAB PO PRN (17:15)
[2020-01-05] MEDS: TRAMADOL HCL 50 MG TAB PO PRN (17:19)
[2020-01-05] MEDS: ATORVASTATIN 10 MG TAB PO SCH (21:02)
[2020-01-05] MEDS: HEPARIN 25,000 UNIT 800 UNIT in DEXTROSE 5% 250ML 250 ML IV SCH (22:03)
[2020-01-05] MEDS: INSULIN GLARGINE 100 UNITS/ML VIAL SQ SCH (22:04)
[2020-01-05] MEDS: HYDROMORPHONE 1MG/1ML INJ IV PRN (22:57)
[2020-01-06] VITALS (7 sets, daily range): BP systolic 128–138; BP diastolic 57–83
[2020-01-06] MEDS: HYDROMORPHONE 1MG/1ML INJ IV PRN (02:29)
[2020-01-06 05:14] LABS: BASOPHILS % 0.4 % (0.0-1.0); EOSINOPHILS # (AUTO) 0.5 (0.0-0.4); HEMATOCRIT 24.6 % (34.2-44.1); HEMOGLOBIN 8.1 g/dL (12.0-16.0); LYMPHOCYTES % 8.6 % (18.0-39.1); MEAN CORPUSCULAR HEMOGLOBIN 36.7 pg (28-32); MEAN CORPUSCULAR HGB CONC 32.9 g/dL (31-35); MEAN CORPUSCULAR VOLUME 111.3 fL (81-99); MONOCYTES # (AUTO) 1.6 (0.2-0.8); MONOCYTES % 13.9 % (4.4-11.3); NEUTROPHILS # (AUTO) 8.2 (2.1-6.9); NEUTROPHILS % 72.5 % (38.7-80.0); PLATELET COUNT 170 x10e3/uL (140-360); RED BLOOD COUNT 2.21 x10e6/uL (3.6-5.1); RED CELL DISTRIBUTION WIDTH 16.2 % (11.7-14.4)
[2020-01-06 05:49] LABS: FERRITIN 1527.37 ng/mL (4.63-204.00)
[2020-01-06] MEDS: LEVOTHYROXINE SODIUM 50 MCG TAB PO SCH (07:54)
[2020-01-06] MEDS: INSULIN LISPRO 100 UNIT/1 ML 3ML VIAL SQ SCH ×4 (07:55→20:58)
[2020-01-06] MEDS: SEVELAMER CARBONATE 800 MG TAB PO SCH ×3 (07:57→17:46)
[2020-01-06] MEDS: FERROUS SULFATE 325 MG TAB PO SCH (08:38)
[2020-01-06 09:11] LABS: INR 1.19; PROTHROMBIN TIME 15.7 seconds (11.9-14.5)
[2020-01-06] MEDS: HEPARIN 25,000 UNIT 800 UNIT in DEXTROSE 5% 250ML 250 ML IV SCH (16:30)
[2020-01-06] MEDS: HYDROCODONE/APAP 7.5MG-325MG 1 EA TAB PO PRN ×2 (17:25→23:30)
[2020-01-06] MEDS: WARFARIN SOD 3 MG TAB PO SCH (17:46)
[2020-01-06] MEDS: ATORVASTATIN 10 MG TAB PO SCH (20:51)
[2020-01-06] MEDS: INSULIN GLARGINE 100 UNITS/ML VIAL SQ SCH (20:58)
[2020-01-07] VITALS (7 sets, daily range): BP systolic 110–157; BP diastolic 57–71
[2020-01-07 05:06] LABS: INR 1.51
[2020-01-07 05:14] LABS: ANION GAP 15.8 mmol/L (8-16); CALCIUM 8.2 mg/dL (8.4-10.2); CREATININE, SERUM 5.17 mg/dL (0.57-1.11); POTASSIUM 3.8 mmol/L (3.5-5.1)
[2020-01-07] MEDS: HYDROCODONE/APAP 7.5MG-325MG 1 EA TAB PO PRN ×3 (05:53→20:59)
[2020-01-07] MEDS: HEPARIN 25,000 UNIT 800 UNIT in DEXTROSE 5% 250ML 250 ML IV SCH (07:00)
[2020-01-07] MEDS: INSULIN LISPRO 100 UNIT/1 ML 3ML VIAL SQ SCH ×4 (07:30→20:57)
[2020-01-07] MEDS: SEVELAMER CARBONATE 800 MG TAB PO SCH ×4 (08:00→17:54)
[2020-01-07] MEDS: ACETAMINOPHEN 325 MG TAB PO PRN (08:03)
[2020-01-07] MEDS ORDERED: EPOETIN ALFA-EPBX 10,000 UNIT/ML VIAL SC ONE (10:00)
[2020-01-07] MEDS ORDERED: ALBUMIN 25% 12.5GM 0.25 GM/ML BTL IV PRN (10:30)
[2020-01-07] MEDS ORDERED: SODIUM CHLORIDE 0.9% 250ML 500 ML IV PRN (10:30)
[2020-01-07] MEDS ORDERED: SODIUM CHLORIDE 0.9% 1000ML 2,000 ML IV PRN (10:30)
[2020-01-07] MEDS ORDERED: MANNITOL 25% 12.5GM/50 ML VIAL IV PRN (10:30)
[2020-01-07] MEDS: FERROUS SULFATE 325 MG TAB PO SCH (12:57)
[2020-01-07] MEDS: LEVOTHYROXINE SODIUM 50 MCG TAB PO SCH (12:57)
[2020-01-07] MEDS: WARFARIN SOD 3 MG TAB PO SCH (17:54)
[2020-01-07] MEDS: ATORVASTATIN 10 MG TAB PO SCH (20:56)
[2020-01-07] MEDS: INSULIN GLARGINE 100 UNITS/ML VIAL SQ SCH (20:58)
[2020-01-07] MEDS ORDERED: GABAPENTIN 100 MG CAP PO PRN (21:15)
[2020-01-08] VITALS: BP 137/55
[2020-01-08] MEDS: HYDROCODONE/APAP 10MG-325MG TAB PO PRN ×3 (03:00→19:35)
[2020-01-08] MEDS: SEVELAMER CARBONATE 800 MG TAB PO SCH ×3 (07:30→16:58)
[2020-01-08] MEDS: FERROUS SULFATE 325 MG TAB PO SCH (07:30)
[2020-01-08] MEDS: LEVOTHYROXINE SODIUM 50 MCG TAB PO SCH (07:30)
[2020-01-08 08:00] VITALS: BP 131/55
[2020-01-08 08:22] LABS: INR 1.98; PROTHROMBIN TIME 23.5 seconds (11.9-14.5)
[2020-01-08] MEDS: INSULIN LISPRO 100 UNIT/1 ML 3ML VIAL SQ SCH ×4 (08:30→21:02)
[2020-01-08] MEDS ORDERED: HYDROCODONE/APAP 10MG-325MG TAB PO PRN (13:45)
[2020-01-08] MEDS ORDERED: HYDROMORPHONE 1MG/1ML INJ IV ONE (13:45)
[2020-01-08] MEDS ORDERED: HYDROCODONE/APAP 10MG-325MG TAB ONE (13:55)
[2020-01-08 16:00] VITALS: BP 97/44
[2020-01-08] MEDS: WARFARIN SOD 3 MG TAB PO SCH (16:58)
[2020-01-08] MEDS: DOCUSATE SODIUM 100 MG CAP PO SCH (16:58)
[2020-01-08 20:00] VITALS: BP 110/68
[2020-01-08] MEDS: ATORVASTATIN 10 MG TAB PO SCH (20:25)
[2020-01-08] MEDS: INSULIN GLARGINE 100 UNITS/ML VIAL SQ SCH (20:40)
[2020-01-08 21:00] VITALS: BP 110/68
[2020-01-08] MEDS ORDERED: HEPARIN IV SCH (21:15)
[2020-01-08] MEDS ORDERED: DEXTROSE 5% IV SCH (21:15)
[2020-01-09] VITALS (8 sets, daily range): BP systolic 115–145; BP diastolic 57–75
[2020-01-09] MEDS: HYDROCODONE/APAP 10MG-325MG TAB PO PRN ×4 (01:55→20:35)
[2020-01-09 06:29] LABS: INR 3.08; PROTHROMBIN TIME 33.2 seconds (11.9-14.5)
[2020-01-09 06:30] LABS: ANION GAP 18.2 mmol/L (8-16); CALCIUM 7.9 mg/dL (8.4-10.2); CREATININE, SERUM 5.53 mg/dL (0.57-1.11); POTASSIUM 4.2 mmol/L (3.5-5.1)
[2020-01-09 07:23] LABS: BASOPHILS % 0.5 % (0.0-1.0); EOSINOPHILS # (AUTO) 0.6 (0.0-0.4); EOSINOPHILS % 8.1 % (0.0-6.0); HEMATOCRIT 24.7 % (34.2-44.1); HEMOGLOBIN 8.2 g/dL (12.0-16.0); LYMPHOCYTES # (AUTO) 0.7 (1.0-3.2); LYMPHOCYTES % 8.7 % (18.0-39.1); MEAN CORPUSCULAR HEMOGLOBIN 37.1 pg (28-32); MEAN CORPUSCULAR HGB CONC 33.2 g/dL (31-35); MEAN CORPUSCULAR VOLUME 111.8 fL (81-99); MONOCYTES % 12.6 % (4.4-11.3); NEUTROPHILS # (AUTO) 5.5 (2.1-6.9); NEUTROPHILS % 69.3 % (38.7-80.0); PLATELET COUNT 208 x10e3/uL (140-360); RED BLOOD COUNT 2.21 x10e6/uL (3.6-5.1); RED CELL DISTRIBUTION WIDTH 15.7 % (11.7-14.4)
[2020-01-09] MEDS: DOCUSATE SODIUM 100 MG CAP PO SCH ×2 (08:47→16:33)
[2020-01-09] MEDS: FERROUS SULFATE 325 MG TAB PO SCH (08:47)
[2020-01-09] MEDS: LEVOTHYROXINE SODIUM 50 MCG TAB PO SCH (08:47)
[2020-01-09] MEDS: SEVELAMER CARBONATE 800 MG TAB PO SCH ×3 (08:47→16:33)
[2020-01-09] MEDS: INSULIN LISPRO 100 UNIT/1 ML 3ML VIAL SQ SCH ×4 (08:51→20:29)
[2020-01-09] MEDS: WARFARIN SOD 2 MG TAB PO SCH (15:47)
[2020-01-09] MEDS: ATORVASTATIN 10 MG TAB PO SCH (20:03)
[2020-01-09] MEDS: GABAPENTIN 100 MG CAP PO SCH (20:03)
[2020-01-09] MEDS: INSULIN GLARGINE 100 UNITS/ML VIAL SQ SCH (20:30)
[2020-01-10 04:00] VITALS: BP 108/78
[2020-01-10 05:49] LABS: INR 2.9; PROTHROMBIN TIME 31.7 seconds (11.9-14.5)
[2020-01-10] MEDS: INSULIN LISPRO 100 UNIT/1 ML 3ML VIAL SQ SCH ×4 (07:30→21:35)
[2020-01-10] MEDS: HYDROCODONE/APAP 10MG-325MG TAB PO PRN ×4 (07:48→21:35)
[2020-01-10] MEDS: GABAPENTIN 100 MG CAP PO SCH ×2 (08:12→16:20)
[2020-01-10] MEDS: SEVELAMER CARBONATE 800 MG TAB PO SCH ×3 (08:12→16:20)
[2020-01-10] MEDS: FERROUS SULFATE 325 MG TAB PO SCH (08:12)
[2020-01-10 08:57] VITALS: BP 131/61
[2020-01-10] MEDS: DOCUSATE SODIUM 100 MG CAP PO SCH ×2 (09:00→16:19)
[2020-01-10] MEDS ORDERED: EPOETIN ALFA-EPBX 10,000 UNIT/ML VIAL SC ONE (12:00)
[2020-01-10 12:01] VITALS: BP 128/57
[2020-01-10] MEDS: LEVOTHYROXINE SODIUM 50 MCG TAB PO SCH (14:02)
[2020-01-10] MEDS: WARFARIN SOD 2 MG TAB PO SCH (16:20)
[2020-01-10 16:27] VITALS: BP 120/50
[2020-01-10 20:00] VITALS: BP 133/64
[2020-01-10] MEDS: ATORVASTATIN 10 MG TAB PO SCH (21:35)
[2020-01-10] MEDS: INSULIN GLARGINE 100 UNITS/ML VIAL SQ SCH (21:35)
[2020-01-10 21:59] VITALS: BP 133/64
[2020-01-11] VITALS: BP 129/33
[2020-01-11] MEDS: HYDROCODONE/APAP 10MG-325MG TAB PO PRN ×3 (02:17→10:56)
[2020-01-11 04:00] VITALS: BP 143/52
[2020-01-11] MEDS: LEVOTHYROXINE SODIUM 50 MCG TAB PO SCH (06:22)
[2020-01-11] MEDS: INSULIN LISPRO 100 UNIT/1 ML 3ML VIAL SQ SCH ×3 (08:30→16:30)
[2020-01-11 09:03] VITALS: BP 117/53
[2020-01-11 09:07] LABS: HEMATOCRIT 24.8 % (34.2-44.1); HEMOGLOBIN 7.8 g/dL (12.0-16.0)
[2020-01-11 09:25] LABS: ANION GAP 15.1 mmol/L (8-16); CALCIUM 8.3 mg/dL (8.4-10.2); CREATININE, SERUM 4.13 mg/dL (0.57-1.11); POTASSIUM 4.1 mmol/L (3.5-5.1)
[2020-01-11] MEDS: GABAPENTIN 100 MG CAP PO SCH ×2 (09:40→17:30)
[2020-01-11] MEDS: SEVELAMER CARBONATE 800 MG TAB PO SCH ×3 (09:40→17:30)
[2020-01-11] MEDS: DOCUSATE SODIUM 100 MG CAP PO SCH ×2 (09:40→17:30)
[2020-01-11] MEDS: FERROUS SULFATE 325 MG TAB PO SCH (09:40)
[2020-01-11 10:38] LABS: INR 2.82
[2020-01-11 12:30] VITALS: BP 125/56
[2020-01-11 16:14] VITALS: BP 127/62
[2020-01-11] MEDS: WARFARIN SOD 2 MG TAB PO SCH (17:30)
== END 2020-01-11 17:45 | disposition home or self-care (01) | DRG 616 ==
LOC: ER 14:08 → ERHOLD 14:17 → MED/SURG2 16:40
PROVIDERS: ADMIT Internal Medicine; ATTEND Internal Medicine
PROC: B41D1ZZ Fluoroscopy of Aorta and Bilateral Lower Extremity Arteries using Low Osmolar Contrast (ICD-10-PCS; principal; 2019-12-24)
PROC: 047K3Z1 Dilation of Right Femoral Artery using Drug-Coated Balloon, Percutaneous Approach (ICD-10-PCS; 2019-12-24)
PROC: 5A1D70Z Performance of Urinary Filtration, Intermittent, Less than 6 Hours Per Day (ICD-10-PCS; 2019-12-24)
PROC: 5A1D70Z Performance of Urinary Filtration, Intermittent, Less than 6 Hours Per Day (ICD-10-PCS; 2019-12-27)
PROC: 5A1D70Z Performance of Urinary Filtration, Intermittent, Less than 6 Hours Per Day (ICD-10-PCS; 2019-12-29)
PROC: 0Y6C0Z3 Detachment at Right Upper Leg, Low, Open Approach (ICD-10-PCS; 2019-12-30)
PROC: 5A1D70Z Performance of Urinary Filtration, Intermittent, Less than 6 Hours Per Day (ICD-10-PCS; 2019-12-31)
PROC: 5A1D70Z Performance of Urinary Filtration, Intermittent, Less than 6 Hours Per Day (ICD-10-PCS; 2020-01-03)
PROC: 5A1D70Z Performance of Urinary Filtration, Intermittent, Less than 6 Hours Per Day (ICD-10-PCS; 2020-01-05)
PROC: 5A1D70Z Performance of Urinary Filtration, Intermittent, Less than 6 Hours Per Day (ICD-10-PCS; 2020-01-10)
DX: E11.69 Type 2 diabetes mellitus with other specified complication (principal); G93.41 Metabolic encephalopathy; M86.171 Other acute osteomyelitis, right ankle and foot; I12.0 Hypertensive chronic kidney disease with stage 5 chronic kidney disease or end stage renal disease; L03.115 Cellulitis of right lower limb; E11.621 Type 2 diabetes mellitus with foot ulcer; N18.6 End stage renal disease; E11.22 Type 2 diabetes mellitus with diabetic chronic kidney disease; Z99.2 Dependence on renal dialysis; D64.9 Anemia, unspecified; E78.5 Hyperlipidemia, unspecified; Z90.49 Acquired absence of other specified parts of digestive tract; Z87.891 Personal history of nicotine dependence; Z95.2 Presence of prosthetic heart valve; E11.51 Type 2 diabetes mellitus with diabetic peripheral angiopathy without gangrene; Z79.01 Long term (current) use of anticoagulants; Z88.0 Allergy status to penicillin; E11.319 Type 2 diabetes mellitus with unspecified diabetic retinopathy without macular edema; E11.42 Type 2 diabetes mellitus with diabetic polyneuropathy; I70.234 Atherosclerosis of native arteries of right leg with ulceration of heel and midfoot; N25.81 Secondary hyperparathyroidism of renal origin; D63.1 Anemia in chronic kidney disease; G92 Toxic encephalopathy; T40.2X5A Adverse effect of other opioids, initial encounter; Y92.230 Patient room in hospital as the place of occurrence of the external cause; Z79.4 Long term (current) use of insulin
CPT/HCPCS: 36247; 36415; 37224; 70450; 74176; 75625; 75716; 80048; 80053; 82550; 82553; 82728; 82948; 83036; 83540; 83605; 84466; 84484; 85007; 85014; 85018; 85025; 85027; 85610; 85651; 85730; 86140; 86704; 86705; 86706; 87040; 87340; 88307; 88311; 90962; 93306; 96372; 97139; 99152; 99153; 99251; 99284; C1725; C1760; C1769; C1887; J0360; J0692; J1100; J1170; J1644; J1815; J1885; J2001; J2250; J2270; J2370; J2405; J2710; J3010; J3370; J7030; J7040; J7050; J7799; Q9967; U0002

== ENCOUNTER 2020-02-24 14:20 | Emergency (ER) | payer OTHER ==
[~2020-02-24] VITALS: Ht 152.4 cm; Wt 83.9 kg
[2020-02-24 16:37] VITALS: BP 135/85
== END 2020-02-24 16:35 | disposition home or self-care (01) ==
LOC: ER 14:35
DX: S00.83XA Contusion of other part of head, initial encounter (principal); W01.10XA Fall on same level from slipping, tripping and stumbling with subsequent striking against unspecified object, initial encounter; L97.529 Non-pressure chronic ulcer of other part of left foot with unspecified severity; Z89.511 Acquired absence of right leg below knee; Z79.01 Long term (current) use of anticoagulants; I12.9 Hypertensive chronic kidney disease with stage 1 through stage 4 chronic kidney disease, or unspecified chronic kidney disease; E11.22 Type 2 diabetes mellitus with diabetic chronic kidney disease; N18.9 Chronic kidney disease, unspecified; Z99.2 Dependence on renal dialysis
CPT/HCPCS: 70450; 72125; 99283

== ENCOUNTER → 2020-03-02 | Outpatient (CLI) | payer OTHER ==
[2020-03-02 08:19] LABS: POTASSIUM 3.5 mmol/L (3.5-5.1)
== END ==
LOC: LAB 07:52
PROVIDERS: ATTEND Ophthalmology
DX: Z13.9 Encounter for screening, unspecified (principal)
CPT/HCPCS: 36415; 84132; 84295

== ENCOUNTER 2020-04-17 17:55 | Emergency (ER) | payer OTHER ==
[~2020-04-17] VITALS: Ht 165.1 cm; Wt 83.9 kg
[2020-04-17 18:44] LABS: BASOPHILS % 0.6 % (0.0-1.0); EOSINOPHILS # (AUTO) 0.2 (0.0-0.4); HEMATOCRIT 31.8 % (34.2-44.1); HEMOGLOBIN 9.8 g/dL (12.0-16.0); LYMPHOCYTES # (AUTO) 0.5 (1.0-3.2); LYMPHOCYTES % 7.6 % (18.0-39.1); MEAN CORPUSCULAR HEMOGLOBIN 30.9 pg (28-32); MEAN CORPUSCULAR HGB CONC 30.8 g/dL (31-35); MEAN CORPUSCULAR VOLUME 100.3 fL (81-99); MONOCYTES # (AUTO) 0.7 (0.2-0.8); MONOCYTES % 9.8 % (4.4-11.3); NEUTROPHILS # (AUTO) 5.5 (2.1-6.9); NEUTROPHILS % 78.7 % (38.7-80.0); PLATELET COUNT 185 x10e3/uL (140-360); RED BLOOD COUNT 3.17 x10e6/uL (3.6-5.1); RED CELL DISTRIBUTION WIDTH 19.9 % (11.7-14.4)
[2020-04-17 19:04] LABS: ALBUMIN 2.6 g/dL (3.5-5.0); ALBUMIN/GLOBULIN RATIO 0.6 (0.8-2.0); CALCIUM 8.5 mg/dL (8.4-10.2); CREATININE, SERUM 2.56 mg/dL (0.57-1.11)
[2020-04-17 19:05] LABS: PARTIAL THROMBOPLASTIN TIME 190.9 seconds (23.8-35.5); PROTHROMBIN TIME > 120.0 seconds (11.9-14.5)
[2020-04-17] MEDS ORDERED: PHYTONADIONE 10 MG/ML AMP SQ ONE (19:15)
[2020-04-17] MEDS ORDERED: SODIUM CHLORIDE 0.9% 1000ML 1,000 ML ONE (21:35)
== END 2020-04-18 02:00 | disposition short-term general hospital (02) ==
LOC: ER 18:20
DX: T82.838A Hemorrhage due to vascular prosthetic devices, implants and grafts, initial encounter (principal); E11.22 Type 2 diabetes mellitus with diabetic chronic kidney disease; I12.0 Hypertensive chronic kidney disease with stage 5 chronic kidney disease or end stage renal disease; N18.6 End stage renal disease; D64.9 Anemia, unspecified; T45.515A Adverse effect of anticoagulants, initial encounter; Y83.8 Other surgical procedures as the cause of abnormal reaction of the patient, or of later complication, without mention of misadventure at the time of the procedure; Z99.2 Dependence on renal dialysis
CPT/HCPCS: 36415; 80053; 85025; 85610; 85730; 86850; 86900; 99284; J3430; J7030; P9017

== ENCOUNTER → 2020-07-20 | Outpatient (CLI) | payer OTHER | LOC: LAB 05:51 | PROVIDERS: ATTEND Anesthesiology | DX: Z01.812 Encounter for preprocedural laboratory examination (principal) | CPT/HCPCS: 36415; 84132 ==

== ENCOUNTER 2020-08-01 14:16 | Inpatient (IN) | payer OTHER ==
[~2020-08-01] VITALS: Ht 165.1 cm; Wt 72.3 kg
[2020-08-01 14:57] LABS: BASOPHILS % 0.3 % (0.0-1.0); EOSINOPHILS # (AUTO) 0.2 (0.0-0.4); EOSINOPHILS % 2.8 % (0.0-6.0); HEMATOCRIT 31.8 % (34.2-44.1); HEMOGLOBIN 9.4 g/dL (12.0-16.0); LYMPHOCYTES # (AUTO) 0.7 (1.0-3.2); LYMPHOCYTES % 10.1 % (18.0-39.1); MEAN CORPUSCULAR HEMOGLOBIN 30.1 pg (28-32); MEAN CORPUSCULAR HGB CONC 29.6 g/dL (31-35); MEAN CORPUSCULAR VOLUME 101.9 fL (81-99); MONOCYTES # (AUTO) 0.8 (0.2-0.8); MONOCYTES % 11.9 % (4.4-11.3); NEUTROPHILS # (AUTO) 5.3 (2.1-6.9); NEUTROPHILS % 74.6 % (38.7-80.0); PLATELET COUNT 118 x10e3/uL (140-360); RED BLOOD COUNT 3.12 x10e6/uL (3.6-5.1); RED CELL DISTRIBUTION WIDTH 18.1 % (11.7-14.4)
[2020-08-01 15:17] LABS: ALBUMIN 2.7 g/dL (3.5-5.0); ALBUMIN/GLOBULIN RATIO 0.7 (0.8-2.0); ANION GAP 13.9 mmol/L (8-16); CALCIUM 8.4 mg/dL (8.4-10.2); CREATININE, SERUM 3.57 mg/dL (0.57-1.11); POTASSIUM 3.9 mmol/L (3.5-5.1)
[2020-08-01 15:25] LABS: CREATINE KINASE MB 0.8 ng/mL (0-5.0)
[2020-08-01 20:33] VITALS: BP 145/69
[2020-08-01 21:34] VITALS: BP 145/69
[2020-08-01 21:36] VITALS: BP 145/69
[2020-08-01] MEDS ORDERED: NEURONTIN100 MG PO (21:53)
[2020-08-01] MEDS ORDERED: METOCLOPRAMIDE H5 M1 PO (21:53)
[2020-08-01] MEDS ORDERED: RENA-VITE RX T1 EACH PO (21:54)
[2020-08-01] MEDS ORDERED: FUROSEMIDE40 MG PO (21:55)
[2020-08-01] MEDS ORDERED: ONE DAILY FOR1 EAC3 PO (21:56)
[2020-08-01] MEDS ORDERED: TYLENOL # 31 EA PO (21:58)
[2020-08-01] MEDS ORDERED: GABAPENTIN 100 MG CAP PO PRN (22:15)
[2020-08-01] MEDS ORDERED: FUROSEMIDE INJ 10 MG/ML 4 ML VIAL IV ONE (22:15)
[2020-08-01] MEDS ORDERED: METOCLOPRAMIDE HCL 10 MG TAB PO PRN (22:45)
[2020-08-02] VITALS (8 sets, daily range): BP systolic 103–146; BP diastolic 44–54
[2020-08-02] MEDS: ACETAMINOPHEN/CODEINE 300MG - 30MG TAB PO PRN (00:17)
[2020-08-02 05:00] LABS: BASOPHILS % 0.3 % (0.0-1.0); EOSINOPHILS # (AUTO) 0.3 (0.0-0.4); EOSINOPHILS % 4.4 % (0.0-6.0); HEMATOCRIT 29.1 % (34.2-44.1); HEMOGLOBIN 8.9 g/dL (12.0-16.0); LYMPHOCYTES # (AUTO) 0.6 (1.0-3.2); LYMPHOCYTES % 8.7 % (18.0-39.1); MEAN CORPUSCULAR HEMOGLOBIN 30.6 pg (28-32); MEAN CORPUSCULAR HGB CONC 30.6 g/dL (31-35); MONOCYTES # (AUTO) 1.1 (0.2-0.8); MONOCYTES % 16.1 % (4.4-11.3); NEUTROPHILS # (AUTO) 4.6 (2.1-6.9); NEUTROPHILS % 70.3 % (38.7-80.0); PLATELET COUNT 103 x10e3/uL (140-360); RED BLOOD COUNT 2.91 x10e6/uL (3.6-5.1); RED CELL DISTRIBUTION WIDTH 18.4 % (11.7-14.4)
[2020-08-02 05:10] LABS: INR 1.21
[2020-08-02 05:19] LABS: ALBUMIN 2.6 g/dL (3.5-5.0); ALBUMIN/GLOBULIN RATIO 0.7 (0.8-2.0); CALCIUM 8.2 mg/dL (8.4-10.2); CREATININE, SERUM 4.11 mg/dL (0.57-1.11)
[2020-08-02] MEDS: FUROSEMIDE INJ 10 MG/ML 4 ML VIAL IV SCH ×2 (08:00→12:00)
[2020-08-02] MEDS: LEVOTHYROXINE SODIUM 50 MCG TAB PO SCH (08:52)
[2020-08-02] MEDS: HEPARIN SOD (PORCINE) 5,000 UNIT/ML VIAL SC SCH ×3 (08:53→21:49)
[2020-08-02] MEDS: CALCIUM ACETATE 667 MG GELCAP PO SCH ×3 (08:53→20:42)
[2020-08-02] MEDS: METOPROLOL TARTRATE 25 MG TAB PO SCH ×2 (09:00→17:33)
[2020-08-02] MEDS ORDERED: WARFARIN SOD 2 MG TAB PO ONE (09:15)
[2020-08-02] MEDS ORDERED: SODIUM CHLORIDE 0.9% 1000ML 1,000 ML ONE (09:23)
[2020-08-02] MEDS ORDERED: HYDROXYZINE HCL25 MG PO (10:49)
[2020-08-02] MEDS ORDERED: HYDROXYZINE HCL 25 MG TAB PO PRN (11:00)
[2020-08-02] MEDS ORDERED: WARFARIN SOD 1 MG TAB PO SCH (17:00)
[2020-08-02] MEDS: ATORVASTATIN 10 MG TAB PO SCH (20:42)
[2020-08-03] VITALS (9 sets, daily range): BP systolic 115–146; BP diastolic 44–80
[2020-08-03 05:03] LABS: BASOPHILS % 0.4 % (0.0-1.0); EOSINOPHILS # (AUTO) 0.3 (0.0-0.4); EOSINOPHILS % 4.5 % (0.0-6.0); HEMOGLOBIN 8.2 g/dL (12.0-16.0); LYMPHOCYTES # (AUTO) 0.6 (1.0-3.2); LYMPHOCYTES % 11.5 % (18.0-39.1); MEAN CORPUSCULAR HEMOGLOBIN 30.3 pg (28-32); MEAN CORPUSCULAR HGB CONC 30.4 g/dL (31-35); MEAN CORPUSCULAR VOLUME 99.6 fL (81-99); MONOCYTES # (AUTO) 0.9 (0.2-0.8); MONOCYTES % 15.8 % (4.4-11.3); NEUTROPHILS # (AUTO) 3.8 (2.1-6.9); NEUTROPHILS % 67.4 % (38.7-80.0); PLATELET COUNT 98 x10e3/uL (140-360); RED BLOOD COUNT 2.71 x10e6/uL (3.6-5.1); RED CELL DISTRIBUTION WIDTH 18.5 % (11.7-14.4)
[2020-08-03] MEDS: HEPARIN SOD (PORCINE) 5,000 UNIT/ML VIAL SC SCH ×3 (05:03→21:22)
[2020-08-03 05:16] LABS: INR 1.25; PROTHROMBIN TIME 16.4 seconds (11.9-14.5)
[2020-08-03 05:41] LABS: THYROID STIMULATING HORMONE 2.631 uIU/mL (0.350-4.940)
[2020-08-03] MEDS: LEVOTHYROXINE SODIUM 50 MCG TAB PO SCH (08:17)
[2020-08-03] MEDS: METOPROLOL TARTRATE 25 MG TAB PO SCH ×2 (08:18→16:38)
[2020-08-03] MEDS: CALCIUM ACETATE 667 MG GELCAP PO SCH ×3 (08:19→20:37)
[2020-08-03] MEDS: FUROSEMIDE INJ 10 MG/ML 4 ML VIAL IV SCH ×2 (08:20→12:34)
[2020-08-03] MEDS ORDERED: HYDROXYZINE HCL 10 MG TAB PO PRN (09:30)
[2020-08-03] MEDS ORDERED: WARFARIN SOD 5 MG TAB PO ONE (10:00)
[2020-08-03] MEDS ORDERED: EPOETIN ALFA-EPBX 10,000 UNIT/ML VIAL SC ONE (10:00)
[2020-08-03] MEDS: IRON SUCROSE 100 MG in SODIUM CHLORIDE 0.9% 100 ML 100 ML IV SCH (12:45)
[2020-08-03] MEDS ORDERED: SODIUM CHLORIDE 0.9% 250ML 250 ML ONE (12:48)
[2020-08-03] MEDS ORDERED: DEXTROSE 50% SYRINGE 50 ML IV PRN (14:15)
[2020-08-03] MEDS: ACETAMINOPHEN/CODEINE 300MG - 30MG TAB PO PRN ×3 (15:04→23:18)
[2020-08-03] MEDS: INSULIN LISPRO 100 UNIT/1 ML 3ML VIAL SQ SCH ×2 (16:40→20:30)
[2020-08-03] MEDS: ATORVASTATIN 10 MG TAB PO SCH (20:37)
[2020-08-04] VITALS (8 sets, daily range): BP systolic 109–136; BP diastolic 27–60
[2020-08-04] MEDS: HEPARIN SOD (PORCINE) 5,000 UNIT/ML VIAL SC SCH ×3 (04:51→20:52)
[2020-08-04 05:23] LABS: INR 1.35; PROTHROMBIN TIME 17.4 seconds (11.9-14.5)
[2020-08-04] MEDS: ACETAMINOPHEN/CODEINE 300MG - 30MG TAB PO PRN ×3 (06:43→20:16)
[2020-08-04] MEDS: INSULIN LISPRO 100 UNIT/1 ML 3ML VIAL SQ SCH ×4 (07:30→20:51)
[2020-08-04] MEDS: FUROSEMIDE INJ 10 MG/ML 4 ML VIAL IV SCH ×2 (08:00→13:34)
[2020-08-04] MEDS ORDERED: SODIUM CHLORIDE 0.9% 1000ML 2,000 ML ONE (08:21)
[2020-08-04] MEDS: METOPROLOL TARTRATE 25 MG TAB PO SCH ×2 (09:00→16:46)
[2020-08-04] MEDS ORDERED: WARFARIN SOD 3 MG TAB PO ONE (09:30)
[2020-08-04] MEDS: CALCIUM ACETATE 667 MG GELCAP PO SCH ×3 (09:33→20:47)
[2020-08-04] MEDS ORDERED: SODIUM CHLORIDE 0.9% 1000ML 2,000 ML IV PRN (10:15)
[2020-08-04] MEDS ORDERED: SODIUM CHLORIDE 0.9% 250ML 750 ML IV PRN (10:15)
[2020-08-04] MEDS ORDERED: ALBUMIN 25% 12.5GM 0.25 GM/ML BTL IV PRN (10:15)
[2020-08-04] MEDS: LEVOTHYROXINE SODIUM 50 MCG TAB PO SCH (11:33)
[2020-08-04] MEDS: IRON SUCROSE 100 MG in SODIUM CHLORIDE 0.9% 100 ML 100 ML IV SCH (13:39)
[2020-08-04] MEDS: ATORVASTATIN 10 MG TAB PO SCH (20:47)
[2020-08-05] VITALS (7 sets, daily range): BP systolic 113–136; BP diastolic 44–92
[2020-08-05 05:24] LABS: INR 1.74; PROTHROMBIN TIME 21.1 seconds (11.9-14.5)
[2020-08-05] MEDS: HEPARIN SOD (PORCINE) 5,000 UNIT/ML VIAL SC SCH ×3 (05:32→22:00)
[2020-08-05] MEDS: ACETAMINOPHEN/CODEINE 300MG - 30MG TAB PO PRN ×3 (07:16→21:00)
[2020-08-05] MEDS: INSULIN LISPRO 100 UNIT/1 ML 3ML VIAL SQ SCH ×4 (07:30→21:00)
[2020-08-05] MEDS ORDERED: WARFARIN SOD 5 MG TAB PO ONE (09:15)
[2020-08-05] MEDS: LEVOTHYROXINE SODIUM 50 MCG TAB PO SCH (09:23)
[2020-08-05] MEDS: CALCIUM ACETATE 667 MG GELCAP PO SCH ×3 (09:24→21:00)
[2020-08-05] MEDS: FUROSEMIDE INJ 10 MG/ML 4 ML VIAL IV SCH ×2 (09:24→12:19)
[2020-08-05] MEDS: METOPROLOL TARTRATE 25 MG TAB PO SCH ×2 (09:24→16:38)
[2020-08-05] MEDS: IRON SUCROSE 100 MG in SODIUM CHLORIDE 0.9% 100 ML 100 ML IV SCH (10:23)
[2020-08-05] MEDS: ATORVASTATIN 10 MG TAB PO SCH (21:00)
[2020-08-06 00:34] VITALS: BP 85/46
[2020-08-06 04:00] VITALS: BP 143/59
[2020-08-06] MEDS ORDERED: LEVOTHYROXINE SODIUM 50 MCG TAB PO SCH (06:00)
[2020-08-06] MEDS: HEPARIN SOD (PORCINE) 5,000 UNIT/ML VIAL SC SCH (06:00)
[2020-08-06 06:06] LABS: INR 2.5; PROTHROMBIN TIME 27.8 seconds (11.9-14.5)
[2020-08-06] MEDS: INSULIN LISPRO 100 UNIT/1 ML 3ML VIAL SQ SCH ×2 (07:30→10:52)
[2020-08-06 08:38] VITALS: BP 139/65
[2020-08-06] MEDS: CALCIUM ACETATE 667 MG GELCAP PO SCH (08:39)
[2020-08-06] MEDS: FUROSEMIDE INJ 10 MG/ML 4 ML VIAL IV SCH ×2 (08:39→11:36)
[2020-08-06] MEDS: METOPROLOL TARTRATE 25 MG TAB PO SCH (08:39)
[2020-08-06 08:40] VITALS: BP 123/54
[2020-08-06 08:42] VITALS: BP 74/48
[2020-08-06] MEDS ORDERED: WARFARIN SODIUM1 MG PO (11:01)
[2020-08-06] MEDS ORDERED: FUROSEMIDE40 MG PO (11:01)
[2020-08-06] MEDS: ACETAMINOPHEN/CODEINE 300MG - 30MG TAB PO PRN (11:36)
[2020-08-06 12:06] VITALS: BP 126/50
== END 2020-08-06 12:16 | disposition home health service (06) | DRG 291 ==
LOC: ER 15:35 → ERHOLD 16:19 → MED/SURG2 20:18 → ERHOLD 20:19 → MED/SURG2 20:20 → OBSVTOIN 08-02 08:34 → INTOOBSV 08-03 08:34
PROVIDERS: ADMIT Internal Medicine; ATTEND Internal Medicine
PROC: 5A1D70Z Performance of Urinary Filtration, Intermittent, Less than 6 Hours Per Day (ICD-10-PCS; principal; 2020-08-02)
PROC: 5A1D70Z Performance of Urinary Filtration, Intermittent, Less than 6 Hours Per Day (ICD-10-PCS; 2020-08-04)
DX: I13.2 Hypertensive heart and chronic kidney disease with heart failure and with stage 5 chronic kidney disease, or end stage renal disease (principal); N18.6 End stage renal disease; I50.33 Acute on chronic diastolic (congestive) heart failure; E11.22 Type 2 diabetes mellitus with diabetic chronic kidney disease; Z99.2 Dependence on renal dialysis; D64.9 Anemia, unspecified; Z95.2 Presence of prosthetic heart valve; E66.01 Morbid (severe) obesity due to excess calories; Z89.611 Acquired absence of right leg above knee; Z79.01 Long term (current) use of anticoagulants; E11.51 Type 2 diabetes mellitus with diabetic peripheral angiopathy without gangrene; E11.65 Type 2 diabetes mellitus with hyperglycemia; R53.81 Other malaise; Z68.30 Body mass index [BMI] 30.0-30.9, adult; Z20.822 Contact with and (suspected) exposure to COVID-19
CPT/HCPCS: 36415; 71045; 80053; 82140; 82550; 82553; 82607; 82746; 82948; 83036; 83540; 83690; 83880; 84443; 84466; 84484; 85025; 85610; 90962; 93005; 93306; 93971; 96372; 99251; 99284; G0378; J1644; J1756; J1940; J3410; J7030; J7050; U0002

== ENCOUNTER 2020-09-28 12:32 | Emergency (ER) | payer MEDICARE, OTHER ==
[~2020-09-28] VITALS: Ht 157.5 cm; Wt 68.0 kg
[~2020-09-28 12:32] MED LIST changes: +HYDROXYZINE HCL25 MG PO; +METOCLOPRAMIDE H5 M1 PO; +NEURONTIN100 MG PO; +ONE DAILY FOR1 EAC3 PO; +RENA-VITE RX T1 EACH PO; +TYLENOL # 31 EA PO
[2020-09-28] MEDS ORDERED: PANTOPRAZOLE SO40 MG PO (13:02)
[2020-09-28] MEDS ORDERED: ASPIRIN EC81 MG PO (13:02)
[2020-09-28] MEDS ORDERED: METHYLPREDNISOLO4 MG (13:02)
[2020-09-28] MEDS ORDERED: ALENDRONATE SOD70 MG (13:02)
[2020-09-28] MEDS ORDERED: HUMALOG100 UNIT/1 (13:02)
[2020-09-28] MEDS ORDERED: PLAVIX75 MG PO (13:02)
[2020-09-28] MEDS ORDERED: TYLENOL # 31 EA PO (17:04)
[2020-09-28] MEDS ORDERED: CEFDINIR300 MG PO (17:08)
[2020-09-28] MEDS ORDERED: NYSTATIN15 GM TOP (17:09)
[2020-09-28] MEDS ORDERED: CEFTRIAXONE 1 GM VIAL ONE (17:12)
[2020-09-28] MEDS ORDERED: SODIUM CHLORIDE 0.9% 50ML 50 ML ONE (17:12)
[2020-09-28] MEDS ORDERED: CEFTRIAXONE 1 GM VIAL IV ONE (17:15)
[2020-09-28] MEDS ORDERED: CEFTRIAXONE 1 GM in SODIUM CHLORIDE 0.9% 50ML 50 ML IV ONE (17:15)
== END 2020-09-28 17:23 | disposition home or self-care (01) ==
LOC: FSED 13:10
DX: R10.31 Right lower quadrant pain (principal); N39.0 Urinary tract infection, site not specified; I12.0 Hypertensive chronic kidney disease with stage 5 chronic kidney disease or end stage renal disease; E11.22 Type 2 diabetes mellitus with diabetic chronic kidney disease; N18.6 End stage renal disease; Z99.2 Dependence on renal dialysis; D64.9 Anemia, unspecified; E78.5 Hyperlipidemia, unspecified; Z95.2 Presence of prosthetic heart valve; Z89.611 Acquired absence of right leg above knee
CPT/HCPCS: 74176; 80048; 80076; 81003; 85025; 87086; 87186; 99284; J0696

== ENCOUNTER 2020-10-07 10:26 | Emergency (ER) | payer MEDICARE ==
[~2020-10-07] VITALS: Ht 152.4 cm; Wt 67.6 kg
[~2020-10-07 10:26] MED LIST changes: +ALENDRONATE SOD70 MG; +ASPIRIN EC81 MG PO; +CEFDINIR300 MG PO; +HUMALOG100 UNIT/1; +METHYLPREDNISOLO4 MG; +NYSTATIN15 GM TOP; +PANTOPRAZOLE SO40 MG PO; +PLAVIX75 MG PO
[2020-10-07] MEDS ORDERED: NEURONTIN100 MG PO (10:47)
[2020-10-07] MEDS ORDERED: VALTREX1000 MG PO (10:47)
[2020-10-07] MEDS ORDERED: TYLENOL # 31 EA PO (10:47)
== END 2020-10-07 10:53 | disposition home or self-care (01) ==
LOC: FSED 10:34
DX: B02.23 Postherpetic polyneuropathy (principal); I12.9 Hypertensive chronic kidney disease with stage 1 through stage 4 chronic kidney disease, or unspecified chronic kidney disease; E11.22 Type 2 diabetes mellitus with diabetic chronic kidney disease; N18.9 Chronic kidney disease, unspecified; Z99.2 Dependence on renal dialysis; E78.5 Hyperlipidemia, unspecified; D64.9 Anemia, unspecified; Z89.611 Acquired absence of right leg above knee
CPT/HCPCS: 99282

== ENCOUNTER 2020-10-08 20:06 | Inpatient (IN) | payer MEDICARE ==
[~2020-10-08] VITALS: Ht 157.5 cm; Wt 67.6 kg
[~2020-10-08 20:06] MED LIST changes: +VALTREX1000 MG PO
[2020-10-08 20:37] LABS: BASOPHILS # (AUTO) 0.1 (0.0-0.1); BASOPHILS % 0.4 % (0.0-1.0); EOSINOPHILS # (AUTO) 0.4 (0.0-0.4); EOSINOPHILS % 2.8 % (0.0-6.0); HEMOGLOBIN 10.5 g/dL (12.0-16.0); LYMPHOCYTES # (AUTO) 0.6 (1.0-3.2); MEAN CORPUSCULAR HEMOGLOBIN 30.1 pg (28-32); MEAN CORPUSCULAR HGB CONC 30.9 g/dL (31-35); MEAN CORPUSCULAR VOLUME 97.4 fL (81-99); MONOCYTES # (AUTO) 0.9 (0.2-0.8); MONOCYTES % 7.1 % (4.4-11.3); NEUTROPHILS # (AUTO) 10.7 (2.1-6.9); NEUTROPHILS % 84.1 % (38.7-80.0); PLATELET COUNT 191 x10e3/uL (140-360); RED BLOOD COUNT 3.49 x10e6/uL (3.6-5.1)
[2020-10-08 20:54] LABS: ALBUMIN 2.5 g/dL (3.5-5.0); ALBUMIN/GLOBULIN RATIO 0.6 (0.8-2.0); ANION GAP 22.9 mmol/L (8-16); CALCIUM 9.5 mg/dL (8.4-10.2); CREATININE, SERUM 5.29 mg/dL (0.57-1.11); POTASSIUM 4.9 mmol/L (3.5-5.1)
[2020-10-08 21:01] LABS: CREATINE KINASE MB 1.1 ng/mL (0-5.0)
[2020-10-08 21:23] LABS: B-TYPE NATRIURETIC PEPTIDE2 8053.3 pg/mL (0-100)
[2020-10-08 21:51] LABS: INR 2.59
[2020-10-08 21:52] LABS: PARTIAL THROMBOPLASTIN TIME 49.7 seconds (23.8-35.5)
[2020-10-08] MEDS ORDERED: ACETAMINOPHEN 650 MG SUPP PR ONE (22:00)
[2020-10-09 04:47] VITALS: BP 87/62
[2020-10-09 07:16] LABS: BASOPHILS % 0.3 % (0.0-1.0); EOSINOPHILS # (AUTO) 0.1 (0.0-0.4); EOSINOPHILS % 1.1 % (0.0-6.0); HEMATOCRIT 33.4 % (34.2-44.1); HEMOGLOBIN 10.3 g/dL (12.0-16.0); LYMPHOCYTES # (AUTO) 0.4 (1.0-3.2); LYMPHOCYTES % 3.9 % (18.0-39.1); MEAN CORPUSCULAR HGB CONC 30.8 g/dL (31-35); MEAN CORPUSCULAR VOLUME 97.4 fL (81-99); MONOCYTES # (AUTO) 0.8 (0.2-0.8); MONOCYTES % 7.5 % (4.4-11.3); NEUTROPHILS # (AUTO) 9.4 (2.1-6.9); NEUTROPHILS % 86.6 % (38.7-80.0); PLATELET COUNT 163 x10e3/uL (140-360); RED BLOOD COUNT 3.43 x10e6/uL (3.6-5.1); RED CELL DISTRIBUTION WIDTH 19.7 % (11.7-14.4)
[2020-10-09] MEDS ORDERED: NEURONTIN100 MG PO (07:19)
[2020-10-09] MEDS ORDERED: FERROUS SULFAT325 MG PO (07:19)
[2020-10-09] MEDS ORDERED: EPOGEN10000 UNIT SQ (07:19)
[2020-10-09] MEDS ORDERED: FUROSEMIDE40 MG PO (07:19)
[2020-10-09] MEDS ORDERED: HYDROXYZIN10 MG/5 ML PO (07:19)
[2020-10-09 07:43] LABS: ALBUMIN 2.2 g/dL (3.5-5.0); ALBUMIN/GLOBULIN RATIO 0.6 (0.8-2.0); ANION GAP 19.6 mmol/L (8-16); CREATININE, SERUM 5.82 mg/dL (0.57-1.11); POTASSIUM 4.6 mmol/L (3.5-5.1)
== END 2020-10-09 15:38 | disposition hospice, home (50) | DRG 871 ==
LOC: ER 20:24 → ERHOLD 22:24 → MED/SURG3 23:01
PROVIDERS: ADMIT Internal Medicine; ATTEND Internal Medicine
DX: A41.9 Sepsis, unspecified organism (principal); R65.21 Severe sepsis with septic shock; N18.6 End stage renal disease; G92 Toxic encephalopathy; I13.11 Hypertensive heart and chronic kidney disease without heart failure, with stage 5 chronic kidney disease, or end stage renal disease; Z99.2 Dependence on renal dialysis; Z79.01 Long term (current) use of anticoagulants; Z95.2 Presence of prosthetic heart valve; I73.9 Peripheral vascular disease, unspecified; Z89.611 Acquired absence of right leg above knee; Z20.822 Contact with and (suspected) exposure to COVID-19; Z74.09 Other reduced mobility
CPT/HCPCS: 36415; 70450; 71045; 80053; 82140; 82550; 82553; 82948; 83605; 83880; 84484; 85025; 85610; 85730; 87040; 93005; 99285; U0002